=== PATIENT | male | born 1965 | race Caucasian/White ===

== ENCOUNTER 2019-04-10 19:57 | Emergency (ER) | payer OTHER, SELFPAY ==
--- NOTE | 2019-04-10 20:07 | PC.NURSE ---
PT VERBALLY UPSET THAT HE HAD TO WAIT, STATES YOU KNOW WHAT, FUCK YOU. AMBULATED OUT OF DOOR.
== END 2019-04-10 20:07 | disposition left against medical advice (07) ==
LOC: ANHED 20:09
DX: Z53.21 Procedure and treatment not carried out due to patient leaving prior to being seen by health care provider (principal)
CPT/HCPCS: 99199

== ENCOUNTER 2019-04-11 11:35 | Emergency (ER) | payer OTHER, SELFPAY ==
[2019-04-11 11:40] VITALS: BP 163/86; PULSE 106; RESP 18; TEMP 36.4; O2SAT 100
[2019-04-11 12:00] VITALS: BP 145/89; PULSE 81; RESP 16; TEMP 36.2; O2SAT 100; O2SAT 99
[2019-04-11 12:06] VITALS: PULSE 88; RESP 18
[2019-04-11] MEDS: ALBUTEROL SULFATE NEB 2.5 MG/0.5 ML INH 5 MG INHALATION (12:06)
[2019-04-11] MEDS: IPRATROPIUM BR 0.02% INH SOLN 0.5 MG/2.5 ML VIAL INHALATION (12:06)
--- NOTE | 2019-04-11 12:39 | ED.SOB ---
HPI - SOB/Dyspnea General Chief Complaint: Shortness of Breath/Dyspnea <Jose Maria Lowe PA-C - Last Filed: 04/11/19 12:54> Stated Complaint: asthma <CARSON Thurston Last Filed: 04/11/19 12:54> Time Seen by Provider: 04/11/19 11:38 <CARSON Thurston Last Filed: 04/11/19 12:54> Source: patient <CARSON Thurston Last Filed: 04/11/19 12:54> Mode of arrival: ambulatory <CARSON Thurston Last Filed: 04/11/19 12:54> Limitations: no limitations <CARSON Thurston Last Filed: 04/11/19 12:54> History of Present Illness HPI Narrative: Patient presents with chief complaint of occasional cough that has been asthma exacerbation today. Patient states that he is out of his rescue inhaler. Patient states he has not noted wheezing or actual shortness of breath. Patient denies fever, chills, nausea, vomiting, diarrhea, body aches or any other symptoms. Patient states he is in the ER for a breathing treatment and inhaler refill. He would also like medication for cough. <CARSON Thurston Last Filed: 04/11/19 12:54> Related Data Allergies/Adverse Reactions: Allergies Allergy/AdvReac Type Severity Reaction Status Date / Time No Known Allergies Allergy Verified 02/26/19 19:12 <Jose Maria Lowe PA-C - Last Filed: 04/11/19 12:54> Review of Systems Review of Systems: Narrative: CONSTITUTIONAL: Denies fever, chills, or sweats. EYES: Denies visual changes, redness, or discharge. ENT: Denies rhinorrhea, congestion, sore throat, or otalgia. CARDIOVASCULAR: Denies chest pain, palpitations, or edema. RESPIRATORY: Reports cough denies dyspnea. GASTROINTESTINAL: Denies abdominal pain, nausea, vomiting, or diarrhea. GENITOURINARY: Denies dysuria or hematuria. SKIN: Denies rash or itching. MUSCULOSKELETAL: Denies back pain, joint pain, or myalgia. NEUROLOGIC: Denies headache, numbness, dizziness, or weakness. PSYCHIATRIC: Denies anxiety or depression. <Jose Maria Lowe PA-C - Last Filed: 04/11/19 12:54> PMFSH Family History Family History: Family History (Updated 12/09/15 @ 15:08 by DOCTOR UNKNOWN) Other Family history of malignant neoplasm <Jose Maria Lowe PA-C - Last Filed: 04/11/19 12:54> Social History Social History: Social History Smoking status: Never smoker Alcohol intake: current Gender identity (if verbalized by the patient): Male <Jose Maria Lowe PA-C - Last Filed: 04/11/19 12:54> Exam Narrative: Exam Narrative: GENERAL: Well-appearing, well-nourished, and in no acute distress. Patient smiling and laughing and talking without signs of discomfort. HEAD: Normocephalic, atraumatic. EYES: PERRLA and EOMI. ENT: Nares clear, no rhinorrhea or epistaxis. Mucous membranes moist. Oropharynx without tonsillar hypertrophy exudate or other lesions. Bilateral TMs pearly reid nonbulging NECK: Supple. No adenopathy or masses. No carotid bruits or JVD CHEST: Clear to auscultation. No respiratory distress. No wheezes rales or rhonchi. No tachypnea. HEART: Regular rate and rhythm. No murmur heard. Normal peripheral pulses. EXTREMITIES: Normal range of motion. No edema. SKIN: Warm, dry, no rash. NEURO: No focal deficits. Alert and oriented x3. PSYCH: Normal mood and affect. <Jose Maria Lowe PA-C - Last Filed: 04/11/19 12:54> Course Vital Signs Vital signs: Vital Signs Temperature 36.4 C 04/11/19 11:40 Pulse Rate 106 H 04/11/19 11:40 Respiratory Rate 18 04/11/19 11:40 Blood Pressure 163/86 H 04/11/19 11:40 Pulse Oximetry 100 04/11/19 11:40 Temperature 36.6 C 04/11/19 13:01 Pulse Rate 85 04/11/19 13:01 Respiratory Rate 20 04/11/19 13:01 Blood Pressure 130/88 04/11/19 13:01 Pulse Oximetry 97 04/11/19 13:01 <Jose Maria Lowe PA-C - Last Filed: 04/11/19 12:54> Vital Signs Temperature 36.4 C 04/11/19 11:40 Pulse Rate 106 H 02
--- NOTE | 2019-04-11 12:56 | ECG_ITS ---
Measurements Intervals [place] Rate: 91 P: 23 [place]: 144 QRS: 31 QRSD: 102 T: 6 QT: 346 QTc: 426 Interpretive Statements SINUS RHYTHM BORDERLINE T WAVE ABNORMALITY- INFERIOR LEADS BORDERLINE ECG Electronically Signed On 04-11-2019 13:07:54 OCCUPATIONAL HEALTH AND SAFETY OFFICER by Андрей Keyes D.O.
[2019-04-11 13:01] VITALS: BP 130/88; PULSE 85; RESP 20; TEMP 36.6; O2SAT 97
== END 2019-04-11 13:04 | disposition home or self-care (01) ==
PROVIDERS: Emergency Provider Family Medicine
DX: J45.901 Unspecified asthma with (acute) exacerbation (principal); R94.31 Abnormal electrocardiogram [ECG] [EKG]
CPT/HCPCS: 93005; 94640; 99283

== ENCOUNTER 2019-04-18 02:44 | Emergency (ER) | payer OTHER, SELFPAY ==
--- NOTE | ~2019-04-18 | XR_ITS ---
EXAMINATION: XR chest 2V DATE: 04/18/2019 03:44 INDICATION: Cough and shortness of breath. TECHNIQUE: Frontal and lateral views of the chest were obtained. COMPARISON: Chest 2 views 04/04/2018, chest CT 07/21/2017 FINDINGS: There are lucencies in the lungs, consistent with emphysema. There is mild atelectasis in r ight mid and lower lung zones and left lower lung zone. A calcified right lung nodule is consistent w ith old granulomatous disease. No pleural effusion or pneumothorax. The heart size is normal. IMPRESSION: 1. Mild atelectasis in right mid and lower lung zones and left lower lung zone. 2. Emphysema. Reviewed, dictated and finalized at location A. PHONE CLEANER
[2019-04-18 02:49] VITALS: BP 173/98; PULSE 109; RESP 20; TEMP 36.1; O2SAT 100
[2019-04-18 03:03] VITALS: O2SAT 100
--- NOTE | 2019-04-18 03:06 | ECG_ITS ---
Measurements Intervals [place] Rate: 94 P: 43 [place]: 136 QRS: 57 QRSD: 107 T: 5 QT: 346 QTc: 433 Interpretive Statements SINUS RHYTHM NONSPECIFIC T-WAVE ABNORMALITY- INFERIOR LEADS BORDERLINE ECG Electronically Signed On 04-18-2019 7:05:39 DIET AIDE by Андрей Keyes D.O.
--- NOTE | 2019-04-18 03:07 | ED.URI ---
HPI - URI/Sore Throat General Chief Complaint: Upper Respiratory Infection Stated Complaint: cough/ possible lung infection/ SOB Time Seen by Provider: 04/18/19 02:59 Source: patient Mode of arrival: ambulatory Limitations: other (poor historian) History of Present Illness HPI Narrative: 53 yo male who presents for evaluation of a severe cough and chest pain. Patient states he was seen 1 week ago for a cough, and today he has returned because he has a severe cough. He states he sleeps in a room with wet carpet so he is concerned about a lung infection. He also states he is having sob and chest pain . He states his chest pain is located midsternally and he feels pain when he coughs. He is unsure if he has a fever. He states he wants a z roland and something for the cough. MD elicited complaint: cough Related Data Allergies Allergy/AdvReac Type Severity Reaction Status Date / Time amoxicillin AdvReac Nausea and Verified 04/18/19 02:56 Vomiting Review of Systems Constitutional: Constitutional: Denies chills, Denies fever(s) and Denies weakness ENT: Denies dysphagia, Denies epistaxis and Denies sore throat Cardiovascular: Cardiovascular: Reports chest pain and Denies rapid heart rate Respiratory: Respiratory: Denies chest congestion, Reports dyspnea and Denies wheezing PMFSH Past Medical History Medical History Anxiety Asthma Back injury Bronchitis Depression Epistaxis HLD (hyperlipidemia) HTN (hypertension) Kidney stone Pneumonia Pulmonary emboli Schizophrenia Suicide attempt Surgical History Surgical History Hx of appendectomy 1978 Hx of tonsillectomy Family History Family History (Updated 12/09/15 @ 15:08 by DOCTOR UNKNOWN) Other Family history of malignant neoplasm Social History Social History Smoking status: Never smoker Alcohol intake: current Gender identity (if verbalized by the patient): Male Exam Narrative: Exam Narrative: GENERAL: Well-appearing, well-nourished, and in no acute distress. HEAD: Normocephalic, atraumatic EYES: PERRLA and EOMI, conjunctiva clear without discharge EARS: TM's clear bilaterally without erythema or dullness NOSE: Nares clear, no rhinorrhea or epistaxis THROAT:Mucous membranes moist, Oropharynx normal without erythema, exudate, peritonsillar swelling or fluctuance NECK: Supple, without lymphadenopathy or mass RESPIRATORY: No respiratory distress, Airway patent, Respirations non-labored, Clear to auscultation without rales, rhonchi or wheeze HEART: Regular rate and rhythm. No murmur heard. Normal peripheral pulses. ABDOMEN: Soft, nontender, nondistended, normal active bowel sounds. No masses. No rebound or guarding, No organomegaly. EXTREMITIES: No edema, normal strength with full range of motion. SKIN: Warm, dry, normal color without rash NEURO: Alert and oriented x3. CN 2-12 grossly intact. No focal deficits. PSYCH: Normal mood and affect. Course Vital Signs Vital signs: Vital Signs Temperature 97.0 F L 04/18/19 02:49 Pulse Rate 109 H 04/18/19 02:49 Respiratory Rate 20 04/18/19 02:49 Blood Pressure 173/98 H 04/18/19 02:49 Pulse Oximetry 100 04/18/19 02:49 Temperature 97.0 F L 04/18/19 02:49 Pulse Rate 109 H 04/18/19 02:49 Respiratory Rate 20 04/18/19 02:49 Blood Pressure 173/98 H 04/18/19 02:49 Pulse Oximetry 100 04/18/19 03:03 MDM - URI/Sore Throat Lab Data Attestation: I reviewed the patient's lab results. Result diagrams: 04/18/19 03:13 04/18/19 03:13 Labs: Lab Results 04/18/19 04/18/19 04/18/19 Range/Units 03:13 03:13 03:13 WBC 6.1 (4.5-10.0) K/mm3 RBC 4.02 L (4.6-6.20) M/mm3 Hgb 12.8 L (14.0-18.0) g/dL Hct 37.6 L (42.0-52.0) % MCV 93.5 (80-100) fl MCH 31.8
[2019-04-18 03:18] LABS: Basophils Absolute Auto 0.1 K/mm3 (0.0-0.1); Basophils Percent Auto 1.5 % (0.2-1.2); Eosinophils Absolute Auto 0.2 K/mm3 (0-0.3); Eosinophils Percent Auto 2.6 % (0-4.4); Hematocrit 37.6 % (42.0-52.0); Hemoglobin 12.8 g/dL (14.0-18.0); Immature Granulocyte Absolute 0.11 K/mm3 (0.00-0.031); Immature Granulocyte Percent A 1.8 % (0-0.5); Lymphocytes Absolute Auto 0.79 K/mm3 (0.9-3.2); Lymphocytes Percent Auto 12.9 % (18.3-44.2); Mean Corpuscular Hemoglobin 31.8 pg (26-34); Mean Corpuscular Volume 93.5 fl (80-100); Mean Platelet Volume 9.1 fl (7.4-10.4); Monocytes Absolute Auto 0.8 K/mm3 (0.1-0.6); Neutrophils Absolute Auto 4.2 K/mm3 (1.3-6.7); Neutrophils Percent Auto 68.2 % (45.5-73.1); Platelet Count Result 274 k/mm3 (150-375); Red Blood Count 4.02 M/mm3 (4.6-6.20); Red Cell Distribution Width 12.7 % (11.5-14.5); White Blood Count 6.1 K/mm3 (4.5-10.0)
[2019-04-18 03:31] LABS: Alanine Aminotransferase 23 U/L (4-50); Albumin Level 3.9 g/dL (3.5-5.1); Alkaline Phosphatase 85 U/L (38-126); Aspartate Amino Transferase 30 U/L (17-59); Bilirubin,Total 0.6 mg/dL (0.2-1.3); Blood Urea Nitrogen 10 mg/dL (9-20); Calcium 8.9 mg/dL (8.4-10.2); Carbon Dioxide 25 mmol/L (22-30); Chloride 107 mmol/L (98-107); Estimated CRCL calculation 117 ml/min; Estimated Glomerular Filt Rate > 60; Glucose 98 mg/dL (75-110); Potassium 3.5 mmol/L (3.4-5.0); Sodium 139 mmol/L (137-145)
[2019-04-18 04:15] VITALS: BP 169/98; PULSE 94; RESP 20; TEMP 36.6; O2SAT 100
== END 2019-04-18 04:18 | disposition home or self-care (01) ==
PROVIDERS: Emergency Provider General Practice
DX: J45.909 Unspecified asthma, uncomplicated (principal); E78.5 Hyperlipidemia, unspecified; I10 Essential (primary) hypertension; Z87.442 Personal history of urinary calculi; Z86.711 Personal history of pulmonary embolism; R94.31 Abnormal electrocardiogram [ECG] [EKG]
CPT/HCPCS: 36415; 71046; 80053; 85025; 85380; 87804; 93005; 99283

== ENCOUNTER 2019-04-19 12:22 | Emergency (ER) | payer OTHER, SELFPAY ==
--- NOTE | ~2019-04-19 | XR_ITS ---
XR chest 2V 04/19/2019 13:38 Indication: Shortness of breath and cough Procedure: 2 view chest Comparison: Comparison to multiple prior studies sequentially, with oldest reviewed study dated 08/07. Findings: Heart size normal. No focal air space disease, pulmonary edema, pleural effusion or suspect ed pneumothorax. No acute osseous abnormality. Impression: 1: No acute cardiopulmonary disease. Reviewed, dictated and finalized at location A. ITY SYSTEMS ENGINEER Impression: 1: No acute cardiopulmonary disease.
[2019-04-19 12:32] VITALS: BP 145/115; PULSE 124; RESP 18; TEMP 36.9; O2SAT 98
--- NOTE | 2019-04-19 13:03 | ED.HA ---
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 Pt states that he has had a constant FARMER for the past 3 days. He describes the FARMER as sharp, throbbing, and a pressure and rates the pain an 8/10 in severity in the ED. He notes that he took Ibuprofen for the FARMER with no relief. Pt reports SOB, cough, subjective fever, ABD pain, and rib pain, but denies N/V. He adds that the ABD pain and rib pain started after he began coughing. Pt was seen 2 days ago for the cough and was given Tessalon Perles with no relief. He used an inhaler for the SOB with no relief. Pt has a PMHx of schizophrenia and herniated disc. He is a nonsmoker and denies any recent drug or alcohol use. MD elicited complaint: headache Onset (ago): day(s) (3) Location: frontal and parietal Pain scale (0-10): 8 Quality & Timing: throbbing, sharp and pressure Relieving factors: nothing Associated symptoms: fever (Subjective), cough, shortness of breath and other (ABD pain, rib pain) Treatments prior to arrival: ibuprofen Related Data Allergies Allergy/AdvReac Type Severity Reaction Status Date / Time amoxicillin AdvReac Nausea and Verified 04/19/19 12:47 Vomiting Review of Systems Review of Systems: All systems reviewed & are unremarkable except as noted in HPI and below Constitutional: Constitutional: Reports fever(s) (Subjective) Respiratory: Respiratory: Reports cough and Reports dyspnea Gastrointestinal: Gastrointestinal: Reports abdominal pain, Denies nausea and Denies vomiting Musculoskeletal: Musculoskeletal: Reports arthralgias (Rib) Neurologic: Reports headache(s) [facility] Past Medical History Medical History (Updated 04/19/19 @ 15:02 by Enriqueta Martin MD) Anxiety Asthma Back injury Bronchitis Depression Epistaxis Herniated disc History of angina HLD (hyperlipidemia) HTN (hypertension) Kidney stone Pneumonia Pulmonary emboli Schizophrenia Suicide attempt Surgical History Surgical History Hx of appendectomy 1977 Hx of tonsillectomy Family History Family History Other Family history of malignant neoplasm Social History Social History Smoking status: Never smoker Alcohol intake: current Gender identity (if verbalized by the patient): Male Exam Const: General: no acute distress and well developed Orientation/consciousness: oriented to person, oriented to place, oriented to time and patient oriented x3 HENMT: Head: normocephalic Ears: external ears normal General nose exam: Normal external nose present Eyes: General: appearance normal, both eyes and all related structures Conjunctivae: conjunctivae normal Neck: Neck: normal visual inspection and full ROM Chest: Chest palpation & inspection: normal inspection of the chest and no tenderness Resp: Effort & Inspection: normal respiratory effort Auscultation: clear to auscultation bilaterally Cardio: Rate: regular rate Rhythm: regular rhythm GI: GI Palp: No abdominal tenderness and Yes Soft to palpation Skin: General skin exam: normal color and turgor normal Neuro: General: oriented to person, oriented to place, oriented to time and patient oriented x3 Cranial nerves: Yes CN's II-XII intact bilaterally Cognition (Neuro): normal cognition Speech: normal speech Motor exam (neuro): 5/5 motor strength present throughout Sensory Exam: normal sensation Coordination: [id number] test normal and [id number] test normal Extrem: General: normal to inspection, full ROM and no pedal edema Psych: Appearance: grossly normal Mental Status: mental status grossly normal Affect:
[2019-04-19 13:30] LABS: Basophils Absolute Auto 0.1 K/mm3 (0.0-0.1); Basophils Percent Auto 1.6 % (0.2-1.2); Eosinophils Absolute Auto 0.1 K/mm3 (0-0.3); Eosinophils Percent Auto 2.1 % (0-4.4); Hematocrit 40.9 % (42.0-52.0); Hemoglobin 13.7 g/dL (14.0-18.0); Immature Granulocyte Absolute 0.05 K/mm3 (0.00-0.031); Immature Granulocyte Percent A 1.2 % (0-0.5); Lymphocytes Absolute Auto 0.97 K/mm3 (0.9-3.2); Lymphocytes Percent Auto 22.8 % (18.3-44.2); Mean Corpuscular HGB Conc 33.5 g/dl (32-36); Mean Corpuscular Hemoglobin 31.9 pg (26-34); Mean Corpuscular Volume 95.3 fl (80-100); Mean Platelet Volume 9.2 fl (7.4-10.4); Monocytes Absolute Auto 0.8 K/mm3 (0.1-0.6); Monocytes Percent Auto 19.2 % (2.6-8.5); Neutrophils Absolute Auto 2.3 K/mm3 (1.3-6.7); Neutrophils Percent Auto 53.1 % (45.5-73.1); Platelet Count Result 257 k/mm3 (150-375); Red Blood Count 4.29 M/mm3 (4.6-6.20); Red Cell Distribution Width 12.9 % (11.5-14.5); White Blood Count 4.3 K/mm3 (4.5-10.0)
[2019-04-19 13:42] LABS: Blood Urea Nitrogen 10 mg/dL (9-20); Calcium 8.9 mg/dL (8.4-10.2); Carbon Dioxide 28 mmol/L (22-30); Chloride 103 mmol/L (98-107); Estimated CRCL calculation 103 ml/min; Estimated Glomerular Filt Rate > 60; Glucose 92 mg/dL (75-110); Potassium 3.9 mmol/L (3.4-5.0); Sodium 137 mmol/L (137-145)
[2019-04-19] MEDS: SODIUM CHLORIDE 0.9% IV 1,000 ML 999 ML IV CONT (14:19)
[2019-04-19] MEDS: KETOROLAC 30 MG/ML VIAL (*BKC) IV PUSH (14:19)
[2019-04-19] MEDS: METOCLOPRAMIDE HCL INJ 10 MG/2 ML VIAL IV PUSH (14:19)
[2019-04-19 15:44] VITALS: BP 136/80; PULSE 82; RESP 16; O2SAT 100
== END 2019-04-19 15:46 | disposition home or self-care (01) ==
PROVIDERS: Emergency Provider Emergency Medicine
DX: R51 Headache (principal); J06.9 Acute upper respiratory infection, unspecified; J45.909 Unspecified asthma, uncomplicated; E78.5 Hyperlipidemia, unspecified; I10 Essential (primary) hypertension; Z87.442 Personal history of urinary calculi; Z86.711 Personal history of pulmonary embolism
CPT/HCPCS: 36415; 71046; 80048; 85025; 87804; 96361; 96374; 96375; 99284; J1200; J1885; J2765; J7030

== ENCOUNTER 2019-05-12 10:54 | Emergency (ER) | payer OTHER, SELFPAY ==
--- NOTE | ~2019-05-12 | XR_ITS ---
XR chest 1V portable DATE: 05/12/2019 12:01 INDICATION: Cough TECHNIQUE: Portable AP chest on 05/12/2019 at 1150 hours COMPARISON: 04/19/2019 PA and lateral chest FINDINGS: There are bilateral lower lung patchy infiltrates, predominantly involving lower lobes. Normal heart size. No pleural effusion or pulmonary vascular congestion or pneumothorax. IMPRESSION: Bilateral patchy lower lung infiltrates, involving lower lobes Reviewed, dictated and finalized at location B.
--- NOTE | 2019-05-12 11:50 | PC.NURSE ---
PT WALKED OUT AT THIS TIME, THREW HIS WRISTBAND DOWN AND STATED THAT HE WAS LEAVING. 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
--- NOTE | 2019-05-12 12:24 | ED.URI ---
HPI - URI/Sore Throat General Chief Complaint: Upper Respiratory Infection Stated Complaint: PERSISTENT COUGH Time Seen by Provider: 05/12/19 11:29 Related Data Allergies Allergy/AdvReac Type Severity Reaction Status Date / Time amoxicillin AdvReac Nausea and Verified 04/19/19 12:47 Vomiting [facility] Past Medical History Medical History (Updated 04/20/19 @ 00:00 by Pushpa Woodard) Anxiety Asthma Back injury Bronchitis Depression Epistaxis Herniated disc History of angina HLD (hyperlipidemia) HTN (hypertension) Kidney stone Pneumonia Pulmonary emboli Schizophrenia Suicide attempt Surgical History Surgical History Hx of appendectomy 1977 Hx of tonsillectomy Social History Social History Smoking status: Never smoker Alcohol intake: current Gender identity (if verbalized by the patient): Male Exam Narrative: Exam Narrative: GENERAL: Well-appearing, well-nourished, and in no acute distress. CHEST: No respiratory distress. EXTREMITIES: No acute deficits noted. NEURO: No focal deficits. Alert and oriented x3. PSYCH: Normal mood and affect. MDM - URI/Sore Throat MDM Narrative Medical decision making narrative: I walked into the room to talk to and further examine the patient. Patient then pulled his monitors off and walked out of the room despite asking him what was the problem and if there was anything I could do to help him. He did not answer any of my questions regarding his symptoms or allow more in depth physical exam. Discharge Plan Discharge Patient Disposition: Left Without Being Sn Triaged Prescriptions: No Action albuterol sulfate 90 mcg/actuation HFA aerosol inhaler 2 puff INHALATION Q4-5H PRN (Reason: shortness of breath or wheezing) Qty: 6.7 RF: 0 albuterol sulfate [ProAir HFA] 90 mcg/actuation HFA aerosol inhaler 2 puff INHALATION QID PRN (Reason: shortness of breath or wheezing) Qty: 6.7 RF: 0 benzonatate [Tessalon Perles] 100 mg capsule 100 mg PO TID PRN (Reason: cough) Qty: 14 RF: 0 prednisone 50 mg tablet 50 mg PO DAILY Qty: 5 RF: 0 codeine-guaifenesin 10-100 mg/5 mL liquid 10 ml PO Q6H PRN (Reason: cough) Qty: 237 RF: 0 Follow-up/Referrals: UNKNOWN,DOCTOR [Primary Care Provider] - Discharge Date/Time: 05/12/19 12:03
== END 2019-05-12 12:03 | disposition left against medical advice (07) ==
PROVIDERS: Emergency Provider Emergency Medicine
DX: R05 Cough (principal)
CPT/HCPCS: 71045; 99199

== ENCOUNTER 2019-05-12 12:33 | Emergency (ER) | payer OTHER, SELFPAY ==
--- NOTE | 2019-05-12 12:45 | PC.NURSE ---
Pt noted to walk outside of the facility followed by security. Per security pt was seen walking to the front of the facility.
== END 2019-05-12 12:45 | disposition left against medical advice (07) ==
LOC: ANHED 12:47
DX: Z53.21 Procedure and treatment not carried out due to patient leaving prior to being seen by health care provider (principal)
CPT/HCPCS: 99199

== ENCOUNTER 2019-06-10 10:54 | Emergency (ER) | payer OTHER, SELFPAY ==
[2019-06-10 11:22] VITALS: BP 136/88; PULSE 99; RESP 20; TEMP 36.7; O2SAT 97
--- NOTE | 2019-06-10 11:26 | ED.URI ---
HPI - URI/Sore Throat General Chief Complaint: Upper Respiratory Infection Stated Complaint: sob/asthma Time Seen by Provider: 06/10/19 11:27 Source: patient and RN notes reviewed Mode of arrival: ambulatory Limitations: no limitations History of Present Illness HPI Narrative: 53-year-old male presents with concern for running out of his albuterol inhaler. Reports a history of asthma, reports he does not take a daily controller medicine. Reports he has been using his albuterol inhaler 2-3 times daily for the past 1 to 2 weeks. Reports he should take an allergy medicine, however cannot afford an allergy medicine. He denies current cough, fever, shortness of breath, rhinorrhea, nasal congestion, headache, malaise. Reports he last used his albuterol inhaler approximately 2 to 3 hours ago. MD elicited complaint: other (Shortness of breath) Related Data Home Medications Medication Instructions Recorded Confirmed albuterol sulfate INHALATION 06/10/19 06/10/19 Allergies Allergy/AdvReac Type Severity Reaction Status Date / Time amoxicillin AdvReac Nausea and Verified 04/19/19 12:47 Vomiting Review of Systems Review of Systems: Narrative: CONSTITUTIONAL: Denies malaise, chills, sweats, or fever. EYES: Denies visual changes, redness, or discharge. ENT: Denies rhinorrhea, congestion, sinus pain, otalgia or sore throat. CARDIOVASCULAR: Denies chest pain, palpitations, or edema. RESPIRATORY: Denies cough or dyspnea. GASTROINTESTINAL: Denies abdominal pain, nausea, vomiting, diarrhea SKIN: Denies rash or itching. MUSCULOSKELETAL: Denies back pain, joint pain, or myalgia. NEUROLOGIC: Denies numbness, weakness, or headache. PSYCHIATRIC: Denies anxiety or depression. All systems reviewed & are unremarkable except as noted in HPI and below PMFSH Past Medical History Medical History (Updated 06/10/19 @ 11:40 by Lizette العراقي NP) Anxiety Asthma Back injury Bronchitis Depression Epistaxis Herniated disc History of angina HLD (hyperlipidemia) HTN (hypertension) Kidney stone Pneumonia Pulmonary emboli Schizophrenia Suicide attempt Surgical History Surgical History Hx of appendectomy 1978 Hx of tonsillectomy Social History Social History Smoking status: Never smoker Alcohol intake: current Gender identity (if verbalized by the patient): Male Comments At time of signature, agree with nursing past medical, surgical, social and family history. There is no relevant family history pertinent to the presenting complaint Exam Narrative: Exam Narrative: GENERAL: Well-appearing, well-nourished, and in no acute distress. HEAD: Normocephalic, atraumatic. EYES: PERRLA, conjunctivae clear, and EOMI. No nystagmus. ENT: Nares clear, turbinates erythematous with clear rhinorrhea. Mucous membranes moist. TM pearly reid with sharp light reflex bilaterally; no tragal tenderness. Oropharynx without erythema or lesions. Tonsils not enlarged and without exudate. NECK: Supple. CHEST: No respiratory distress. Clear to auscultation. No bony deformities, no asymmetry. Speaks in full sentences. HEART: Regular rate and rhythm. No murmur heard. SKIN: Warm, dry, no rash. NEURO: Alert and oriented x3. PSYCH: Normal mood and affect Course Course Emergency Course: Patient is aware of diagnosis, understands and agrees to treatment plan. Anticipatory guidance given. Patient agrees to follow-up as directed and is aware of reasons to seek care at the emergency department. Portions of this record may have been created with voice recognition software Vital Signs Vital signs: Vital Signs Temperature 98.1 F 06/10/19 11:22 Pulse Rate 99 06/10/19 11:22 Respiratory Rate 20 06/10/19 11:22 Blood Pressure 136/88 06/10/19 11:22 Pulse Oximetry 97 06/10/19 11:22 Temperature 98.1 F 06/10/19 11:22 Pulse Rate 99 06/10/19
== END 2019-06-10 11:42 | disposition home or self-care (01) ==
PROVIDERS: Emergency Provider Nurse Practitioner
DX: J45.909 Unspecified asthma, uncomplicated (principal); E78.5 Hyperlipidemia, unspecified; I10 Essential (primary) hypertension; Z87.442 Personal history of urinary calculi; Z86.711 Personal history of pulmonary embolism
CPT/HCPCS: 99213; G0463

== ENCOUNTER 2019-06-30 14:34 | Emergency (ER) | payer OTHER, SELFPAY ==
[2019-06-30 14:44] VITALS: BP 139/93; PULSE 101; RESP 18; TEMP 36.7; O2SAT 97
--- NOTE | 2019-06-30 15:07 | ED.URI ---
HPI - URI/Sore Throat General Chief Complaint: Upper Respiratory Infection Stated Complaint: sob Time Seen by Provider: 06/30/19 15:08 Source: patient and RN notes reviewed Mode of arrival: ambulatory Limitations: no limitations History of Present Illness HPI Narrative: 53-year-old male history of asthma presents with concern for cough, shortness of breath. A separate complaint he reports lower back stiffness. Reports history of asthma, problems controlling his asthma. Reports he has been excessively using his albuterol inhaler. Reports he does not currently have a primary care doctor. In a separate complaint he reports right low back muscle spasms related to slipping and catching himself. Denies any other [id number] medications for his symptoms. MD elicited complaint: cough Related Data Home Medications Medication Instructions Recorded Confirmed albuterol sulfate INHALATION 06/10/19 06/10/19 Allergies Allergy/AdvReac Type Severity Reaction Status Date / Time amoxicillin AdvReac Nausea and Verified 04/19/19 12:47 Vomiting Review of Systems Review of Systems: Narrative: CONSTITUTIONAL: Denies malaise, chills, sweats, or fever. EYES: Denies visual changes, redness, or discharge. ENT: Denies rhinorrhea, congestion, sinus pain, otalgia or sore throat. CARDIOVASCULAR: Denies chest pain, palpitations, or edema. RESPIRATORY: Reports cough, dyspnea. SKIN: Denies rash or itching. MUSCULOSKELETAL: Reports right low back NEUROLOGIC: Denies numbness, weakness, or headache. All systems reviewed & are unremarkable except as noted in HPI and below PMFSH Past Medical History Medical History (Updated 06/30/19 @ 15:16 by Lizette العراقي NP) Anxiety Asthma Back injury Bronchitis Depression Epistaxis Herniated disc History of angina HLD (hyperlipidemia) HTN (hypertension) Kidney stone Pneumonia Pulmonary emboli Schizophrenia Suicide attempt Surgical History Surgical History Hx of appendectomy 1977 Hx of tonsillectomy Social History Social History Smoking status: Never smoker Alcohol intake: current Gender identity (if verbalized by the patient): Male Comments At time of signature, agree with nursing past medical, surgical, social and family history. There is no relevant family history pertinent to the presenting complaint Exam Narrative: Exam Narrative: GENERAL: Well-appearing, well-nourished, and in no acute distress. HEAD: Normocephalic, atraumatic. EYES: PERRLA and EOMI. NECK: Supple. No lymphadenopathy. CHEST: Clear to auscultation, breath sounds equal. No wheezing, rhonchi, rales, or stridor. No respiratory distress, speaks in full sentences. HEART: Regular rate and rhythm. Distal pulses palpable and equal, cap refill <3 seconds ABDOMEN: Soft, nontender, nondistended, normal active bowel sounds, no palpable or pulsatile masses. No CVA tenderness MUSCULOSKELETAL: Normal range of motion and strength in all extremities; 5/5 strength with hip flexion and extension, dorsiflexion and extension, knee flexion and extension, plantar flexion and extension. Normal sensation in dermatomal distributions with sensitivity to light touch and pain. No midline back tenderness to palpation. No paraspinal tenderness. Transfers from lying to sitting to standing. SKIN: Warm, dry, no rash. No ecchymosis, erythema, open wounds to back. NEURO: No focal deficits. Alert and oriented x3. Reflexes intact. Normal gait. PSYCH: Normal mood and flat affect Course Course Emergency Course: Patient advised on the importance of timely primary care doctor and being evaluated for a new asthma plan. Patient is aware of diagnosis, understands and agrees to treatment plan. Anticipatory guidance given. Patient agrees to follow-up as directed and is aware of reasons to seek care at the emergency department. Portions of this record may
== END 2019-06-30 15:23 | disposition home or self-care (01) ==
PROVIDERS: Emergency Provider Nurse Practitioner
DX: R05 Cough (principal); M54.5 Low back pain; I10 Essential (primary) hypertension; E78.5 Hyperlipidemia, unspecified
CPT/HCPCS: 99213; G0463

== ENCOUNTER 2019-07-14 11:24 | Emergency (ER) | payer OTHER, SELFPAY ==
[2019-07-14 11:41] VITALS: BP 120/80; PULSE 94; RESP 16; TEMP 36.4; O2SAT 99
--- NOTE | 2019-07-14 11:41 | ED.URI ---
HPI - URI/Sore Throat General Chief Complaint: Upper Respiratory Infection Stated Complaint: cough/sinus pressure Time Seen by Provider: 07/14/19 11:42 Source: patient and RN notes reviewed History of Present Illness HPI Narrative: Patient is a 53-year-old male who presents the urgent care with complaints of multiple months of head pressure, cough, sinus pressure, cold-like symptoms. Patient was tested for coven and states that the swab was negative. Patient has had chest x-rays recently in April, with the most recent on May 11 showing bilateral lower lung infiltrates. Patient has been treated just recently with a Z-Dean on July 04, and given prednisone, albuterol, Cheratussin, Flonase on the . Patient is here requesting a refill of his Cheratussin and Flonase. Patient denies follow-up with any primary care doctors, or an attempt to contact a primary care doctor. Patient denies any fever, chills, nausea, vomiting. Patient states that his shortness of breath has greatly improved with the albuterol inhaler. Patient does not have any audible wheezing or shortness of breath complaints at this time. No other acute complaints. No acute distress noted. Patient read the plan of care. Related Data Home Medications Medication Instructions Recorded Confirmed albuterol sulfate 2 puff INHALATION Q4-6H PRN 06/10/19 07/14/19 Allergies Allergy/AdvReac Type Severity Reaction Status Date / Time amoxicillin AdvReac Nausea and Verified 07/14/19 11:34 Vomiting Review of Systems Review of Systems: Narrative: CONSTITUTIONAL: Denies fever, chills, or sweats. EYES: Denies visual changes, redness, or discharge. ENT: Reports of sinus pressure, congestion, rhinorrhea CARDIOVASCULAR: Denies chest pain, palpitations, or edema. RESPIRATORY: Reports of cough at night, nonproductive GASTROINTESTINAL: Denies abdominal pain, nausea, vomiting, or diarrhea. GENITOURINARY: Denies dysuria or hematuria. SKIN: Denies rash or itching. MUSCULOSKELETAL: Denies back pain, joint pain, or myalgia. NEUROLOGIC: Denies headache, numbness, or weakness. All other systems reviewed are negative, except as documented in HPI. [facility] Past Medical History Medical History (Updated 07/14/19 @ 11:55 by PANCHITO Dupont) Anxiety Asthma Back injury Bronchitis Depression Epistaxis Herniated disc History of angina HLD (hyperlipidemia) HTN (hypertension) Kidney stone Pneumonia Pulmonary emboli Schizophrenia Suicide attempt Surgical History Surgical History Hx of appendectomy 1978 Hx of tonsillectomy Social History Social History Smoking status: Never smoker Alcohol intake: current Gender identity (if verbalized by the patient): Male Comments At the time of my signature, I reviewed and agree with the nursing past medical, surgical, social, and family history. There is no relevant family history pertinent to the patient complaint. Exam Narrative: Exam Narrative: GENERAL: This is a well-nourished, well-developed patient, in no apparent distress. HEAD: normocephalic, atraumatic. EYES: PERRL. Sclera clear/white. Vision is grossly intact. EARS: External ears normal, auditory canals clear and without drainage, cerumen noted bilaterally, TMs normal without perforation. Hearing grossly intact. NOSE: External nose normal with no obvious nasal discharge, nares without redness, no rhinorrhea. THROAT: Mucous membranes moist, posterior pharynx clear. Mild postnasal drainage NECK: Neck supple CARDIOVASCULAR: Regular rate and rhythm without murmurs, gallops, or rubs. RESPIRATORY: Breath sounds equal bilaterally. Mild expiratory crackles throughout SKIN: warm, intact with no suspicious lesions or rash, good texture and turgor. NEURO: awake, alert, and oriented to person, place and time. There were no obvious focal neurologic abnormalities. EXTREMITIES: No clubb
== END 2019-07-14 12:02 | disposition home or self-care (01) ==
PROVIDERS: Emergency Provider Nurse Practitioner Family
DX: R05 Cough (principal); I10 Essential (primary) hypertension; Z86.711 Personal history of pulmonary embolism
CPT/HCPCS: 99211; G0463

== ENCOUNTER 2019-08-15 08:33 | Emergency (ER) | payer OTHER, SELFPAY ==
[2019-08-15 08:47] VITALS: BP 133/76; PULSE 98; RESP 20; TEMP 37.1; O2SAT 96
--- NOTE | 2019-08-15 08:54 | ED.GENADULT ---
HPI - General Adult General Chief complaint: Asthma Stated complaint: chest pain/Sob Time Seen by Provider: 08/15/19 08:54 Source: patient and RN notes reviewed Mode of arrival: ambulatory Limitations: no limitations History of Present Illness HPI narrative: 54-year-old male presents with complaints of right ear pain, itching, and drainage from for the past 7 days. Junaid says he cleaned ears 1 week ago and has increasing pain and drainage from RT ear. Denies trouble hearing. Denies URI symptoms, No high fevers or chills. Denies injury to the ear. No nasal drainage and congestion. Denies nausea, vomiting, tinnitus, and dizziness. Junaid says he had a NEGATIVE COVID-19 test about 1 month ago. The patient reports he have not been diagnosed with COVID-19. The patient reports he is not waiting for the results of a COVID-19 lab test. The patient reports he do not have fever, chills, weakness, fatigue, myalgia, or facial swelling. The patient reports he do not have a new or worsening cough or shortness of breath. Denies chest pain. The patient reports he do not have any rhinorrhea, congestion, sore throat, nausea, vomiting, abdominal pain, and diarrhea. Tolerating po intake well. Denies recent traveling. Denies concerns for COVID-19 or exposures been home since [id number] order except for essential household needs, working, and return home. At this time, patient is not suspected of having COVID-19. Complains of needing Albuterol refilled for intermittent dry cough. Denies chest pain or shortness of breath. History of Asthma. Denies URI symptoms. Some parts of this dictation were generated by voice recognition software and may contain typographical and/or grammatical inaccuracies. Related Data Home Medications Medication Instructions Recorded Confirmed albuterol sulfate 2 inh INHALATION Q4-6H 08/15/19 08/15/19 Allergies Allergy/AdvReac Type Severity Reaction Status Date / Time amoxicillin AdvReac Nausea and Verified 08/15/19 08:52 Vomiting Review of Systems Review of Systems: Narrative: CONSTITUTIONAL: Denies fever, chills, sweats. Needs albuterol inhaler refilled. EYES: Denies visual changes, redness, discharge. ENT: Denies rhinorrhea, congestion, sore throat. Complains of RT ear otalgia, drainage, and itching. CARDIOVASCULAR: Denies chest pain, palpitations, edema. RESPIRATORY: Denies dyspnea, wheezing, cough. GASTROINTESTINAL: Denies abdominal pain, nausea, vomiting, diarrhea. GENITOURINARY: Denies dysuria, hematuria, abnormal discharge. SKIN: Denies rash or itching. MUSCULOSKELETAL: Denies acute back pain, joint pain, or myalgia. NEUROLOGIC: Denies numbness or focal weakness. PSYCHIATRIC: Denies anxiety or depression. All systems reviewed & are unremarkable except as noted in HPI and below. [facility] Past Medical History Medical History Anxiety Asthma Back injury Bronchitis Depression Epistaxis Herniated disc History of angina HLD (hyperlipidemia) HTN (hypertension) Kidney stone Pneumonia Pulmonary emboli Schizophrenia Suicide attempt Surgical History Surgical History Hx of appendectomy 1978 Hx of tonsillectomy Family History Family History (Updated 08/15/19 @ 09:01 by PANCHITO Rosario) Father , Unknown No problems noted. Mother , Unknown No problems noted. 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
--- NOTE | 2019-08-15 09:14 | PC.NURSE ---
0911- Mateus called chnaged ear drop Cortisporin TC to plain Cortisporin for insurance to cover medication.
== END 2019-08-15 09:10 | disposition home or self-care (01) ==
PROVIDERS: Emergency Provider Nurse Practitioner Family
DX: H60.391 Other infective otitis externa, right ear (principal); R05 Cough; I10 Essential (primary) hypertension; E78.5 Hyperlipidemia, unspecified; Z86.711 Personal history of pulmonary embolism
CPT/HCPCS: 99213; G0463

== ENCOUNTER 2019-09-05 18:10 | Emergency (ER) | payer OTHER, SELFPAY ==
[2019-09-05 18:18] VITALS: BP 137/95; PULSE 102; RESP 20; TEMP 38; O2SAT 98
--- NOTE | 2019-09-05 18:18 | ED.ASTHMA ---
HPI - Asthma General Chief Complaint: Asthma Stated Complaint: asthma Time Seen by Provider: 09/05/19 18:20 Source: patient Mode of arrival: ambulatory Limitations: no limitations History of Present Illness HPI Narrative: Junaid Jensen is a 56 yo male with a PMH of asthma who comes to [facility] for refill of inhaler. However, in triage pt as a fever of 100.4, is tachycardic. O2 sats 98%. Patient states that he has struggled to get his asthma under control recently and has a cough that is nonproductive, was not aware that he had a fever. Patient has yet established PCP so covid test will be ordered from [facility]. Related Data Allergies Allergy/AdvReac Type Severity Reaction Status Date / Time amoxicillin AdvReac Nausea and Verified 08/15/19 08:52 Vomiting Review of Systems Review of Systems: Narrative: CONSTITUTIONAL:has fever, chills, sweats. EYES: Denies visual changes, redness, discharge. ENT: Denies rhinorrhea, congestion, sore throat, otalgia. CARDIOVASCULAR: Denies chest pain, palpitations, edema. RESPIRATORY: Has dyspnea, wheezing, dry cough GASTROINTESTINAL: Denies abdominal pain, nausea, vomiting, diarrhea. GENITOURINARY: Denies dysuria, hematuria, abnormal discharge SKIN: Denies rash or itching. NEUROLOGIC: Denies numbness, or focal weakness. PSYCHIATRIC: Denies anxiety or depression. [facility] TO [facility] Past Medical History Medical History Anxiety Asthma Back injury Bronchitis Depression Epistaxis Herniated disc History of angina HLD (hyperlipidemia) HTN (hypertension) Kidney stone Pneumonia Pulmonary emboli Schizophrenia Suicide attempt Surgical History Surgical History Hx of appendectomy 1978 Hx of tonsillectomy Family History Family History Father , Unknown No problems noted. Mother , Unknown No problems noted. 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 There is no relevant family history pertinent to the presenting complaint. Patient has a history of hypertension Exam Narrative: Exam Narrative: GENERAL: This is a well-nourished, well-developed patient, in mild distress. HEAD: normocephalic, atraumatic. EYES: Sclera clear/white. Vision is grossly intact. EARS: External ears normal, . Hearing grossly intact. NOSE: External nose normal without nasal discharge, nares without redness, no rhinorrhea. THROAT: Mucous membranes moist, NECK: Neck supple, non-tender CARDIOVASCULAR: Tachycardic rate and rhythm without murmurs, gallops, or rubs. RESPIRATORY: Coarse to auscultation. Breath sounds equal bilaterally. No wheezes, rales, or rhonchi. Respiratory rate 24 GASTROINTESTINAL: Abdomen soft, non-tender, SKIN: warm, intact with no suspicious lesions or rash, good texture and turgor. NEURO: awake, alert, and oriented to person, place and time. There were no obvious focal neurologic abnormalities. Steady gait EXTREMITIES: Normal range of motion. BACK: Nontender without deformity Course Course Emergency Course: Given Tylenol thousand milligrams and prednisone 60 mg here Renewed orders for albuterol inhaler, and cough medicine COVID test ordered Discussed hydration, establishing care with PCP, follow-up with the ER if respiratory symptoms worsen Vital Signs Vital signs: Vital Signs Temperature 100.4 F H 09/05/19 18:18 Pulse Rate 102 H 09/05/19 18:18 Res
[2019-09-05 18:42] VITALS: TEMP 37.1
[2019-09-05] MEDS: predniSONE 20 MG TABLET 60 MG PO (18:42)
--- NOTE | 2019-09-05 18:44 | PC.NURSE ---
unable to scan tylenol after multiple attempts. temp recheck is 98.8 oral.
[2019-09-05 19:02] VITALS: PULSE 98; RESP 18; TEMP 36.9
--- NOTE | 2019-09-05 19:10 | PC.NURSE ---
[facility] called and aware pt requested rx to [facility]. vice president pharmacy stated cough med. needs to be resent escribed but albuterol will be forwarded and dough catcher aware.
== END 2019-09-05 19:02 | disposition home or self-care (01) ==
PROVIDERS: Emergency Provider Nurse Practitioner
DX: J45.30 Mild persistent asthma, uncomplicated (principal); R50.9 Fever, unspecified; Z20.828 Contact with and (suspected) exposure to other viral communicable diseases
CPT/HCPCS: 99213; G0463; J7512

== ENCOUNTER 2019-10-15 09:27 | Emergency (ER) | payer OTHER, SELFPAY ==
[2019-10-15 09:43] VITALS: BP 137/92; PULSE 97; RESP 20; TEMP 36.8; O2SAT 96
--- NOTE | 2019-10-15 09:50 | ED.URI ---
HPI - URI/Sore Throat General Chief Complaint: Upper Respiratory Infection Stated Complaint: Chest pain/Sob History of Present Illness HPI Narrative: This is a 54 year old that come in complaining of shortness of breath and ear drainage. Patient is rocking back and forth stating that this has been going on for the past week. States it the cough started to bother him yesterday. Patient has a scattered thought process he does not make eye contact he rambled for a while talking about how he was the greatest fighter for the [employer] [facility] but did not receive any money he then began to speak about Lilian and how they would not serve him could not stop him from talking and then when he resumed about his symptoms he allowed me and nurse to speak. Patient denied any drug and or alcohol uses he states he is in the process of finding a PCP. Would not tell front office spec why he was her due to it was top secret . Related Data Allergies Allergy/AdvReac Type Severity Reaction Status Date / Time amoxicillin AdvReac Nausea and Verified 10/15/19 09:50 Vomiting Review of Systems Review of Systems: Narrative: CONSTITUTIONAL: Denies fever, chills, or sweats. EYES: Denies visual changes, redness, or discharge. ENT: Denies rhinorrhea, congestion, sore throat, or reports otalgia. CARDIOVASCULAR:Denies chest pain, palpitations, or edema. RESPIRATORY: reports cough or dyspnea. GASTROINTESTINAL: Denies abdominal pain, nausea, vomiting, or diarrhea. GENITOURINARY: Denies dysuria or hematuria. SKIN:[Denies rash or itching. MUSCULOSKELETAL:Denies back pain, joint pain, or myalgia. NEUROLOGIC: Denies headache, numbness, or weakness. 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 Please see nursing chart for further information. There is no relevant family history pertinent to the presenting complaint. Exam Narrative: Exam Narrative: GENERAL:Well-appearing, well-nourished, and in no acute distress. HEAD:Normocephalic, atraumatic. EYES: PERRLA and EOMI. ENT: Nares clear, no rhinorrhea or epistaxis. Mucous membranes moist. Left auditory canal greenish drainage NECK: Supple. CHEST: Clear to auscultation. No respiratory distress. Lungs are clear respirations are 20 HEART: Regular rate and rhythm. No murmur heard. Normal peripheral pulses. ABDOMEN: Soft, nontender, nondistended, normal active bowel sounds. EXTREMITIES: Normal range of motion. No edema. SKIN: Warm, dry, no rash. NEURO: No focal deficits. Alert and oriented x3. Scattered bizarre no eye contact Course Course Emergency Course: Patient denies any recreational drugs although exhibiting bizarre behavior Vital Signs Vital signs: Vital Signs Temperature 98.2 F 10/15/19 09:43 Pulse Rate 97 10/15/19 09:43 Respiratory Rate 10/15/19 09:43 Blood Pressure 137/92 H 10/15/19 09:43 Pulse Oximetry 96 10/15/19 09:43 Temperature 98.2 F 10/15/19 09:43 Pulse Rate 97 10/15/19 09:43 Respiratory Rate 10/15/19 09:43 Blood Pressure 137/92 H 10/15/19 09:43 Pulse Oximetry 96 10/15/19 09:43 Discharge Plan Discharge Clinical Impression: Upper respiratory infection Qualifiers: URI type: unspecified viral URI Qualified Code(s): J06.9 - Acute upper respiratory infection, unspecified Patient Disposition: Home, Self-Care Condition: Stable Instructions: Antibiotic Form, Asthma (ED), Ear Infection (ED) Prescriptions: New albuterol sulfate [Ventolin HFA] 90 mcg/actuation HFA aerosol inhaler 2 puff INHALATION QID PRN (
--- NOTE | 2019-10-15 09:54 | PC.NURSE ---
0941- Pt denies usage of illegal substances or alcohol, during exam was exhibiting inappropriate laughter and excessive speech, which needed to be redirected several times while rocking back in forth with poor eye contact.
== END 2019-10-15 10:11 | disposition home or self-care (01) ==
PROVIDERS: Emergency Provider Nurse Practitioner Family
DX: J06.9 Acute upper respiratory infection, unspecified (principal); Z87.891 Personal history of nicotine dependence
CPT/HCPCS: 99213; G0463

== ENCOUNTER 2019-11-27 08:20 | Emergency (ER) | payer OTHER, SELFPAY ==
[2019-11-27 08:29] VITALS: BP 131/82; PULSE 96; RESP 16; TEMP 37.2; O2SAT 98
--- NOTE | 2019-11-27 08:39 | ED.GENADULT ---
HPI - General Adult General Chief complaint: Upper Respiratory Infection Stated complaint: SOB Source: patient and RN notes reviewed Mode of arrival: ambulatory Limitations: no limitations History of Present Illness HPI narrative: This is a 54-year-old white male that presented to the urgent care today complaining of a nonproductive cough and shortness of breath. Patient does have a past medical history of asthma. According to patient last night he developed cough with shortness of breath. He does have inhaler for his asthma and has ran out of his prescription. Patient will discharge today with a refill on his inhaler and guaifenesin. He will also be given a list for primary care physician so that he can follow-up with his primary care physician. The patient denies ,CP, palpitation, extremity numbness, lightheadedness, dizziness, constipation, diarrhea, chills, or fever. Related Data Allergies Allergy/AdvReac Type Severity Reaction Status Date / Time amoxicillin AdvReac Nausea and Verified 11/27/19 08:33 Vomiting Review of Systems Review of Systems: All systems reviewed & are unremarkable except as noted in HPI and below (10 point system reviewed) [facility] Past Medical History Medical History (Updated 11/27/19 @ 08:39 by JAVIER Tim) Anxiety Asthma Back injury Bronchitis Depression Epistaxis Herniated disc History of angina HLD (hyperlipidemia) HTN (hypertension) Kidney stone Pneumonia Pulmonary emboli Schizophrenia Suicide attempt Surgical History Surgical History Hx of appendectomy 1978 Hx of tonsillectomy Family History Family History Father , Unknown No problems noted. Mother , Unknown No problems noted. 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 HEAD: normocephalic, atraumatic. EYES: PERRL. Sclera clear/white. Vision is grossly intact. EARS: External ears normal, auditory canals clear and without drainage, TMs normal without perforation. Hearing grossly intact. NOSE: External nose normal with no obvious nasal discharge, nares without redness, no rhinorrhea. THROAT: Mucous membranes moist, posterior pharynx clear. NECK: Neck supple, non-tender without lymphadenopathy, masses or thyromegaly. CARDIOVASCULAR: Regular rate and rhythm without murmurs, gallops, or rubs. RESPIRATORY: Clear to auscultation. Breath sounds equal bilaterally. No wheezes, rales, or rhonchi. GASTROINTESTINAL: Abdomen soft, non-tender, nondistended. Bowel sounds are active. No hepato-splenomegaly, or palpable masses. No guarding. SKIN: warm, intact with no suspicious lesions or rash, good texture and turgor. NEURO: awake, alert, and oriented to person, place and time. There were no obvious focal neurologic abnormalities. Steady gait EXTREMITIES: Normal range of motion. No edema. No calf tenderness. Negative Homans sign bilaterally. BACK: Nontender without deformity or crepitance. No flank tenderness. Course Vital Signs Vital signs: Vital Signs Temperature 99.0 F 11/27/19 08:29 Pulse Rate 96 11/27/19 08:29 Respiratory Rate 16 11/27/19 08:29 Blood Pressure 131/82 11/27/19 08:29 Pulse Oximetry 98 11/27/19 08:29 Temperature 99.0 F 11/27/19 08:29 Pulse Rate 96 11/27/19 08:29 Respiratory Rate 16 11/27/19 08:29 Blood Pressure 131/82 11/27/19 08:29 Pulse Oximetry 98 11/27/19 08:29 Medical D
== END 2019-11-27 08:41 | disposition home or self-care (01) ==
PROVIDERS: Emergency Provider Nurse Practitioner
DX: J45.909 Unspecified asthma, uncomplicated (principal); Z87.891 Personal history of nicotine dependence; E78.5 Hyperlipidemia, unspecified; I10 Essential (primary) hypertension; Z86.711 Personal history of pulmonary embolism
CPT/HCPCS: 99213; G0463

== ENCOUNTER 2020-06-01 17:46 | Emergency (ER) | payer OTHER, SELFPAY ==
[2020-06-01 18:04] VITALS: BP 156/87; PULSE 110; RESP 17; TEMP 36.5; O2SAT 100
[2020-06-01 18:24] LABS: Basophils Absolute Auto 0.1 K/mm3 (0.0-0.1); Basophils Percent Auto 1.2 % (0.2-1.2); Eosinophils Absolute Auto 0.2 K/mm3 (0-0.3); Eosinophils Percent Auto 3.9 % (0-4.4); Hematocrit 30.9 % (42.0-52.0); Immature Granulocyte Absolute 0.02 K/mm3 (0.00-0.031); Immature Granulocyte Percent A 0.4 % (0-0.5); Lymphocytes Absolute Auto 2.13 K/mm3 (0.9-3.2); Lymphocytes Percent Auto 37.7 % (18.3-44.2); Mean Corpuscular HGB Conc 32.4 g/dl (32-36); Mean Corpuscular Hemoglobin 29.8 pg (26-34); Mean Platelet Volume 8.9 fl (7.4-10.4); Monocytes Absolute Auto 0.7 K/mm3 (0.1-0.6); Monocytes Percent Auto 12.4 % (2.6-8.5); Neutrophils Absolute Auto 2.5 K/mm3 (1.3-6.7); Neutrophils Percent Auto 44.4 % (45.5-73.1); Platelet Count Result 523 k/mm3 (150-375); Red Blood Count 3.36 M/mm3 (4.6-6.20); Red Cell Distribution Width 13.2 % (11.5-14.5); White Blood Count 5.7 K/mm3 (4.5-10.0)
[2020-06-01 18:34] LABS: Hypochromasia 2+ (NORMAL); Platelet Estimate Adequate (Adequate)
[2020-06-01 18:35] LABS: Ethanol < 10 mg/dL (<10)
[2020-06-01 18:39] LABS: Add Urine Microscopic? YES; Appearance Urine Cloudy (Clear); Bacteria Urine Trace /hpf; Bilirubin Urine Negative (Negative); Blood Urine 2+ (Negative); Color Urine Yellow (Yellow); Glucose Urine UA Negative (Negative); Ketones Urine Negative (Negative); Leukocyte Esterase Ur Negative LEU/UL (Negative); Mucus Urine Few /lpf; Nitrate Urine Negative (Negative); Protein Urine 1+ mg/dL (Negative); RBC Urine 51-75 /hpf (0-2); Specific Grav Ur 1.014 (1.001-1.035); Squamous Epithelial Cell Urine Rare /hpf (Few); WBC Urine 0-3 /hpf
--- NOTE | 2020-06-01 18:42 | ED.GENADULT ---
HPI - General Adult General Chief complaint: Psychiatric Symptoms <Chet Guzman PA-C - Last Filed: 06/02/20 01:15> Stated complaint: suicidal thoughts <CARSON Montenegro Last Filed: 06/02/20 01:15> Time Seen by Provider: 06/01/20 18:35 <CARSON Montenegro Last Filed: 06/02/20 01:15> Source: patient <CARSON Montenegro Last Filed: 06/02/20 01:15> Mode of arrival: ambulatory <CARSON Montenegro Last Filed: 06/02/20 01:15> Limitations: no limitations <CARSON Montenegro Last Filed: 06/02/20 01:15> History of Present Illness HPI narrative: Patient is a 54-year-old male who presents to emergency department for evaluation of suicidal ideation with plan to jump off a bridge patient notes he has hit rock bottom is living from house to house with friends patient notes several years ago he had been hospitalized for suicidal ideation patient does not see a physician does not take any medications notes in the past his only medication was albuterol as needed. Patient denies any tobacco alcohol or illicit drug use. Patient on arrival is in the room in no distress. Patient denies having done anything to harm himself. Patient denies homicidal ideation <CARSON Montenegro Last Filed: 06/02/20 01:15> Related Data Allergies/adverse reactions: Allergies Allergy/AdvReac Type Severity Reaction Status Date / Time amoxicillin AdvReac Nausea and Verified 11/27/19 08:33 Vomiting <CARSON Montenegro Last Filed: 06/02/20 01:15> Review of Systems Review of Systems: All systems reviewed & are unremarkable except as noted in HPI and below <CARSON Montenegro Last Filed: 06/02/20 01:15> [facility] Past Medical History Medical History: Medical History (Updated 06/03/20 @ 00:00 by Background Daemon) Anxiety Asthma Back injury Bronchitis Depression Epistaxis Herniated disc History of angina HLD (hyperlipidemia) HTN (hypertension) Kidney stone Pneumonia Pulmonary emboli Schizophrenia Suicide attempt <CARSON Montenegro Last Filed: 06/02/20 01:15> Surgical History Surgical History: Surgical History Hx of appendectomy 1978 Hx of tonsillectomy <Chet Guzman PA-C - Last Filed: 06/02/20 01:15> Family History Family History: Family History Father , Unknown No problems noted. Mother , Unknown No problems noted. 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 HEAD: Normocephalic, atraumatic. EYES: PERRLA and EOMI. ENT: Nares clear, no rhinorrhea or epistaxis. Mucous membranes moist. CHEST: Clear to auscultation. No respiratory distress. No wheezes rales or rhonchi HEART: Regular rate and rhythm. No murmur heard. Normal peripheral pulses. ABDOMEN: Soft, nontender, nondistended EXTREMITIES: Normal range of motion. No edema. SKIN: Warm, dry, no rash. NEURO: No focal deficits. Alert and oriented x3 Cranial nerves II through XII grossly intact PSYCH: Normal mood and affect. <Chet Guzman PA-C - Last Filed: 06/02/20 01:15> Course Course Emergency Course: Patient felt fit for inpatient therapy evaluated by crisis patient notes he will be voluntary <Chet Deluna
--- NOTE | 2020-06-01 18:47 | PC.NURSE ---
Pt ambulated steady gait from triage, states x few days I have a plan to jump off a bridge and I'm here to save myself , endorses psych hx and suicide attempt a while ago , cannot remember last psych placement, currently no psych meds.
--- NOTE | 2020-06-01 18:50 | PC.NURSE ---
Covid PCR swab collected and sent to lab
[2020-06-01 18:54] LABS: Amphetamine Screen Urine Negative (Negative); Barbiturate Screen Urine Negative (Negative); Benzodiazepines Screen Urine Negative (Negative); Cannabinoid Screen Urine Negative (Negative); Cocaine Screen Urine Negative (Negative); Methadone Screen Urine Negative (Negative); Opiate Screen Urine Negative (Negative); Phencyclidine Screen Urine Negative (Negative)
[2020-06-01 20:10] LABS: Alanine Aminotransferase 17 U/L (4-50); Albumin Level 3.6 g/dL (3.5-5.1); Alkaline Phosphatase 130 U/L (38-126); Anion Gap 5 mmol/L (8-16); Aspartate Amino Transferase 33 U/L (17-59); Bilirubin,Total 0.6 mg/dL (0.2-1.3); Blood Urea Nitrogen 8 mg/dL (9-20); Calcium 8.8 mg/dL (8.4-10.2); Carbon Dioxide 30 mmol/L (22-30); Chloride 105 mmol/L (98-107); Estimated CRCL calculation 156 ml/min; Estimated Glomerular Filt Rate > 60; Glucose 97 mg/dL (75-110); Potassium 3.5 mmol/L (3.4-5.0); Sodium 140 mmol/L (137-145)
[2020-06-01 20:40] LABS: Thyroid Stimulating Hormone < 0.015 uIU/mL (0.465-4.680)
--- NOTE | 2020-06-01 21:05 | PC.NURSE ---
Addendum entered by Nabila Alba RN 06/01/20 21:09: Pt medically cleared per ED MD. Original Note: Earle notified that pt medically cleared. awaiting crisis residential driver arrival.
--- NOTE | 2020-06-01 21:59 | PC.NURSE ---
[place] oreman present in ED to assess pt.
[2020-06-01 22:17] VITALS: BP 115/73; PULSE 115; RESP 18; O2SAT 100
[2020-06-01 23:32] LABS: Free T4 Free Thyroxine 3.69 ng/mL (0.78-2.19)
--- NOTE | 2020-06-02 01:21 | PC.NURSE ---
This RN spoke with ajith Polanco at [facility] in [place]. requesting chart faxed to them at [phone]. Will need negative covid test result prior to acceptance, but does report multiple AM discharges expected at their facility. will f/u in AM/pass on in report. Initialized on 06/02/20 01:54 - END OF NOTE
--- NOTE | 2020-06-02 02:19 | PC.NURSE ---
chart faxed to [facility] in [place].
--- NOTE | 2020-06-02 04:17 | PC.NURSE ---
This RN faxed signed voluntary behavioral health admission form to [facility] at request of intake nurse at same facility. FAX [phone].
[2020-06-02] MEDS: ACETAMINOPHEN 500 MG TABLET 1000 MG PO (04:47)
--- NOTE | 2020-06-02 06:00 | PC.NURSE ---
This RN received return phone call from [facility] CICI Dutton, requesting report on pt for transfer. Once facility RN had learned that pt's COVID swab had not yet resulted, this RN was transferred to charge nurse. Charge nurse at [facility] informed this RN that they no longer accept transfers with PENDING Covid swabs. They asked that ED staff call [facility] intake back when Covid swab resulted. Info and phone number placed on post-it on front page of paper chart, and provided in report to oncoming [facility].
[2020-06-02 07:19] VITALS: BP 123/84; PULSE 87; RESP 14; TEMP 37.4; O2SAT 98
[2020-06-02 18:26] LABS: SARS-CoV-2 RNA PCR Negative
== END 2020-06-02 10:10 ==
PROVIDERS: Emergency Medicine; Emergency Medicine Emergency Medical Services; Emergency Provider General Practice
DX: R45.851 Suicidal ideations (principal); Z20.822 Contact with and (suspected) exposure to COVID-19; J45.909 Unspecified asthma, uncomplicated; Z87.891 Personal history of nicotine dependence; E78.5 Hyperlipidemia, unspecified; I10 Essential (primary) hypertension; Z87.442 Personal history of urinary calculi; Z86.711 Personal history of pulmonary embolism
CPT/HCPCS: 36415; 80053; 80307; 81001; 84439; 84443; 85025; 99285; A9270; C9803; U0003; U0005

== ENCOUNTER 2020-06-18 23:02 | Inpatient (IN) | payer OTHER, SELFPAY ==
--- NOTE | ~2020-06-18 | CT_ITS ---
EXAMINATION: CT abdomen pelvis w con DATE: 06/19/2020 00:04 INDICATION: Abdominal pain, nausea and vomiting TECHNIQUE: Computed tomography (CT) of the abdomen and pelvis was performed without intravenous contr ast. The dose-length product was 581.24 mGy-cm. Automated exposure control and iterative reconstructi on technique were employed. COMPARISON: CT dated 01/09/2019. FINDINGS: Bibasilar dependent atelectasis. There is a 6 mm fissural nodule on the right, image 13. He art size normal. No significant pleural or pericardial effusion. There is ascites with multiple foci of free air in the upper abdomen, suspicious for bowel perforation. The duodenum appears thickened. C annot exclude perforated peptic ulcer disease. The liver, spleen, pancreas, adrenal glands and right kidney are unremarkable. There is a 2.2 cm left renal cyst. There is a nonobstructing 6 mm left renal stone. Trace free fluid in the pelvis. No acut e osseous abnormality. IMPRESSION: 1. Multifocal free air or abdomen, suspicious for bowel perforation in the absence of known recent carlson rgery. 2: Mild thickening of the proximal duodenum, suspicious for duodenitis. Cannot exclude perforated ulc er. 3: Small amount of ascites. 4: 6 mm right fissural nodule, most likely benign. Twelve-month interval CT chest recommended. Reviewed, dictated and finalized at location A. IMPRESSION: 1. Multifocal free air or abdomen, suspicious for bowel perforation in the abse nce of known recent surgery. 2: Mild thickening of the proximal duodenum, suspicious for duodenitis. Cannot exclude perforated ulcer. 3: Small amount of ascites. 4: 6 mm right fissural nodule, most likely benign. Twelve-month interval CT ch est recommended.
--- NOTE | ~2020-06-18 | XR_ITS ---
EXAMINATION: XR abdomen/kub 1V DATE: 06/25/2020 05:57 INDICATION: Ileus TECHNIQUE: A supine view of the abdomen on 2 radiographs was obtained. COMPARISON: 06/24/2020 FINDINGS: Small amount of residual oral contrast material is seen in the distal colon. Moderate amount of gas s cattered throughout the colon. No gas-filled loops of small bowel to suggest obstruction. Nasogastric tube tip projects over the body of the stomach. Surgical drain in the right abdomen. Midline skin st aples. IMPRESSION: 1. Nonobstructive bowel gas pattern with oral contrast material from studies performed one day prior now in the distal colon. Reviewed, dictated and finalized at location A. IMPRESSION: 1. Nonobstructive bowel gas pattern with oral contrast material from studies pe rformed one day prior now in the distal colon.
--- NOTE | ~2020-06-18 | XR_ITS ---
EXAMINATION: XR abdomen/kub 1V DATE: 06/21/2020 08:22 INDICATION: Adynamic ileus. TECHNIQUE: A supine view of the abdomen was obtained. COMPARISON: Abdomen radiographs 01/09/2019, CT abdomen and pelvis 06/18/2020 FINDINGS: There are no dilated loops of bowel. There is a surgical drain on the right. Skin willy a re noted. The nasogastric tube tip is in the stomach. IMPRESSION: 1. Nonobstructive bowel gas pattern. Reviewed, dictated and finalized at location B.
--- NOTE | ~2020-06-18 | CT_ITS ---
EXAMINATION: CT abdomen pelvis w con DATE: 06/30/2020 11:03 INDICATION: Fever and emesis. Status post cholecystectomy. TECHNIQUE: Computed tomography (CT) of the abdomen and pelvis was performed with 100 cc Omnipaque 350 intravenous contrast. Automated exposure control and iterative reconstruction technique were employe d. Exam dose: 1136.10 mGy-cm total exam DLP. COMPARISON: 06/28/2020 CT abdomen and pelvis 06/24/2020 CT abdomen pelvis FINDINGS: Interval removal of right surgical drain since 06/24/2020 There is a percutaneous drainage c atheter within the previously reported 8.5 x 7.1 x 7.9 cm fluid collection on 06/24/2020. This origina l site has diminished considerably in size, currently measuring approximately 4.7 x 4.2 mm on axial i maging. However, this now extends posteriorly along the medial aspect of the gallbladder and communic ates with a much larger heterogeneous complicated fluid collection consistent with abscess or hematom a along the medial aspect of the lower right hepatic lobe, with scalloping of the medial margin and i nferolateral margin of the right hepatic lobe. This medial hepatic collection measures up to 7.5 cm t ransverse and 12 cm AP dimension. There is adjacent fat stranding as well as unilateral thickening of the right anterior and posterior pararenal fascia due to surrounding inflammation. There is also some extension along the anterior peripancreatic area region of the pancreatic neck and proximal body. The gallbladder is present, without apparent thickening of the gallbladder wall itself, but the abnor mal complicated fluid collections surround the anterior and posterior aspect of the gallbladder. No intrahepatic mass lesion or bile duct or pancreatic duct dilatation is evident. Normal splenic size. Normal morphology of the adrenal glands. Approximately 2 cm left renal cyst. No urinary tract calculus or hydroureteronephrosis. The urinary b ladder is unremarkable. There is moderate prostate enlargement and calcification. There is moderate f ree fluid in the dependent pelvis. No bowel obstruction is evident. No intraperitoneal free air. Postoperative change of the stomach is again noted. Open surgical wound of the anterior abdominal wal l. Normal caliber of the abdominal aorta. No intraperitoneal or retroperitoneal or pelvic mass lesion or adenopathy is evident. IMPRESSION: Interval placement of percutaneous drainage catheter in fluid collection along the media l aspect of the left hepatic lobe, with diminished size from 8.5 x 7.1 x 7.9 cm on 06/24/2020 to 4.7 x 4.2 cm on current examination. However, there is interval extension of the abscess or possible hematoma along the medial aspect of t he gallbladder and prominently along the lower hepatic region, measuring up to 7.5 x 12 cm in the med ial lower right hepatic area. There is also some extension along the anterior aspect of the pancreatic neck and body. Reviewed, dictated and finalized at [facility]. Reviewed, dictated and finalized at location B. IMPRESSION: Interval placement of percutaneous drainage catheter in fluid kiel ection along the medial aspect of the left hepatic lobe, with diminished size f rom 8.5 x 7.1 x 7.9 cm on 06/24/2020 to 4.7 x 4.2 cm on current examination. However, there is interval extension of the abscess or possible hematoma along the medial aspect of the gallbladder and prominently along the lower hepatic re gion, measuring up to 7.5 x 12 cm in the medial lower right hepatic area. There is also some extension along the anterior aspect of the pancreatic neck a nd body.
--- NOTE | ~2020-06-18 | XR_ITS ---
EXAMINATION: XR UGI water soluble wo kub DATE: 06/24/2020 14:22 INDICATION: Evaluate for leak of gastrojejunostomy TECHNIQUE: 350 mL of Omnipaque 350 oral contrast was injected into the patient's existing nasogastric tube. A total of 12 fluoroscopic images of the esophagus, stomach, and proximal small bowel were obt ained. Fluoroscopy exposure time was 1.3 minutes. COMPARISON: CT dated 06/24/2020 FINDINGS: Sprinkler Tender images demonstrate multiple gas-filled but not frankly dilated loops of small bowel consistent with an ileus. Contrast distended the stomach however after 6 minutes no contrast had yet left the st omach despite placing the patient in both right lateral decubitus position as well as in a steep reve rse Trendelenburg position. There was some intermittent gastroesophageal reflux of a small to moderat e amount of contrast to the mid esophagus. IMPRESSION: 1. Likely postoperative ileus with no passage of contrast from the stomach into the small bowel precl uding assessment for leak at the gastrojejunostomy site. On review of prior CT there was excellent co ntrast opacification of the fluid both in the stomach (HU 150) as well as in the small bowel distal t o both the gastrojejunostomy and jejunojejunostomy (HU 244). There was simple fluid attenuation of HU 5 at the likely of perihepatic collection of ascites in the region of the gastrojejunostomy which wo uld strongly argue against anastomotic leak as etiology for the ascites. Reviewed, dictated and finalized at location A. IMPRESSION: 1. Likely postoperative ileus with no passage of contrast from the stomach into the small bowel precluding assessment for leak at the gastrojejunostomy site. On review of prior CT there was excellent contrast opacification of the fluid b oth in the stomach (HU 150) as well as in the small bowel distal to both the ga strojejunostomy and jejunojejunostomy (HU 244). There was simple fluid attenuat ion of HU 5 at the likely of perihepatic collection of ascites in the region of the gastrojejunostomy which would strongly argue against anastomotic leak as e tiology for the ascites.
--- NOTE | ~2020-06-18 | CT_ITS ---
EXAMINATION: CT abdomen pelvis w con DATE: 06/28/2020 08:10 INDICATION: Right lower quadrant abdominal pain. TECHNIQUE: Computed tomography (CT) of the abdomen and pelvis was performed with 100 mL Omnipaque 350 intravenous contrast. Automated exposure control and iterative reconstruction technique were employe d. The dose-length product was 1011.96 mGy-cm. COMPARISON: CT abdomen and pelvis 06/24/2020 FINDINGS: The visualized portions of the lung bases demonstrate small pleural effusions, right worse than left. There is dependent atelectasis bilaterally. There is a 6 mm nodule at minor fissure, likel y benign. There is a 5 mm nodule in lingula, likely benign. The heart size is normal. No pericardial effusion. The liver and spleen are normal. The gallbladder is normal in size. Gallbladder wall thicke jodie is noted. The pancreas, adrenal glands, and right kidney are normal. There is a 2.2 cm cyst in l eft kidney. There is a 5 mm stone in left kidney. There are no dilated loops of bowel. The appendix i s not visualized. There are changes of gastrojejunostomy. There is a small volume of ascites. There i s an 8.5 x 7.1 x 7.9 cm fluid collection medial to the gallbladder with incomplete enhancing rim. The re are small foci of free intraperitoneal gas, consistent with recent surgery. Anterior skin willy are noted. The right-sided surgical drain has been removed. There is a small sliding hiatal hernia. T here are no pathologically enlarged lymph nodes. There is severe lower lumbar spondylosis. IMPRESSION: 1. 8.5 x 7.1 x 7.9 cm fluid collection medial to the gallbladder with incomplete rim enhancement susp icious for organizing abscess. Consider CT-guided percutaneous drainage. 2. Small volume of ascites. 3. Persistent gallbladder wall thickening, which may be secondary to interstitial edema or inflammati on. 4. Small pleural effusions. Reviewed, dictated and finalized at location A. IMPRESSION: 1. 8.5 x 7.1 x 7.9 cm fluid collection medial to the gallbladder with incomplet e rim enhancement suspicious for organizing abscess. Consider CT-guided percuta neous drainage. 2. Small volume of ascites. 3. Persistent gallbladder wall thickening, which may be secondary to interstiti al edema or inflammation. 4. Small pleural effusions.
--- NOTE | ~2020-06-18 | CT_ITS ---
EXAMINATION: CT abdomen pelvis w con DATE: 06/24/2020 10:47 INDICATION: Abdominal fluid collection. TECHNIQUE: Computed tomography (CT) of the abdomen and pelvis was performed with 100 mL Omnipaque 350 intravenous contrast. Automated exposure control and iterative reconstruction technique were employe d. The dose-length product was 1054.80 mGy-cm. COMPARISON: CT abdomen and pelvis 06/18/2020 FINDINGS: The visualized portions of the lung bases demonstrate mild atelectasis. There is a small ri ght pleural effusion. The heart size is normal. No pericardial effusion. The nasogastric tube tip is in the stomach. There are changes of antrectomy and gastrojejunostomy. The liver and spleen are alphonso l. The gallbladder is normal in size and contains contrast. Gallbladder wall thickening is seen, like ly interstitial edema. The pancreas, adrenal glands, and right kidney are normal. There are cysts in left kidney measuring up to 2.2 cm. There is a 4 mm stone in left kidney. The prostate is mildly enla rged. There are no dilated loops of bowel. The appendix is not visualized. There is a surgical drain in right abdomen. There is a moderate volume of ascites near the liver and in the pelvis with some ar eas of thin peritoneal enhancement. Midline skin willy are noted. There are foci of free intraperit blackwood gas, consistent with recent surgery. Body wall edema is noted. There are no pathologically enla rged lymph nodes. There are old left rib fractures. There is severe lumbar spondylosis. IMPRESSION: 1. Moderate volume of ascites near the liver and in the pelvis correlating with the ultrasound abnorm ality. The surgical drain is inferior and posterior to the perihepatic ascites. Reviewed, dictated and finalized at location B. IMPRESSION: 1. Moderate volume of ascites near the liver and in the pelvis correlating with the ultrasound abnormality. The surgical drain is inferior and posterior to th e perihepatic ascites.
--- NOTE | ~2020-06-18 | XR_ITS ---
EXAMINATION: XR chest 1V portable DATE: 06/30/2020 02:50 INDICATION: Wheezing. Fever. TECHNIQUE: A single frontal view of the chest was obtained. COMPARISON: Chest single view 05/12/2019, CT abdomen and pelvis 06/28/2020 FINDINGS: There is mild atelectasis in right lower lung zone. There is a small right pleural effusion . No pneumothorax. The heart size is normal. There are old left rib fractures. IMPRESSION: 1. Mild atelectasis in right lower lung zone. 2. Small right pleural effusion. Reviewed, dictated and finalized at location A.
--- NOTE | ~2020-06-18 | US_ITS ---
EXAMINATION: US abdomen limited DATE: 06/23/2020 11:10 INDICATION: Hyperbilirubinemia. TECHNIQUE: Multiple grayscale and Doppler ultrasound images of the abdomen were obtained. COMPARISON: CT abdomen and pelvis 06/18/2020 FINDINGS: The pancreas is obscured. The liver is normal without focal lesion. There is normal flow in main portal vein. The gallbladder is normal in size. No gallstones. Gallbladder wall thickening is n oted. The common duct is normal and measures 5 mm. There is a 7.9 x 7.2 x 7.7 cm fluid collection at the midline. There is a right pleural effusion. IMPRESSION: 1. 7.9 x 7.2 x 7.7 cm fluid collection at the midline suspicious for abscess. CT abdomen and pelvis w ith contrast is recommended. 2. Gallbladder wall thickening, which may be secondary to inflammation or interstitial edema. 3. Right pleural effusion. Reviewed, dictated and finalized at location B. IMPRESSION: 1. 7.9 x 7.2 x 7.7 cm fluid collection at the midline suspicious for abscess. C T abdomen and pelvis with contrast is recommended. 2. Gallbladder wall thickening, which may be secondary to inflammation or inter stitial edema. 3. Right pleural effusion.
--- NOTE | ~2020-06-18 | CT_ITS ---
EXAMINATION: CT guide absc cath placement DATE: 06/29/2020 11:53 INDICATION: Right upper quadrant abdominal abscess. TECHNIQUE: The procedure including the risks, benefits, and alternatives was discussed with the patie nt. Risks discussed included bleeding. The patient understood the risks and benefits and agreed to pr oceed. The skin overlying the abdomen was prepped and draped in usual sterile fashion. Anesthetic wa s administered with 1% lidocaine subcutaneously. An 18 gauge trochar needle was inserted into the rig ht upper quadrant abdominal abscess with CT guidance. The needle was exchanged over a wire for 6 Fren ch and 8 Maltese dilators and then for an 8.5 Maltese pigtail catheter. The catheter was stitched to th e skin, and a sterile dressing was applied. The mA was adjusted according to patient size. Iterative reconstruction technique was employed. The dose-length product was 145.44 mGy-cm. There were no immed iate complications. FINDINGS: CT images demonstrate the catheter within the fluid collection. 10 mL fluid was aspirated f or testing. IMPRESSION: 1. Successful CT-guided right upper quadrant abdominal abscess drainage. 2. 10 mL opaque, red fluid was sent for aerobic and anaerobic cultures. Reviewed, dictated and finalized at location A.
--- NOTE | ~2020-06-18 | XR_ITS ---
EXAMINATION: XR abdomen obstructive series DATE: 06/28/2020 05:32 INDICATION: Adynamic ileus. TECHNIQUE: A supine view of the abdomen on 2 radiographs was obtained. COMPARISON: CT abdomen and pelvis 06/24/2020 FINDINGS: There are no dilated loops of bowel. Skin willy are noted. IMPRESSION: 1. Nonobstructive bowel gas pattern. Reviewed, dictated and finalized at location A.
[2020-06-18 23:11] VITALS: PULSE 120; RESP 24; TEMP 37; O2SAT 97
[2020-06-18] MEDS: LACTATED RINGERS 1,000 ML 999 ML IV CONT (23:25)
--- NOTE | 2020-06-18 23:32 | ED.ABDPAIN ---
HPI - Abdominal Pain General Chief Complaint: Abdominal Pain Stated Complaint: abd pain x 1 day Time Seen by Provider: 06/18/20 23:13 Source: patient Mode of arrival: ambulatory Limitations: no limitations History of Present Illness HPI narrative: This is a 54 year old male who presents for evaluation of abdominal pain. He developed intermittent mid abdominal pain, right lower quadrant pain and back pain for 2 days. His pain has been severe for the past few hours. He also reports associated nausea and vomiting. He denies having similar pain in the past. He does note his stools have been dark for 1 week. He denies hematemesis. Related Data Allergies Allergy/AdvReac Type Severity Reaction Status Date / Time amoxicillin AdvReac Nausea and Verified 11/27/19 08:33 Vomiting Review of Systems Review of Systems: All systems reviewed & are unremarkable except as noted in HPI and below Constitutional: Constitutional: Denies chills and Denies fever(s) Gastrointestinal: Gastrointestinal: Reports abdominal pain, Denies diarrhea, Reports nausea and Reports vomiting Genitourinary: Genitourinary: Denies hematuria and Denies dysuria Musculoskeletal: Musculoskeletal: Reports back pain [facility] Past Medical History Medical History (Updated 06/19/20 @ 07:09 by Preeti Salas MD) Anxiety Asthma Back injury Bronchitis Depression Epistaxis Herniated disc History of angina HLD (hyperlipidemia) HTN (hypertension) Kidney stone Pneumonia Pulmonary emboli Schizophrenia Suicide attempt Surgical History Surgical History Hx of appendectomy 1978 Hx of tonsillectomy Family History Family History Father , Unknown No problems noted. Mother , Unknown No problems noted. 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 Gender identity (if verbalized by the patient): Male Exam Const: General: alert Orientation/consciousness: patient oriented x3 Other: patient screaming in pain Eyes: EOM: EOMs intact bilaterally Resp: Effort & Inspection: normal respiratory effort and no retractions Auscultation: clear to auscultation bilaterally Cardio: Rate: regular rate Rhythm: regular rhythm Heart sounds: no murmurs GI: GI Palp: Yes Soft to palpation, Yes Tenderness to palpation present (GI), No Guarding due to palpation present (GI) and No Rigid due to palpation Auscultation: normal bowel sounds Neuro: General: patient oriented x3, moves all extremities and CN's II-XI intact bilaterally Psych: Mental Status: mental status grossly normal Affect: normal affect Course Reevaluation(s) Reevaluation #1: Patient to be taken to OR for bowel perforation. Does have decrease in hemoglobin. Date: 06/19/20 Time: 02:00 Consultations Consultation #1: I Discussed case, labs, CT with Dr. Molina. He is on his way to see patient in ER. He agrees with NGT , IV antibiotics. Date: 06/19/20 Time: 00:50 Vital Signs Vital signs: Vital Signs Temperature 98.6 F 06/18/20 23:11 Pulse Rate 120 H 06/18/20 23:11 Respiratory Rate 24 H 06/18/20 23:11 Pulse Oximetry 97 06/18/20 23:11 Temperature 98.1 F 06/19/20 06:03 Pulse Rate 113 H 06/19/20 06:48 Respiratory Rate 24 H 06/19/20 06:48 Blood Pressure 133/64 06/19/20 06:48 Pulse Oximetry 100 06/19/20 06:48 MDM - Abdominal Pain Medical Records Attestation: I reviewed the patient's medical records. Lab Data Attestation: I reviewed the patient's lab results. Result diagrams: 06/18/20 23:48
[2020-06-18 23:55] LABS: Estimated CRCL calculation 102 ml/min; Estimated Glomerular Filt Rate > 60
[2020-06-18 23:57] LABS: Basophils Absolute Auto 0.1 K/mm3 (0.0-0.1); Basophils Percent Auto 0.8 % (0.2-1.2); Eosinophils Absolute Auto 0.1 K/mm3 (0-0.3); Eosinophils Percent Auto 2.2 % (0-4.4); Hematocrit 23.2 % (42.0-52.0); Hemoglobin 7.4 g/dL (14.0-18.0); Immature Granulocyte Absolute 0.03 K/mm3 (0.00-0.031); Immature Granulocyte Percent A 0.5 % (0-0.5); Lymphocytes Absolute Auto 1.86 K/mm3 (0.9-3.2); Lymphocytes Percent Auto 31.4 % (18.3-44.2); Mean Corpuscular HGB Conc 31.9 g/dl (32-36); Mean Corpuscular Hemoglobin 28.1 pg (26-34); Mean Corpuscular Volume 88.2 fl (80-100); Monocytes Absolute Auto 0.6 K/mm3 (0.1-0.6); Monocytes Percent Auto 9.6 % (2.6-8.5); Neutrophils Absolute Auto 3.3 K/mm3 (1.3-6.7); Neutrophils Percent Auto 55.5 % (45.5-73.1); Nucleated Red Blood Cells Perc 0.3 % (0.0-0.2); Platelet Count Result 434 k/mm3 (150-375); Red Blood Count 2.63 M/mm3 (4.6-6.20); White Blood Count 5.9 K/mm3 (4.5-10.0)
[2020-06-19] VITALS (21 sets, daily range): BP systolic 111–151; BP diastolic 60–95; PULSE 112–138; RESP 18–34; TEMP 36.6–37.4; O2SAT 91–100; BMI 28.4
[2020-06-19 00:05] LABS: Alanine Aminotransferase 18 U/L (4-50); Albumin Level 3.3 g/dL (3.5-5.1); Alkaline Phosphatase 105 U/L (38-126); Anion Gap 8 mmol/L (8-16); Aspartate Amino Transferase 30 U/L (17-59); Bilirubin,Total 0.5 mg/dL (0.2-1.3); Blood Urea Nitrogen 19 mg/dL (9-20); Calcium 9.1 mg/dL (8.4-10.2); Carbon Dioxide 25 mmol/L (22-30); Chloride 105 mmol/L (98-107); Estimated CRCL calculation 91 ml/min; Estimated Glomerular Filt Rate > 60; Glucose 122 mg/dL (75-110); Lipase 140 U/L (23-300); Sodium 138 mmol/L (137-145)
[2020-06-19 00:29] LABS: Lactic Acid Reflex 1.6 mmol/L (0.7-2.1)
[2020-06-19] MEDS: HYDROmorphone HCL INJ (*CRX) 1 MG/ML SYR IV PUSH ×2 (00:51→01:23)
[2020-06-19] MEDS: ONDANSETRON INJ 4 MG/2 ML VIAL IV PUSH ×2 (00:51→07:01)
[2020-06-19 01:01] LABS: Add Urine Microscopic? YES; Appearance Urine Cloudy (Clear); Bilirubin Urine Negative (Negative); Blood Urine Negative (Negative); Color Urine Yellow (Yellow); Glucose Urine UA Negative (Negative); Ketones Urine Negative (Negative); Leukocyte Esterase Ur Negative LEU/UL (Negative); Mucus Urine Rare /lpf; Nitrate Urine Negative (Negative); Protein Urine 1+ mg/dL (Negative); Squamous Epithelial Cell Urine Rare /hpf (Few); Urobilinogen Urine Negative mg/dL (<2.0); WBC Urine 31-50 /hpf
[2020-06-19 01:06] LABS: Specific Grav Ur 1.042 (1.001-1.035)
[2020-06-19] MEDS: LACTATED RINGERS 1,000 ML 999 ML IV CONT (01:12)
[2020-06-19] MEDS: PANTOPRAZOLE SODIUM IV 40 MG VIAL 80 MG IV PUSH (01:14)
--- NOTE | 2020-06-19 01:16 | PC.NURSE ---
Pt refuses NG right before procedure. Pt RN made aware, call light in reach for pt, instructed to call if he changes his mind.
--- NOTE | 2020-06-19 01:32 | WPDANESEPP ---
Anes - Eval Pre Procedure Procedure: Exploratory laparotomy Date/Time: 06/19/20 01:32 Surgeon: Jesse Pre Op Diagnosis: Perforated bowel Patient Data Age: 54 Gender: M Height: 6 ft Weight: 95 kg Last Vital Signs Temp 98.6 F 06/18/20 23:11 Pulse 120 H 06/19/20 00:28 Resp 22 H 06/19/20 00:28 BP 123/70 06/19/20 00:28 Pulse Ox 94 06/19/20 00:28 Allergies Allergy/AdvReac Type Severity Reaction Status Date / Time amoxicillin AdvReac Nausea and Verified 11/27/19 08:33 Vomiting Home Medications Medication Instructions Recorded Confirmed Type albuterol sulfate 1 inh INHALATION QID PRN #6.7 g 11/27/19 Rx guaifenesin [Mucus-Chest 200 mg PO Q4H PRN #1000 ml 11/27/19 Rx Congestion] Laboratory Tests 06/18/20 06/18/20 06/18/20 23:48 23:48 23:54 WBC 5.9 K/mm3 K/mm3 (4.5-10.0) RBC 2.63 M/mm3 L M/mm3 (4.6-6.20) Hgb 7.4 g/dL L g/dL (14.0-18.0) Hct 23.2 % L % (42.0-52.0) MCV 88.2 fl fl (80-100) MCH 28.1 pg pg (26-34) MCHC 31.9 g/dl L g/dl (32-36) RDW 14.0 % % (11.5-14.5) Plt Count 434 k/mm3 H k/mm3 (150-375) MPV 9.0 fl fl (7.4-10.4) Immature Gran % (Auto) 0.5 % % (0-0.5) Neut % (Auto) 55.5 % % (45.5-73.1) Lymph % (Auto) 31.4 % % (18.3-44.2) Hood % (Auto) 9.6 % H % (2.6-8.5) Eos % (Auto) 2.2 % % (0-4.4) Baso % (Auto) 0.8 % % (0.2-1.2) Lymph # (Auto) 1.86 K/mm3 K/mm3 (0.9-3.2) Hood # (Auto) 0.6 K/mm3 K/mm3 (0.1-0.6) Eos # (Auto) 0.1 K/mm3 K/mm3 (0-0.3) Baso # (Auto) 0.1 K/mm3 K/mm3 (0.0-0.1) Abs Immat Gran (auto) 0.03 K/mm3 K/mm3 (0.00-0.031) Absolute Neuts (auto) 3.3 K/mm3 K/mm3 (1.3-6.7) Absolute Nucleated RBC 0.0 K/mm3 K/mm3 (0.0-0.012) Nucleated RBC % 0.3 % H % (0.0-0.2) Sodium 138 mmol/L mmol/L (137-145) Potassium 3.0 mmol/L L mmol/L (3.4-5.0) Chloride 105 mmol/L mmol/L (98-107) Carbon Dioxide 25 mmol/L mmol/L (22-30) Anion Gap 8 mmol/L mmol/L (8-16) BUN 19 mg/dL D mg/dL (9-20) Creatinine 0.90 mg/dL mg/dL 0.80 mg/dL mg/dL (0.7-1.3) (0.8-1.5) Estim Creat Clear Calc 91 ml/min ml/min 102 ml/min ml/min Estimated GFR > 60 > 60 (59 - ) (59 - ) Glucose 122 mg/dL H mg/dL (75-110) Lactic Acid Calcium 9.1 mg/dL mg/dL (8.4-10.2) Total Bilirubin 0.5 mg/dL mg/dL (0.2-1.3) AST 30 U/L U/L (17-59) ALT 18 U/L U/L (4-50) Alkaline Phosphatase 105 U/L U/L (38-126) Total Protein 7.0 g/dL g/dL (6.3-8.2) Albumin 3.3 g/dL L g/dL (3.5-5.1) Lipase 140 U/L U/L (23-300) Urine Color Urine Appearance Urine pH Ur Specific [place] Urine Protein Urine Glucose (UA) Urine Ketones Ur Blood (Man) Urine Nitrate Urine Bilirubin Urine Urobilinogen Leukocyte Esterase Rfl Urine RBC Urine WBC Ur Squamous Epith Cells Hyaline Casts Urine Mucus 06/19/20 06/19/20 00:12 00:46 WBC RBC Hgb Hct MCV MCH MCHC RDW Plt Count MPV Immature Gran % (Auto) Neut % (Auto) Lymph % (Auto) Hood % (Auto) Eos % (Auto) Baso % (Auto) Lymph # (Auto) Hood # (Auto) Eos # (Auto) Baso # (Auto) Abs Immat Gran (auto) Absolute Neuts (auto) Absolute Nucleated RBC Nucleated RBC % Sodium Potassium Chloride
--- NOTE | 2020-06-19 01:48 | ECG_ITS ---
Measurements Intervals [place] Rate: 125 P: 52 CO: 121 QRS: 25 QRSD: 98 T: 26 QT: 326 QTc: 471 Interpretive Statements SINUS TACHYCARDIA INCOMPLETE RIGHT BUNDLE BRANCH BLOCK BORDERLINE T WAVE ABNORMALITY- INFERIOR LEADS BASELINE ARTIFACT- II, AVR, AVF ABNORMAL ECG Electronically Signed On 06-19-2020 7:35:46 CDT by Андрей Keyes D.O.
--- NOTE | 2020-06-19 01:50 | PC.NURSE ---
unable to complete ng tube ,pt pulled tub out.advised dr. escoto
--- NOTE | 2020-06-19 01:58 | PM.IMHP ---
H&P: HPI History of Present Illness Date/Time: 06/19/20 01:58 Chief Complaint: Abdominal pain Narrative: patient is a 54-year-old man who came to the emergency room late at night on June 18 with a 2-3 day history of mid upper abdominal pain and back pain. Pain was also in the right lower quadrant. It was intermittent at 1st but for the last few hours before admission became extremely severe. He came to the emergency room where he was noted to be writhing with severe abdominal discomfort. He has been tachycardic but has had normal blood pressure. He has noted some dark stools and was anemic with the hemoglobin of 7.4 hematocrit 23.2. His abdomen was very tender and he had a CT scan of the abdomen and pelvis which showed multiple foci of free intraperitoneal air. There were inflammatory changes in the distal stomach and duodenum suggestive of perforated peptic ulcer disease. Review of his lab work shows a hemoglobin of 13.7 in April of 2019. Hemoglobin was 10 on June 01, 2020. Today it is 7.4. He has low potassium of 3.0. He has a history of mental illness and on at least 2 occasions has come to the emergency room for suicidal ideation and had been transferred to inpatient care at a psychiatric facility. He carries a diagnosis of schizophrenia and bipolar mental illness. He also has a history of asthma and his only reported medication is albuterol. He was seen in the emergency room and is admitted now for acute perforation of the bowel, likely perforated peptic ulcer. Plans are to proceed emergently to the operating room this morning. Review of Systems Review of Systems: All systems reviewed & are unremarkable except as noted in HPI and below ( HPI and those items noted below) ROS unobtainable: Yes unobtainable due to medical condition ( very limited as patient extremely uncomfortable from abdominal pain.) Constitutional: Constitutional: Reports as per HPI, Denies fever(s), Reports frequent falls and Reports poor appetite Cardiovascular: Cardiovascular: Denies chest pain, Denies chest pain at rest and Denies irregular heart rhythm Respiratory: Respiratory: Reports as per HPI and Reports no additional respiratory complaints Gastrointestinal: Gastrointestinal: Reports as per HPI, Reports abdominal pain, Reports melena, Reports nausea and Reports vomiting Psychiatric: Psychiatric: Reports as per HPI, Reports anhedonia, Reports mood swings and Reports suicidal ideation [facility] Past Medical History Medical History (Updated 06/19/20 @ 02:15 by Eladio Molina MD) Anxiety Asthma Back injury Bronchitis Depression Epistaxis Herniated disc History of angina HLD (hyperlipidemia) HTN (hypertension) Kidney stone Pneumonia Pulmonary emboli Schizophrenia Suicide attempt Surgical History Surgical History Hx of appendectomy 1977 Hx of tonsillectomy Family History Family History Father , Unknown No problems noted. Mother , Unknown No problems noted. 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
[2020-06-19] MEDS: LACTATED RINGERS 1,000 ML 30 ML IV CONT ×2 (02:30→06:04)
--- NOTE | 2020-06-19 02:43 | WPDHPUPDATE1 ---
History and Physical Update Update Date/Time: 06/19/20 02:43 History and Physical has been reviewed, including an updated exam of the patient. There are NO changes in the patient's condition. Risks, benefits, and alternatives have been discussed and questions answered. Patient agrees to proceed with procedure.
--- NOTE | 2020-06-19 02:43 | WPDANESEFPP ---
Anes - Eval Final PreProcedure Day of Procedure 06/19/20 02:43 Patient weight: normal Heart: tachycardia Lungs: clear to auscultation Airway: Mallampati scale class II Neurological: alert and oriented Last oral intake: >/= 8 hours ASA classification: III Emergent: yes Anesthetic plan: proceed Anesthesia type and monitoring: general Informed Consent: The patient's anesthetic plan and its attendant risks and benefits were discussed with the patient/family/POA. Questions were solicited and answers provided to the satisfaction of the patient/family/POA. Dr Corley present for preoperative evaluation as well as induction.
--- NOTE | 2020-06-19 06:10 | PM.PROC ---
Procedure Note - Detailed Date of procedure: 06/19/20 Pre-op diagnosis: Perforated duodenal ulcer Bowel perforation Post-op diagnosis: other (Bleeding, perforated duodenal ulcer) Procedure performed: Hemigastrectomy with Yamilka-en-Y gastrojejunostomy Description of procedure: The patient was taken to surgery and induced into general anesthesia. The entire abdomen was prepped and draped. Midline incision was made in the upper abdomen. Dissection was carried down through the midline fascia. We entered the abdomen and extended the incision length of the wound. A large Bean wound guard was then placed. We explored the abdomen finding dark green enteric content predominantly in the right upper quadrant. Further exploration showed a very large duodenal ulcer that had perforated. I extended the incision cephalad up to the xiphoid process. We continued used the Bean wound guard. Further evaluation showed that there was bleeding from the ulcer which explains the drop in hematocrit we had noticed since June 01. It was an extremely large perforation encompassing over 50% of the circumference of the 1st portion of the duodenum. There was really no satisfactory way to suture this back together without risk of stricture or further bleeding. I then went ahead with an extensive Jacki maneuver mobilizing the duodenum to a significant degree. Following this we began a very painstaking and meticulous dissection through greatly inflamed tissue as the ulcer had perforated cephalad and anterior. I divided some of the omentum from the greater curvature of the stomach to enter lesser sac. This was done with the LigaSure. This allowed me to get a hand under the stomach and assist with the dissection. Nasogastric tube was positioned appropriately in the stomach. Careful dissection using a right angle clamp and gentle cautery was used and eventually we mobilized enough of the duodenum at the distal aspect of the perforation. I further dissected the duodenum on the distal aspect of the perforation. From there I divided the rest of the duodenum. I continued careful dissection on the duodenal stump freeing it up until I could staple the end with a linear stapler 60. I then continued this dissection and completely inverted the staple line. I sutured the duodenal a closed over the staple line with 4 0 silk Lembert sutures. This seemed to handle the duodenal stump quite well. I should point out that they were we were very near the entry of the bile duct into the duodenum. I then had the nasogastric tube pulled back. I divided more of the greater and lesser omentum such that we would be removing the distal half of the stomach. I then found an area at the small intestine and followed it back to the ligament of Treitz. I then dissected forward at least 40 cm. I divided the mesentery of the small bowel here with the LigaSure. I then divided the small bowel here with a TLC 55 stapler. The distal end of the small bowel was then brought up through the transverse colon mesentery in retrocolic fashion up to the stomach. I created a gastroenterostomy with the TLC 75 stapler. The entero gastrotomy was then closed with the TLC 60 linear stapler. I then used the TLC 75 stapler to divide the stomach just beyond our anastomosis. Cautery was used over the staple line to achieve hemostasis. A recheck position of the NG tube in it was in good position. I then went back to the stapled end of the small intestine. This was brought in proximity to the distal aspect of the Yamilka limb. A [id number] stapled anastomosis with the TLC 75 stapler was then created here. The enteroenterostomy was closed with the TLC 60 linear stapler. I cauterized the resultant staple line to achieve hemostasis. We then went back and reviewed the duodenal stump, the gastric resection staple line and the enterogastrotomy of the Yamilka limb. All looked quite good. We irrigated thoroughly the right and left upper quadrants
[2020-06-19] MEDS: HYDROmorphone HCL INJ (*CRX) 1 MG/ML SYR 0.5 MG IV PUSH ×3 (06:35→07:06)
--- NOTE | 2020-06-19 07:57 | ADMGEN ---
This patient, Junaid Jensen, was admitted to Intensive Care Unit-1. Patient/family oriented to hospital policies and general routines including ID bracelet, bed and alarms, visiting hours, pain management, procedures, bathroom and other care routines, personal items, smoking policy, room service/diet, and visiting hours. Information on how to activate the Rapid Response Team has been discussed. Patient/Family are encouraged to report perceived risks to care and to ask questions if they do not understand what they are told or what they should do.
[2020-06-19 08:55] LABS: Hematocrit 27.3 % (42.0-52.0); Hemoglobin 8.9 g/dL (14.0-18.0); Mean Corpuscular HGB Conc 32.6 g/dl (32-36); Mean Corpuscular Hemoglobin 28.6 pg (26-34); Mean Corpuscular Volume 87.8 fl (80-100); Mean Platelet Volume 9.2 fl (7.4-10.4); Platelet Count Result 379 k/mm3 (150-375); Red Blood Count 3.11 M/mm3 (4.6-6.20); Red Cell Distribution Width 14.6 % (11.5-14.5); White Blood Count 14.3 K/mm3 (4.5-10.0)
[2020-06-19] MEDS: LACTATED RINGERS 1,000 ML 125 ML IV CONT ×2 (08:56→16:06)
--- NOTE | 2020-06-19 09:03 | WPDCNINT ---
Assessment and Plan Assessment and plan (1) Perforated duodenal ulcer with hemorrhage: Code(s): K26.6 - Chronic or unspecified duodenal ulcer with both hemorrhage and perforation Status: Acute Assessment and Plan: Now s/p Hemigastrectomy with Yamilka-en-Y gastrojejunostomy Continue IV fluids Pain control NPO Monitor hemoglobin IV PPI q.12 hours IV Zosyn (2) Anemia: Code(s): D64.9 - Anemia, unspecified Status: Acute Assessment and Plan: Status post transfusion of 2 units of packed red cell Will check hemoglobin at this time and later in the day Transfuse as needed to keep hemoglobin above 7 (3) Asthma: Qualifiers: Asthma severity: unspecified severity Asthma persistence: unspecified Asthma complication type: uncomplicated Qualified Code(s): J45.909 - Unspecified asthma, uncomplicated Code(s): J45.909 - Unspecified asthma, uncomplicated Status: Chronic Assessment and Plan: P.r.n. 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 Abdominal pain was SA with nausea vomiting but no hematemesis. Patient underwent a CT scan which showed multiple foci of free intraperitoneal air suggestive of perforated viscus. NG tube was placed and surgery was consulted. Patient was emergently taken to operating room and was found to be having a perforated duodenal ulcer which was actively bleeding. Patient underwent Hemigastrectomy with Yamilka-en-Y gastrojejunostomy. He also received 2 units of packed red cells intraop for anemia at the time of presentation. Postop use extubated in recovery and was transferred to ICU for further evaluation management. At this time patient states he continues to have abdominal pain but is different in character. It is 9/10 severe mostly located on the right side, no radiation, it is constant. Pain is worse with deep breathing and coughing and movement and only relieving factors are pain medication. He did had nausea vomiting and diarrhea prior to presentation but denies at this time. He denied any fever hematemesis hemoptysis melena or hematochezia. He did get his COVID vaccine for about a month ago. He denies any suicidal homicidal ideation at this time. He states he is taking albuterol on p.r.n. basis and no other medications at this time. All other systems were reviewed and were negative Review of Systems Review of Systems: All systems reviewed & are unremarkable except as noted in HPI and below (HPI) [facility] Past Medical History Medical History (Updated 06/19/20 @ 09:16 by Marco Lemus MD) Anxiety Asthma Back injury Bronchitis Depression Epistaxis Herniated disc History of angina HLD (hyperlipidemia) HTN (hypertension) Kidney stone Pneumonia Pulmonary emboli Schizophrenia Suicide attempt Surgical History Surgical History Hx of appendectomy 1977 Hx of tonsillectomy Family History Family History Father , Unknown No problems noted. Mother , Unknown No problems noted. Other Family history of malignant neoplasm Social History Social History Smoking status: Former smoker Second hand tobacco smoke exposure: No Alcohol intake:
[2020-06-19 09:04] LABS: Alanine Aminotransferase 20 U/L (4-50); Albumin Level 2.8 g/dL (3.5-5.1); Alkaline Phosphatase 82 U/L (38-126); Anion Gap 5 mmol/L (8-16); Aspartate Amino Transferase 36 U/L (17-59); Bilirubin,Total 1.7 mg/dL (0.2-1.3); Blood Urea Nitrogen 18 mg/dL (9-20); Calcium 8.5 mg/dL (8.4-10.2); Carbon Dioxide 24 mmol/L (22-30); Chloride 109 mmol/L (98-107); Estimated CRCL calculation 102 ml/min; Estimated Glomerular Filt Rate > 60; Glucose 121 mg/dL (75-110); Magnesium 1.6 mg/dL (1.6-2.3); Potassium 3.5 mmol/L (3.4-5.0); Sodium 138 mmol/L (137-145)
[2020-06-19] MEDS: ENOXAPARIN 40 MG/0.4 ML SYRINGE SUB-Q (09:27)
[2020-06-19] MEDS: MORPHINE SULFATE (*CRX) 4 MG/ML INJ IV PUSH ×4 (14:03→22:08)
--- NOTE | 2020-06-19 15:25 | PM.IMCN ---
Assessment and Plan Assessment and plan (1) HTN (hypertension): Code(s): I10 - Essential (primary) hypertension Status: Acute Assessment and Plan: continue to monitor BP, pt is currently npo, iv hydralazine for high bps (2) Perforated duodenal ulcer with hemorrhage: Code(s): K26.6 - Chronic or unspecified duodenal ulcer with both hemorrhage and perforation Status: Acute Assessment and Plan: Sp Hemigastrectomy with Yamilka-en-Y gastrojejunostomy for perforated DU. pt is on iv fluids, iv pain medications, iv zosyn and iv zofran and protonix. (3) Anemia: Code(s): D64.9 - Anemia, unspecified Status: Acute Assessment and Plan: Watch hb currently 8.9 (4) Asthma: Qualifiers: Asthma complication type: uncomplicated Asthma persistence: unspecified Asthma severity: unspecified severity Qualified Code(s): J45.909 - Unspecified asthma, uncomplicated Code(s): J45.909 - Unspecified asthma, uncomplicated Status: Chronic Assessment and Plan: Pt takes albuterol start breathing treatments and spirometry prn. (5) Bowel perforation: Code(s): K63.1 - Perforation of intestine (nontraumatic) Status: Acute Assessment and Plan: From CT scan sp emergent surgery for DU perforated. Pt with Npo with ng tube continue to monitor (6) Schizophrenia: Code(s): F20.9 - Schizophrenia, unspecified Status: Acute Assessment and Plan: CHronic history watch for any mood or behaviour changes or thoughts of suicide or depression. HPI Data of Consult Consult date: 06/20/20 Requesting Physician: Eladio Molina MD Primary Care Provider: DIRECTOR INTELLIGENCE ANALYSIS PROGRAMS PHYSICIAN Consult Narrative Narrative: Junaid Jensen is a 54 year old male admitted yesterday night with vague complaints of abdominal and back pains. Pt had to have emergency surgery for perforated DU this morning. Pt is sp Hemigastrectomy with Yamilka-en-Y gastrojejunostomy for perforated DU. Pt has history of schizophrenia and bipolar, asthma and hypertension. Pt is post op in icu. NPo with Ng tube and fluid and pain medications. Presently vitals are stable but pts heart rate is slightly elevated. Pt denies any specific complaints but appears tired. Review of Systems Review of Systems: All systems reviewed & are unremarkable except as noted in HPI and below PMFSH Past Medical History Medical History (Updated 06/19/20 @ 15:37 by Adrianne Waller MD) Anxiety Asthma Back injury Bronchitis Depression Epistaxis Herniated disc History of angina HLD (hyperlipidemia) HTN (hypertension) Kidney stone Pneumonia Pulmonary emboli Schizophrenia Suicide attempt Surgical History Surgical History Hx of appendectomy 1977 Hx of tonsillectomy Family History Family History Father , Unknown No problems noted. Mother , Unknown No problems noted. 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
[2020-06-19] MEDS: MORPHINE SULFATE (*CRX) 2 MG/ML INJ IV PUSH (18:10)
[2020-06-19] MEDS: PANTOPRAZOLE SODIUM IV 40 MG VIAL IV PUSH (20:06)
[2020-06-20] VITALS (22 sets, daily range): BP systolic 84–133; BP diastolic 59–95; PULSE 134–200; RESP 21–34; TEMP 36.6–38.3; O2SAT 91–98
[2020-06-20] MEDS: MORPHINE SULFATE (*CRX) 4 MG/ML INJ IV PUSH ×4 (00:40→06:35)
--- NOTE | 2020-06-20 01:28 | ECG_ITS ---
Measurements Intervals [place] Rate: 202 P: [place]: 0 QRS: 64 QRSD: 84 T: -46 QT: 220 QTc: 403 Interpretive Statements ATRIAL FIBRILLATION WITH RAPID VENTRICULAR RESPONSE NONSPECIFIC ST & T-WAVE ABNORMALITY- DIFFUSE LEADS BASELINE ARTIFACT- II, III, AVL, AVF, V2 ABNORMAL ECG Electronically Signed On 06-20-2020 7:57:11 CDT by Андрей Keyes D.O.
[2020-06-20] MEDS: AMIODARONE 360 MG/D5W 200 ML 360 MG/200 ML BAG 33.33 MG IV CONT (01:32)
[2020-06-20] MEDS: AMIODARONE 150 MG/D5W 100 ML 150 MG/100 ML BAG 600 MG IV CONT ×2 (01:32→05:24)
[2020-06-20] MEDS: LACTATED RINGERS 1,000 ML 125 ML IV CONT (01:34)
[2020-06-20] MEDS: ADENOSINE IV SOLN 6 MG/2 ML VIAL 12 MG IV PUSH (01:35)
[2020-06-20] MEDS: ADENOSINE IV SOLN 6 MG/2 ML VIAL IV PUSH (01:35)
[2020-06-20] MEDS: METOPROLOL TARTRATE INJ 5 MG/5 ML VIAL (01:36)
--- NOTE | 2020-06-20 01:49 | PM.EVENT ---
Event Note Event Note Event Note: called for extreme tachycardia in 200s, patient febrile. reports no chest pain or sob, no palpitations. bp stable. metoprolol 5 mg iv x 1 given with no change. adenosine 6 mg iv x 1 with no change adenosine 12 mg iv which lowered heart rate to 110s for a few seconds. underlying rhythm seems to be afib with rvr. will start on amidoarone bolus follwoed by infusion. k and Mg low in the am. will repeat labs tylenol iv x 1 givne. already on antibiotics zosyn. will give magnesium rider kcl 40 mg iv will be ordered. with amiodarone, hear rate down to 160s currently. will cotnnue to monitor.
--- NOTE | 2020-06-20 01:50 | ECG_ITS ---
Measurements Intervals [place] Rate: 168 P: VT: 0 QRS: 57 QRSD: 93 T: -36 QT: 265 QTc: 443 Interpretive Statements ATRIAL FIBRILLATION WITH RAPID VENTRICULAR RESPONSE NONSPECIFIC ST & T-WAVE ABNORMALITY- INF/LAT LEADS ABNORMAL ECG Electronically Signed On 06-20-2020 7:57:37 CDT by Андрей Keyes D.O.
--- NOTE | 2020-06-20 02:01 | PCDIET ---
06/20/20 0200 Pt afebrile with heart rate as high as 202. EKG shows Afib. Dr Mathias in attendance in room and ordered 6mg adenosine. Defibrillator pads placed on patient and hooked up to crash cart. 6mg adenosine and 20ml flush given in rapid succession with arm elevated through Y adaptor by Renata Garsia RN and Lia Tierney RN, ACLS certified nurses. Little change in heart rate. Second dose of 12mg adenosine given with 20ml flush given in rapid succession with Y adaptor and arm elevated above head. Momentary drop in heart rate to 111. Pt given 100mg IV tylenol and amiodarone bolus followed by amiodarone drip. Magnesium and Potassium also ordered per Dr Mathias. heart rate currently 157.
--- NOTE | 2020-06-20 02:11 | PC.NURSE ---
06/20/20 0205 Pt febrile with heart rate 202 bpm. Patient recently given pain medicine. EKG shows atrial fibrillation. Dr Mathias in room and orders 6mg adenosine. Defibrillator pads applied to pt and hooked up to crash cart. Six milligrams adenosine pushed in rapid succession with 20ml flush through peripheral line with arm elevated above head per Lia Tierney RN and Reanta Garsia RN at 0118. Little change in heart rate noted. Second dose of 12mg adenosine given in rapid succession through Y adaptor and arm elevated at 0121. Momentary heart rate decrease to 111. Amiodarone bolus given and amiodarone drip started. Pt given 1000mg IV tylenol. Magnesium and potassium IV ordered per Dr Mathias. Current heart rate 157.
[2020-06-20] MEDS: MAGNESIUM SULF 2 GM/WATER 50ML 2 GM/50 ML BAG IVPB (02:18)
[2020-06-20 02:51] LABS: Basophils Percent Auto 0.3 % (0.2-1.2); Hematocrit 25.7 % (42.0-52.0); Hemoglobin 8.2 g/dL (14.0-18.0); Immature Granulocyte Absolute 0.06 K/mm3 (0.00-0.031); Immature Granulocyte Percent A 0.4 % (0-0.5); Lymphocytes Absolute Auto 1.34 K/mm3 (0.9-3.2); Lymphocytes Percent Auto 9.7 % (18.3-44.2); Mean Corpuscular HGB Conc 31.9 g/dl (32-36); Mean Corpuscular Hemoglobin 28.1 pg (26-34); Mean Platelet Volume 9.2 fl (7.4-10.4); Monocytes Absolute Auto 0.9 K/mm3 (0.1-0.6); Monocytes Percent Auto 6.4 % (2.6-8.5); Neutrophils Absolute Auto 11.5 K/mm3 (1.3-6.7); Neutrophils Percent Auto 83.2 % (45.5-73.1); Platelet Count Result 355 k/mm3 (150-375); Red Blood Count 2.92 M/mm3 (4.6-6.20); Red Cell Distribution Width 14.8 % (11.5-14.5); White Blood Count 13.8 K/mm3 (4.5-10.0)
[2020-06-20 02:55] LABS: INR 1.2; Prothrombin Time 15.6 Seconds (11.1-14.7)
[2020-06-20 02:57] LABS: Magnesium 2.2 mg/dL (1.6-2.3)
[2020-06-20 02:58] LABS: Alanine Aminotransferase 18 U/L (4-50); Albumin Level 2.7 g/dL (3.5-5.1); Alkaline Phosphatase 74 U/L (38-126); Anion Gap 4 mmol/L (8-16); Aspartate Amino Transferase 25 U/L (17-59); Bilirubin,Total 1.8 mg/dL (0.2-1.3); Blood Urea Nitrogen 16 mg/dL (9-20); Calcium 8.3 mg/dL (8.4-10.2); Carbon Dioxide 26 mmol/L (22-30); Chloride 110 mmol/L (98-107); Estimated CRCL calculation 102 ml/min; Estimated Glomerular Filt Rate > 60; Glucose 115 mg/dL (75-110); Magnesium 2.2 mg/dL (1.6-2.3); Potassium 3.3 mmol/L (3.4-5.0); Sodium 140 mmol/L (137-145)
[2020-06-20] MEDS: METOPROLOL TARTRATE INJ 5 MG/5 ML VIAL IV PUSH ×4 (04:07→19:37)
--- NOTE | 2020-06-20 05:26 | ECG_ITS ---
Measurements Intervals [place] Rate: 156 P: VT: 0 QRS: 46 QRSD: 94 T: 0 QT: 274 QTc: 442 Interpretive Statements ATRIAL FLUTTER/TACHYCARDIA WITH RAPID VENTRICULAR RESPONSE NONSPECIFIC ST & T-WAVE ABNORMALITY ABNORMAL ECG Electronically Signed On 06-20-2020 8:00:01 CDT by Андрей Keyes D.O.
[2020-06-20] MEDS: DIGOXIN INJ 250 MCG/ML 2 ML AMP (*BKC) IV PUSH (06:36)
[2020-06-20] MEDS: HYDROmorphon 0.2MG/ML PCA(*CRX 6 MG/30 ML PCA.VIAL 2.5 MG IV CONT ×2 (08:30→16:35)
[2020-06-20] MEDS: PANTOPRAZOLE SODIUM IV 40 MG VIAL IV PUSH ×2 (08:56→20:20)
[2020-06-20] MEDS: ALVIMOPAN 12 MG CAPSULE PO ×2 (08:57→20:20)
[2020-06-20] MEDS: ENOXAPARIN 40 MG/0.4 ML SYRINGE SUB-Q (08:57)
--- NOTE | 2020-06-20 09:25 | WPDINTPN ---
Progress Note: A&P Assessment and Plan (1) Atrial flutter with rapid ventricular response: Code(s): I48.92 - Unspecified atrial flutter Status: Acute Assessment and Plan: Patient went into AFib/a flutter overnight with RVR. Patient received digoxin adenosine x2 amiodarone bolus x2 and was started on amiodarone infusion without any adequate control. He remained hemodynamically stable Add Lopressor IV q.6 hours Continue amiodarone infusion EKG early the morning showed AFib with RVR but more so recent shows a flutter with RVR Consulted Cardiology Discussed with Dr. Molina and Dr. Rees Start heparin infusion without bolus and if patient tolerates without any complication then Cardiology will consider cardioversion tomorrow unless patient cardiovert some self. Cardiology has concern about patient's tolerance of anticoagulation which he will need if cardioverted due to his recent surgery with perforated ulcer. (2) Perforated duodenal ulcer with hemorrhage: Code(s): K26.6 - Chronic or unspecified duodenal ulcer with both hemorrhage and perforation Status: Acute Assessment and Plan: Now s/p Hemigastrectomy with Yamilka-en-Y gastrojejunostomy Continue IV fluids but decrease rate Pain control changed to SERVICES ENGINEER Dilaudid NPO Monitor hemoglobin IV PPI q.12 hours IV Zosyn (3) Anemia: Code(s): D64.9 - Anemia, unspecified Status: Acute Assessment and Plan: Status post transfusion of 2 units of packed red cell Monitor hemoglobin Transfuse as needed to keep hemoglobin above 7 (4) Asthma: Qualifiers: Asthma severity: unspecified severity Asthma persistence: unspecified Asthma complication type: uncomplicated Qualified Code(s): J45.909 - Unspecified asthma, uncomplicated Code(s): J45.909 - Unspecified asthma, uncomplicated Status: Chronic Assessment and Plan: P.r.n. albuterol (5) HTN (hypertension): Code(s): I10 - Essential (primary) hypertension Status: Acute Assessment and Plan: Patient has history of hypertension but not on any treatment as an outpatient Will continue to monitor blood pressure and treat if elevated Additional Plan DVT prophylaxis -heparin infusion Stress ulcer prophylaxis -PPI Nutrition -NPO Code Status - Full Code Incentive spirometry Total Critical Care Time - 32 minutes Due to a high probability of clinically significant, life threatening deterioration, the patient required my highest level of preparedness to intervene emergently and I personally spent this critical care time directly and personally managing the patient. This critical care time included obtaining a history; examining the patient; pulse oximetry; ordering and review of studies; arranging urgent treatment with development of a management plan; evaluation of patient's response to treatment; frequent reassessment; and discussions with other providers. It was exclusive of separately billable procedures and treating other patients and teaching time. Please see Assessment and Plan section and the rest of the note for further information on patient assessment and treatment Subjective Date/time seen: 06/20/20 0710 Overnight events reviewed. Patient went into AFib/a flutter overnight with RVR. Patient received digoxin adenosine x2 amiodarone bolus x2 and was started on amiodarone infusion without any adequate control. He remained hemodynamically stable Afebrile He denies any chest pain or shortness of breath at this time does admit to having abdominal pain which is 9/10. He states that morphine helps only for little bit. No nausea vomiting. No bowel movement not passing any gas at this time. He does admit to burping All other systems were reviewed and were negative Review of Systems Review of Systems: All systems reviewed & are unremarkable except as noted in HPI and below (HPI) Exam Narrative: Exam Narrative: General: Pt is alert awake and in NAD
--- NOTE | 2020-06-20 09:35 | PM.CNCAR ---
Assessment and Plan Assessment and plan (1) Atrial flutter with rapid ventricular response: Code(s): I48.92 - Unspecified atrial flutter Status: Acute Assessment and Plan: Patient presented in sinus tachycardia in setting of perforated duodenal ulcer mass status post emergent Hemigastrectomy with Yamilka-en-Y gastrojejunostomy then developed atrial fibrillation with rapid ventricular response. Refractory to amiodarone and digoxin. Rhythm has no organized into atrial flutter approximately 160 beats per minute. Patient asymptomatic, hemodynamically stable at this time. No prior known history. Onset noted post admission. Patient denies prior known history. CHADS2-Vasc score 1. Hold off on ASA given presentation. Given refractory nature of tachyarrhythmia despite antiarrhythmic therapy he may need electrical cardioversion. Given known onset if A/C initiated now and tolerated NITHIN guidance would not be required. However, pt declines consideration for electrical cardioversion at this time. Furthermore, despite his rate he is tolerating this well hemodynamically and is completely asymptomatic. Would be prudent to observe tolerance to anticoagulation initially given presentation as pt would be at higher risk for embolic CVA post CV if anticoagulation must be discontinued. Monitor closely in ICU for now with recommendations to follow based upon clinical status. Continue IV Amiodarone and IV Metoprolol as tolerated. Hold off on Digoxin for now. Discussed with pt treatment options, bleeding vs embolic CVA risk. Monitor and replete electrolytes as appropriate to keep K+ around 4 and Mg 2, respectively. 2D Echo when HR better controlled. (2) Perforated duodenal ulcer with hemorrhage: Code(s): K26.6 - Chronic or unspecified duodenal ulcer with both hemorrhage and perforation Status: Acute Assessment and Plan: s/p emergent Hemigastrectomy with Yamilka-en-Y gastrojejunostomy secondary to perforated duodenal ulcer (3) Anemia: Code(s): D64.9 - Anemia, unspecified Status: Acute Assessment and Plan: Blood-loss anemia. Status post transfusion 2 units PRBCs. H&H stable thus far. Surgery okay with systemic anticoagulation. Follow H/H closely and monitor for signs of bleeding. (4) PUD (peptic ulcer disease): Code(s): K27.9 - Peptic ulcer, site unspecified, unspecified as acute or chronic, without hemorrhage or perforation Status: Acute Assessment and Plan: As above. Concern for bleeding risk given presentation. Etiology remains unclear which poses ongoing concern (5) Schizophrenia: Code(s): F20.9 - Schizophrenia, unspecified Status: Acute Assessment and Plan: per primary service History of Present Illness History of Present Illness Consult date/time: Date of service: 06/20/20 09:35 Cardiology consultation at the request of Dr. Mathias of the [facility] service for my opinion regarding atrial fibrillation and atrial flutter with rapid ventricular response Requesting physician: Paulo Mathias MD Consult reason: atrial fibrillation Reason For Visit: Perforated duodenal ulcer Narrative: Patient is a 54-year-old male with a past medical history significant for schizophrenia, depression, history of suicidal ideation, reported history of pulmonary emboli, hypertension, dyslipidemia who presented with several day history of mid upper abdominal and back pain patient became very severe before presentation. He was noted to be in sinus tachycardia with severe anemia and hemoglobin 7.4. Her electronic medical record he admitted to dark stools with very tender abdomen. CT abdomen pelvis revealed free intraperitoneal air with changes suggestive of perforated peptic ulcer. No prior known cardiac history per patient. Postoperative patient developed atrial fibrillation with very rapid ventricular response at 200 beats per minute. Patient initially received IV adenosine wi
--- NOTE | 2020-06-20 09:44 | WPDANESPN ---
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, management per ICU team) Post-Op hydration status: other (management per ICU team) Vital Signs: Last Vital Signs Temp 36.6 C 06/20/20 04:00 Pulse 152 H 06/20/20 05:34 Resp 26 H 06/20/20 05:34 BP 84/59 L 06/20/20 05:34 Pulse Ox 92 06/20/20 08:16 Pain Score (VAS): resting quietly with ROUTE SALESMAN AND DRIVER pump I/O: Intake & Output 06/19/20 06/20/20 06/20/20 23:59 07:59 15:59 Intake Total 1050 1710 Output Total 800 620 Balance 250 1090 Laboratory Tests 06/20/20 02:37 06/20/20 02:37 06/20/20 06/20/20 06/20/20 02:37 02:37 02:37 WBC 13.8 H RBC 2.92 L Hgb 8.2 L Hct 25.7 L MCV 88.0 MCH 28.1 MCHC 31.9 L RDW 14.8 H Plt Count 355 MPV 9.2 Immature Gran % (Auto) 0.4 Neut % (Auto) 83.2 H Lymph % (Auto) 9.7 L Benzie % (Auto) 6.4 Eos % (Auto) 0.0 Baso % (Auto) 0.3 Lymph # (Auto) 1.34 Benzie # (Auto) 0.9 H Eos # (Auto) 0.0 Baso # (Auto) 0.0 Abs Immat Gran (auto) 0.06 H Absolute Neuts (auto) 11.5 H Absolute Nucleated RBC 0.0 Nucleated RBC % 0.0 PT 15.6 H INR 1.2 Sodium Potassium Chloride Carbon Dioxide Anion Gap BUN Creatinine Estim Creat Clear Calc Estimated GFR Glucose Calcium Phosphorus Magnesium 2.2 Total Bilirubin AST ALT Alkaline Phosphatase Total Protein Albumin 06/20/20 02:37 WBC RBC Hgb Hct MCV MCH MCHC RDW Plt Count MPV Immature Gran % (Auto) Neut % (Auto) Lymph % (Auto) Benzie % (Auto) Eos % (Auto) Baso % (Auto) Lymph # (Auto) Benzie # (Auto) Eos # (Auto) Baso # (Auto) Abs Immat Gran (auto) Absolute Neuts (auto) Absolute Nucleated RBC Nucleated RBC % PT INR Sodium 140 Potassium 3.3 L Chloride 110 H Carbon Dioxide 26 Anion Gap 4 L BUN 16 Creatinine 0.80 Estim Creat Clear Calc 102 Estimated GFR > 60 Glucose 115 H Calcium 8.3 L Phosphorus 3.0 Magnesium 2.2 Total Bilirubin 1.8 H AST 25 ALT 18 Alkaline Phosphatase 74 Total Protein 6.0 L Albumin 2.7 L Microbiology 06/19/20 00:46 Urine Clean Catch Urine Culture - Final Post-procedural complaints: none Patient Feedback: Patient satisfied with anesthetic care.
--- NOTE | 2020-06-20 10:23 | PM.PNGS ---
Progress Note: A&P Assessment and Plan (1) Perforated duodenal ulcer with hemorrhage: Code(s): K26.6 - Chronic or unspecified duodenal ulcer with both hemorrhage and perforation Status: Acute Assessment and Plan: expected adynamic ileus. Discussed care with Dr. Lemus, cleaning professional. Okay to increase Dilaudid dose in PLANT OPERATIONS COORDINATOR if needed. Try to sit patient up at side of bed. Continue NPO, NG tube and IV fluids. Continue IV Zosyn antibiotics. Okay to anticoagulate with heparin but advise to start low and slowly increase to therapeutic level rather than potentially over anticoagulating due to risk of bleeding. Continue critical care management. (2) Anemia: Code(s): D64.9 - Anemia, unspecified Status: Acute Assessment and Plan: H&H 8.2 and 25.7 this morning. Follow closely. Patient received 2 units packed cells in the OR yesterday. (3) Atrial flutter with rapid ventricular response: Code(s): I48.92 - Unspecified atrial flutter Status: Acute Assessment and Plan: Okay to slowly anticoagulate. Cardiology considering cardioversion. Defer to medical management. Subjective Subjective Date/Time Seen: 06/20/20 10:23 Post Op day: 1 Patient reports: still having pain ( On PLANT OPERATIONS COORDINATOR Dilaudid.), no flatus, no bowel movement, fever ( Temp to 38.3 about midnight last night) and other ( patient currently in rapid atrial fib, atrial tachycardia. He is on amiodarone drip. Cardiology considering cardioversion.) Interval history: Explained details of the operative findings, pathology and the procedure done to the patient. He has no listed contacts in the record. Review of Systems Review of Systems: All systems reviewed & are unremarkable except as noted in HPI and below Constitutional: Constitutional: Reports as per HPI, Denies chills, Denies headache(s), Denies night sweats and Reports weakness Gastrointestinal: Gastrointestinal: Reports as per HPI, Reports abdominal pain, Denies heartburn, Denies nausea and Denies vomiting Neurologic: Denies confusion and Denies headache(s) Exam Const: General: cooperative, no acute distress, alert, awake, anxious and uncomfortable ( Due to abdominal pain, using PLANT OPERATIONS COORDINATOR); No confusion Orientation/consciousness: patient oriented x3 and No confusion Limitations: physical limitations GI: Inspection: non-distended, incision ( dressing dry and intact, serosanguineous HERO fluid) and scaphoid GI Palp: Yes Firmness to palpation present (GI), Yes Tenderness to palpation present (GI) ( tender throughout) and Yes Guarding due to palpation present (GI) Auscultation: absent bowel sounds Neuro: General: patient oriented x3, no focal motor deficits and No confusion Extrem: General: no calf tenderness and no edema Psych: Affect: normal affect Insight: Good insight present (Psych) Judgement: Good judgement present (Psych) Objective Data Vital Signs Vital Signs: Vital Signs - 24 hr 06/19/20 12:00 06/19/20 14:00 06/19/20 16:00 Temperature 36.8 C 37.4 C Pulse Rate 119 H 122 H 124 H Respiratory Rate 31 H 18 34 H Blood Pressure 125/79 122/74 111/66 Pulse Oximetry 98 95 94 06/19/20 18:00 06/19/20 19:53 06/19/20 19:59 Temperature 36.6 C Pulse Rate 126 H 135 H 138 H Respiratory Rate 28 H 30 H 28 H Blood Pressure 116/73 121/68 Pulse Oximetry 94 91 92 06/19/20 20:00 06/19/20 20:05 06/19/20 21:51 Temperature Pulse Rate 137 H 138 H 135 H Respiratory Rate 34 H 32 H Blood Pressure 118/70 Pulse Oximetry 92 93 06/19/20 23:45 06/20/20 00:00 06/20/20 01:32 Temperature 38.3 C H Pulse Rate 135 H 134 H 165 H Respiratory Rate 30 H 34 H Blood Pressure 132/70 Pulse Oximetry 93 92 06/20/20 01:36 06/20/20 01:57 06/20/20 04:00 Temperature 38.3 C H 36.6 C Pulse Rate 200 H 169 H 160 H Respiratory Rate 27 H 23 H Blood Pressure 100/73 92/75 L Pulse Oximetry 96 95 06/20/20 04:07 06/20/20 04:29 06/20/20 05:24 Temperature Pu
[2020-06-20 10:49] LABS: INR 1.3; Prothrombin Time 16.6 Seconds (11.1-14.7)
[2020-06-20 10:50] LABS: Partial Thromboplastin Time 40.4 SECONDS (22.3-36.8)
[2020-06-20] MEDS: HEPARIN SOD/D5W 100 UNITS/ML 25,000 UNITS/250 ML BAG 15 UNITS IV CONT (11:59)
[2020-06-20] MEDS: LACTATED RINGERS 1,000 ML 75 ML IV CONT (12:53)
--- NOTE | 2020-06-20 14:19 | PM.IMPN ---
Progress Note: A&P Assessment and Plan (1) HTN (hypertension): Code(s): I10 - Essential (primary) hypertension Status: Acute Assessment and Plan: continue to monitor BP, pt is currently npo, iv hydralazine for high bps (2) Perforated duodenal ulcer with hemorrhage: Code(s): K26.6 - Chronic or unspecified duodenal ulcer with both hemorrhage and perforation Status: Acute Assessment and Plan: Sp Hemigastrectomy with Yamilka-en-Y gastrojejunostomy for perforated DU. pt is on iv fluids, iv pain medications, iv zosyn and iv zofran and protonix. (3) Anemia: Code(s): D64.9 - Anemia, unspecified Status: Acute Assessment and Plan: Watch hb currently 8.2 (4) Asthma: Qualifiers: Asthma severity: unspecified severity Asthma persistence: unspecified Asthma complication type: uncomplicated Qualified Code(s): J45.909 - Unspecified asthma, uncomplicated Code(s): J45.909 - Unspecified asthma, uncomplicated Status: Chronic Assessment and Plan: Pt takes albuterol start breathing treatments and spirometry prn. (5) Bowel perforation: Code(s): K63.1 - Perforation of intestine (nontraumatic) Status: Acute Assessment and Plan: From CT scan sp emergent surgery for DU perforated. Pt with Npo with NG tube continue to monitor (6) Schizophrenia: Code(s): F20.9 - Schizophrenia, unspecified Status: Acute Assessment and Plan: CHronic history watch for any mood or behaviour changes or thoughts of suicide or depression. (7) Atrial flutter with rapid ventricular response: Code(s): I48.92 - Unspecified atrial flutter Status: Acute Assessment and Plan: Continue IV Amiodarone and IV Metoprolol, correct electrolytes, echo later, continue to watch, HR still high and irregular at 165 Subjective Date/time seen: 06/20/20 14:19 Interval history: 54 year old male admitted yesterday night with vague complaints of abdominal and back pains. Pt had to have emergency surgery for perforated DU. Pt is sp Hemigastrectomy with Yamilka-en-Y gastrojejunostomy for perforated DU. Post op day 2. Pt went into AF with RVR pt was given digoxin and amiodarone drip. cardiology considering cardioversion, as pt has no previous history of Af. Past history asthma, HTN and schizophrenia. Pt is otherwise without any specific compliants Review of Systems Review of Systems: All systems reviewed & are unremarkable except as noted in HPI and below Exam Const: General: other (Sp surgery with NG tube in situ ) HENMT: Head: normocephalic Eyes: General: appearance normal, both eyes and all related structures Pupils: Equal, round and reactive pupils present Neck: Neck: supple Chest: Chest palpation & inspection: normal inspection of the chest Resp: Effort & Inspection: normal respiratory effort Auscultation: clear to auscultation bilaterally Cardio: Jugular venous distension: no JVD Rhythm: regular rhythm Heart sounds: S1 normal heart sound present and S2 normal heart sound present GI: Inspection: other (Midline incision with fresh dressing, diffuse tenderness ) Skin: General skin exam: normal color and dry skin Neuro: Cranial nerves: Yes CN's II-XII intact bilaterally and Yes Equal, round and reactive pupils present Speech: normal speech Motor exam (neuro): 5/5 motor strength present throughout Extrem: General: normal to inspection Objective Data Vital Signs Vital Signs: Vital Signs - 24 hr 06/19/20 16:00 06/19/20 18:00 06/19/20 19:53 Temperature 37.4 C Pulse Rate 124 H 126 H 135 H Respiratory Rate 34 H 28 H 30 H Blood Pressure 111/66 116/73 Pulse Oximetry 94 94 91 06/19/20 19:59 06/19/20 20:00 06/19/20 20:05 Temperature 36.6 C Pulse Rate 138 H 137 H 138 H Respiratory Rate 28 H 34 H Blood Pressure 121/68 Pulse Oximetry 92 92 06/19/20 21:51 06/19/20 23:45 06/20/20 00:00 Temperature 38.3 C H Puls
[2020-06-20 16:33] LABS: Hematocrit 29.7 % (42.0-52.0); Hemoglobin 9.3 g/dL (14.0-18.0)
[2020-06-20 19:11] LABS: Partial Thromboplastin Time > 200.0 SECONDS (22.3-36.8)
[2020-06-20] MEDS: AMIODARONE 360 MG/D5W 200 ML 360 MG/200 ML BAG 16.67 MG IV CONT (19:35)
[2020-06-21] VITALS (39 sets, daily range): BP systolic 92–115; BP diastolic 58–94; PULSE 162–169; RESP 16–32; TEMP 36.7–39.1; O2SAT 90–99
[2020-06-21] MEDS: METOPROLOL TARTRATE INJ 5 MG/5 ML VIAL IV PUSH ×3 (01:07→21:20)
[2020-06-21 01:33] LABS: Partial Thromboplastin Time 67.1 SECONDS (22.3-36.8)
[2020-06-21] MEDS: HEPARIN SODIUM 5,000 UNITS/ML VIAL 3500 UNITS IV PUSH (01:45)
[2020-06-21] MEDS: LACTATED RINGERS 1,000 ML 75 ML IV CONT (02:58)
[2020-06-21 07:22] LABS: Basophils Absolute Auto 0.1 K/mm3 (0.0-0.1); Basophils Percent Auto 0.3 % (0.2-1.2); Eosinophils Absolute Auto 0.1 K/mm3 (0-0.3); Eosinophils Percent Auto 0.4 % (0-4.4); Hematocrit 26.4 % (42.0-52.0); Hemoglobin 8.1 g/dL (14.0-18.0); Immature Granulocyte Absolute 0.14 K/mm3 (0.00-0.031); Immature Granulocyte Percent A 0.8 % (0-0.5); Lymphocytes Absolute Auto 2.28 K/mm3 (0.9-3.2); Lymphocytes Percent Auto 12.8 % (18.3-44.2); Mean Corpuscular HGB Conc 30.7 g/dl (32-36); Mean Corpuscular Volume 91.3 fl (80-100); Monocytes Absolute Auto 1.4 K/mm3 (0.1-0.6); Monocytes Percent Auto 7.6 % (2.6-8.5); Neutrophils Absolute Auto 13.9 K/mm3 (1.3-6.7); Neutrophils Percent Auto 78.1 % (45.5-73.1); Platelet Count Result 364 k/mm3 (150-375); Red Blood Count 2.89 M/mm3 (4.6-6.20); White Blood Count 17.8 K/mm3 (4.5-10.0)
[2020-06-21] MEDS: AMIODARONE 360 MG/D5W 200 ML 360 MG/200 ML BAG 16.67 MG IV CONT ×2 (07:27→21:20)
[2020-06-21 07:33] LABS: Anion Gap 1 mmol/L (8-16); Blood Urea Nitrogen 19 mg/dL (9-20); Calcium 8.3 mg/dL (8.4-10.2); Carbon Dioxide 32 mmol/L (22-30); Chloride 108 mmol/L (98-107); Estimated CRCL calculation 102 ml/min; Estimated Glomerular Filt Rate > 60; Glucose 106 mg/dL (75-110); Magnesium 2.4 mg/dL (1.6-2.3); Potassium 3.6 mmol/L (3.4-5.0); Sodium 141 mmol/L (137-145)
[2020-06-21 07:36] LABS: INR 1.2; Prothrombin Time 15.8 Seconds (11.1-14.7)
[2020-06-21 07:37] LABS: Partial Thromboplastin Time 80.4 SECONDS (22.3-36.8)
--- NOTE | 2020-06-21 07:38 | PM.PNGS ---
Progress Note: A&P Assessment and Plan (1) Perforated duodenal ulcer with hemorrhage: Code(s): K26.6 - Chronic or unspecified duodenal ulcer with both hemorrhage and perforation Status: Acute Assessment and Plan: doing well postop day 2. Pain is better on Dilaudid VENTILATION EQUIPMENT TENDER. Continue NPO and NG suction. Continue VENTILATION EQUIPMENT TENDER for now. Continue IV Zosyn. Start dressing changes today. Consider discontinuing Brower catheter. (2) Atrial flutter with rapid ventricular response: Code(s): I48.92 - Unspecified atrial flutter Status: Acute Assessment and Plan: Patient refuses cardioversion. I explained to him that this is a very serious cardiac arrhythmia that could result in his and certainly is resulting in delayed recovery. He is somehow convinced that cardioversion is going to cause him to . Despite trying to convince him otherwise, he is still refusing. (3) Schizophrenia: Qualifiers: Schizophrenia type: unspecified Qualified Code(s): F20.9 - Schizophrenia, unspecified Code(s): F20.9 - Schizophrenia, unspecified Status: Acute Assessment and Plan: Patient seems more disconnected today than he has yesterday or the day before when he had surgery. I am concerned he is making decisions with untreated mental illness. Consider psychiatry consult even if it is a telephone or tele med consult. Patient repeatedly refuses that he takes any other medication other than albuterol. Subjective Subjective Date/Time Seen: 06/21/20 07:38 Post Op day: 2 Patient reports: still having pain ( More tolerable than yesterday, still using VENTILATION EQUIPMENT TENDER), no flatus, no bowel movement, fever and other ( patient refusing cardioversion) Interval history: patient remains in rapid atrial fibrillation or atrial tachycardia. He has been refusing cardioversion. Abdominal pain a little better today. No other complaints. He is now on a therapeutic dose of heparin although PTT of 80.4 this morning. Last night after heparin bolus, he had a PTT of greater than 200. Review of Systems Review of Systems: All systems reviewed & are unremarkable except as noted in HPI and below Constitutional: Constitutional: Reports as per HPI, Denies chills, Denies fever(s) and Denies headache(s) Cardiovascular: Cardiovascular: Reports as per HPI, Denies chest pain, Denies rapid heart rate, Denies palpitations and Denies dyspnea Respiratory: Respiratory: Denies cough and Denies dyspnea Gastrointestinal: Gastrointestinal: Reports as per HPI, Reports abdominal pain, Denies GI cramping, Denies heartburn, Denies nausea and Denies vomiting Neurologic: Denies confusion and Denies headache(s) Exam Const: General: no acute distress, alert and awake; No confusion Nutritional Appearance: average body habitus Orientation/consciousness: patient oriented x3 and No confusion GI: Inspection: incision ( Incision looks good, no redness no particular drainage.) and other ( HERO drain serosanguineous) GI Palp: Yes Soft to palpation, Yes Tenderness to palpation present (GI) ( still very tender throughout) and Yes Guarding due to palpation present (GI) Auscultation: absent bowel sounds Neuro: General: patient oriented x3, no focal motor deficits and No confusion Extrem: General: no calf tenderness and no edema Psych: Mental Status: other ( patient does not look at the interviewer, stares at ceiling when talking) Speech and movement: Clear speech present Affect: normal affect and Blunted affect present Attitude: Guarded attititude/behavior present Thought process: Illogical thought process present Insight: Limited insight present (Psych) Judgement: Limited judgement present (Psych) Objective Data Vital Signs Vital Signs: Vital Signs - 24 hr 06/20/20 08:00 06/20/20 08:16 06/20/20 10:00 Temperature 37.4 C Pulse Rate 157 H 157 H Respiratory Rate 31 H 31 H Blood Pressure 124/95 H 105/72 Pulse Oximetry 95 92 95 06/20/20
[2020-06-21] MEDS: HYDROmorphon 0.2MG/ML PCA(*CRX 6 MG/30 ML PCA.VIAL 2.5 MG IV CONT ×4 (07:46→22:06)
[2020-06-21] MEDS: AMIODARONE 150 MG/D5W 100 ML 150 MG/100 ML BAG 600 MG IV CONT (08:07)
[2020-06-21] MEDS: ALVIMOPAN 12 MG CAPSULE PO ×2 (08:34→20:09)
[2020-06-21] MEDS: PANTOPRAZOLE SODIUM IV 40 MG VIAL IV PUSH ×2 (08:34→20:09)
[2020-06-21] MEDS: KCL 20 MEQ/D5/0.45% SOD CHL 1,000 ML 50 ML IV CONT (08:47)
--- NOTE | 2020-06-21 09:09 | WPDINTPN ---
Progress Note: A&P Assessment and Plan (1) Atrial flutter with rapid ventricular response: Code(s): I48.92 - Unspecified atrial flutter Status: Acute Assessment and Plan: Patient went into AFib/a flutter 5/8t with RVR. Patient received digoxin adenosine x2 amiodarone bolus x2 and was started on amiodarone infusion without any adequate control. He remained hemodynamically stable Added Lopressor IV q.6 hours Continue amiodarone infusion Patient seen by Cardiology Discussed with Dr. Molina and Dr. Rees Patient was started on heparin infusion I again discussed option of cardioversion with him and potential benefits and risks. Patient still adamant that he does not want cardioversion as he does not feel that atrial flutter is bothering him and he does not want to take any risks. Will give another bolus of amiodarone. Replace low potassium (2) Perforated duodenal ulcer with hemorrhage: Code(s): K26.6 - Chronic or unspecified duodenal ulcer with both hemorrhage and perforation Status: Acute Assessment and Plan: Now s/p Hemigastrectomy with Yamilka-en-Y gastrojejunostomy Continue IV fluids but decrease rate Pain control with PYROMETER MECHANIC Dilaudid NPO Monitor hemoglobin IV PPI q.12 hours IV Zosyn Shows nonobstructive bowel gas pattern Continue NG to LIS (3) Anemia: Code(s): D64.9 - Anemia, unspecified Status: Acute Assessment and Plan: Status post transfusion of 2 units of packed red cell Monitor hemoglobin Transfuse as needed to keep hemoglobin above 7 (4) Asthma: Qualifiers: Asthma severity: unspecified severity Asthma persistence: unspecified Asthma complication type: uncomplicated Qualified Code(s): J45.909 - Unspecified asthma, uncomplicated Code(s): J45.909 - Unspecified asthma, uncomplicated Status: Chronic Assessment and Plan: P.r.n. albuterol (5) HTN (hypertension): Code(s): I10 - Essential (primary) hypertension Status: Acute Assessment and Plan: Patient has history of hypertension but not on any treatment as an outpatient Will continue to monitor blood pressure and treat if elevated Additional Plan DVT prophylaxis -heparin infusion Stress ulcer prophylaxis -PPI Nutrition -NPO Code Status - Full Code Incentive spirometry Total Critical Care Time - 30 minutes Due to a high probability of clinically significant, life threatening deterioration, the patient required my highest level of preparedness to intervene emergently and I personally spent this critical care time directly and personally managing the patient. This critical care time included obtaining a history; examining the patient; pulse oximetry; ordering and review of studies; arranging urgent treatment with development of a management plan; evaluation of patient's response to treatment; frequent reassessment; and discussions with other providers. It was exclusive of separately billable procedures and treating other patients and teaching time. Please see Assessment and Plan section and the rest of the note for further information on patient assessment and treatment Subjective Date/time seen: 06/21/20 0730 Overnight events reviewed.Afebrile Continues to be a flutter with RVR Continues to complain abdominal pain which is 9/10. No nausea vomiting not passing flatus, no bowel movement, denies any fever headache shortness of breath chest pain or cough. All other systems were reviewed and were negative He has been using PYROMETER MECHANIC but looks like it is not maximizing the dose ordered Other Vitals acceptable Review of Systems Review of Systems: All systems reviewed & are unremarkable except as noted in HPI and below (HPI) Exam Narrative: Exam Narrative: General: Pt is alert awake and in NAD Lungs/Chest: Trachea central Clear BS B/L, No crackles or wheezing. Cardiac: Tachycardic. Normal S1 S2. No murmurs Circulation: Pedal pulses are intact and symmetrical. Abdomen: Sof
[2020-06-21] MEDS: HEPARIN SOD/D5W 100 UNITS/ML 25,000 UNITS/250 ML BAG 14 UNITS IV CONT (09:47)
--- NOTE | 2020-06-21 11:05 | PC.NURSE ---
Notified Dr. Lemus that patient is refusing to have Echocardiogram performed. Dr. Lemus spoke with patient and patient still refusing treatment.
--- NOTE | 2020-06-21 12:51 | PC.NURSE ---
Notified Dr. Molina that patient is refusing to let RN remove Brower catheter.
--- NOTE | 2020-06-21 13:49 | PM.IMPN ---
Progress Note: A&P Assessment and Plan (1) HTN (hypertension): Code(s): I10 - Essential (primary) hypertension Status: Acute Assessment and Plan: continue to monitor BP, pt is currently npo, iv hydralazine for high bps (2) Perforated duodenal ulcer with hemorrhage: Code(s): K26.6 - Chronic or unspecified duodenal ulcer with both hemorrhage and perforation Status: Acute Assessment and Plan: Sp Hemigastrectomy with Yamilka-en-Y gastrojejunostomy for perforated DU. pt is on iv fluids,cocoa bean cleaner pump, iv zosyn and iv zofran and protonix. (3) Anemia: Code(s): D64.9 - Anemia, unspecified Status: Acute Assessment and Plan: Watch hb currently 8.1 (4) Asthma: Qualifiers: Asthma complication type: uncomplicated Asthma persistence: unspecified Asthma severity: unspecified severity Qualified Code(s): J45.909 - Unspecified asthma, uncomplicated Code(s): J45.909 - Unspecified asthma, uncomplicated Status: Chronic Assessment and Plan: Pt takes albuterol start breathing treatments and spirometry prn. (5) Bowel perforation: Code(s): K63.1 - Perforation of intestine (nontraumatic) Status: Acute Assessment and Plan: From CT scan sp emergent surgery for DU perforated. Pt with Npo with NG tube continue to monitor (6) Schizophrenia: Qualifiers: Schizophrenia type: unspecified Qualified Code(s): F20.9 - Schizophrenia, unspecified Code(s): F20.9 - Schizophrenia, unspecified Status: Acute Assessment and Plan: CHronic history watch for any mood or behaviour changes or thoughts of suicide or depression. (7) Atrial flutter with rapid ventricular response: Code(s): I48.92 - Unspecified atrial flutter Status: Acute Assessment and Plan: Continue IV Amiodarone and IV Metoprolol, IV heparin. IV metoprolol not given given this morning as BP was no the lower side. Pt does not want cardioversion Subjective Date/time seen: 06/21/20 13:49 Interval history: 54 year old male admitted yesterday night with vague complaints of abdominal and back pains. Pt had to have emergency surgery for perforated DU. Pt is sp Hemigastrectomy with Yamilka-en-Y gastrojejunostomy for perforated DU. Post op day 3. Pt went into AF with RVR pt was given digoxin and amiodarone drip. cardiology considering cardioversion, as pt has no previous history of Af. Past history asthma, HTN and schizophrenia. Pt heart rate is still fast and irregular pt remains asymptomatic. Pt states she abdominal pain is 9/10 Review of Systems Review of Systems: All systems reviewed & are unremarkable except as noted in HPI and below Exam Const: General: other (Sp surgery with NG tube in situ ) HENMT: Head: normocephalic Eyes: General: appearance normal, both eyes and all related structures Pupils: Equal, round and reactive pupils present Neck: Neck: supple Chest: Chest palpation & inspection: normal inspection of the chest Resp: Effort & Inspection: normal respiratory effort Auscultation: clear to auscultation bilaterally Cardio: Jugular venous distension: no JVD Rhythm: other (fast and irregular) Heart sounds: S1 normal heart sound present and S2 normal heart sound present GI: Inspection: other (Midline incision with fresh dressing, diffuse tenderness ) Auscultation: normal bowel sounds Skin: General skin exam: normal color and dry skin Neuro: Cranial nerves: Yes CN's II-XII intact bilaterally and Yes Equal, round and reactive pupils present Speech: normal speech Motor exam (neuro): 5/5 motor strength present throughout Extrem: General: normal to inspection Objective Data Vital Signs Vital Signs: Vital Signs - 24 hr 06/20/20 14:00 06/20/20 16:00 06/20/20 18:00 Temperature 37.4 C Pulse Rate 165 H 170 H 167 H Respiratory Rate 32 H 21 H 30 H Blood Pressure 107/89 124/71 133/72 Pulse Oximetry 97 98 98 06/20/20 19:35 05
[2020-06-21 14:14] LABS: Partial Thromboplastin Time 42.9 SECONDS (22.3-36.8)
[2020-06-21] MEDS: HEPARIN SODIUM 5,000 UNITS/ML VIAL 7000 UNITS IV PUSH (14:17)
--- NOTE | 2020-06-21 15:56 | PM.PNCARD ---
Progress Note: A&P Additional Plan 54-year-old man with: Acute onset of persistent atrial flutter in the setting per for duodenal ulcer with significant GI hemorrhage and soiling of his peritoneum. Following extensive surgery he seems to be recovering satisfactorily from that perspective. Unfortunately he developed acute atrial flutter and persists in that rhythm despite intravenous amiodarone. Electrically terminated this arrhythmia would be appropriate and has been recommended by several physicians including myself. Patient still does not wish to have this done I advised him to think about this. In the meantime we will continue him on intravenous amiodarone and it is certainly possible that this will convert him to sinus rhythm Felipe Nix MD [facility] Subjective Date/time seen: Date of service: 06/21/20 15:56 Interval history: Follow-up visit in this 54-year-old man with: Acute onset of atrial flutter with rapid ventricular response perioperatively following emergency surgery for repair of a large perforated duodenal ulcer. Patient had significant hemorrhagic event with this as well. The stress of the situation obviously has triggered his atrial arrhythmia. This persists despite intravenous amiodarone. Several physicians have discussed and recommended cardioversion electrically at this point the patient however has and continues to declined that option. I advised him to reconsider his decision. Exam Const: General: uncomfortable Other: Well-developed well-nourished white male in ICU room 1. He is reporting mild abdominal discomfort but he says it is dramatically better than what he was gone through prior to surgery. Despite his rhythm he is unaware of the sense of tachycardia or palpitations. Not having any chest pain. HENMT: Mouth: Yes dry mucous membranes Eyes: Sclera: sclerae normal Pupils: Equal, round and reactive pupils present Neck: Neck: supple and no JVD Other: No carotid bruits Resp: Effort & Inspection: normal respiratory effort Cardio: Rate: tachycardic Other: Tachycardic otherwise unremarkable exam GI: Auscultation: abnormal bowel sounds (Bowel sounds diminished throughout all quadrants) Neuro: Other: Patient is responsive not sure that he understands his current medical situation completely. Extrem: Other: No edema adequate arterial perfusion Objective Data Vital Signs Vital Signs: Vital Signs - 24 hr 06/20/20 16:00 06/20/20 18:00 06/20/20 19:35 Temperature 37.4 C Pulse Rate 170 H 167 H 170 H Respiratory Rate 21 H 30 H Blood Pressure 124/71 133/72 117/67 Pulse Oximetry 98 98 06/20/20 19:37 06/20/20 20:00 06/20/20 22:00 Temperature 37.3 C 37.3 C Pulse Rate 171 H 169 H 167 H Respiratory Rate 22 H 33 H Blood Pressure 110/74 90/79 L Pulse Oximetry 96 92 06/21/20 00:00 06/21/20 01:07 06/21/20 02:00 Temperature 36.8 C Pulse Rate 169 H 169 H 166 H Respiratory Rate 28 H 17 Blood Pressure 103/63 98/67 L Pulse Oximetry 96 95 06/21/20 03:46 06/21/20 03:59 06/21/20 04:00 Temperature 37.3 C Pulse Rate 167 H 167 H 168 H Respiratory Rate 19 16 18 Blood Pressure 96/68 L Pulse Oximetry 95 94 96 06/21/20 06:00 06/21/20 06:01 06/21/20 07:27 Temperature Pulse Rate 166 H 165 H Respiratory Rate 16 17 Blood Pressure 97/64 L 92/73 L Pulse Oximetry 95 96 06/21/20 07:46 06/21/20 08:00 06/21/20 08:07 Temperature 36.7 C Pulse Rate 164 H 165 H Respiratory Rate 26 H 29 H Blood Pressure 102/73 102/73 Pulse Oximetry 96 96 06/21/20 08:46 06/21/20 10:00 06/21/20 10:28 Temperature Pulse Rate 165 H 162 H 167 H Respiratory Rate 32 H Blood Pressure 102/73 115/93 H 115/93 H Pulse Oximetry 99 06/21/20 10:29 06/21/20 12:00 06/21/20 13:42 Temperature 36.8 C Pulse Rate 163 H 169 H Respiratory Rate 30 H 21 H Blood Pressure 103/73 108/94 H Pulse Oximetry 92 97 06/21/20 14:00 06/21/20 14:14 06/21/20 14:15 Temperature
[2020-06-21 16:25] LABS: Hematocrit 25.3 % (42.0-52.0); Hemoglobin 7.9 g/dL (14.0-18.0)
[2020-06-21 20:20] LABS: Partial Thromboplastin Time 107.9 SECONDS (22.3-36.8)
--- NOTE | 2020-06-21 20:23 | PC.NURSE ---
Called Dr. Lemus regarding elevated temp of 102.4. Give tylenol 650mg Q4h PRN as needed for elevated temp. Get set of Blood cultures.
[2020-06-21] MEDS: ACETAMINOPHEN ELIXIR 325 MG/10.15 ML UDC 650 MG FEED TUBE (20:31)
--- NOTE | 2020-06-21 20:41 | PC.NURSE ---
Patient is in there talking to himself, does have a history of schizophrenia. At this time he is very paranoid about the medication we are giving him including tylnenol. Continue to monitor at this time.
[2020-06-22] VITALS (29 sets, daily range): BP systolic 98–117; BP diastolic 62–81; PULSE 113–167; RESP 14–29; TEMP 36.9–38.3; O2SAT 92–100
[2020-06-22] MEDS: HEPARIN SOD/D5W 100 UNITS/ML 25,000 UNITS/250 ML BAG 15 UNITS IV CONT (02:04)
[2020-06-22] MEDS: METOPROLOL TARTRATE INJ 5 MG/5 ML VIAL IV PUSH ×2 (02:05→08:18)
[2020-06-22 03:43] LABS: Hematocrit 25.2 % (42.0-52.0); Hemoglobin 7.6 g/dL (14.0-18.0); Mean Corpuscular HGB Conc 30.2 g/dl (32-36); Mean Corpuscular Hemoglobin 27.6 pg (26-34); Mean Corpuscular Volume 91.6 fl (80-100); Platelet Count Result 370 k/mm3 (150-375); Red Blood Count 2.75 M/mm3 (4.6-6.20); Red Cell Distribution Width 14.8 % (11.5-14.5); White Blood Count 15.1 K/mm3 (4.5-10.0)
[2020-06-22 03:54] LABS: Partial Thromboplastin Time 71.7 SECONDS (22.3-36.8)
[2020-06-22 03:55] LABS: Anion Gap 4 mmol/L (8-16); Blood Urea Nitrogen 16 mg/dL (9-20); Calcium 8.3 mg/dL (8.4-10.2); Carbon Dioxide 31 mmol/L (22-30); Chloride 106 mmol/L (98-107); Estimated CRCL calculation 102 ml/min; Estimated Glomerular Filt Rate > 60; Glucose 109 mg/dL (75-110); Magnesium 2.3 mg/dL (1.6-2.3); Potassium 3.4 mmol/L (3.4-5.0); Sodium 141 mmol/L (137-145)
[2020-06-22] MEDS: KCL 20 MEQ/D5/0.45% SOD CHL 1,000 ML 50 ML IV CONT (04:06)
[2020-06-22] MEDS: HYDROmorphon 0.2MG/ML PCA(*CRX 6 MG/30 ML PCA.VIAL 2.5 MG IV CONT ×3 (06:29→21:15)
--- NOTE | 2020-06-22 07:09 | PM.PNGS ---
Progress Note: A&P Assessment and Plan (1) Fever: Qualifiers: Fever type: due to other condition Qualified Code(s): R50.81 - Fever presenting with conditions classified elsewhere Code(s): R50.9 - Fever, unspecified Status: Acute Assessment and Plan: fever likely due to atelectasis. Patient needs to get up in a chair at least twice today. Would advise getting him up to a commode whenever possible as well. Use incentive spirometer aggressively. The atrial tachycardia is per venting him from ambulating which is crucial to a good postoperative recovery. (2) Atrial flutter with rapid ventricular response: Code(s): I48.92 - Unspecified atrial flutter Status: Acute Assessment and Plan: Remains in rapid atrial tachycardia. Refuses cardioversion. This is becoming a serious obstacle to his postoperative recovery. (3) Schizophrenia: Qualifiers: Schizophrenia type: unspecified Qualified Code(s): F20.9 - Schizophrenia, unspecified Code(s): F20.9 - Schizophrenia, unspecified Status: Acute Assessment and Plan: Patient does not attend to the examiner. He stares at the ceiling when speaking to the examiner. I think his mental illness is playing a role in his poor decision-making postoperatively. Advise psychiatry consultation and medication for mental illness. (4) Perforated duodenal ulcer with hemorrhage: Code(s): K26.6 - Chronic or unspecified duodenal ulcer with both hemorrhage and perforation Status: Acute Assessment and Plan: Continues to have postoperative ileus. Continue NG tube and NPO. Remove Brower catheter to day. Refusal is not an option. Patient needs to get up despite his were appetite atrial tachycardia. Wound is healing well. He will develop complications if we do not start getting him out of bed and moving. Subjective Subjective Date/Time Seen: 06/22/20 07:09 Post Op day: 3 Patient reports: no new complaints, pain is less, no bowel movement and fever Interval history: patient remains in rapid atrial tachycardia. Continues to refuse cardioversion. Febrile to 39.1. Cultures taken. Has not been out of bed. Refused to have Brower catheter removed. Review of Systems Review of Systems: All systems reviewed & are unremarkable except as noted in HPI and below Constitutional: Constitutional: Reports as per HPI, Reports fever(s), Denies headache(s) and Reports lethargy Cardiovascular: Cardiovascular: Denies chest pain and Denies dyspnea Respiratory: Respiratory: Denies cough and Denies dyspnea Gastrointestinal: Gastrointestinal: Reports as per HPI, Reports abdominal pain, Reports constipation, Denies diarrhea, Denies nausea and Denies vomiting Genitourinary: Comments: Refused to have Brower removed Neurologic: Denies confusion and Denies headache(s) Exam Narrative: Exam Narrative: febrile to 39.1 Const: General: comfortable, no acute distress, alert and awake; No confusion Nutritional Appearance: well nourished Orientation/consciousness: patient oriented x3, No confusion and Other orientation findings ( stairs at ceiling when talking to the examiner, no eye contact) GI: Inspection: non-distended, incision ( looks good, well approximated, no bruising or signs of infection), scaphoid and other ( serosanguineous fluid per HERO drain) GI Palp: Yes abdominal tenderness, Yes Soft to palpation and Yes Tenderness to palpation present (GI) Auscultation: absent bowel sounds Neuro: General: patient oriented x3, no focal motor deficits and No confusion Extrem: General: no calf tenderness and no edema Psych: Affect: normal affect Insight: Good insight present (Psych) Judgement: Good judgement present (Psych) Objective Data Vital Signs Vital Signs: Vital Signs - 24 hr 06/21/20 07:27 06/21/20 07:46 06/21/20 08:00 Temperature 36.7 C Pulse Rate 165 H 164 H Respiratory Rate 26 H 29 H Blood Pressure
[2020-06-22] MEDS: ALVIMOPAN 12 MG CAPSULE PO ×2 (08:18→20:42)
[2020-06-22] MEDS: PANTOPRAZOLE SODIUM IV 40 MG VIAL IV PUSH ×2 (08:18→20:42)
--- NOTE | 2020-06-22 08:54 | WPDINTPN ---
Progress Note: A&P Assessment and Plan (1) Atrial flutter with rapid ventricular response: Code(s): I48.92 - Unspecified atrial flutter Status: Acute Assessment and Plan: Patient went into AFib/a flutter with RVR. Patient received digoxin adenosine x2 amiodarone bolus x2 and was started on amiodarone infusion without any adequate control. He remained hemodynamically stable Continue Lopressor IV q.6 hours Continue amiodarone infusion Patient seen by Cardiology Discussed with Dr. Molina and Dr. Rees Patient was started on heparin infusion I again discussed option of cardioversion with him and potential benefits and risks. Patient continues to refuse cardioversion as he does not feel that atrial flutter is bothering him and he does not want to take any risks. Replace low potassium (2) Perforated duodenal ulcer with hemorrhage: Code(s): K26.6 - Chronic or unspecified duodenal ulcer with both hemorrhage and perforation Status: Acute Assessment and Plan: Now s/p Hemigastrectomy with Yamilka-en-Y gastrojejunostomy Continue IV fluids but decrease rate Pain control with GLASS SANDER BELT Dilaudid NPO Monitor hemoglobin IV PPI q.12 hours IV Zosyn Shows nonobstructive bowel gas pattern Continue NG to LIS (3) Anemia: Code(s): D64.9 - Anemia, unspecified Status: Acute Assessment and Plan: Status post transfusion of 2 units of packed red cell Monitor hemoglobin Transfuse as needed to keep hemoglobin above 7 (4) Asthma: Qualifiers: Asthma severity: unspecified severity Asthma persistence: unspecified Asthma complication type: uncomplicated Qualified Code(s): J45.909 - Unspecified asthma, uncomplicated Code(s): J45.909 - Unspecified asthma, uncomplicated Status: Chronic Assessment and Plan: P.r.n. albuterol (5) HTN (hypertension): Code(s): I10 - Essential (primary) hypertension Status: Acute Assessment and Plan: Patient has history of hypertension but not on any treatment as an outpatient Will continue to monitor blood pressure and treat if elevated Additional Plan DVT prophylaxis -heparin infusion Stress ulcer prophylaxis -PPI Nutrition -NPO Code Status - Full Code Incentive spirometry -up in chair today Total Critical Care Time - 32 minutes Due to a high probability of clinically significant, life threatening deterioration, the patient required my highest level of preparedness to intervene emergently and I personally spent this critical care time directly and personally managing the patient. This critical care time included obtaining a history; examining the patient; pulse oximetry; ordering and review of studies; arranging urgent treatment with development of a management plan; evaluation of patient's response to treatment; frequent reassessment; and discussions with other providers. It was exclusive of separately billable procedures and treating other patients and teaching time. Please see Assessment and Plan section and the rest of the note for further information on patient assessment and treatment Subjective Date/time seen: 06/22/20 08:54 Interval history: Reason for consult: Perforated duodenal ulcer status post Hemigastrectomy with Yamilka-en-Y gastrojejunostomy 06/22/2020: Patient remains tachycardic. States his abdominal pain is improved, denies any nausea, vomiting. Not passing gas. Patient has been febrile with a T-max of 102.4?, urine output has been adequate, blood pressures have been stable. Patient is on 2 L nasal cannula, denies any trouble breathing with denies any chest pain. Review of Systems Review of Systems: All systems reviewed & are unremarkable except as noted in HPI and below (HPI) Exam Narrative: Exam Narrative: General: Pt is alert awake and in NAD Lungs/Chest: Trachea central Clear BS B/L, No crackles or wheezing. Cardiac: Tachycardic. Normal S1 S2. No murmurs Circulation: Pedal pulses are intact an
[2020-06-22] MEDS: AMIODARONE 360 MG/D5W 200 ML 360 MG/200 ML BAG 16.67 MG IV CONT ×2 (09:44→20:42)
--- NOTE | 2020-06-22 09:59 | PM.IMPN ---
Progress Note: A&P Assessment and Plan (1) HTN (hypertension): Code(s): I10 - Essential (primary) hypertension Status: Acute Assessment and Plan: continue to monitor BP, pt is currently npo, iv hydralazine for high bps (2) Perforated duodenal ulcer with hemorrhage: Code(s): K26.6 - Chronic or unspecified duodenal ulcer with both hemorrhage and perforation Status: Acute Assessment and Plan: Sp Hemigastrectomy with Yamilka-en-Y gastrojejunostomy for perforated DU. s,breaker up pump, iv zosyn and iv zofran and protonix. Probable associated with acute peritonitis will get ID evaluation patient may need antifungals (3) Anemia: Code(s): D64.9 - Anemia, unspecified Status: Acute Assessment and Plan: Watch hb currently 8.1 secondary to GI bleed secondary to perforated do (4) Asthma: Qualifiers: Asthma complication type: uncomplicated Asthma persistence: unspecified Asthma severity: unspecified severity Qualified Code(s): J45.909 - Unspecified asthma, uncomplicated Code(s): J45.909 - Unspecified asthma, uncomplicated Status: Chronic Assessment and Plan: Pt takes albuterol start breathing treatments and spirometry prn. (5) Bowel perforation: Code(s): K63.1 - Perforation of intestine (nontraumatic) Status: Acute Assessment and Plan: From CT scan sp emergent surgery for DU perforated. Pt with Npo with NG tube continue to monitor (6) Schizophrenia: Qualifiers: Schizophrenia type: unspecified Qualified Code(s): F20.9 - Schizophrenia, unspecified Code(s): F20.9 - Schizophrenia, unspecified Status: Acute Assessment and Plan: CHronic history watch for any mood or behaviour changes or thoughts of suicide or depression Patient will need psych consult. (7) Atrial flutter with rapid ventricular response: Code(s): I48.92 - Unspecified atrial flutter Status: Acute Assessment and Plan: Continue IV Amiodarone and IV Metoprolol, IV heparin. Patient refused cardioversion pending psych eval Subjective Date/time seen: 06/22/20 09:59 Interval history: Patient was admitted to the hospital was found to have perforated duodenal ulcer status post hemigastrectomy with Yamilka-en-Y gastrojejunostomy patient was treated with diet and ICU surgery was consulted patient is having episodes of fever also patient have leukocytosis and tachycardia patient has a flutter treated with amiodarone drip digoxin IV metoprolol no response cardiology was consulted recommended cardioversion patient continued to refuse Review of Systems Review of Systems: All systems reviewed & are unremarkable except as noted in HPI and below Exam Narrative: Exam Narrative: Alert Chest no wheeze crackles Abdomen tender nondistended CVS S1 + S2 Lower extremity edema Objective Data Vital Signs Vital Signs: Vital Signs - 24 hr 06/21/20 10:00 06/21/20 10:28 06/21/20 10:29 Temperature Pulse Rate 162 H 167 H Respiratory Rate 32 H 30 H Blood Pressure 115/93 H 115/93 H Pulse Oximetry 99 92 06/21/20 12:00 06/21/20 13:42 06/21/20 14:00 Temperature 98.3 F Pulse Rate 163 H 169 H 164 H Respiratory Rate 21 H 18 Blood Pressure 103/73 108/94 H 108/94 H Pulse Oximetry 97 95 06/21/20 14:14 06/21/20 14:15 06/21/20 15:13 Temperature Pulse Rate Respiratory Rate 18 21 H Blood Pressure Pulse Oximetry 94 98 95 06/21/20 16:00 06/21/20 16:45 06/21/20 16:46 Temperature 98.2 F Pulse Rate 167 H 166 H Respiratory Rate 18 22 H Blood Pressure 113/72 110/68 Pulse Oximetry 96 95 06/21/20 17:34 06/21/20 18:00 06/21/20 20:00 Temperature Pulse Rate 166 H 166 H 169 H Respiratory Rate 27 H Blood Pressure 99/61 L 102/68 Pulse Oximetry 90 06/21/20 20:18 06/21/20 20:30 06/21/20 20:31 Temperature 102.4 F H 102.4 F H Pulse Rate 169 H Respiratory Rate 21 H Blood Pressure 105/58 L
[2020-06-22 10:13] LABS: Add Urine Microscopic? YES; Appearance Urine Cloudy (Clear); Bilirubin Urine 1+ (Negative); Blood Urine 1+ (Negative); Color Urine Amber (Yellow); Glucose Urine UA Negative (Negative); Ketones Urine Negative (Negative); Leukocyte Esterase Ur Negative LEU/UL (Negative); Mucus Urine Few /lpf; Nitrate Urine Negative (Negative); Protein Urine 2+ mg/dL (Negative)
[2020-06-22 10:17] LABS: Specific Grav Ur 1.032 (1.001-1.035)
[2020-06-22 10:32] LABS: Partial Thromboplastin Time 62.1 SECONDS (22.3-36.8)
[2020-06-22] MEDS: HEPARIN SODIUM 5,000 UNITS/ML VIAL 3500 UNITS IV PUSH (10:43)
--- NOTE | 2020-06-22 11:42 | PCCARD ---
CANCELLING ECHOCARDIOGRAM ORDERED 06/20/2020. PATIENT HAS REFUSED THREE TIMES. TWICE 06/21/2020 AND THIRD TIME 06/22/2020
--- NOTE | 2020-06-22 11:57 | PM.PNCARD ---
Progress Note: A&P Assessment and Plan (1) Atrial flutter with rapid ventricular response: Code(s): I48.92 - Unspecified atrial flutter Status: Acute Assessment and Plan: Patient presented in sinus tachycardia in setting of perforated duodenal ulcer mass status post emergent Hemigastrectomy with Yamilka-en-Y gastrojejunostomy then developed atrial fibrillation with rapid ventricular response. Refractory to amiodarone and digoxin. Rhythm has no organized into atrial flutter approximately 160 beats per minute. Patient asymptomatic. No prior known history. patient does not want NITHIN guided DC cardioversion. Continue IV Amiodarone . Initiate IV esmolol to facilitate rate control With close monitoring of blood pressure and heart rate. May postpone 2D echocardiogram till heart rates are better controlled. He apparently refused echocardiogram in the morning. (2) Perforated duodenal ulcer with hemorrhage: Code(s): K26.6 - Chronic or unspecified duodenal ulcer with both hemorrhage and perforation Status: Acute Assessment and Plan: s/p emergent Hemigastrectomy with Yamilka-en-Y gastrojejunostomy secondary to perforated duodenal ulcer (3) Anemia: Code(s): D64.9 - Anemia, unspecified Status: Acute Assessment and Plan: Blood-loss anemia. Status post transfusion 2 units PRBCs. H&H stable thus far. Surgery okay with systemic anticoagulation. Follow H/H closely and monitor for signs of bleeding. (4) PUD (peptic ulcer disease): Code(s): K27.9 - Peptic ulcer, site unspecified, unspecified as acute or chronic, without hemorrhage or perforation Status: Acute Assessment and Plan: As above. Concern for bleeding risk given presentation. Etiology remains unclear which poses ongoing concern (5) Schizophrenia: Qualifiers: Schizophrenia type: unspecified Qualified Code(s): F20.9 - Schizophrenia, unspecified Code(s): F20.9 - Schizophrenia, unspecified Status: Acute Assessment and Plan: per primary service Subjective Date/time seen: 06/22/20 11:57 Date of Service: 06/22/2020 Interval history: Patient was somnolent at the time of evaluation. Denied chest pain or shortness of breath. On telemetry, he remains in atrial fibrillation with RVR with heart rates in 160s. He has been on amiodarone IV. Patient has refused echo, and consideration for cardioversion. Exam Narrative: Exam Narrative: PHYSICAL EXAMINATION: GENERAL: Somnolent MENTAL STATUS: somnolent EYES: eyes closed EARS: External ears appear normal NOSE: NG tube in place MOUTH: dry mucosa NECK: Supple, no JVD CHEST: decreased respiratory effort HEART: tachycardia, irregular ABDOMEN: surgical bandage NEUROLOGICAL: somnolent MUSCULOSKELETAL: No major deformity, no amputation EXTREMITIES: No pedal edema, no clubbing, no cyanosis SKIN: no rash on the exposed area, no cyanosis PSYCHIATRIC: somnolent Objective Data Vital Signs Vital Signs: Vital Signs - 24 hr 06/21/20 12:00 06/21/20 13:42 06/21/20 14:00 Temperature 36.8 C Pulse Rate 163 H 169 H 164 H Respiratory Rate 21 H 18 Blood Pressure 103/73 108/94 H 108/94 H Pulse Oximetry 97 95 06/21/20 14:14 06/21/20 14:15 06/21/20 15:13 Temperature Pulse Rate Respiratory Rate 18 21 H Blood Pressure Pulse Oximetry 94 98 95 06/21/20 16:00 06/21/20 16:45 06/21/20 16:46 Temperature 36.8 C Pulse Rate 167 H 166 H Respiratory Rate 18 22 H Blood Pressure 113/72 110/68 Pulse Oximetry 96 95 06/21/20 17:34 06/21/20 18:00 06/21/20 20:00 Temperature Pulse Rate 166 H 166 H 169 H Respiratory Rate 27 H Blood Pressure 99/61 L 102/68 Pulse Oximetry 90 06/21/20 20:18 06/21/20 20:30 06/21/20 20:31 Temperature 39.1 C H 39.1 C H Pulse Rate 169 H Respiratory Rate 21 H Blood Pressure 105/58 L Pulse Oximetry 98 06/21/20 21:00 06/21/20 21:18
[2020-06-22 16:48] LABS: Hematocrit 26.6 % (42.0-52.0); Hemoglobin 8.2 g/dL (14.0-18.0)
[2020-06-22 17:00] LABS: Partial Thromboplastin Time 74.8 SECONDS (22.3-36.8)
[2020-06-22] MEDS: HEPARIN SOD/D5W 100 UNITS/ML 25,000 UNITS/250 ML BAG 17 UNITS IV CONT (17:31)
--- NOTE | 2020-06-22 20:11 | PC.NURSE ---
Spoke with Dr. Torres regarding recurrent HR of 160. Continue to monitor at this time. Patient denies chest pain or sob. Continue to monitor and continue Esmolol and Amio drip.
[2020-06-22 23:26] LABS: Partial Thromboplastin Time 71.1 SECONDS (22.3-36.8)
[2020-06-23] VITALS (19 sets, daily range): BP systolic 91–140; BP diastolic 52–88; PULSE 78–157; RESP 18–27; TEMP 36.6–38.7; O2SAT 91–100; BMI 28.6
[2020-06-23] MEDS: KCL 20 MEQ/D5/0.45% SOD CHL 1,000 ML 50 ML IV CONT (03:43)
[2020-06-23] MEDS: HYDROmorphon 0.2MG/ML PCA(*CRX 6 MG/30 ML PCA.VIAL 2.5 MG IV CONT ×3 (05:02→19:46)
[2020-06-23 05:03] LABS: Basophils Absolute Auto 0.1 K/mm3 (0.0-0.1); Basophils Percent Auto 0.5 % (0.2-1.2); Eosinophils Absolute Auto 0.4 K/mm3 (0-0.3); Hematocrit 24.6 % (42.0-52.0); Hemoglobin 7.6 g/dL (14.0-18.0); Immature Granulocyte Absolute 0.12 K/mm3 (0.00-0.031); Lymphocytes Absolute Auto 2.09 K/mm3 (0.9-3.2); Lymphocytes Percent Auto 17.1 % (18.3-44.2); Mean Corpuscular HGB Conc 30.9 g/dl (32-36); Mean Corpuscular Volume 90.8 fl (80-100); Mean Platelet Volume 9.8 fl (7.4-10.4); Monocytes Percent Auto 8.4 % (2.6-8.5); Neutrophils Absolute Auto 8.5 K/mm3 (1.3-6.7); Nucleated Red Blood Cells Absolute Auto 0.1 K/mm3 (0.0-0.012); Nucleated Red Blood Cells Perc 0.4 % (0.0-0.2); Platelet Count Result 357 k/mm3 (150-375); Red Blood Count 2.71 M/mm3 (4.6-6.20); Red Cell Distribution Width 14.8 % (11.5-14.5); White Blood Count 12.2 K/mm3 (4.5-10.0)
[2020-06-23 05:20] LABS: INR 1.3; Prothrombin Time 16.3 Seconds (11.1-14.7)
[2020-06-23 05:27] LABS: Alanine Aminotransferase 39 U/L (4-50); Albumin Level 2.8 g/dL (3.5-5.1); Alkaline Phosphatase 72 U/L (38-126); Anion Gap 3 mmol/L (8-16); Aspartate Amino Transferase 102 U/L (17-59); Bilirubin,Total 3.3 mg/dL (0.2-1.3); Blood Urea Nitrogen 18 mg/dL (9-20); Calcium 8.2 mg/dL (8.4-10.2); Carbon Dioxide 29 mmol/L (22-30); Chloride 108 mmol/L (98-107); Estimated CRCL calculation 115 ml/min; Estimated Glomerular Filt Rate > 60; Glucose 87 mg/dL (75-110); Magnesium 2.3 mg/dL (1.6-2.3); Sodium 140 mmol/L (137-145)
[2020-06-23 05:42] LABS: Partial Thromboplastin Time 51.2 SECONDS (22.3-36.8)
[2020-06-23] MEDS: HEPARIN SOD/D5W 100 UNITS/ML 25,000 UNITS/250 ML BAG 20 UNITS IV CONT (05:55)
[2020-06-23] MEDS: HEPARIN SODIUM 5,000 UNITS/ML VIAL 7000 UNITS IV PUSH (05:57)
--- NOTE | 2020-06-23 07:16 | P.CDI_ITS ---
CDI Query Clarification Request -Anemia secondary to GI bleed has been documented -300cc EBL documented during surgery -06/18 H&H 7.4/23.2 06/23 H&H 7.6/24.6 -2 units of blood given 06/19 Please clarify acuity of anemia/GI bleed * Acute * Chronic * Acute on chronic * Unable to determine <Citlalli Godinez RN - Last Filed: 06/23/20 07:22> Clarified Diagnosis (1) Acute blood loss anemia: Code(s): D62 - Acute posthemorrhagic anemia <Citlalli Godinez RN - Last Filed: 06/23/20 07:22> Status: Acute <Citlalli Godinez RN - Last Filed: 06/23/20 07:22> Assessment and Plan: acute blood loss Anemia secondary to GI bleed <Kayleen Gutierrez MD - Last Filed: 06/23/20 08:23>
[2020-06-23] MEDS: AMIODARONE 360 MG/D5W 200 ML 360 MG/200 ML BAG 16.67 MG IV CONT ×2 (07:56→20:01)
[2020-06-23] MEDS: PANTOPRAZOLE SODIUM IV 40 MG VIAL IV PUSH ×2 (07:56→20:03)
[2020-06-23] MEDS: ALVIMOPAN 12 MG CAPSULE PO ×2 (07:56→20:03)
--- NOTE | 2020-06-23 08:48 | WPDINTPN ---
Progress Note: A&P Assessment and Plan (1) Atrial flutter with rapid ventricular response: Code(s): I48.92 - Unspecified atrial flutter Status: Acute Assessment and Plan: Patient went into AFib/a flutter with RVR. Patient received digoxin adenosine x2 amiodarone bolus x2 and was started on amiodarone infusion without any adequate control. He remained hemodynamically stable Continue Lopressor IV q.6 hours Continue amiodarone infusion Patient seen by Cardiology Discussed with Dr. Molina and Dr. Rees Patient was started on heparin infusion I again discussed option of cardioversion with him and potential benefits and risks. He has finally agreed to have cardioversion done. I did discuss with him that Cardiology will be performing the cardioversion and will discuss further. Replace low potassium (2) Perforated duodenal ulcer with hemorrhage: Code(s): K26.6 - Chronic or unspecified duodenal ulcer with both hemorrhage and perforation Status: Acute Assessment and Plan: Now s/p Hemigastrectomy with Yamilka-en-Y gastrojejunostomy Continue IV fluids but decrease rate Pain control with TEMPORARY STAFF ACCOUNTANT Dilaudid NPO Monitor hemoglobin IV PPI q.12 hours IV Zosyn Shows nonobstructive bowel gas pattern Continue NG to LIS -will discuss with surgery regarding TPN (3) Anemia: Code(s): D64.9 - Anemia, unspecified Status: Acute Assessment and Plan: Status post transfusion of 2 units of packed red cell Monitor hemoglobin Transfuse as needed to keep hemoglobin above 7 (4) Asthma: Qualifiers: Asthma severity: unspecified severity Asthma persistence: unspecified Asthma complication type: uncomplicated Qualified Code(s): J45.909 - Unspecified asthma, uncomplicated Code(s): J45.909 - Unspecified asthma, uncomplicated Status: Chronic Assessment and Plan: P.r.n. albuterol (5) HTN (hypertension): Code(s): I10 - Essential (primary) hypertension Status: Acute Assessment and Plan: Patient has history of hypertension but not on any treatment as an outpatient Will continue to monitor blood pressure and treat if elevated (6) Elevated LFTs: Code(s): R79.89 - Other specified abnormal findings of blood chemistry Status: Acute Assessment and Plan: Elevated bilirubin and LFTs, will obtain right upper quadrant ultrasound Additional Plan DVT prophylaxis -heparin infusion Stress ulcer prophylaxis -PPI Nutrition -NPO Code Status - Full Code Incentive spirometry -up in chair today Total Critical Care Time - 34 minutes This dictation may have been done utilizing a voice recognition system. Attempts have been made to correct errors. However, there may be uncorrected grammatical, spelling, and recognition errors present. Due to a high probability of clinically significant, life threatening deterioration, the patient required my highest level of preparedness to intervene emergently and I personally spent this critical care time directly and personally managing the patient. This critical care time included obtaining a history; examining the patient; pulse oximetry; ordering and review of studies; arranging urgent treatment with development of a management plan; evaluation of patient's response to treatment; frequent reassessment; and discussions with other providers. It was exclusive of separately billable procedures and treating other patients and teaching time. Please see Assessment and Plan section and the rest of the note for further information on patient assessment and treatment Subjective Date/time seen: 06/23/20 08:48 Interval history: Reason for consult: Perforated duodenal ulcer status post Hemigastrectomy with Yamilka-en-Y gastrojejunostomy 06/23/2020: Patient remains tachycardic, abdominal pain still 7 - 8/10 intensity. Patient denies nausea and vomiting. Is not passing gas. Afebrile overnight, adequate urine output, on room air with adequ
--- NOTE | 2020-06-23 09:43 | WPDMODSED ---
Moderate Sedation Note-Pt Data Patient Data Diagnosis: Persistent atrial flutter Present Complaint: No cardiovascular complaints Procedure to be performed/Plan: DC cardioversion Allergies Allergy/AdvReac Type Severity Reaction Status Date / Time amoxicillin AdvReac Nausea and Verified 11/27/19 08:33 Vomiting Home Medications Medication Instructions Recorded Confirmed Type albuterol sulfate 1 inh INHALATION QID PRN #6.7 g 11/27/19 06/19/20 Rx guaifenesin [Mucus-Chest 200 mg PO Q4H PRN #1000 ml 11/27/19 06/19/20 Rx Congestion] Current Medications: Active Medications Acetaminophen (Acetaminophen Elixir 325 Mg/10.15 Ml Udc) 650 mg FEED TUBE Q4H PRN PRN Reason: Fever Last Admin: 06/21/20 20:31 Dose: 650 mg Documented by: Albuterol (Albuterol Sulfate (*Sp) Aerosol 1 Puff) 2 puff INHALATION Q6HRT PRN PRN Reason: Shortness Of Breath Or Wheezing Albuterol (Albuterol Sulfate Neb 2.5 Mg/0.5 Ml Inh) 2.5 mg INHALATION Q6HRT PRN PRN Reason: Shortness Of Breath Alvimopan (Alvimopan 12 Mg Capsule) 12 mg PO Q12HR MATEO Stop: 06/27/20 09:01 Last Admin: 06/23/20 07:56 Dose: 12 mg Documented by: Heparin Sodium (Porcine) (Heparin Sodium 5,000 Units/Ml Vial) 7,000 units IV PUSH PRN PRN PRN Reason: aPTT less than 55 seconds Last Admin: 06/23/20 05:57 Dose: 7,000 units Documented by: Heparin Sodium (Porcine) (Heparin Sodium 5,000 Units/Ml Vial) 3,500 units IV PUSH PRN PRN PRN Reason: aPTT 55 - 70 seconds Last Admin: 06/22/20 10:43 Dose: 3,500 units Documented by: Hydralazine HCl (Hydralazine Hcl 20 Mg/Ml Vial) 10 mg IV PUSH Q8H PRN PRN Reason: if SBP over 160 or DBP>100 Piperacillin/Tazobactam/Dextrose (Zosyn 3.375 Gm/D5w 50ml Pm) 3.375 gm in 50 mls @ 100 mls/hr IVPB Q6H MATEO Last Admin: 06/23/20 07:58 Dose: 100 mls/hr Documented by: Heparin Sodium/Dextrose (Heparin Sodium/D5w 100 Units/Ml) 25,000 units in 250 mls @ 20 mls/hr IV CONT .[id number] [facility]; Protocol Last Admin: 06/23/20 05:55 Dose: 2,000 units/hr, 20 mls/hr Documented by: Amiodarone HCl/Dextrose (Nexterone 360 Mg/D5w 200 Ml) 360 mg in 200 mls @ 16.667 mls/hr IV CONT .Q12H [facility] Last Admin: 06/23/20 07:56 Dose: 0.5 mg/min, 16.67 mls/hr Documented by: Hydromorphone HCl (Dilaudid 0.2 Mg/Ml Bobbin Marker) 6 mg in 30 mls @ 2.5 mls/hr IV CONT .Q12H PRN; Protocol PRN Reason: MAINSTREAMING FACILITATOR Management Last Admin: 06/23/20 05:02 Dose: 0.5 mg/hr, 2.5 mls/hr Documented by: Potassium Chloride/Dextrose/Sod Cl (Kcl 20 Meq/D5/0.45% Sod Chl) 1,000 mls @ 50 mls/hr IV CONT .Q20H [facility] Last Admin: 06/23/20 03:43 Dose: 50 mls/hr Documented by: Esmolol HCl (Brevibloc 2,500 Mg/250 Ml Bag) 2,500 mg in 250 mls @ 28.74 mls/hr IV CONT .Q8H42M [facility] Last Admin: 06/23/20 04:56 Dose: 50 mcg/kg/min, 28.74 mls/hr Documented by: Morphine Sulfate (Morphine Sulfate (*Crx) 2 Mg/Ml Inj) 2 mg IV PUSH Q2H PRN PRN Reason: Pain Rated 4-6 Last Admin: 06/19/20 18:10 Dose: 2 mg Documented by: Morphine Sulfate (Morphine Sulfate (*Crx) 4 Mg/Ml Inj) 4 mg IV PUSH Q2H PRN PRN Reason: Pain Rated 7-10 Last Admin: 06/20/20 06:35 Dose: 4 mg Documented by: Naloxone HCl (Naloxone Hcl 0.4 Mg/Ml Vial) 0.1 mg IV PUSH Q2M PRN PRN Reason: Opiate Reversal Ondansetron HCl (Ondansetron Inj 4 Mg/2 Ml Vial) 4 mg IV PUSH Q4H PRN PRN Reason: Nausea And Vomiting Pantoprazole Sodium (Pantoprazole Sodium Iv 40 Mg Vial) 40 mg IV PUSH Q12HR MATEO Last Admin: 06/23/20 07:56 Dose: 40 mg Documented by: Sedation/Anesthesia: No previous sedation/anesthesia problems (including family history). [facility] Past Medical History Medical History Anxiety Asthma Back injury Bronchitis Depression Epistaxis Herniated disc History of angina HLD (hyperlipidemia) HTN (hypertension) Kidney stone Pneumonia Pulmonary emboli Schizophrenia Suicide attempt Surgical History Surgical History Hx of reinaldo
--- NOTE | 2020-06-23 09:56 | P.PCNCC_ITS ---
Cardiac Cath Procedure Note Date of procedure:: 06/23/20 Performing physician:: Felipe Nix MD Indication:: Persistent atrial flutter Brief clinical history:: This is a 54-year-old man who was hospitalized last week with acute abdomen with a ruptured duodenal ulcer. He had peritonitis and free air in the peritoneum. Surgical repair of this has been performed. Since surgery in the perioperative setting he went into atrial flutter which has persisted despite intravenous amiodarone and intravenous esmolol. For several days he has been refusing cardioversion but has now reconsidered that decision. Procedure Procedure performed:: DC cardioversion Sedation/Medication given:: Propofol 50 mg IV push Estimated blood loss:: No blood loss Procedure note:: Patient was in ICU room 1. With NG tube in suction and in the supine position. Defibrillator patches were placed in standard position. The defibrillator was synchronized at 200 joules. He was then sedated with 1 dose of 50 mg of propofol which provided excellent procedural sedation. He was counter shocked once with 200 joules which restored normal sinus rhythm. Findings:: As above Conclusion:: Successful uncomplicated DC cardioversion of atrial fibrillation to sinus rhythm using 200 joules x1 shock. Felipe Nix MD [facility]
--- NOTE | 2020-06-23 10:27 | PM.IMPN ---
Progress Note: A&P Assessment and Plan (1) Elevated LFTs: Code(s): R79.89 - Other specified abnormal findings of blood chemistry Status: Acute Assessment and Plan: Most likely related to hypoperfusion continue to monitor (2) Acute blood loss anemia: Code(s): D62 - Acute posthemorrhagic anemia Status: Acute Assessment and Plan: Acute blood loss anemia secondary to GI bleed secondary to perforated peptic ulcer transfuse transfuse if hemoglobin below 7 (3) Fever: Qualifiers: Fever type: due to other condition Qualified Code(s): R50.81 - Fever presenting with conditions classified elsewhere Code(s): R50.9 - Fever, unspecified Status: Acute Assessment and Plan: Probable peritonitis continue IV antibiotics (4) Atrial flutter with rapid ventricular response: Code(s): I48.92 - Unspecified atrial flutter Status: Acute Assessment and Plan: Status post digoxin IV metoprolol amiodarone drip no improvement patient had cardioversion by Cardiology on 06/23/2020 converted to sinus rhythm (5) Schizophrenia: Qualifiers: Schizophrenia type: unspecified Qualified Code(s): F20.9 - Schizophrenia, unspecified Code(s): F20.9 - Schizophrenia, unspecified Status: Acute Assessment and Plan: Stable (6) HTN (hypertension): Code(s): I10 - Essential (primary) hypertension Status: Acute Assessment and Plan: Improved continue to monitor (7) Perforated duodenal ulcer with hemorrhage: Code(s): K26.6 - Chronic or unspecified duodenal ulcer with both hemorrhage and perforation Status: Acute Assessment and Plan: Sp Hemigastrectomy with Yamilka-en-Y gastrojejunostomy for perforated DU. s,relief docking master pump, iv zosyn and iv zofran and protonix. Probable associated with acute peritonitis will get ID evaluation patient may need antifungals Subjective Date/time seen: 06/23/20 10:27 Interval history: Patient was admitted to the hospital was found to have perforated duodenal ulcer status post hemigastrectomy with Yamilka-en-Y gastrojejunostomy patient was treated with diet and ICU surgery was consulted patient is having episodes of fever also patient have leukocytosis and tachycardia patient has a flutter treated with amiodarone drip digoxin IV metoprolol no response cardiology was consulted recommended cardioversion patient continued to refuse Exam Narrative: Exam Narrative: Alert Chest no wheeze crackles Abdomen tender nondistended CVS S1 + S2 Lower extremity edema Objective Data Vital Signs Vital Signs: Vital Signs - 24 hr 06/22/20 12:00 06/22/20 13:07 06/22/20 13:43 Temperature 99.1 F Pulse Rate 164 H 165 H Respiratory Rate 18 29 H Blood Pressure 101/71 101/71 Pulse Oximetry 96 97 06/22/20 14:00 06/22/20 16:00 06/22/20 17:19 Temperature 98.4 F Pulse Rate 160 H 123 H 135 H Respiratory Rate 22 H 19 Blood Pressure 104/70 107/64 Pulse Oximetry 99 97 06/22/20 17:21 06/22/20 17:23 06/22/20 18:00 Temperature Pulse Rate 121 H 113 H Respiratory Rate 27 H 18 Blood Pressure 117/81 Pulse Oximetry 98 97 06/22/20 20:00 06/22/20 20:42 06/22/20 20:51 Temperature 99.3 F Pulse Rate 160 H 159 H 154 H Respiratory Rate 21 H Blood Pressure 98/73 L 98/73 L 98/73 L Pulse Oximetry 93 06/22/20 21:03 06/22/20 21:06 06/22/20 21:15 Temperature Pulse Rate 154 H 154 H Respiratory Rate 22 H 22 H 20 Blood Pressure 100/67 Pulse Oximetry 100 100 98 06/22/20 22:00 06/22/20 23:42 06/23/20 00:00 Temperature 99.0 F Pulse Rate 155 H 155 H 155 H Respiratory Rate 18 22 H 24 H Blood Pressure 101/68 95/67 L Pulse Oximetry 99 99 95 06/23/20 02:00 06/23/20 04:00 06/23/20 04:56 Temperature 99.6 F Pulse Rate 154 H 154 H 155 H Respiratory Rate 22 H 22 H Blood Pressure 96/57 L 101/64 101/64 Pulse Oximetry 97 100 06/23/20 05:02 06/23/20 06:00 06/23/20 07:56 T
--- NOTE | 2020-06-23 10:32 | ECG_ITS ---
Measurements Intervals [place] Rate: 87 P: 71 SC: 133 QRS: 49 QRSD: 96 T: 97 QT: 385 QTc: 465 Interpretive Statements SINUS RHYTHM MISSING LEAD V1 NONSPECIFIC ST & T-WAVE ABNORMALITY- ANTEROLAT/HIGH LAT LEADS BORDERLINE ECG Electronically Signed On 06-23-2020 12:03:15 CDT by Андрей Keyes D.O.
[2020-06-23 13:18] LABS: Partial Thromboplastin Time 58.8 SECONDS (22.3-36.8)
[2020-06-23] MEDS: HEPARIN SODIUM 5,000 UNITS/ML VIAL 3500 UNITS IV PUSH (14:07)
--- NOTE | 2020-06-23 14:59 | PM.PNGS ---
Progress Note: A&P Assessment and Plan (1) Perforated duodenal ulcer with hemorrhage: Code(s): K26.6 - Chronic or unspecified duodenal ulcer with both hemorrhage and perforation Status: Acute Assessment and Plan: ileus persist. Continue NG suction, IV fluids and increase activity. Hopefully patient can be transferred out of intensive care tomorrow. Continue use of incentive spirometer. Continue daily dry gauze dressing changes and follow serial abdominal exam and lab work. (2) Atrial flutter with rapid ventricular response: Code(s): I48.92 - Unspecified atrial flutter Status: Acute Assessment and Plan: Currently in sinus tach after cardioversion this morning. (3) Acute blood loss anemia: Code(s): D62 - Acute posthemorrhagic anemia Status: Acute Assessment and Plan: Received 2 units packed cells intraoperatively. H&H has remained low but has been stable. Doubt patient needs to continue twice a day CBCs. Can probably just be done daily. No evidence of persistent bleeding. No blood in NG tube. (4) Fever: Qualifiers: Fever type: due to other condition Qualified Code(s): R50.81 - Fever presenting with conditions classified elsewhere Code(s): R50.9 - Fever, unspecified Status: Acute Assessment and Plan: No fever yesterday or today. Probably was from atelectasis. Continue spirometer and getting patient out of bed. Ambulate when okay from cardiac standpoint. Subjective Subjective Date/Time Seen: 06/23/20 14:59 Post Op day: 4 Patient reports: no new complaints, pain is less, no flatus, no bowel movement, afebrile and other (Underwent successful cardioversion this morning) Review of Systems Review of Systems: All systems reviewed & are unremarkable except as noted in HPI and below Constitutional: Constitutional: Reports as per HPI, Denies chills, Denies fever(s), Denies headache(s) and Denies night sweats Cardiovascular: Cardiovascular: Denies chest pain and Denies dyspnea Respiratory: Respiratory: Denies cough and Denies dyspnea Gastrointestinal: Gastrointestinal: Reports as per HPI, Reports abdominal pain ( still using dilaudid [employer]), Reports constipation, Denies GI cramping and Denies nausea Neurologic: Denies confusion and Denies headache(s) Exam Const: General: comfortable and no acute distress; No confusion Orientation/consciousness: patient oriented x3 and No confusion Cardio: Rate: tachycardic ( heart rate currently 120's; sinus tachycardia) GI: Inspection: non-distended, incision ( dressing dry and intact) and scaphoid GI Palp: Yes Soft to palpation and Yes Tenderness to palpation present (GI) Auscultation: absent bowel sounds Neuro: General: patient oriented x3, no focal motor deficits and No confusion Extrem: General: no calf tenderness and no edema Psych: Affect: normal affect Insight: Good insight present (Psych) Judgement: Good judgement present (Psych) Objective Data Vital Signs Vital Signs: Vital Signs - 24 hr 06/22/20 16:00 06/22/20 17:19 06/22/20 17:21 Temperature 36.9 C Pulse Rate 123 H 135 H 121 H Respiratory Rate 19 Blood Pressure 107/64 Pulse Oximetry 97 06/22/20 17:23 06/22/20 18:00 06/22/20 20:00 Temperature 37.4 C Pulse Rate 113 H 160 H Respiratory Rate 27 H 18 21 H Blood Pressure 117/81 98/73 L Pulse Oximetry 98 97 93 06/22/20 20:42 06/22/20 20:51 06/22/20 21:03 Temperature Pulse Rate 159 H 154 H 154 H Respiratory Rate 22 H Blood Pressure 98/73 L 98/73 L 100/67 Pulse Oximetry 100 06/22/20 21:06 06/22/20 21:15 06/22/20 22:00 Temperature Pulse Rate 154 H 155 H Respiratory Rate 22 H 20 18 Blood Pressure 101/68 Pulse Oximetry 100 98 99 06/22/20 23:42 06/23/20 00:00 06/23/20 02:00 Temperature 37.2 C Pulse Rate 155 H 155 H 154 H Respiratory Rate 22 H 24 H 22 H Blood Pressure 95/67 L 96/57 L Pulse Oximetry 99 95 97 06/23/20
[2020-06-23 16:14] LABS: Hematocrit 21.8 % (42.0-52.0)
[2020-06-23 16:20] LABS: Hemoglobin 6.8 g/dL (14.0-18.0)
[2020-06-23 17:23] LABS: Hematocrit 23.8 % (42.0-52.0); Hemoglobin 7.5 g/dL (14.0-18.0)
[2020-06-23] MEDS: HEPARIN SOD/D5W 100 UNITS/ML 25,000 UNITS/250 ML BAG 22 UNITS IV CONT (19:22)
[2020-06-23 20:38] LABS: Partial Thromboplastin Time 75.1 SECONDS (22.3-36.8)
[2020-06-24] VITALS (20 sets, daily range): BP systolic 110–137; BP diastolic 56–76; PULSE 88–97; RESP 18–25; TEMP 36.8–38.3; O2SAT 91–100
[2020-06-24] MEDS: KCL 20 MEQ/D5/0.45% SOD CHL 1,000 ML 50 ML IV CONT ×2 (01:45→19:44)
[2020-06-24 02:36] LABS: Hematocrit 21.4 % (42.0-52.0); Mean Corpuscular HGB Conc 31.8 g/dl (32-36); Mean Corpuscular Hemoglobin 27.8 pg (26-34); Mean Corpuscular Volume 87.3 fl (80-100); Mean Platelet Volume 9.6 fl (7.4-10.4); Platelet Count Result 378 k/mm3 (150-375); Red Blood Count 2.45 M/mm3 (4.6-6.20); White Blood Count 16.6 K/mm3 (4.5-10.0)
[2020-06-24 02:40] LABS: Hemoglobin 6.8 g/dL (14.0-18.0)
[2020-06-24 02:51] LABS: INR 1.3; Prothrombin Time 17.1 Seconds (11.1-14.7)
[2020-06-24 02:53] LABS: Partial Thromboplastin Time 89.8 SECONDS (22.3-36.8)
[2020-06-24] MEDS: HYDROmorphon 0.2MG/ML PCA(*CRX 6 MG/30 ML PCA.VIAL 2.5 MG IV CONT ×3 (03:47→19:40)
[2020-06-24 03:50] LABS: Anion Gap 4 mmol/L (8-16); Blood Urea Nitrogen 11 mg/dL (9-20); Calcium 7.9 mg/dL (8.4-10.2); Carbon Dioxide 29 mmol/L (22-30); Chloride 105 mmol/L (98-107); Estimated CRCL calculation 115 ml/min; Estimated Glomerular Filt Rate > 60; Glucose 105 mg/dL (75-110); Magnesium 2.1 mg/dL (1.6-2.3); Potassium 3.2 mmol/L (3.4-5.0); Sodium 138 mmol/L (137-145)
[2020-06-24] MEDS: ACETAMINOPHEN ELIXIR 325 MG/10.15 ML UDC 650 MG FEED TUBE (04:05)
[2020-06-24 04:07] LABS: Hematocrit 25.2 % (42.0-52.0); Hemoglobin 7.9 g/dL (14.0-18.0); Mean Corpuscular HGB Conc 31.3 g/dl (32-36); Mean Corpuscular Hemoglobin 27.8 pg (26-34); Mean Corpuscular Volume 88.7 fl (80-100); Mean Platelet Volume 9.4 fl (7.4-10.4); Platelet Count Result 384 k/mm3 (150-375); Red Blood Count 2.84 M/mm3 (4.6-6.20); Red Cell Distribution Width 15.1 % (11.5-14.5); White Blood Count 17.9 K/mm3 (4.5-10.0)
[2020-06-24] MEDS: HEPARIN SOD/D5W 100 UNITS/ML 25,000 UNITS/250 ML BAG 22 UNITS IV CONT (06:12)
--- NOTE | 2020-06-24 07:51 | WPDINTPN ---
Progress Note: A&P Assessment and Plan (1) Atrial flutter with rapid ventricular response: Code(s): I48.92 - Unspecified atrial flutter Status: Acute Assessment and Plan: Patient went into AFib/a flutter with RVR. Patient received digoxin, adenosine x2 amiodarone bolus x2 and was started on amiodarone infusion without any adequate control. He remained hemodynamically stable Patient was successfully cardioverted to sinus rhythm on 06/23/2020 -remains in sinus rhythm, rate controlled -Continue amiodarone infusion -cardiology has been following the patient Patient seen by Cardiology -continue heparin infusion cardiology - Replace low potassium (2) Perforated duodenal ulcer with hemorrhage: Code(s): K26.6 - Chronic or unspecified duodenal ulcer with both hemorrhage and perforation Status: Acute Assessment and Plan: Now s/p Hemigastrectomy with Yamilka-en-Y gastrojejunostomy on 06/19/2020 Continue maintenance IV fluids at 50 mL/hour Pain control with [employer]SULTANT Dilaudid Patient did tolerate trickle tube feeds at 10 mL/hour, currently on hold for CT scan of the abdomen and pelvis given fluid collection in the midline as seen on ultrasound of the abdomen, could be abscess or blood collection IV PPI q.12 hours Continue Zosyn, blood cultures negative x2 Continue NG for now (3) Anemia: Code(s): D64.9 - Anemia, unspecified Status: Acute Assessment and Plan: Status post transfusion of 2 units of packed red cell Monitor hemoglobin Transfuse as needed to keep hemoglobin above 7 -could be related to collection of blood in the abdomen or. Or perioperative blood loss (4) Asthma: Qualifiers: Asthma severity: unspecified severity Asthma persistence: unspecified Asthma complication type: uncomplicated Qualified Code(s): J45.909 - Unspecified asthma, uncomplicated Code(s): J45.909 - Unspecified asthma, uncomplicated Status: Chronic Assessment and Plan: P.r.n. albuterol (5) HTN (hypertension): Code(s): I10 - Essential (primary) hypertension Status: Acute Assessment and Plan: Patient has history of hypertension but not on any treatment as an outpatient Will continue to monitor blood pressure and treat if elevated (6) Elevated LFTs: Code(s): R79.89 - Other specified abnormal findings of blood chemistry Status: Acute Assessment and Plan: Elevated bilirubin and LFTs, show to 7.9 x 7.2 x 7.7 cm fluid collection at the midline suspicious for abscess. CT abdomen pelvis with contrast has been recommended -gallbladder wall thickening which may be secondary to inflammation or interstitial edema, right pleural effusion -surgery aware, obtaining CT abdomen and pelvis with water-soluble oral and IV contrast Additional Plan DVT prophylaxis -heparin infusion, will hold heparin infusion for possible drainage of the fluid collection in the abdomen Stress ulcer prophylaxis -PPI Nutrition -tolerating trickle tube feeds at 10 mL/hour, currently on hold for CT scan of the abdomen and pelvis Code Status - Full Code Incentive spirometry -patient has been sitting up in the chair Total Critical Care Time - 33 minutes This dictation may have been done utilizing a voice recognition system. Attempts have been made to correct errors. However, there may be uncorrected grammatical, spelling, and recognition errors present. Due to a high probability of clinically significant, life threatening deterioration, the patient required my highest level of preparedness to intervene emergently and I personally spent this critical care time directly and personally managing the patient. This critical care time included obtaining a history; examining the patient; pulse oximetry; ordering and review of studies; arranging urgent treatment with development of a management plan; evaluation of patient's response to treatment; frequent reassessment; and discussions with other providers.
--- NOTE | 2020-06-24 08:03 | PM.PNGS ---
Progress Note: A&P Assessment and Plan (1) Fever: Qualifiers: Fever type: due to other condition Qualified Code(s): R50.81 - Fever presenting with conditions classified elsewhere Code(s): R50.9 - Fever, unspecified Status: Acute Assessment and Plan: febrile again last night. Not quite as high as 2 days ago. White count up to 17,[address] Will get CT scan of abdomen and pelvis to check on the fluid collection noted on ultrasound. If does appear to be an abscess, proceed with percutaneous drainage. (2) Perforated duodenal ulcer with hemorrhage: Code(s): K26.6 - Chronic or unspecified duodenal ulcer with both hemorrhage and perforation Status: Acute Assessment and Plan: Postop day 5. Now. Will get Gastrografin upper GI to check for any leaks in his gastric resection. If no leaks are noted, can DC NG tube and start clear liquids. (3) Acute blood loss anemia: Code(s): D62 - Acute posthemorrhagic anemia Status: Acute Assessment and Plan: H&H low but stable. Do not feel there is any sign of him having continued bleeding. (4) Atrial flutter with rapid ventricular response: Code(s): I48.92 - Unspecified atrial flutter Status: Resolved Assessment and Plan: Remains in sinus rhythm, sinus tach after cardioversion yesterday. Continues on heparin which will be held as we may be draining an abscess later today. Remains on amiodarone drip and esmolol. Subjective Subjective Date/Time Seen: 06/24/20 08:04 Post Op day: 5 Patient reports: still having pain, flatus, no bowel movement and fever Interval history: Febrile to 38.7 last night. Heart rate remains in sinus rhythm, sinus tach. Wants to know when NG tube can come out. Passing flatus but no BM. 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 Ultrasound from yesterday noted 7 cm midline collection possibly an abscess. Review of Systems Review of Systems: All systems reviewed & are unremarkable except as noted in HPI and below Constitutional: Constitutional: Reports as per HPI, Denies chills, Reports fever(s), Denies headache(s) and Denies night sweats Cardiovascular: Cardiovascular: Denies chest pain and Denies dyspnea Respiratory: Respiratory: Denies cough and Denies dyspnea Gastrointestinal: Gastrointestinal: Reports as per HPI, Reports abdominal pain, Reports constipation, Denies heartburn, Denies nausea and Denies vomiting Neurologic: Denies confusion and Denies headache(s) Exam Const: General: cooperative, comfortable, no acute distress, alert and awake; No confusion Orientation/consciousness: No confusion and No lethargic GI: Inspection: incision ( Dry, intact, healing well), scaphoid and other ( HERO drain shows cloudy serous fluid as it has the last couple of days) GI Palp: Yes Soft to palpation, Yes Tenderness to palpation present (GI), No Guarding due to palpation present (GI), No Palpable mass present and No Rebound tenderness present Auscultation: Hypoactive bowel sounds present Neuro: General: patient oriented x3, no focal motor deficits and No confusion Extrem: General: no calf tenderness and no edema Psych: Speech and movement: Clear speech present Affect: Blunted affect present Attitude: cooperative and Avoids eye contact (attititude/behavior) Insight: Fair insight present (Psych) Judgement: Fair judgement present (Psych) Objective Data Vital Signs Vital Signs: Vital Signs - 24 hr 06/23/20 10:00 06/23/20 12:00 06/23/20 13:45 Temperature Pulse Rate 78 103 H Respiratory Rate 21 H 23 H 24 H Blood Pressure 98/57 L 112/88 Pulse Oximetry 91 91 06/23/20 14:00 06/23/20 15:48 06/23/20 16:00 Temperature 38.7 C H Pulse Rate 99 100 Respiratory Rate 20 24 H 18 Blood Pressure 121/66 140/68 Pulse Oximetry 98 97 06/23/20 18:00 06/23/20 19:46 06/23/20 20:00 Temperature 38.2 C H 36.6 C Pulse Rate 107 H 97 Respiratory Rate 27 H 20 20 Blood Pressure 134/6
[2020-06-24] MEDS: FAMOTIDINE 20 MG/2 ML VIAL IV PUSH ×2 (08:12→19:54)
[2020-06-24] MEDS: AMIODARONE 360 MG/D5W 200 ML 360 MG/200 ML BAG 16.67 MG IV CONT ×2 (08:25→19:43)
--- NOTE | 2020-06-24 09:53 | PM.PNCARD ---
Progress Note: A&P Assessment and Plan (1) Atrial flutter with rapid ventricular response: Code(s): I48.92 - Unspecified atrial flutter Status: Resolved Assessment and Plan: Patient presented in sinus tachycardia in setting of perforated duodenal ulcer mass status post emergent Hemigastrectomy with Yamilka-en-Y gastrojejunostomy then developed atrial fibrillation with rapid ventricular response. Refractory to amiodarone and digoxin. Rhythm has no organized into atrial flutter approximately 160 beats per minute. Patient asymptomatic. No prior known history. patient does not want NITHIN guided DC cardioversion. Continue IV Amiodarone . Esmolol has been stopped Will reorder 2D echocardiogram Doppler. Potassium replacement RD being performed. Keep potassium greater than 4.0 (2) Perforated duodenal ulcer with hemorrhage: Code(s): K26.6 - Chronic or unspecified duodenal ulcer with both hemorrhage and perforation Status: Acute Assessment and Plan: s/p emergent Hemigastrectomy with Yamilka-en-Y gastrojejunostomy secondary to perforated duodenal ulcer (3) Anemia: Code(s): D64.9 - Anemia, unspecified Status: Acute Assessment and Plan: Blood-loss anemia. Status post transfusion 2 units PRBCs. H&H stable thus far. Surgery okay with systemic anticoagulation. Follow H/H closely and monitor for signs of bleeding. (4) PUD (peptic ulcer disease): Code(s): K27.9 - Peptic ulcer, site unspecified, unspecified as acute or chronic, without hemorrhage or perforation Status: Acute Assessment and Plan: As above. Concern for bleeding risk given presentation. Etiology remains unclear which poses ongoing concern (5) Schizophrenia: Qualifiers: Schizophrenia type: unspecified Qualified Code(s): F20.9 - Schizophrenia, unspecified Code(s): F20.9 - Schizophrenia, unspecified Status: Acute Assessment and Plan: per primary service Subjective Date/time seen: 06/24/20 09:53 Interval history: Follow-up visit in this 54-year-old man with: Acute onset of atrial flutter with rapid ventricular response perioperatively following emergency surgery for repair of a large perforated duodenal ulcer. Patient had significant hemorrhagic event with this as well. The stress of the situation obviously has triggered his atrial arrhythmia. Follow-up note 06/24/2020: He did undergo successful cardioversion yesterday. He remains in sinus rhythm. Denies any chest pain or shortness of breath Review of Systems Review of Systems: All systems reviewed & are unremarkable except as noted in HPI and below Constitutional: Constitutional: Reports as per HPI, Reports no additional constitutional complaints and Reports fatigue Eyes: Eyes: Reports as per HPI and Reports no additional eye complaints ENT: Reports system reviewed and no additional complaints, except as documented and Reports as per HPI Cardiovascular: Cardiovascular: Reports as per HPI, Reports no additional cardiovascular complaints, Denies chest pain, Denies leg edema, Denies lightheadedness, Denies palpitations, Denies dyspnea and Denies dyspnea on exertion Respiratory: Respiratory: Reports as per HPI, Reports no additional respiratory complaints, Denies dyspnea and Denies dyspnea on exertion Gastrointestinal: Gastrointestinal: Reports as per HPI, Reports no additional gastrointestinal complaints, Reports abdominal pain and Reports melena Genitourinary: Genitourinary: Reports no additional male genitourinary complaints and Reports as per HPI Musculoskeletal: Musculoskeletal: Reports no additional musculoskeletal complaints, Reports as per HPI and Denies back pain Integumentary/Breasts: Skin/Breast: Reports system reviewed and no additional complaints, except as docu and Reports as per HPI Neurologic: Reports system reviewed and no additional complaints, except as documented and Reports as per HPI Ps
--- NOTE | 2020-06-24 10:44 | PCDIET ---
ICU Rounding Note: Patient has tolerated Vital 1.2 at 10mL/hr with 30mL water flush every 4 hours. Tube feedings currently held for CT abdomen/pelvis with contrast. Pending results, would expect enteral/oral diet to resume. Last recorded weight is 97.2kg which is increased from last review. +I/O. Bowel Motility: No BM yet. Labs Reviewed: Hgb (7.9), Hct (25.2), K (3.2), Alb (2.8), Mary Ca (8.86) Meds Noted: Entereg, Pepcid, Amiodarone, Dilaudid, Zosyn, D5W with 40mEq KCl at 125mL/hr, D5/0.45NS with 20mEq KCl at 50mL/hr Additional Notes: No pressure sores reported. Following daily in ICU rounds. Assessing/reassessing every Sunday/Sunday.
--- NOTE | 2020-06-24 10:58 | PM.IMPN ---
Progress Note: A&P Assessment and Plan (1) Elevated LFTs: Code(s): R79.89 - Other specified abnormal findings of blood chemistry Status: Acute Assessment and Plan: Most likely related to hypoperfusion continue to monitor daily CMP (2) Acute blood loss anemia: Code(s): D62 - Acute posthemorrhagic anemia Status: Acute Assessment and Plan: Acute blood loss anemia secondary to GI bleed secondary to perforated peptic ulcer transfuse transfuse if hemoglobin below 7 (3) Fever: Qualifiers: Fever type: due to other condition Qualified Code(s): R50.81 - Fever presenting with conditions classified elsewhere Code(s): R50.9 - Fever, unspecified Status: Acute Assessment and Plan: Probable peritonitis continue IV antibiotics pending ID evaluation (4) Atrial flutter with rapid ventricular response: Code(s): I48.92 - Unspecified atrial flutter Status: Resolved Assessment and Plan: Status post digoxin IV metoprolol amiodarone drip no improvement patient had cardioversion by Cardiology on 06/23/2020 converted to sinus rhythm (5) Schizophrenia: Qualifiers: Schizophrenia type: unspecified Qualified Code(s): F20.9 - Schizophrenia, unspecified Code(s): F20.9 - Schizophrenia, unspecified Status: Acute Assessment and Plan: Stable (6) HTN (hypertension): Code(s): I10 - Essential (primary) hypertension Status: Acute Assessment and Plan: Improved continue to monitor (7) Perforated duodenal ulcer with hemorrhage: Code(s): K26.6 - Chronic or unspecified duodenal ulcer with both hemorrhage and perforation Status: Acute Assessment and Plan: Sp Hemigastrectomy with Yamilka-en-Y gastrojejunostomy for perforated DU. 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 Probable associated with acute peritonitis pending ID evaluation patient may need antifungals Subjective Date/time seen: 06/24/20 10:58 Interval history: Patient was admitted to the hospital was found to have perforated duodenal ulcer status post hemigastrectomy with Yamilka-en-Y gastrojejunostomy patient was treated with diet and ICU surgery was consulted patient is having episodes of fever also patient have leukocytosis and tachycardia patient has a flutter treated with amiodarone drip digoxin IV metoprolol no response cardiology was consulted recommended cardioversion Patient had cardioversion was tolerated well on 06/23/2020 currently in sinus rhythm still on amiodarone drip and heparin drip Patient denies fever or chills I am seeing patient for anemia Exam Narrative: Exam Narrative: Alert Chest no wheeze crackles Abdomen tender nondistended CVS S1 + S2 Lower extremity edema Objective Data Vital Signs Vital Signs: Vital Signs - 24 hr 06/23/20 12:00 06/23/20 13:45 06/23/20 14:00 Temperature Pulse Rate 103 H 99 Respiratory Rate 23 H 24 H 20 Blood Pressure 112/88 121/66 Pulse Oximetry 91 98 06/23/20 15:48 06/23/20 16:00 06/23/20 18:00 Temperature 101.6 F H 100.8 F H Pulse Rate 100 107 H Respiratory Rate 24 H 18 27 H Blood Pressure 140/68 134/63 Pulse Oximetry 97 92 06/23/20 19:46 06/23/20 20:00 06/23/20 20:01 Temperature 98 F Pulse Rate 97 98 Respiratory Rate 20 20 Blood Pressure 133/72 133/72 Pulse Oximetry 100 96 06/23/20 22:00 06/24/20 00:00 06/24/20 00:35 Temperature 98.3 F Pulse Rate 98 96 96 Respiratory Rate 21 H 20 20 Blood Pressure 123/59 L 113/62 113/62 Pulse Oximetry 99 93 96 06/24/20 02:00 06/24/20 03:47 06/24/20 04:00 Temperature 100.9 F H Pulse Rate 93 96 Respiratory Rate 21 H 24 H 21 H Blood Pressure 110/59 L 121/64 Pulse Oximetry 91 97 100 06/24/20 04:05 06/24/20 05:05 06/24/20 06:00 Temperature 100.9 F H 99 F 98.8 F Pulse Rate 93 Respiratory Rate 21 H Blood Pressure 114/61 Pulse Oximetry 96 06/24/20 08:00 06/24/20 08:25 Temperature 9
--- NOTE | 2020-06-24 11:09 | PC.NURSE ---
Returned from CT scan without issue
[2020-06-24] MEDS: ALVIMOPAN 12 MG CAPSULE PO ×2 (11:48→19:54)
--- NOTE | 2020-06-24 12:55 | PC.NURSE ---
Patient refusing ECHO. Dr. Torres and RN to bedside without success.
--- NOTE | 2020-06-24 12:55 | WPDINFPN2 ---
Progress Note: A&P Assessment and Plan (1) Perforated duodenal ulcer with hemorrhage: Code(s): K26.6 - Chronic or unspecified duodenal ulcer with both hemorrhage and perforation Status: Acute Assessment and Plan: Peritonitis due to perf. DU, POD #5 REC PipTazo #6, add fluconazole #1. Continue both minimum 4 days more, longer if remains febrile. Subjective Date/time seen: 06/24/20 12:55 Objective Data Vital Signs Vital Signs: Vital Signs - 24 hr 06/23/20 13:45 06/23/20 14:00 06/23/20 15:48 Temperature Pulse Rate 99 Respiratory Rate 24 H 20 24 H Blood Pressure 121/66 Pulse Oximetry 98 06/23/20 16:00 06/23/20 18:00 06/23/20 19:46 Temperature 38.7 C H 38.2 C H Pulse Rate 100 107 H Respiratory Rate 18 27 H 20 Blood Pressure 140/68 134/63 Pulse Oximetry 97 92 100 06/23/20 20:00 06/23/20 20:01 06/23/20 22:00 Temperature 36.6 C Pulse Rate 97 98 98 Respiratory Rate 20 21 H Blood Pressure 133/72 133/72 123/59 L Pulse Oximetry 96 99 06/24/20 00:00 06/24/20 00:35 06/24/20 02:00 Temperature 36.8 C Pulse Rate 96 96 93 Respiratory Rate 20 20 21 H Blood Pressure 113/62 113/62 110/59 L Pulse Oximetry 93 96 91 06/24/20 03:47 06/24/20 04:00 06/24/20 04:05 Temperature 38.3 C H 38.3 C H Pulse Rate 96 Respiratory Rate 24 H 21 H Blood Pressure 121/64 Pulse Oximetry 97 100 06/24/20 05:05 06/24/20 06:00 06/24/20 08:00 Temperature 37.2 C 37.1 C 36.8 C Pulse Rate 93 88 Respiratory Rate 21 H 18 Blood Pressure 114/61 114/56 L Pulse Oximetry 96 100 06/24/20 08:25 06/24/20 10:00 06/24/20 11:04 Temperature Pulse Rate 97 89 Respiratory Rate 22 H 18 Blood Pressure 114/56 L 132/68 Pulse Oximetry 95 100 Intake/Output Intake/Output: Intake & Output 05/10/06/22/20 06/23/20 06/24/20 23:59 23:59 23:59 23:59 Intake Total 4024.0 2938.0 3484 1428 Output Total 1960 1150 1800 610 Balance 2064.0 1788.0 1684 818 Meds/Results Medications: Active Medications Generic Name Dose Route Start Last Admin Trade Name Freq PRN Reason Stop Dose Admin Acetaminophen 650 mg 06/21/20 20:25 06/24/20 04:05 Acetaminophen Elixir 325 Mg/10.15 Ml Udc FEED TUBE 650 mg Q4H PRN Administration Fever Albuterol 2 puff 06/19/20 08:16 Albuterol Sulfate (*Sp) Aerosol 1 Puff INHALATION Q6HRT PRN Shortness Of Breath Or Wheezing Albuterol 2.5 mg 06/19/20 15:43 Albuterol Sulfate Neb 2.5 Mg/0.5 Ml Inh INHALATION Q6HRT PRN Shortness Of Breath Alvimopan 12 mg 06/20/20 09:00 06/24/20 11:48 Alvimopan 12 Mg Capsule PO 06/27/20 09:01 12 mg Q12HR MATEO Administration Famotidine 20 mg 06/24/20 09:00 06/24/20 08:12 Famotidine 20 Mg/2 Ml Vial IV PUSH 20 mg Q12HR MATEO Administration Heparin Sodium (Porcine) 7,000 units 06/20/20 10:15 06/23/20 05:57 Heparin Sodium 5,000 Units/Ml Vial IV PUSH 7,000 units PRN PRN Administration aPTT less than 55 seconds Heparin Sodium (Porcine) 3,500 units 06/20/20 10:15 06/23/20 14:07 Heparin Sodium 5,000 Units/Ml Vial IV PUSH 3,500 units PRN PRN Administration aPTT 55 - 70 seconds Hydralazine HCl 10 mg 06/19/20 15:42 Hydralazine Hcl 20 Mg/Ml Vial IV PUSH Q8H PRN if SBP over 160 or DBP>100 Piperacillin/Tazobactam/Dextrose 3.375 gm in 50 mls @ 100 mls/hr 06/19/20 09:00 06/24/20 09:00 Zosyn 3.375 Gm/D5w 50ml Pm IVPB Infused Q6H MATEO Infusion Heparin Sodium/Dextrose 25,000 units in 250 mls @ 0 mls/hr 06/20/20 10:15 06/24/20 11:41 Heparin Sodium/D5w 100 Units/Ml IV CONT Not Given .Q0M MATEO Protocol Amiodarone HCl/Dextrose 360 mg in 200 mls @ 16.667 mls/hr 06/20/20 14:40 06/24/20 08:25 Nexterone 360 Mg/D5w 200 Ml IV CONT 0.5 mg/min .Q12H MATEO 16.67 mls/hr Administration 0.5 MG/MIN Hydromorphone HCl 6 mg in 30 mls @ 2.5 mls/hr 06/20/20 08:30 06/24/20 11:04 Dilaudid 0.2 Mg/Ml Research Greenhouse Supervisor IV CONT 0.
--- NOTE | 2020-06-24 13:02 | WPDPN ---
Objective Data Vital Signs Vital Signs: Vital Signs - 24 hr 06/23/20 13:45 06/23/20 14:00 06/23/20 15:48 Temperature Pulse Rate 99 Respiratory Rate 24 H 20 24 H Blood Pressure 121/66 Pulse Oximetry 98 06/23/20 16:00 06/23/20 18:00 06/23/20 19:46 Temperature 38.7 C H 38.2 C H Pulse Rate 100 107 H Respiratory Rate 18 27 H 20 Blood Pressure 140/68 134/63 Pulse Oximetry 97 92 100 06/23/20 20:00 06/23/20 20:01 06/23/20 22:00 Temperature 36.6 C Pulse Rate 97 98 98 Respiratory Rate 20 21 H Blood Pressure 133/72 133/72 123/59 L Pulse Oximetry 96 99 06/24/20 00:00 06/24/20 00:35 06/24/20 02:00 Temperature 36.8 C Pulse Rate 96 96 93 Respiratory Rate 20 20 21 H Blood Pressure 113/62 113/62 110/59 L Pulse Oximetry 93 96 91 06/24/20 03:47 06/24/20 04:00 06/24/20 04:05 Temperature 38.3 C H 38.3 C H Pulse Rate 96 Respiratory Rate 24 H 21 H Blood Pressure 121/64 Pulse Oximetry 97 100 06/24/20 05:05 06/24/20 06:00 06/24/20 08:00 Temperature 37.2 C 37.1 C 36.8 C Pulse Rate 93 88 Respiratory Rate 21 H 18 Blood Pressure 114/61 114/56 L Pulse Oximetry 96 100 06/24/20 08:25 06/24/20 10:00 06/24/20 11:04 Temperature Pulse Rate 97 89 Respiratory Rate 22 H 18 Blood Pressure 114/56 L 132/68 Pulse Oximetry 95 100 Intake/Output Intake/Output: Intake & Output 06/21/20 06/22/20 06/23/20 06/24/20 23:59 23:59 23:59 23:59 Intake Total 4024.0 2938.0 3484 1428 Output Total 1960 1150 1800 610 Balance 2064.0 1788.0 1684 818 Meds/Results Medications: Active Medications Generic Name Dose Route Start Last Admin Trade Name Freq PRN Reason Stop Dose Admin Acetaminophen 650 mg 06/21/20 20:25 06/24/20 04:05 Acetaminophen Elixir 325 Mg/10.15 Ml Udc FEED TUBE 650 mg Q4H PRN Administration Fever Albuterol 2 puff 06/19/20 08:16 Albuterol Sulfate (*Sp) Aerosol 1 Puff INHALATION Q6HRT PRN Shortness Of Breath Or Wheezing Albuterol 2.5 mg 06/19/20 15:43 Albuterol Sulfate Neb 2.5 Mg/0.5 Ml Inh INHALATION Q6HRT PRN Shortness Of Breath Alvimopan 12 mg 06/20/20 09:00 06/24/20 11:48 Alvimopan 12 Mg Capsule PO 06/27/20 09:01 12 mg Q12HR MATEO Administration Famotidine 20 mg 06/24/20 09:00 06/24/20 08:12 Famotidine 20 Mg/2 Ml Vial IV PUSH 20 mg Q12HR MATEO Administration Heparin Sodium (Porcine) 7,000 units 06/20/20 10:15 06/23/20 05:57 Heparin Sodium 5,000 Units/Ml Vial IV PUSH 7,000 units PRN PRN Administration aPTT less than 55 seconds Heparin Sodium (Porcine) 3,500 units 06/20/20 10:15 06/23/20 14:07 Heparin Sodium 5,000 Units/Ml Vial IV PUSH 3,500 units PRN PRN Administration aPTT 55 - 70 seconds Hydralazine HCl 10 mg 06/19/20 15:42 Hydralazine Hcl 20 Mg/Ml Vial IV PUSH Q8H PRN if SBP over 160 or DBP>100 Piperacillin/Tazobactam/Dextrose 3.375 gm in 50 mls @ 100 mls/hr 06/19/20 09:00 06/24/20 09:00 Zosyn 3.375 Gm/D5w 50ml Pm IVPB Infused Q6H MATEO Infusion Heparin Sodium/Dextrose 25,000 units in 250 mls @ 0 mls/hr 06/20/20 10:15 06/24/20 11:41 Heparin Sodium/D5w 100 Units/Ml IV CONT Not Given .Q0M MATEO Protocol Amiodarone HCl/Dextrose 360 mg in 200 mls @ 16.667 mls/hr 06/20/20 14:40 06/24/20 08:25 Nexterone 360 Mg/D5w 200 Ml IV CONT 0.5 mg/min .Q12H MATEO 16.67 mls/hr Administration 0.5 MG/MIN Hydromorphone HCl 6 mg in 30 mls @ 2.5 mls/hr 06/20/20 08:30 06/24/20 11:04 Dilaudid 0.2 Mg/Ml Ceramic Saw Tender IV CONT 0.5 mg/hr .Q12H PRN 2.5 mls/hr LABEL SEWER Management Administration Protocol 0.5 MG/HR Potassium Chloride/Dextrose/Sod Cl 1,000 mls @ 50 mls/hr 06/21/20 07:50 06/24/20 01:45 Kcl 20 Meq/D5/0.45% Sod Chl IV CONT 50 mls/hr .Q20H MATEO Administration Potassium Chloride 500 mls @ 125 mls/hr 06/24/20 12:00 Kcl 40 Meq/D5w 500 Ml Peripheral IVPB 06/24/20 15:59 ONCE ONE Morphine Sulfate 2
--- NOTE | 2020-06-24 14:33 | PC.NURSE ---
Patient returned to room from Xray without issue.
[2020-06-24] MEDS: MICAFUNGIN SODIUM 100 MG in SODIUM CHLORIDE 0.9% IV 100 ML IVPB (14:41)
[2020-06-24 22:13] LABS: Partial Thromboplastin Time 76.2 SECONDS (22.3-36.8)
[2020-06-25] VITALS (19 sets, daily range): BP systolic 103–126; BP diastolic 60–81; PULSE 86–102; RESP 16–28; TEMP 36.8–37.3; O2SAT 88–100
[2020-06-25] MEDS: HEPARIN SOD/D5W 100 UNITS/ML 25,000 UNITS/250 ML BAG 22 UNITS IV CONT ×2 (02:02→14:12)
[2020-06-25] MEDS: HYDROmorphon 0.2MG/ML PCA(*CRX 6 MG/30 ML PCA.VIAL 2.5 MG IV CONT ×3 (03:59→19:09)
[2020-06-25 05:44] LABS: Potassium 3.3 mmol/L (3.4-5.0)
[2020-06-25 05:48] LABS: Partial Thromboplastin Time 75.2 SECONDS (22.3-36.8)
[2020-06-25 05:51] LABS: Anion Gap 5 mmol/L (8-16); Blood Urea Nitrogen 5 mg/dL (9-20); Calcium 8.2 mg/dL (8.4-10.2); Carbon Dioxide 27 mmol/L (22-30); Chloride 104 mmol/L (98-107); Estimated CRCL calculation 133 ml/min; Estimated Glomerular Filt Rate > 60; Glucose 84 mg/dL (75-110); Phosphorus 2.7 mg/dL (2.5-4.5); Sodium 136 mmol/L (137-145)
[2020-06-25 06:04] LABS: Hematocrit 23.5 % (42.0-52.0); Hemoglobin 7.2 g/dL (14.0-18.0); Mean Corpuscular HGB Conc 30.6 g/dl (32-36); Mean Corpuscular Hemoglobin 27.6 pg (26-34); Mean Platelet Volume 10.8 fl (7.4-10.4); Platelet Count Result 383 k/mm3 (150-375); Red Blood Count 2.61 M/mm3 (4.6-6.20); Red Cell Distribution Width 15.4 % (11.5-14.5); White Blood Count 19.5 K/mm3 (4.5-10.0)
--- NOTE | 2020-06-25 06:16 | CONS_ITS ---
DATE OF CONSULTATION: 06/24/2020 REASON FOR CONSULTATION: Peritonitis. HISTORY OF PRESENT ILLNESS: A 54-year-old male who presents to the hospital, June 19 with abdominal pain. He is found to have perforated viscus, was taken to the operating room early on the . Thus, he is postop day 5. Findings included large proximal duodenal ulcer. He underwent resection of that portion of the duodenum with a Yamilka-en-Y gastrojejunostomy. Cloudy fluid was accounted at the time of operation in the abdominal cavity. No cultures were collected. He has been on piperacillin-tazobactam postop. He does have abdominal pain. NG tube is still in place. No nausea or vomiting. No diarrhea. He was extubated without difficulty and has had no shortness of breath. No subjective fever, chills, or sweats. Consultation requested yesterday and contrary to the notation in the medical record. I was not notified until an hour ago. ALLERGIES: AMOXICILLIN CAUSES NAUSEA AND VOMITING. HE IS TOLERATING THE PIPERACILLIN, HOWEVER. HABITS: No tobacco. Social drinker. PRESENT MEDICATIONS: List reviewed. No immunosuppressants. FAMILY HISTORY: Cancer. 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 No family at the bedside. PAST MEDICAL HISTORY: Previous appendectomy, although the patient denies any prior abdominal operations himself. Also tonsillectomy, schizophrenia, pulmonary emboli, previous pneumonia, nephrolithiasis, hypertension, hyperlipidemia, angina, herniated disk, and asthma. REVIEW OF SYSTEMS: 14-point review otherwise negative. Brower catheter is not in place currently. PHYSICAL EXAMINATION: GENERAL: Middle-aged male appears his actual age. No acute distress. VITAL SIGNS: On arrival, he was afebrile and on postop day 1, temperature up to 38.3, on postop day 2, up to 39.1 and last 24 hours T-max 38.7. 90, 20, 123/63, 94%. SKIN: No rashes, warm and dry. No ulcerations. NODES: He has no cervical or axillary adenopathy. EENT: Conjunctivae are normal. He has an NG tube in place. Oropharynx, oral mucosa are clear. Dry mucous membranes. He has no paranasal sinus, erythema, edema or tenderness. NECK: No masses, thyromegaly, meningismus. LUNGS: Clear to auscultation and percussion. BACK: Nontender. CARDIAC: He has a regular rate and rhythm. No murmur, gallop, or rub. ABDOMEN: Absent bowel sounds. Mildly distended, mildly tender in both lower quadrants and moderately tender in both upper quadrants without guarding. No masses. His midline incision is stapled and without wound dehiscence. He has a single drain in the right mid abdomen with no fluid currently. The drain during the counter day yesterday was 60, previous day 70, previous day 185. Psoas signs are negative. EXTREMITIES: Without clubbing, cyanosis, or edema. Well perfused. NEUROLOGIC: He is awake, alert, oriented, appropriate and cooperative. LABORATORY DATA: Urine culture, no growth. Blood cultures done shortly after arrival, no growth 5 days incubation. Blood culture repeated on the , also no growth so far. White blood cell count 5.9 on admission, 14.3 early on the , has been admitting since then 17.9 today. Hemoglobin 7.9, which is stable, platelets are 384. He has mild hypokalemia, which has been replaced. Otherwise, electrolytes normal. Bilirubin 3.3, AST 102, albumin 2.8. His urinalysis without evidence of infection. RADIOLOGY: Abdomen and pelvic CT showed some ascites today. No focal fluid collections. He had left kidney stone 3 mm. Mild prostate enlargement. Old rib fractures on the left. Lumbar spondylosis. His chest x-ray previously was normal. Abdomen and pelvic CT on admission showed a free air. ASSESSMENT: 1. Peritonitis after duodenal perforation still with leukocytosis and
[2020-06-25] MEDS: FAMOTIDINE 20 MG/2 ML VIAL IV PUSH ×2 (08:10→21:00)
[2020-06-25] MEDS: ALVIMOPAN 12 MG CAPSULE PO (08:10)
[2020-06-25 08:12] LABS: Alanine Aminotransferase 37 U/L (4-50); Albumin Level 2.7 g/dL (3.5-5.1); Alkaline Phosphatase 114 U/L (38-126); Aspartate Amino Transferase 83 U/L (17-59); Bilirubin Direct 0.6 mg/dL (0-0.3); Bilirubin,Total 2.9 mg/dL (0.2-1.3)
--- NOTE | 2020-06-25 08:28 | WPDINTPN ---
Progress Note: A&P Assessment and Plan (1) Atrial flutter with rapid ventricular response: Code(s): I48.92 - Unspecified atrial flutter Status: Resolved Assessment and Plan: Patient went into AFib/a flutter with RVR. Patient received digoxin, adenosine x2 amiodarone bolus x2 and was started on amiodarone infusion without any adequate control. He remained hemodynamically stable Patient was successfully cardioverted to sinus rhythm on 06/23/2020 -remains in sinus rhythm, rate controlled -Continue amiodarone infusion -cardiology has been following -continue heparin infusion, will discuss with cardiology re: Heparin infusion - Replace low potassium (2) Perforated duodenal ulcer with hemorrhage: Code(s): K26.6 - Chronic or unspecified duodenal ulcer with both hemorrhage and perforation Status: Acute Assessment and Plan: S/p Hemigastrectomy with Yamilka-en-Y gastrojejunostomy on 06/19/2020 Continue maintenance IV fluids at 50 mL/hour Pain control with FRUIT OR [employer] Dilaudid CT scan of the abdomen and pelvis liver and in the pelvis correlating with the ultrasound abnormality. No abscess was noted -KUB this morning shows nonobstructive bowel gas pattern with oral contrast material from studies performed on 06/24/2020 now in the distal colon IV PPI q.12 hours -infectious Disease evaluated the patient as he was spiking fevers, continue Dr. rick Feldman added Micafungin on 06/24 -surgeon has ordered for the removal of NG tube, and start clear liquids (3) Anemia: Code(s): D64.9 - Anemia, unspecified Status: Acute Assessment and Plan: Status post transfusion of 2 units of packed red cell Monitor hemoglobin Transfuse as needed to keep hemoglobin above 7 -could be related to perioperative blood loss (4) Asthma: Qualifiers: Asthma severity: unspecified severity Asthma persistence: unspecified Asthma complication type: uncomplicated Qualified Code(s): J45.909 - Unspecified asthma, uncomplicated Code(s): J45.909 - Unspecified asthma, uncomplicated Status: Chronic Assessment and Plan: P.r.n. albuterol (5) HTN (hypertension): Code(s): I10 - Essential (primary) hypertension Status: Acute Assessment and Plan: Patient has history of hypertension but not on any treatment as an outpatient Will continue to monitor blood pressure and treat if elevated (6) Elevated LFTs: Code(s): R79.89 - Other specified abnormal findings of blood chemistry Status: Acute Assessment and Plan: Elevated bilirubin and LFTs, show to 7.9 x 7.2 x 7.7 cm fluid collection at the midline suspicious for abscess. -06/24 CT scan of the abdomen and pelvis showed ascites around the liver and in the pelvis, no abscess was noted -LFTs and bilirubin trending down this morning Additional Plan DVT prophylaxis -heparin infusion, Stress ulcer prophylaxis -PPI Nutrition -clear liquid diet per surgeon after removing the NG tube Code Status - Full Code Incentive spirometry -patient has been sitting up in the chair Total Critical Care Time - 31 minutes This dictation may have been done utilizing a voice recognition system. Attempts have been made to correct errors. However, there may be uncorrected grammatical, spelling, and recognition errors present. Due to a high probability of clinically significant, life threatening deterioration, the patient required my highest level of preparedness to intervene emergently and I personally spent this critical care time directly and personally managing the patient. This critical care time included obtaining a history; examining the patient; pulse oximetry; ordering and review of studies; arranging urgent treatment with development of a management plan; evaluation of patient's response to treatment; frequent reassessment; and discussions with other providers. It was exclusive of separately billable procedures and treating other patients and teachi
--- NOTE | 2020-06-25 09:15 | PC.NURSE ---
notified of Amiodarone gtt on hold due to lack of IV access. Vascular access specialist to initiate new IV.
[2020-06-25] MEDS: MICAFUNGIN SODIUM 100 MG in SODIUM CHLORIDE 0.9% IV 100 ML IVPB (09:24)
--- NOTE | 2020-06-25 10:28 | PM.PNCARD ---
Progress Note: A&P Assessment and Plan (1) Atrial flutter with rapid ventricular response: Code(s): I48.92 - Unspecified atrial flutter Status: Resolved Assessment and Plan: Patient presented in sinus tachycardia in setting of perforated duodenal ulcer mass status post emergent Hemigastrectomy with Yamilka-en-Y gastrojejunostomy then developed atrial fibrillation with rapid ventricular response. Refractory to amiodarone and digoxin. Rhythm has no organized into atrial flutter approximately 160 beats per minute. Patient asymptomatic. No prior known history. patient does not want NITHIN guided DC cardioversion. Continue IV Amiodarone . Esmolol has been stopped Echo pending when patient is agreeable to having it performed. Potassium replacement already being performed. Keep potassium greater than 4.0 (2) Perforated duodenal ulcer with hemorrhage: Code(s): K26.6 - Chronic or unspecified duodenal ulcer with both hemorrhage and perforation Status: Acute Assessment and Plan: s/p emergent Hemigastrectomy with Yamilka-en-Y gastrojejunostomy secondary to perforated duodenal ulcer (3) Anemia: Code(s): D64.9 - Anemia, unspecified Status: Acute Assessment and Plan: Blood-loss anemia. Status post transfusion 2 units PRBCs. H&H stable thus far. Surgery okay with systemic anticoagulation. Follow H/H closely and monitor for signs of bleeding. (4) PUD (peptic ulcer disease): Code(s): K27.9 - Peptic ulcer, site unspecified, unspecified as acute or chronic, without hemorrhage or perforation Status: Acute Assessment and Plan: As above. Concern for bleeding risk given presentation. Etiology remains unclear which poses ongoing concern (5) Schizophrenia: Qualifiers: Schizophrenia type: unspecified Qualified Code(s): F20.9 - Schizophrenia, unspecified Code(s): F20.9 - Schizophrenia, unspecified Status: Acute Assessment and Plan: per primary service Subjective Date/time seen: 06/25/20 10:28 Interval history: Follow-up visit in this 54-year-old man with: Acute onset of atrial flutter with rapid ventricular response perioperatively following emergency surgery for repair of a large perforated duodenal ulcer. Patient had significant hemorrhagic event with this as well. The stress of the situation obviously has triggered his atrial arrhythmia. Follow-up note 06/25/2020: He did undergo successful cardioversion 2 days ago.. He remains in sinus rhythm. Denies any chest pain or shortness of breath. Still unable to take pills Review of Systems Review of Systems: All systems reviewed & are unremarkable except as noted in HPI and below Constitutional: Constitutional: Reports as per HPI, Reports no additional constitutional complaints and Reports fatigue Eyes: Eyes: Reports as per HPI and Reports no additional eye complaints ENT: Reports system reviewed and no additional complaints, except as documented and Reports as per HPI Cardiovascular: Cardiovascular: Reports as per HPI, Reports no additional cardiovascular complaints, Denies chest pain, Denies leg edema, Denies lightheadedness, Denies palpitations, Denies dyspnea and Denies dyspnea on exertion Respiratory: Respiratory: Reports as per HPI, Reports no additional respiratory complaints, Denies dyspnea and Denies dyspnea on exertion Gastrointestinal: Gastrointestinal: Reports as per HPI, Reports no additional gastrointestinal complaints, Reports abdominal pain and Reports melena Genitourinary: Genitourinary: Reports no additional male genitourinary complaints and Reports as per HPI Musculoskeletal: Musculoskeletal: Reports no additional musculoskeletal complaints, Reports as per HPI and Denies back pain Integumentary/Breasts: Skin/Breast: Reports system reviewed and no additional complaints, except as docu and Reports as per HPI Neurologic: Reports system reviewed and no additional comp
--- NOTE | 2020-06-25 10:34 | PCDIET ---
Nutrition Follow-Up Complete: Nutrition Diagnosis: Inadequate oral intake related to abdominal surgery/ileus as evidenced by NPO x 5 days. Nutrition Goal: Patient to meet estimated nutritional needs. Goal in progress. MD order to pull NG tube and start ice chips, popsicles, gelatin. Recommend continuing diet advancement, once able, per surgery. Last recorded weight is 97.8 kg which is stable. Bowel Motility: +Bowel sounds. Documented BM x 1 today. Labs Reviewed: Hgb (7.2), Hct (23.5), BUN (5), Cr (0.6), K (3.3), Na (136), Mary Ca (9.16) Meds Noted: Entereg, Dilaudid, Zosyn, Pepcid, Micafungin, D5/Water with 40mEq KCl at 125mL/hr Additional Notes: HERO drain to abdomen. Dressing to abdomen. No reported pressure sores. Will continue to monitor with same goal. Nutrition Monitoring and Evaluation: Follow up in 3 days.
--- NOTE | 2020-06-25 11:00 | PM.PNGS ---
Progress Note: A&P Assessment and Plan (1) Perforated duodenal ulcer with hemorrhage: Code(s): K26.6 - Chronic or unspecified duodenal ulcer with both hemorrhage and perforation Status: Acute Assessment and Plan: Very little coming out of NG tube aside from the contrast placed for the CT scan and the upper GI. Although the contrast moved through the gastrojejunostomy slowly, it did move through. Will go ahead and DC NG tube and start small amounts of clear liquids. If patient has emesis, will need NG tube replaced. Would also like to get him transferred out of intensive care and ambulating multiple times a day if possible. Wound looks good. Will DC HERO drain and leave incision open to air. White blood cell count is going up and I am not sure why. Patient has had ultrasound CT and upper GI, none of these have shown a source of intra-abdominal infection. Continue to watch closely. (2) Acute blood loss anemia: Code(s): D62 - Acute posthemorrhagic anemia Status: Acute Assessment and Plan: Anemic but stable (3) Fever: Qualifiers: Fever type: due to other condition Qualified Code(s): R50.81 - Fever presenting with conditions classified elsewhere Code(s): R50.9 - Fever, unspecified Status: Acute Assessment and Plan: temperature down yesterday. Continue to watch. Suspect may be due to atelectasis. (4) Atrial flutter with rapid ventricular response: Code(s): I48.92 - Unspecified atrial flutter Status: Resolved Assessment and Plan: Patient to remain on anticoagulation. Subjective Subjective Date/Time Seen: 06/25/20 11:00 Post Op day: #6 Patient reports: no new complaints, still having pain, flatus, no bowel movement and afebrile Review of Systems Review of Systems: All systems reviewed & are unremarkable except as noted in HPI and below Constitutional: Constitutional: Denies body ache(s), Denies chills, Denies fever(s) and Denies headache(s) Cardiovascular: Cardiovascular: Denies chest pain and Denies dyspnea Gastrointestinal: Gastrointestinal: Reports as per HPI, Reports abdominal pain, Reports constipation, Denies heartburn, Denies nausea and Denies vomiting Neurologic: Denies confusion and Denies headache(s) Exam Const: General: comfortable and no acute distress; No confusion Orientation/consciousness: patient oriented x3 and No confusion GI: Inspection: incision ( Healing well, serous fluid in HERO drain again today) and scaphoid GI Palp: Yes Soft to palpation, Yes Tenderness to palpation present (GI), No Guarding due to palpation present (GI) and No Rebound tenderness present Auscultation: Hypoactive bowel sounds present Neuro: General: patient oriented x3, no focal motor deficits and No confusion Extrem: General: no calf tenderness and no edema Psych: Affect: normal affect Insight: Good insight present (Psych) Judgement: Good judgement present (Psych) Objective Data Vital Signs Vital Signs: Vital Signs - 24 hr 06/24/20 11:04 06/24/20 12:00 06/24/20 14:00 Temperature 36.9 C Pulse Rate 90 96 Respiratory Rate 18 22 H 22 H Blood Pressure 123/63 125/74 Pulse Oximetry 100 94 94 06/24/20 16:00 06/24/20 18:00 06/24/20 19:40 Temperature 37.2 C Pulse Rate 92 96 Respiratory Rate 23 H 21 H 20 Blood Pressure 131/70 125/76 Pulse Oximetry 95 95 95 06/24/20 19:43 06/24/20 20:00 06/24/20 22:00 Temperature 37.6 C Pulse Rate 93 94 96 Respiratory Rate 24 H 20 Blood Pressure 120/73 137/65 Pulse Oximetry 95 96 06/25/20 00:00 06/25/20 02:00 06/25/20 03:26 Temperature 37.3 C Pulse Rate 102 H 94 93 Respiratory Rate 26 H 25 H 27 H Blood Pressure 125/81 125/60 Pulse Oximetry 96 95 96 06/25/20 03:59 06/25/20 04:00 06/25/20 04:43 Temperature 37.1 C Pulse Rate 93 95 Respiratory Rate 26 H 22 H Blood Pressure 126/68 Pulse Oximetry 96 93 06/25/20 06:00 06/25/20 08:00 06/25/20
--- NOTE | 2020-06-25 12:30 | PC.NURSE ---
Patient refused clear liquid diet. Reviewed rationale for initiating a clear liquid diet before advancing to regular food. Patient refuses meal.
--- NOTE | 2020-06-25 14:05 | PCPTNOTE ---
Attempted PT eval. Pt refused therapy as he had just back to bed and too tired from working w/ OT Will try again tomorrow.
--- NOTE | 2020-06-25 14:11 | PCPTNOTE ---
Addendum entered by Vanesa Vizcarra, PT 06/25/20 14:13: Wrong pt Original Note: Spoke w/ Care Coordination and she spoke w/ PA. Orders DC'd due to pt at [facility].
[2020-06-25] MEDS: AMIODARONE 360 MG/D5W 200 ML 360 MG/200 ML BAG 16.67 MG IV CONT (14:12)
--- NOTE | 2020-06-25 15:25 | PM.IMPN ---
Progress Note: A&P Assessment and Plan (1) Elevated LFTs: Code(s): R79.89 - Other specified abnormal findings of blood chemistry Status: Acute Assessment and Plan: Most likely related to hypoperfusion continue to monitor daily CMP (2) Acute blood loss anemia: Code(s): D62 - Acute posthemorrhagic anemia Status: Acute Assessment and Plan: Acute blood loss anemia secondary to GI bleed secondary to perforated peptic ulcer, continue to monitor hb (3) Fever: Qualifiers: Fever type: due to other condition Qualified Code(s): R50.81 - Fever presenting with conditions classified elsewhere Code(s): R50.9 - Fever, unspecified Status: Acute Assessment and Plan: Probable peritonitis continue iv zosyn and antifungals (4) Atrial flutter with rapid ventricular response: Code(s): I48.92 - Unspecified atrial flutter Status: Resolved Assessment and Plan: Status post digoxin IV metoprolol amiodarone drip no improvement patient had cardioversion by Cardiology on 06/23/2020 converted to sinus rhythm (5) Schizophrenia: Qualifiers: Schizophrenia type: unspecified Qualified Code(s): F20.9 - Schizophrenia, unspecified Code(s): F20.9 - Schizophrenia, unspecified Status: Acute Assessment and Plan: Stable (6) HTN (hypertension): Code(s): I10 - Essential (primary) hypertension Status: Acute Assessment and Plan: Improved continue to monitor (7) Perforated duodenal ulcer with hemorrhage: Code(s): K26.6 - Chronic or unspecified duodenal ulcer with both hemorrhage and perforation Status: Acute Assessment and Plan: Sp Hemigastrectomy with Yamilka-en-Y gastrojejunostomy for perforated DU. sp,manager retention pump, iv zosyn and iv zofran and protonix. SP upper GI AND US of abdomen contninue to monitor wcc (8) Acute hypokalemia: Code(s): E87.6 - Hypokalemia Status: Acute Assessment and Plan: Potassium is low continue to monitor Subjective Date/time seen: 06/25/20 15:25 Interval history: 54 year old male admitted yesterday night with vague complaints of abdominal and back pains. Pt had to have emergency surgery for perforated DU. Pt is sp Hemigastrectomy with Yamilka-en-Y gastrojejunostomy for perforated DU. Post op day 6. pt is tolerating ice chips and tube feeds. pt heart is much improved. Otherwise no specific complaints Review of Systems Review of Systems: All systems reviewed & are unremarkable except as noted in HPI and below Exam Narrative: Exam Narrative: Alert Chest clear Abdomen large midline incision fresh healing well, ttp over incision, BS present CVS S1 + S2 Lower extremity edema Objective Data Vital Signs Vital Signs: Vital Signs - 24 hr 06/24/20 16:00 06/24/20 18:00 06/24/20 19:40 Temperature 37.2 C Pulse Rate 92 96 Respiratory Rate 23 H 21 H 20 Blood Pressure 131/70 125/76 Pulse Oximetry 95 95 95 06/24/20 19:43 06/24/20 20:00 06/24/20 22:00 Temperature 37.6 C Pulse Rate 93 94 96 Respiratory Rate 24 H 20 Blood Pressure 120/73 137/65 Pulse Oximetry 95 96 06/25/20 00:00 06/25/20 02:00 06/25/20 03:26 Temperature 37.3 C Pulse Rate 102 H 94 93 Respiratory Rate 26 H 25 H 27 H Blood Pressure 125/81 125/60 Pulse Oximetry 96 95 96 06/25/20 03:59 06/25/20 04:00 06/25/20 04:43 Temperature 37.1 C Pulse Rate 93 95 Respiratory Rate 26 H 22 H Blood Pressure 126/68 Pulse Oximetry 96 93 06/25/20 06:00 06/25/20 08:00 06/25/20 10:00 Temperature 36.8 C Pulse Rate 97 94 89 Respiratory Rate 25 H 28 H 24 H Blood Pressure 103/67 116/68 120/65 Pulse Oximetry 99 99 96 06/25/20 11:01 06/25/20 11:32 06/25/20 12:00 Temperature 36.9 C Pulse Rate 90 89 Respiratory Rate 23 H 23 H Blood Pressure 120/65 117/66 Pulse Oximetry 88 L 93 06/25/20 14:00 06/25/20 14:12 Temperature Pulse Rate 97 90 Respiratory Rate Blo
[2020-06-26] VITALS (15 sets, daily range): BP systolic 117–136; BP diastolic 55–72; PULSE 80–90; RESP 17–25; TEMP 36.7–37.5; O2SAT 92–100
[2020-06-26] MEDS: AMIODARONE 360 MG/D5W 200 ML 360 MG/200 ML BAG 16.67 MG IV CONT (01:58)
[2020-06-26] MEDS: HEPARIN SOD/D5W 100 UNITS/ML 25,000 UNITS/250 ML BAG 22 UNITS IV CONT (01:58)
[2020-06-26] MEDS: HYDROmorphon 0.2MG/ML PCA(*CRX 6 MG/30 ML PCA.VIAL 2.5 MG IV CONT (02:25)
[2020-06-26 04:42] LABS: Hematocrit 22.6 % (42.0-52.0); Hemoglobin 7.2 g/dL (14.0-18.0); Mean Corpuscular HGB Conc 31.9 g/dl (32-36); Mean Corpuscular Hemoglobin 27.9 pg (26-34); Mean Corpuscular Volume 87.6 fl (80-100); Mean Platelet Volume 9.5 fl (7.4-10.4); Platelet Count Result 480 k/mm3 (150-375); Red Blood Count 2.58 M/mm3 (4.6-6.20); Red Cell Distribution Width 15.7 % (11.5-14.5); White Blood Count 19.2 K/mm3 (4.5-10.0)
[2020-06-26 04:55] LABS: Anion Gap 3 mmol/L (8-16); Blood Urea Nitrogen 4 mg/dL (9-20); Calcium 8.1 mg/dL (8.4-10.2); Carbon Dioxide 30 mmol/L (22-30); Chloride 104 mmol/L (98-107); Estimated CRCL calculation 133 ml/min; Estimated Glomerular Filt Rate > 60; Glucose 93 mg/dL (75-110); Potassium 3.3 mmol/L (3.4-5.0); Sodium 137 mmol/L (137-145)
[2020-06-26 04:59] LABS: Partial Thromboplastin Time 89.1 SECONDS (22.3-36.8)
--- NOTE | 2020-06-26 07:51 | PM.PNGS ---
Progress Note: A&P Assessment and Plan (1) Perforated duodenal ulcer with hemorrhage: Code(s): K26.6 - Chronic or unspecified duodenal ulcer with both hemorrhage and perforation Status: Acute Assessment and Plan: NG tube out yesterday and patient tolerating some clears. On UGI studylthough the contrast moved through the gastrojejunostomy slowly, it did move through. If patient has emesis, will need NG tube replaced. Patient tolerated small amounts of clears yesterday will increased to full liquids today with 5 small meals a day the in between meals could be the Ensure surgery supplement. Although he still having abdominal pain will go ahead and order some oral pain medication and try to get him off the MECHANICAL DETAILER pump. Would also like to get him transferred out of intensive care and ambulating multiple times a day if possible. Wound looks good. The HERO drain was removed yesterday and we are leaving the incision open to air. White blood cell count is going up(19 K today) and I am not sure why. Patient has had ultrasound, CT, and upper GI, none of these have shown a source of intra-abdominal infection. Continue to watch closely. Repeat labs tomorrow a.m.. (2) Acute blood loss anemia: Code(s): D62 - Acute posthemorrhagic anemia Status: Acute Assessment and Plan: Anemic but stable (hemoglobin 7.2 today). (3) Fever: Qualifiers: Fever type: due to other condition Qualified Code(s): R50.81 - Fever presenting with conditions classified elsewhere Code(s): R50.9 - Fever, unspecified Status: Acute Assessment and Plan: temperature down yesterday. Continue to watch. Suspect may be due to atelectasis. Encouraged patient to ambulate and use IS. (4) Atrial flutter with rapid ventricular response: Code(s): I48.92 - Unspecified atrial flutter Status: Resolved Assessment and Plan: Patient to remain on anticoagulation per cardiology if he is going to need long-term could probably convert to oral in the next day or two. Okay to begin oral meds now. Subjective Subjective Date/Time Seen: 06/26/20 07:51 Post Op day: POD # 7 Patient reports: no new complaints Interval history: Patient awakens easily when I walk in the room. States he has not been up walking yet. States he did have a bowel movement yesterday and is passing some flatus. Complains of some abdominal pain which sounds like incisional but also on the sides. Patient is excited about trying to increase diet he is not nauseated. Review of Systems Review of Systems: All systems reviewed & are unremarkable except as noted in HPI and below Constitutional: Constitutional: Reports as per HPI, Denies body ache(s), Denies chills, Denies fever(s), Reports frequent falls, Denies headache(s), Denies night sweats and Reports weakness ENT: Denies headache(s) Cardiovascular: Cardiovascular: Reports as per HPI, Denies chest pain, Denies chest pain at rest, Denies rapid heart rate, Denies irregular heart rhythm, Denies palpitations and Denies dyspnea Respiratory: Respiratory: Reports as per HPI, Reports no additional respiratory complaints, Denies cough and Denies dyspnea Gastrointestinal: Gastrointestinal: Reports as per HPI, Reports abdominal pain (States this is both incisional and some on the sides.), Denies GI cramping, Denies heartburn, Denies diarrhea, Denies nausea and Denies vomiting Comments: No nausea but still complaining of pain in the abdomen. Neurologic: Denies confusion, Reports frequent falls, Denies headache(s), Denies Sensory deficit (Neuro) and Reports weakness Psychiatric: Psychiatric: Reports as per HPI, Denies confusion, Reports anhedonia and Reports mood swings Endocrine: Endocrine: Denies palpitations Exam Narrative: Exam Narrative: afebrile all day on 06/25. Const: General: cooperative, comfortable, no acute distress, alert, awake and uncomfortable ( Due to abdominal pain
[2020-06-26] MEDS: FAMOTIDINE 20 MG/2 ML VIAL IV PUSH ×2 (08:38→20:31)
[2020-06-26] MEDS: MICAFUNGIN SODIUM 100 MG in SODIUM CHLORIDE 0.9% IV 100 ML IVPB (08:38)
[2020-06-26] MEDS: HYDROcodone/acetaminophen (*CRX) 7.5-325 MG TABLET 1 TAB PO ×3 (09:07→20:37)
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
[2020-06-26] MEDS: ALBUTEROL SULFATE (*SP) AEROSOL 1 PUFF 2 PUFF INHALATION ×2 (10:16→23:49)
--- NOTE | 2020-06-26 11:17 | PM.PNCARD ---
Progress Note: A&P Assessment and Plan (1) Atrial flutter with rapid ventricular response: Code(s): I48.92 - Unspecified atrial flutter Status: Resolved Assessment and Plan: Patient presented in sinus tachycardia in setting of perforated duodenal ulcer mass status post emergent Hemigastrectomy with Yamilka-en-Y gastrojejunostomy then developed atrial fibrillation with rapid ventricular response. Refractory to amiodarone and digoxin. Rhythm organized into atrial flutter approximately 160 beats per minute. Underwent cardioversion on 06/19/2020 has maintained sinus rhythm on IV amiodarone and heparin. Will change amiodarone to p.o. for 2 weeks, and heparin to Xarelto aiming for 4 weeks of anticoagulation (because of the cardioversion), if no drop in H&H etc. OK to transfer to medical floor. No Echo done yet. (2) Perforated duodenal ulcer with hemorrhage: Code(s): K26.6 - Chronic or unspecified duodenal ulcer with both hemorrhage and perforation Status: Acute Assessment and Plan: s/p emergent Hemigastrectomy with Yamilka-en-Y gastrojejunostomy secondary to perforated duodenal ulcer (3) Anemia: Code(s): D64.9 - Anemia, unspecified Status: Acute Assessment and Plan: Blood-loss anemia. Status post transfusion 2 units PRBCs. H&H stable thus far. Surgery okay with systemic anticoagulation. Follow H/H closely and monitor for signs of bleeding. (4) PUD (peptic ulcer disease): Code(s): K27.9 - Peptic ulcer, site unspecified, unspecified as acute or chronic, without hemorrhage or perforation Status: Acute Assessment and Plan: As above. Concern for bleeding risk given presentation. Etiology remains unclear which poses ongoing concern (5) Schizophrenia: Qualifiers: Schizophrenia type: unspecified Qualified Code(s): F20.9 - Schizophrenia, unspecified Code(s): F20.9 - Schizophrenia, unspecified Status: Acute Assessment and Plan: per primary service Subjective Date/time seen: 06/26/20 11:17 Interval history: Follow-up visit in this 54-year-old man with: Acute onset of atrial flutter with rapid ventricular response perioperatively following emergency surgery for repair of a large perforated duodenal ulcer. Patient had significant hemorrhagic event with this as well. The stress of the situation obviously has triggered his atrial arrhythmia. Follow-up note 06/25/2020: He did undergo successful cardioversion 2 days ago.. He remains in sinus rhythm. Denies any chest pain or shortness of breath. Still unable to take pills Follow-up note 06/26/2020: Tolerating liquids, ready to move to medical floor. Has remained in sinus rhythm, still on the amiodarone and heparin drips. Review of Systems Constitutional: Constitutional: Reports fatigue ENT: Denies epistaxis Cardiovascular: Cardiovascular: Denies chest pain, Denies pedal edema and Denies lightheadedness Respiratory: Respiratory: Denies cough, Denies dyspnea and Denies dyspnea on exertion Gastrointestinal: Gastrointestinal: Reports abdominal pain Genitourinary: Genitourinary: Denies hematuria Musculoskeletal: Musculoskeletal: Reports no additional musculoskeletal complaints Integumentary/Breasts: Skin/Breast: Reports system reviewed and no additional complaints, except as docu Neurologic: Reports system reviewed and no additional complaints, except as documented Psychiatric: Psychiatric: Reports no additional psychiatric complaints Exam Const: General: comfortable and no acute distress Other: Appears sleepy, not very conversant HENMT: Mouth: Yes moist mucous membranes Eyes: EOM: EOMs intact bilaterally Neck: Neck: supple Resp: Effort & Inspection: normal respiratory effort Auscultation: clear to auscultation bilaterally Cardio: Rate: regular rate Rhythm: regular rhythm Heart sounds: no murmurs GI: Inspection: distended GI Palp: Yes Soft to palpation a
[2020-06-26 11:29] LABS: Alanine Aminotransferase 30 U/L (4-50); Albumin Level 2.3 g/dL (3.5-5.1); Alkaline Phosphatase 95 U/L (38-126); Aspartate Amino Transferase 38 U/L (17-59); Bilirubin,Total 1.8 mg/dL (0.2-1.3)
[2020-06-26] MEDS: POTASSIUM CHLORIDE 20 MEQ PACKET (FOR LIQUID) 40 MEQ PO (11:39)
[2020-06-26] MEDS: AMIODARONE HCL 200 MG TABLET PO ×2 (14:58→17:10)
[2020-06-26] MEDS: RIVAROXABAN 20 MG TABLET PO (17:10)
--- NOTE | 2020-06-26 17:23 | PC.NURSE ---
This patient, Junaid Jensen, was transferred to [facility] on 06/26/20 at 1720. Personal belongings sent with patient. Report given to [RN. Appropriate documentation sent with patient.
--- NOTE | 2020-06-26 18:18 | PC.NURSE ---
This patient, Junaid Jensen, was received from ICU on 06/26/20 at 1725. Patient/family oriented to unit policies and routines. Received report from CICI Mcgee.
[2020-06-27] VITALS (14 sets, daily range): BP systolic 107–126; BP diastolic 55–62; PULSE 80–87; RESP 16–20; TEMP 36.8–37.2; O2SAT 96–99
[2020-06-27] MEDS: HYDROcodone/acetaminophen (*CRX) 7.5-325 MG TABLET 1 TAB PO ×4 (03:16→23:19)
[2020-06-27 06:07] LABS: Hematocrit 21.5 % (42.0-52.0); Mean Corpuscular HGB Conc 31.6 g/dl (32-36); Mean Corpuscular Volume 85.3 fl (80-100); Mean Platelet Volume 9.2 fl (7.4-10.4); Platelet Count Result 577 k/mm3 (150-375); Red Blood Count 2.52 M/mm3 (4.6-6.20); Red Cell Distribution Width 15.6 % (11.5-14.5); White Blood Count 20.6 K/mm3 (4.5-10.0)
[2020-06-27 06:15] LABS: Hemoglobin 6.8 g/dL (14.0-18.0); Partial Thromboplastin Time 48.4 SECONDS (22.3-36.8)
[2020-06-27 06:19] LABS: Anion Gap 3 mmol/L (8-16); Blood Urea Nitrogen 3 mg/dL (9-20); Calcium 7.6 mg/dL (8.4-10.2); Carbon Dioxide 27 mmol/L (22-30); Chloride 108 mmol/L (98-107); Estimated CRCL calculation 115 ml/min; Estimated Glomerular Filt Rate > 60; Glucose 85 mg/dL (75-110); Potassium 3.4 mmol/L (3.4-5.0); Sodium 138 mmol/L (137-145)
[2020-06-27 06:20] LABS: Alanine Aminotransferase 24 U/L (4-50); Albumin Level 2.3 g/dL (3.5-5.1); Alkaline Phosphatase 96 U/L (38-126); Aspartate Amino Transferase 55 U/L (17-59); Bilirubin,Total 1.5 mg/dL (0.2-1.3); Magnesium 2.1 mg/dL (1.6-2.3)
[2020-06-27] MEDS: FAMOTIDINE 20 MG/2 ML VIAL IV PUSH ×2 (08:10→21:15)
[2020-06-27] MEDS: AMIODARONE HCL 200 MG TABLET PO ×2 (08:10→17:23)
[2020-06-27] MEDS: MORPHINE SULFATE (*CRX) 4 MG/ML INJ IV PUSH (08:17)
[2020-06-27] MEDS: MICAFUNGIN SODIUM 100 MG in SODIUM CHLORIDE 0.9% IV 100 ML IVPB (08:54)
--- NOTE | 2020-06-27 09:03 | PM.IMPN ---
Progress Note: A&P Assessment and Plan (1) Acute blood loss anemia: Code(s): D62 - Acute posthemorrhagic anemia Status: Acute Assessment and Plan: Acute blood loss anemia secondary to GI bleed secondary to perforated peptic ulcer, continue to monitor hb 06/26 stable at 7.2 06/27 hgb 6.8 --> 1 U PRBC, f/u h/h (2) Elevated LFTs: Code(s): R79.89 - Other specified abnormal findings of blood chemistry Status: Acute Assessment and Plan: Resolved Most likely related to hypoperfusion (3) Fever: Qualifiers: Fever type: due to other condition Qualified Code(s): R50.81 - Fever presenting with conditions classified elsewhere Code(s): R50.9 - Fever, unspecified Status: Acute Assessment and Plan: Resolved Probable peritonitis continue iv zosyn and antifungals Drainage worrisome for fistula Monitor (4) Atrial flutter with rapid ventricular response: Code(s): I48.92 - Unspecified atrial flutter Status: Resolved Assessment and Plan: Status post digoxin IV metoprolol amiodarone drip no improvement patient had cardioversion by Cardiology on 06/23/2020 converted to sinus rhythm Continue PO amiodarone (5) Schizophrenia: Qualifiers: Schizophrenia type: unspecified Qualified Code(s): F20.9 - Schizophrenia, unspecified Code(s): F20.9 - Schizophrenia, unspecified Status: Acute Assessment and Plan: 06/27 agitation; started Zyprexa 5mg AM, 10mg PM and PRN Ativan 1mg. (6) HTN (hypertension): Qualifiers: Hypertension type: unspecified Qualified Code(s): I10 - Essential (primary) hypertension Code(s): I10 - Essential (primary) hypertension Status: Acute Assessment and Plan: Stable (7) Perforated duodenal ulcer with hemorrhage: Code(s): K26.6 - Chronic or unspecified duodenal ulcer with both hemorrhage and perforation Status: Acute Assessment and Plan: Sp Hemigastrectomy with Yamilka-en-Y gastrojejunostomy for perforated DU. sp,head buyer tobacco pump, iv zosyn and iv zofran and protonix. SP upper GI AND US of abdomen contninue to monitor wcc 06/25 CT abdomen unremarkable (8) Acute hypokalemia: Code(s): E87.6 - Hypokalemia Status: Acute Assessment and Plan: IV replacement given 06/25 06/26 stable at 3.3, 40 mEq p.o. liquid ordered 06/27 3.4, 40 mEq PO liquid ordered Subjective Date/time seen: 06/27/20 09:03 Interval history: 06/27: tolerated full liquids. Agitated this AM. Worried that his drain and his right hand are infected. Mollified by offering of cream of wheat for breakfast. Review of Systems Review of Systems: All systems reviewed & are unremarkable except as noted in HPI and below Exam Narrative: Exam Narrative: HEENT: EOMI, PERRL, sclerae nonicteric, pharyngeal mucosa pink and intact NECK: No JVD, CHEST: Clear to auscultation. Normal effort. HEART: NL S1/S2, regular, no murmur ABDOMEN: BS+, soft, mild tenderness around incision, no mass, no bruits, BROWN DRAINAGE FROM RIGHT FLANK FORMER SITE OF HERO DRAIN. EXTREMITIES: No cyanosis, edema, or clubbing; RIGHT HAND WITH NODULAR ERYTHEMA AROUND PREVIOUS NEEDLE STICK SITE. NEUROLOGIC: CN intact and symmetric to inspection. MUSCULOSKELETAL: Tone and strength symmetric. PSYCH: Alert. Oriented to person, place, and time. Objective Data Vital Signs Vital Signs: Vital Signs - 24 hr 06/26/20 10:00 06/26/20 10:17 06/26/20 12:00 Temperature 98.4 F Pulse Rate 88 84 Respiratory Rate 17 Blood Pressure 118/72 Pulse Oximetry 99 98 06/26/20 16:00 06/26/20 20:00 06/26/20 21:34 Temperature 99.5 F Pulse Rate 82 84 80 Respiratory Rate 18 Blood Pressure 117/55 L Pulse Oximetry 97 06/27/20 00:00 06/27/20 04:00 06/27/20 06:00 Temperature 98.2 F Pulse Rate 82 85 80 Respiratory Rate 18 Blood Pressure 116/56 L Pulse Oximetry 96 06/27/20 08:10 Temperature Pulse Rate 86 Respira
--- NOTE | 2020-06-27 10:58 | PCOTNOTE ---
Attempted to see patient for OT, patient stated, I don't feel good...maybe tomorrow. Will attempt again later if time permits, or continue plan of care tomorrow, 06/28/2020.
[2020-06-27] MEDS: POTASSIUM CHLORIDE 20 MEQ TABLET 40 MEQ PO (11:01)
[2020-06-27 11:31] LABS: Alanine Aminotransferase 24 U/L (4-50); Albumin Level 2.4 g/dL (3.5-5.1); Alkaline Phosphatase 107 U/L (38-126); Anion Gap 2 mmol/L (8-16); Aspartate Amino Transferase 28 U/L (17-59); Bilirubin,Total 1.5 mg/dL (0.2-1.3); Blood Urea Nitrogen 4 mg/dL (9-20); Calcium 7.8 mg/dL (8.4-10.2); Carbon Dioxide 28 mmol/L (22-30); Chloride 107 mmol/L (98-107); Estimated CRCL calculation 133 ml/min; Estimated Glomerular Filt Rate > 60; Glucose 100 mg/dL (75-110); Magnesium 2.1 mg/dL (1.6-2.3); Potassium 3.2 mmol/L (3.4-5.0); Sodium 137 mmol/L (137-145)
[2020-06-27 11:38] LABS: Partial Thromboplastin Time 43.2 SECONDS (22.3-36.8)
[2020-06-27 12:20] LABS: Transferrin 111 mg/dL (206-381)
[2020-06-27] MEDS: AMINO ACIDS 4.25%/D5W/LYTES/CA 2,000 ML 80 ML IV CONT (12:21)
[2020-06-27] MEDS: FAT EMULSIONS IV 20% 250 ML 20.83 ML IVPB (12:22)
--- NOTE | 2020-06-27 12:36 | PM.PNGS ---
Progress Note: A&P Assessment and Plan (1) Perforated duodenal ulcer with hemorrhage: Code(s): K26.6 - Chronic or unspecified duodenal ulcer with both hemorrhage and perforation Status: Acute Assessment and Plan: NG tube out on Sunday and patient tolerating some liquids. On UGI study showed the contrast moved through the gastrojejunostomy slowly, it did move through. If patient has emesis, will need NG tube replaced. Patient tolerated full liquids yesterday An wants more food however, the drainage at the right lower quadrant HERO site seems to be increased and possibly like thin small-bowel contents. Therefore, will hold off on advance the diet, cut back to clears and start peripheral to Clinimix. Midline wound looks good. The HERO drain was removed Sunday and we are leaving the incision open to air. White blood cell count is staying up(20 K today) and I am not sure why. (With increased yellowish drainage at old HERO site wonder about a small small bowel anastomotic leak). Patient has had ultrasound, CT, and upper GI, none of these have shown a source of intra-abdominal infection. There was however ascitic fluid or residual irrigant fluid in the abdomen on the CT. He may need another CT scan of the abd/pelvis tomorrow to rule out newly formed intra-abdominal abscess versus possible early small bowel fistula. Will discuss with Dr. Molina in the morning. Continue to watch closely. Repeat labs tomorrow a.m.and start some PPN (2) Acute blood loss anemia: Code(s): D62 - Acute posthemorrhagic anemia Status: Acute Assessment and Plan: Anemic but stable (hemoglobin 6.8 today). Discussed with Dr. Razo and we are giving 1 unit of PRBCs today. (3) Fever: Qualifiers: Fever type: due to other condition Qualified Code(s): R50.81 - Fever presenting with conditions classified elsewhere Code(s): R50.9 - Fever, unspecified Status: Acute Assessment and Plan: temperature mostly down yesterday. Continue to watch. Suspect may be due to atelectasis vs early intra-abdomnal abscess formation. Encouraged patient to ambulate and use IS. (4) Atrial flutter with rapid ventricular response: Code(s): I48.92 - Unspecified atrial flutter Status: Resolved Assessment and Plan: Patient to remain on anticoagulation per cardiology if he is going to need long-term could probably convert to oral in the next day or two. Okay to begin oral meds now. In view of patient's continued elevated white count and possible intra-abdominal abscess will ask Cardiology if they can use full-dose Lovenox for a day or 2 before starting Xarelto in order to give us options to intervene if necessary should the patient have either further bleeding or need a CT-guided procedure. Subjective Subjective Date/Time Seen: 06/27/20 12:36 Post Op day: POD #8 Interval history: Patient is still complaining of 6/10 abdominal pain diffusely. Nurse reports continued slightly cloudy yellowish drainage from right lower quadrant HERO site for requiring frequent dressing changes. Patient states he is having loose bowel movements. Review of Systems Review of Systems: All systems reviewed & are unremarkable except as noted in HPI and below ROS unobtainable: Yes unobtainable due to medical condition ( very limited as patient extremely uncomfortable from abdominal pain.) Constitutional: Constitutional: Reports as per HPI, Denies body ache(s), Denies chills, Denies fever(s), Reports frequent falls, Denies headache(s), Denies night sweats and Reports weakness ENT: Denies headache(s) Cardiovascular: Cardiovascular: Reports as per HPI, Denies chest pain, Denies chest pain at rest, Denies rapid heart rate, Denies irregular heart rhythm, Denies palpitations and Denies dyspnea Respiratory: Respiratory: Reports as per HPI, Reports no additional respiratory complaints, Denies cough and Denies dyspnea Gastrointes
[2020-06-27 12:37] LABS: Glucose Point of Care 96 (65-105)
--- NOTE | 2020-06-27 15:32 | PCOTNOTE ---
Attempted to see patient this PM for skilled OT session. Patient lying in bed upon entry awake but with eyes closed responding back to [place]MA. Patient refused participation in treatment this session due to feeling tired and experiencing 9/10 pain in the abdomen at this time. RN notified and aware.
[2020-06-27 15:50] LABS: Hemoglobin 8.9 g/dL (14.0-18.0)
[2020-06-27] MEDS: ALBUTEROL SULFATE (*SP) AEROSOL 1 PUFF 2 PUFF INHALATION (17:18)
[2020-06-27] MEDS: RIVAROXABAN 20 MG TABLET PO (17:24)
[2020-06-27 17:43] LABS: Glucose Point of Care 70 (65-105)
[2020-06-27 18:36] LABS: Glucose Point of Care 100 (65-105)
[2020-06-27 23:26] LABS: Glucose Point of Care 93 (65-105)
[2020-06-28] VITALS (11 sets, daily range): BP systolic 122–130; BP diastolic 60–64; PULSE 76–87; RESP 20; TEMP 36.8–37.9; O2SAT 94–100
[2020-06-28] MEDS: HYDROcodone/acetaminophen (*CRX) 7.5-325 MG TABLET 1 TAB PO ×3 (05:21→17:43)
[2020-06-28 05:46] LABS: Basophils Absolute Auto 0.1 K/mm3 (0.0-0.1); Basophils Percent Auto 0.5 % (0.2-1.2); Eosinophils Absolute Auto 0.2 K/mm3 (0-0.3); Eosinophils Percent Auto 1.1 % (0-4.4); Hematocrit 25.7 % (42.0-52.0); Hemoglobin 8.2 g/dL (14.0-18.0); Immature Granulocyte Absolute 0.78 K/mm3 (0.00-0.031); Lymphocytes Absolute Auto 2.54 K/mm3 (0.9-3.2); Mean Corpuscular HGB Conc 31.9 g/dl (32-36); Mean Corpuscular Hemoglobin 26.8 pg (26-34); Mean Platelet Volume 9.2 fl (7.4-10.4); Monocytes Percent Auto 5.1 % (2.6-8.5); Neutrophils Percent Auto 76.3 % (45.5-73.1); Nucleated Red Blood Cells Perc 0.1 % (0.0-0.2); Platelet Count Result 748 k/mm3 (150-375); Red Blood Count 3.06 M/mm3 (4.6-6.20); Red Cell Distribution Width 16.9 % (11.5-14.5); White Blood Count 19.6 K/mm3 (4.5-10.0)
[2020-06-28 05:55] LABS: INR 1.6; Prothrombin Time 19.2 Seconds (11.1-14.7)
[2020-06-28 05:56] LABS: Partial Thromboplastin Time 43.3 SECONDS (22.3-36.8)
[2020-06-28 06:11] LABS: Glucose Point of Care 104 (65-105)
[2020-06-28 06:17] LABS: Transferrin 101 mg/dL (206-381)
[2020-06-28 06:18] LABS: Alanine Aminotransferase 20 U/L (4-50); Albumin Level 2.4 g/dL (3.5-5.1); Alkaline Phosphatase 111 U/L (38-126); Anion Gap 2 mmol/L (8-16); Aspartate Amino Transferase 26 U/L (17-59); Bilirubin,Total 1.3 mg/dL (0.2-1.3); Blood Urea Nitrogen 4 mg/dL (9-20); Carbon Dioxide 27 mmol/L (22-30); Chloride 108 mmol/L (98-107); Estimated CRCL calculation 133 ml/min; Estimated Glomerular Filt Rate > 60; Glucose 103 mg/dL (75-110); Magnesium 2.1 mg/dL (1.6-2.3); Phosphorus 3.5 mg/dL (2.5-4.5); Potassium 3.6 mmol/L (3.4-5.0); Sodium 137 mmol/L (137-145)
--- NOTE | 2020-06-28 07:19 | PCCARD ---
CANCELLED ECHOCARDIOGRAM ORDERED 06/24/20 BY ORIANA ALBARRAN APN. PATIENT REFUSED
[2020-06-28] MEDS: AMIODARONE HCL 200 MG TABLET PO ×2 (08:51→17:07)
[2020-06-28] MEDS: FAMOTIDINE 20 MG/2 ML VIAL IV PUSH ×2 (08:52→20:32)
[2020-06-28] MEDS: MORPHINE SULFATE (*CRX) 4 MG/ML INJ IV PUSH (08:55)
[2020-06-28] MEDS: MICAFUNGIN SODIUM 100 MG in SODIUM CHLORIDE 0.9% IV 100 ML IVPB (09:19)
[2020-06-28 10:13] LABS: Triglycerides 172 mg/dL (<150)
--- NOTE | 2020-06-28 10:13 | PCOTNOTE ---
Attempted to see patient this AM for OT, patient initially declined and asked therapist Let's try tomorrow. Patient encouraged to participate in OT at 10:10am, patient agreeable to bed level exercises. Patient began performing Active Assist ROM exercises with CLYDE, however, shortly after beginning exercises, patient said, I'm done, I'm done, I'm done and then moved his arms back under covers and refused to continue participating in OT. Will attempt patient again later today or continue plan of care tomorrow, 06/29/20.
--- NOTE | 2020-06-28 10:22 | PM.IMPN ---
Progress Note: A&P Assessment and Plan (1) Acute blood loss anemia: Code(s): D62 - Acute posthemorrhagic anemia Status: Acute Assessment and Plan: Acute blood loss anemia secondary to GI bleed secondary to perforated peptic ulcer, continue to monitor hb hb is 8 today continue to watch (2) Elevated LFTs: Code(s): R79.89 - Other specified abnormal findings of blood chemistry Status: Resolved Assessment and Plan: Resolved (3) Fever: Qualifiers: Fever type: due to other condition Qualified Code(s): R50.81 - Fever presenting with conditions classified elsewhere Code(s): R50.9 - Fever, unspecified Status: Resolved Assessment and Plan: no fever today Probable peritonitis continue iv zosyn and antifungals yellowish drainage in stoma bag (4) Atrial flutter with rapid ventricular response: Code(s): I48.92 - Unspecified atrial flutter Status: Resolved Assessment and Plan: Status post digoxin IV metoprolol amiodarone drip no improvement patient had cardioversion by Cardiology on 06/23/2020 converted to sinus rhythm Continue PO amiodarone (5) Schizophrenia: Qualifiers: Schizophrenia type: unspecified Qualified Code(s): F20.9 - Schizophrenia, unspecified Code(s): F20.9 - Schizophrenia, unspecified Status: Acute Assessment and Plan: 06/27 agitation, calm today; started Zyprexa 5mg AM, 10mg PM and PRN Ativan 1mg. Continue to watch mood. (6) HTN (hypertension): Qualifiers: Hypertension type: unspecified Qualified Code(s): I10 - Essential (primary) hypertension Code(s): I10 - Essential (primary) hypertension Status: Acute Assessment and Plan: Stable (7) Perforated duodenal ulcer with hemorrhage: Code(s): K26.6 - Chronic or unspecified duodenal ulcer with both hemorrhage and perforation Status: Acute Assessment and Plan: Sp Hemigastrectomy with Yamilka-en-Y gastrojejunostomy for perforated DU. Sp,draw furnace tender pump, iv zosyn and iv zofran and protonix. sp upper GI AND US of abdomen 06/25 CT abdomen unremarkable, surgery rounding Peritonitis continue to monitor wcc, ID rounding. Plts trending up ? infection related or secondary to bleed (8) Acute hypokalemia: Code(s): E87.6 - Hypokalemia Status: Acute Assessment and Plan: IV replacement given 06/25 stable today 06/28, 40 mEq PO liquid ordered Subjective Date/time seen: 06/28/20 10:22 Interval history: 54 year old male admitted yesterday night with vague complaints of abdominal and back pains. Pt had to have emergency surgery for perforated DU. Pt is sp Hemigastrectomy with Yamilka-en-Y gastrojejunostomy for perforated DU. Post op day 9. pt is npo with clinimix. pt was having some low grade fevers on the weekend. Pt having some yellowish drainage in the stoma drain, otherwise no complaints. Review of Systems Review of Systems: All systems reviewed & are unremarkable except as noted in HPI and below Exam Narrative: Exam Narrative: HEENT: EOMI NECK: No JVD CHEST: Clear to auscultation. Normal effort. HEART: NL S1/S2, regular, no murmur ABDOMEN: BS+, soft, midline incision with willy, stoma drain has yellowish discharge EXTREMITIES: No cyanosis, edema NEUROLOGIC: CN intact and symmetric to inspection. MUSCULOSKELETAL: Tone and strength symmetric. PSYCH: Alert. Oriented to person, place, and time. Objective Data Vital Signs Vital Signs: Vital Signs - 24 hr 06/27/20 11:23 06/27/20 11:40 06/27/20 12:00 Temperature 37.1 C 37.2 C Pulse Rate 86 87 82 Respiratory Rate 20 20 Blood Pressure 126/62 117/58 L Pulse Oximetry 98 97 06/27/20 12:40 06/27/20 13:40 06/27/20 14:40 Temperature 37.1 C 36.8 C 37.1 C Pulse Rate 83 83 82 Respiratory Rate 16 16 16 Blood Pressure 117/60 123/57 L 123/55 L Pulse Oximetry 98 99 98 06/27/20 16:00 06/27/20 20:00 06/27/20 21:21 Temperature 37
--- NOTE | 2020-06-28 11:36 | PCNFU ---
Nutrition Follow-Up Complete: Inadequate oral intake related to abdominal surgery/ileus as evidenced by NPO x 5 days. Goal: Patient to meet estimated nutritional needs. Progressing towards goal. We will continue current goal. Pt current nutrition is Clinimix 4.25/5 and 250ml of 20% Emulsion. Last recorded weight is 94.9 kg, down from 95.9 kg on admit. Bowel Motility:+BM reported 06/27 Labs Reviewed:Cr 0.6,BUN 4,Alb 2.4,Hct 25.7,Hgb 8.2 Meds Noted:Clinimix E 4.25/5, 20% Lipid Emulsion, Pepcid,Zosyn,Xarelto,Pacerone Additional Notes: Nutrition follow up. Patient remains NPO at this time. CT scan ordered, possible fluid collection. Skin: No pressure ulcers reported. PPN is providing patient with 1153 kcals and 82 gms protein, meeting 56% of patients caloric needs. Agree with current PPN orders at this time. Monitoring: Follow up every Sunday and Sunday.
[2020-06-28 12:35] LABS: Glucose Point of Care 86 (65-105)
[2020-06-28] MEDS: FAT EMULSIONS IV 20% 250 ML 20.8 ML IVPB (13:01)
[2020-06-28] MEDS: AMINO ACIDS 4.25%/D5W/LYTES/CA 2,000 ML 80 ML IV CONT (13:01)
--- NOTE | 2020-06-28 13:33 | PM.PNGS ---
Progress Note: A&P Assessment and Plan (1) Perforated duodenal ulcer with hemorrhage: Code(s): K26.6 - Chronic or unspecified duodenal ulcer with both hemorrhage and perforation Status: Acute Assessment and Plan: WBC count continues to be significantly elevated despite adding the Micafungin. Repeat CT abd/pelvis done this morning to evaluate for an intra-abdominal cause. The CT was reviewed and showed evidence of an 8.5 x 7.1 x 7.9 cm fluid collection medial to the gallbladder. Will order a CT-guided percutaneous drainage by Radiology and place the Xarelto on hold for this procedure. Continue IV abx. RLQ wound from previous HERO drain site does have a minimal amount of suspicious yellow/green-colored drainage and is not healing as expected, which is concerning for enteric contents. Continue to monitor the wound and the output closely. Continue PPN for nutrition. Midline incision has some localized redness and drainage coming from the incision near the umbilicus. I will remove a few willy in this area and start packing this with iodoform gauze daily. Encouraged increasing activity. PT/OT following. Repeat labs tomorrow morning. (2) Leukocytosis: Code(s): D72.829 - Elevated white blood cell count, unspecified Status: Acute Assessment and Plan: Repeat CT scan abd/pelvis today showed an intra-abdominal fluid collection concerning for an abscess. WBC 19,600 today. See plan above, continue to trend labs, continue IV abx. (3) Atrial flutter with rapid ventricular response: Code(s): I48.92 - Unspecified atrial flutter Status: Resolved Assessment and Plan: S/p cardioversion on 06/23/20 and currently on Xarelto for oral anticoagulation. Will place Xarelto on hold for CT-guided drainage - I discussed this with the Hospitalist, it is okay from our standpoint to place the patient on Heparin or subQ Lovenox while Xarelto is on hold. (4) Acute blood loss anemia: Code(s): D62 - Acute posthemorrhagic anemia Status: Acute Assessment and Plan: Hgb stable at 8.2 today. Continue to trend labs. Additional Plan I have discussed the plan of care with Dr. Molina. Subjective Subjective Date/Time Seen: 06/28/20 11:33 Post Op day: 9 (Hemigastrectomy with Yamilka-en-Y gastrojejunostomy) Patient reports: still having pain (generalized abdominal pain and back pain), flatus, bowel movement (today) and afebrile Interval history: Patient reports having generalized abdominal pain and back pain today. No nausea or vomiting. No other complaints at this time. Review of Systems Review of Systems: All systems reviewed & are unremarkable except as noted in HPI and below Exam Const: General: awake; No acute distress Orientation/consciousness: patient oriented x3 Resp: Effort & Inspection: normal respiratory effort Auscultation: clear to auscultation bilaterally Cardio: Rate: regular rate Rhythm: regular rhythm GI: Inspection: non-distended GI Palp: Yes Soft to palpation, Yes Tenderness to palpation present (GI) (Right-sided tenderness and incisional), Yes Guarding due to palpation present (GI) and No Hernia present Auscultation: normal bowel sounds Other: RLQ wound with ostomy appliance overlying the wound and draining a clear yellow/green thin liquid drainage. Midline incision with willy intact and some localized erythema at the umbilicus with smith thick drainage. Neuro: General: moves all extremities and no focal motor deficits Extrem: General: no clubbing, cyanosis or edema and no calf tenderness Psych: Affect: Blunted affect present Attitude: Avoids eye contact (attititude/behavior) Insight: Fair insight present (Psych) Judgement: Fair judgement present (Psych) Objective Data Vital Signs Vital Signs: Vital Signs - 24 hr 06/27/20 13:40 06/27/20 14:40 06/27/20 16:00 Temperature 98.2 F 98.7 F Pulse Rate 83 82 83 Respiratory Rate 16 16 Blood Pressure 123/57 L 123/55 L Pulse Oxim
--- NOTE | 2020-06-28 14:33 | PM.PNCARD ---
Progress Note: A&P Additional Plan 54-year-old man with: Atrial flutter which was triggered by the stress of ruptured duodenal ulcer with peritonitis been maintaining sinus rhythm since cardioversion and now on oral amiodarone. Agree with discontinuing Xarelto since he may require more invasive procedures from what I can read on the surgeon's notes. Do not anticipate long-term antiarrhythmic therapy in this setting. Felipe Nix MD [facility] Subjective Date/time seen: 06/28/20 14:33 Interval history: Follow-up visit in this 54-year-old man with: Acute onset of atrial flutter with rapid ventricular response perioperatively following emergency surgery for repair of a large perforated duodenal ulcer. Patient had significant hemorrhagic event with this as well. The stress of the situation obviously has triggered his atrial arrhythmia. Date of service 06/28/2020: Patient maintaining sinus rhythm offers no cardiovascular complaints. Appears to be rather lethargic but answers questions appropriately. Currently receiving TPN. Currently on p.o. amiodarone. Exam Const: General: no acute distress HENMT: Mouth: Yes moist mucous membranes Eyes: Sclera: sclerae normal Pupils: Equal, round and reactive pupils present Neck: Neck: no JVD Resp: Effort & Inspection: normal respiratory effort Auscultation: clear to auscultation bilaterally Cardio: Rate: regular rate Rhythm: regular rhythm GI: GI Palp: Yes Soft to palpation Auscultation: normal bowel sounds Skin: General skin exam: normal color Neuro: Other: Lethargic but appropriate Extrem: General: normal to inspection Objective Data Vital Signs Vital Signs: Vital Signs - 24 hr 06/27/20 14:40 06/27/20 16:00 06/27/20 20:00 Temperature 37.1 C Pulse Rate 82 83 83 Respiratory Rate 16 Blood Pressure 123/55 L Pulse Oximetry 98 06/27/20 21:21 06/28/20 00:00 06/28/20 04:00 Temperature 37.1 C Pulse Rate 82 84 81 Respiratory Rate 16 Blood Pressure 107/62 Pulse Oximetry 96 06/28/20 05:00 06/28/20 08:00 06/28/20 08:51 Temperature 36.8 C Pulse Rate 81 85 76 Respiratory Rate 20 Blood Pressure 122/61 Pulse Oximetry 98 06/28/20 14:05 Temperature 37.9 C H Pulse Rate 87 Respiratory Rate 20 Blood Pressure 127/64 Pulse Oximetry 100 Intake/Output Intake/Output: Intake & Output 06/25/20 06/26/20 06/27/20 06/28/20 23:59 23:59 23:59 23:59 Intake Total 2317 1642 2050 1950 Output Total 1685 2700 1650 2280 Balance 092 -8672 400 -330 Meds/Results Medications: Active Medications Generic Name Dose Route Start Last Admin Trade Name Freq PRN Reason Stop Dose Admin Acetaminophen 1,000 mg 06/26/20 07:46 Acetaminophen 500 Mg Tablet PO Q6H PRN Mild Pain (1-3) or Fever Hydrocodone Bitart/Acetaminophen 1 tab 06/26/20 07:46 Hydrocodone/Acetaminophen (*Crx) 5-325 Mg Tablet PO Q6H PRN Pain Rated 4-6 Hydrocodone Bitart/Acetaminophen 1 tab 06/26/20 07:46 06/28/20 12:00 Hydrocodone/Acetaminophen (*Crx) 7.5-325 Mg Tablet PO 1 tab Q6H PRN Administration Pain Rated 7-10 Albuterol 2 puff 06/19/20 08:16 06/27/20 17:18 Albuterol Sulfate (*Sp) Aerosol 1 Puff INHALATION 2 puff Q6HRT PRN Administration Shortness Of Breath Or Wheezing Albuterol 2.5 mg 06/19/20 15:43 Albuterol Sulfate Neb 2.5 Mg/0.5 Ml Inh INHALATION Q6HRT PRN Shortness Of Breath Amiodarone HCl 200 mg 06/26/20 12:05 06/28/20 08:51 Amiodarone Hcl 200 Mg Tablet PO 200 mg BID MATEO Administration Dextrose 12.5 gm 06/27/20 12:43 Dextrose 50% 25 Gm/50 Ml Syringe IV PUSH PRN PRN Hypoglycemia Protocol Famotidine 20 mg 06/24/20 09:00 06/28/20 08:52 Famotidine 20 Mg/2 Ml Vial IV PUSH 20 mg Q12HR MATEO Administration Glucagon 1 mg 06/27/20 12:43 Glucagon For Inj 1 Mg Vial IM PRN PRN Hypoglycemia Protocol Glucose 15 gm 06/27/20 12:43
--- NOTE | 2020-06-28 14:55 | PCOTNOTE ---
Attempted to see patient for OT for second time today, patient declined. Patient hypoaroused, however, therapist did inform patient that for therapy to be beneficial, he must participate. patient also educated over refusal rule (3 days of refuses = discharge from therapy) - patient verbalized understanding. Will attempt patient again tomorrow, or discontinue therapy if patient declines again.
[2020-06-28] MEDS: HYDROGEN PEROXIDE 3% SOLN(*SP) 473 ML BOTTLE (15:00)
--- NOTE | 2020-06-28 15:26 | PCPTNOTE ---
Attempted to see pt for PT session this afternoon. Pt was lying in bed asleep and awoke when name was called but would not open eyes when speaking to the therapist. Pt adamantly declined participation in therapy session despite education on benefits of therapy and importance of participation.
[2020-06-28 16:58] LABS: Glucose Point of Care 108 (65-105)
[2020-06-28] MEDS: ALBUTEROL SULFATE (*SP) AEROSOL 1 PUFF 2 PUFF INHALATION (17:43)
[2020-06-28] MEDS: ENOXAPARIN 100 MG/ML SYRINGE 94 MG SUB-Q (20:33)
[2020-06-29] VITALS (12 sets, daily range): BP systolic 97–130; BP diastolic 58–73; PULSE 84–113; RESP 16–18; TEMP 36.7–36.9; O2SAT 94–100
[2020-06-29] MEDS: HYDROcodone/acetaminophen (*CRX) 7.5-325 MG TABLET 1 TAB PO ×3 (02:23→16:28)
[2020-06-29 02:32] LABS: Glucose Point of Care 82 (65-105)
[2020-06-29 05:50] LABS: Basophils Absolute Auto 0.1 K/mm3 (0.0-0.1); Basophils Percent Auto 0.4 % (0.2-1.2); Eosinophils Absolute Auto 0.1 K/mm3 (0-0.3); Eosinophils Percent Auto 0.8 % (0-4.4); Hematocrit 25.1 % (42.0-52.0); Hemoglobin 7.8 g/dL (14.0-18.0); Immature Granulocyte Absolute 0.83 K/mm3 (0.00-0.031); Immature Granulocyte Percent A 4.8 % (0-0.5); Lymphocytes Absolute Auto 2.17 K/mm3 (0.9-3.2); Lymphocytes Percent Auto 12.6 % (18.3-44.2); Mean Corpuscular HGB Conc 31.1 g/dl (32-36); Mean Corpuscular Volume 86.9 fl (80-100); Mean Platelet Volume 9.1 fl (7.4-10.4); Monocytes Percent Auto 5.6 % (2.6-8.5); Neutrophils Percent Auto 75.8 % (45.5-73.1); Platelet Count Result 896 k/mm3 (150-375); Red Blood Count 2.89 M/mm3 (4.6-6.20); Red Cell Distribution Width 17.1 % (11.5-14.5); White Blood Count 17.2 K/mm3 (4.5-10.0)
[2020-06-29 06:01] LABS: Anion Gap 4 mmol/L (8-16); Blood Urea Nitrogen 4 mg/dL (9-20); Calcium 7.7 mg/dL (8.4-10.2); Carbon Dioxide 24 mmol/L (22-30); Chloride 111 mmol/L (98-107); Estimated CRCL calculation 115 ml/min; Estimated Glomerular Filt Rate > 60; Glucose 103 mg/dL (75-110); Phosphorus 4.4 mg/dL (2.5-4.5); Potassium 3.7 mmol/L (3.4-5.0); Sodium 139 mmol/L (137-145)
[2020-06-29 07:59] LABS: Glucose Point of Care 95 (65-105)
[2020-06-29] MEDS: AMIODARONE HCL 200 MG TABLET PO ×2 (08:55→16:32)
[2020-06-29] MEDS: ENOXAPARIN 100 MG/ML SYRINGE 94 MG SUB-Q ×2 (08:56→20:31)
[2020-06-29] MEDS: FAMOTIDINE 20 MG/2 ML VIAL IV PUSH ×2 (08:56→20:34)
[2020-06-29] MEDS: MICAFUNGIN SODIUM 100 MG in SODIUM CHLORIDE 0.9% IV 100 ML IVPB (09:32)
--- NOTE | 2020-06-29 09:58 | PCOTNOTE ---
Attempted to see patient for OT, and highly encouraged patient to participate (even minimally). Patient declined all attempts. Patient educated that this is his 3rd day of refusing OT and he will be discharged from therapy if he does not participate. Patient asked Are there any male therapists? and this therapist asked if that would improve his participation truthfully since he hasn't been working with any therapist from OT or PT. Patient then sarcastically commented, Oh no, I'm gonna be heartbroken...that's fine and then pulled his covers up over his arms. Patient will be discharged from OT this date.
[2020-06-29] MEDS: LORazepam INJ (*CRX) 2 MG/ML VIAL 1 MG IV PUSH ×2 (10:46→20:26)
--- NOTE | 2020-06-29 10:59 | PC.NURSE ---
To CT scan via wheelchair with transporter for CT guided insertion of abscess drainage catheter.
--- NOTE | 2020-06-29 12:00 | PC.NURSE ---
Received patient back from radiology with percutaneous drain in place to right abdomen. Drain with reddish brown thick drainage noted. Dressing D/I.
--- NOTE | 2020-06-29 12:24 | PCNFU ---
Nutrition Follow-Up Complete: Inadequate oral intake related to abdominal surgery/ileus as evidenced by NPO x 5 days. Goal: Patient to meet estimated nutritional needs. Patient is progressing towards goal. We will continue current goal. Pt current nutrition is NPO/PPN. Last recorded weight is 94.9 kg, no new weight to report. Bowel Motility:+BM reported 06/27 Labs Reviewed:Hct 25.1,Hgb 7.8,BUN 4. 5/17 TG 172 Meds Noted:Lovenox, Clinimix 4.25/5 with 250 ml of 20% Lipid Emulsion, [place], Pacerone,Pepcid,Zosyn,Xarelto, Morphine Sulfate. Additional Notes:Nutrition follow up. Patient off the floor-upper quad abdomen abscess drain placed. Patient remains on PPN providing 1153 kcals and 82 gms protein. Agree with diet orders at this time. Monitoring: Follow up every Sunday and Sunday.
[2020-06-29] MEDS: AMINO ACIDS 4.25%/D5W/LYTES/CA 2,000 ML 80 ML IV CONT (12:31)
[2020-06-29] MEDS: FAT EMULSIONS IV 20% 250 ML 20.8 ML IVPB (12:32)
[2020-06-29 13:23] LABS: Glucose Point of Care 78 (65-105)
--- NOTE | 2020-06-29 13:30 | PM.IMPN ---
Progress Note: A&P Assessment and Plan (1) Acute blood loss anemia: Code(s): D62 - Acute posthemorrhagic anemia Status: Acute Assessment and Plan: Acute blood loss anemia secondary to GI bleed secondary to perforated peptic ulcer, continue to monitor hb Hb is 7.8 today continue to watch (2) Elevated LFTs: Code(s): R79.89 - Other specified abnormal findings of blood chemistry Status: Resolved Assessment and Plan: Resolved (3) Fever: Qualifiers: Fever type: due to other condition Qualified Code(s): R50.81 - Fever presenting with conditions classified elsewhere Code(s): R50.9 - Fever, unspecified Status: Resolved Assessment and Plan: No fever today Probable peritonitis continue iv zosyn and antifungals Yellowish drainage in stoma bag Pt is going for percutaneous drainage today. (4) Atrial flutter with rapid ventricular response: Code(s): I48.92 - Unspecified atrial flutter Status: Resolved Assessment and Plan: Status post digoxin IV metoprolol amiodarone drip no improvement patient had cardioversion by Cardiology on 06/23/2020 converted to sinus rhythm Continue PO amiodarone (5) Schizophrenia: Qualifiers: Schizophrenia type: unspecified Qualified Code(s): F20.9 - Schizophrenia, unspecified Code(s): F20.9 - Schizophrenia, unspecified Status: Acute Assessment and Plan: 06/27 agitation, calm today; started Zyprexa 5mg AM, 10mg PM and PRN Ativan 1mg. Continue to watch mood. (6) HTN (hypertension): Qualifiers: Hypertension type: unspecified Qualified Code(s): I10 - Essential (primary) hypertension Code(s): I10 - Essential (primary) hypertension Status: Acute Assessment and Plan: Stable (7) Perforated duodenal ulcer with hemorrhage: Code(s): K26.6 - Chronic or unspecified duodenal ulcer with both hemorrhage and perforation Status: Acute Assessment and Plan: Sp Hemigastrectomy with Yamilka-en-Y gastrojejunostomy for perforated DU. Sp,didactic program in dietetics director pump, iv zosyn and iv zofran and protonix. sp upper GI AND US of abdomen 06/25 ct unremarkable 06/28 8.5 x 7.1 x 7.9 cm fluid collection -Consider CT-guided percutaneous drainage. Peritonitis continue to monitor wcc, ID rounding. Plts trending up 896 today? infection related or secondary to bleed [facility] [place] [id number] [place] [id number] (8) Acute hypokalemia: Code(s): E87.6 - Hypokalemia Status: Resolved Assessment and Plan: IV replacement given 06/25 stable today 06/28, 40 mEq PO liquid ordered Subjective Date/time seen: 06/29/20 13:30 Interval history: 54 year old male admitted yesterday night with vague complaints of abdominal and back pains. Pt had to have emergency surgery for perforated DU. Pt is sp Hemigastrectomy with Yamilka-en-Y gastrojejunostomy for perforated DU. Post op day 10. pt is npo with clinimix. pt was having some low grade fevers on the weekend. Pt having some yellowish drainage in the stoma drain, otherwise no complaints. Pt is going down for percutaneous drain placement for drainage of his abscess. Review of Systems Review of Systems: All systems reviewed & are unremarkable except as noted in HPI and below Exam Narrative: Exam Narrative: HEENT: EOMI NECK: No JVD CHEST: Clear to auscultation. Normal effort. HEART: NL S1/S2, regular, no murmur ABDOMEN: BS+, soft, midline incision with willy, stoma drain has yellowish discharge EXTREMITIES: No cyanosis, edema NEUROLOGIC: CN intact and symmetric to inspection. MUSCULOSKELETAL: Tone and strength symmetric. PSYCH: Alert. Oriented to person, place, and time. Objective Data Vital Signs Vital Signs: Vital Signs - 24 hr 06/28/20 14:05 06/28/20 16:00 06/28/20 17:07 Temperature 37.9 C H Pulse Rate 87 83 83 Respiratory Rate 20 Blood Pressure 127/64 Pulse Oximetry 100 06/28/20 20:00 06/28/20 20:33 06/29/20 00
--- NOTE | 2020-06-29 13:43 | PM.PNGS ---
Progress Note: A&P Assessment and Plan (1) Perforated duodenal ulcer with hemorrhage: Code(s): K26.6 - Chronic or unspecified duodenal ulcer with both hemorrhage and perforation Status: Acute Assessment and Plan: CT-guided abscess drainage ordered yesterday due to the findings of the 8.5 x 7.1 x 7.9 cm intra-abdominal fluid collection found on the CT scan. Patient refused this test yesterday when he was in Radiology. We have held his Xarelto and he is on therapeutic-dosed Lovenox to hopefully have the procedure done today. The patient seems more agreeable to having this done today. Continue IV Zosyn and Micafungin. Continue PPN for nutrition until tolerating a substantial diet. Midline incision with a few willy removed on the very bottom of the incision. Will initiate BID irrigation with hydrogen peroxide and packing with 4x4 dry gauze. Continue ostomy appliance to the RLQ wound to monitor output. Seems that output is decreasing with only a scant amount in the bag this morning. Increase activity, continue PT/OT. (2) Leukocytosis: Code(s): D72.829 - Elevated white blood cell count, unspecified Status: Acute Assessment and Plan: WBC 17,[address] this [address] for [address]-guided percutaneous abscess drainage today. Continue IV abx and monitor labs. (3) Atrial flutter with rapid ventricular response: Code(s): I48.92 - Unspecified atrial flutter Status: Resolved Assessment and Plan: S/p cardioversion on 06/23/20 and currently on Xarelto for oral anticoagulation. Xarelto on hold for procedure today. He is currently on therapeutic-dosed Lovenox. (4) Acute blood loss anemia: Code(s): D62 - Acute posthemorrhagic anemia Status: Acute Assessment and Plan: Hgb 7.8 today. Continue to trend labs. Additional Plan I have discussed the plan of care with Dr. Molina. Subjective Subjective Date/Time Seen: 06/29/20 13:43 Post Op day: 10 (Hemigastrectomy with Yamilka-en-Y gastrojejunostomy) Patient reports: still having pain (abdominal pain), bowel movement and other (Temp. 100.3F at 1400 yesterday) Interval history: Patient seen and will not make eye contact. He is refusing to answer questions but does say he is still having abdominal pain similar to yesterday. Exam Const: General: awake; No acute distress Orientation/consciousness: No confusion Cardio: Rate: regular rate Rhythm: regular rhythm GI: Inspection: non-distended GI Palp: Yes Soft to palpation, Yes Tenderness to palpation present (GI) (right-sided tenderness and expected incisional tenderness), No Guarding due to palpation present (GI), No Hernia present and No Rebound tenderness present Auscultation: normal bowel sounds Other: RLQ wound with ostomy appliance overlying the wound and draining a scant amount of clear dark brown/green thin liquid drainage. Midline incision with a few willy removed at the bottom of the incision with a now open wound packed with gauze, surrounding localized erythema near the open wound improved today. The remainder of the upper 2/3 of the incision have willy intact and is clean and dry with no erythema. Neuro: General: moves all extremities Extrem: General: no clubbing, cyanosis or edema and no calf tenderness Psych: Appearance: disheveled Affect: Blunted affect present Attitude: Guarded attititude/behavior present and Avoids eye contact (attititude/behavior) Insight: Limited insight present (Psych) Judgement: Limited judgement present (Psych) Objective Data Vital Signs Vital Signs: Vital Signs - 24 hr 06/28/20 14:05 06/28/20 16:00 06/28/20 17:07 Temperature 100.3 F H Pulse Rate 87 83 83 Respiratory Rate 20 Blood Pressure 127/64 Pulse Oximetry 100 06/28/20 20:00 06/28/20 20:33 06/29/20 00:00 Temperature 98.3 F Pulse Rate 87 86 89 Respiratory Rate 20 Blood Pressure 130/60 Pulse Oximetry 94 06/29/20 04:00 06/29/20 06:00 06/29/20 08:00 Temperature 98.
--- NOTE | 2020-06-29 14:20 | PCPTNOTE ---
Attempted to see patient for PT this afternoon, patient's therapy was unable to be completed due to patient refusal. Patient stated no, and that he done told them he does not want therapy for three days. Attempted to educate patient on the importance of therapy, patient continued to decline.
[2020-06-29 18:14] LABS: Glucose Point of Care 101 mg/dl (65-105)
--- NOTE | 2020-06-29 20:50 | PC.NURSE ---
Patient attempting to get out of bed saying he needs to leave. He was confused and pulling at lines. Patient was pushing myself and staff out of the way. I called a code [facility] and staff came to help. Shortly after patient settled back into bed.
[2020-06-29] MEDS: HYDROcodone/acetaminophen (*CRX) 5-325 MG TABLET 1 TAB PO (21:02)
--- NOTE | 2020-06-29 21:05 | PC.NURSE ---
Patient pulling off pediatric psychologist, refusing at this time.
--- NOTE | 2020-06-29 21:35 | PC.NURSE ---
Patient was attempting to pull out IV, Pull at drain, and was fighting staff. I called a [facility]. Violeta Torres and other staff came to assist. Violeta Torres ordered restraints and medication. We administered ordered medication and removed the restrains after.
--- NOTE | 2020-06-29 21:35 | PC.NURSE ---
Pt fighting staff and attempting to pull out drain and get up with out assistance. Pt is unable to be redirected. Pt is pushing at staff , resisting care soft restraints applied in order to administer medication and then removed.
[2020-06-29] MEDS: OLANZapine 10 MG INJ VIAL 5 MG IM (21:39)
[2020-06-29 22:12] LABS: Glucose Point of Care 112 mg/dl (65-105)
[2020-06-29] MEDS: NICOTINE (*PBKC) 14 MG PATCH 1 PATCH TRANSDERM (22:34)
[2020-06-30] VITALS (28 sets, daily range): BP systolic 116–144; BP diastolic 57–89; PULSE 88–116; RESP 16–36; TEMP 36.7–39.2; O2SAT 94–100
[2020-06-30 00:29] LABS: Glucose Point of Care 88 mg/dl (65-105)
--- NOTE | 2020-06-30 01:48 | PC.NURSE ---
Patient keeps pulling off tele monitor and is refusing at this time.
[2020-06-30] MEDS: ONDANSETRON INJ 4 MG/2 ML VIAL IV PUSH (01:58)
[2020-06-30] MEDS: ACETAMINOPHEN 500 MG TABLET 1000 MG PO ×3 (02:22→19:04)
[2020-06-30 03:00] LABS: Glucose Point of Care 94 mg/dl (65-105)
[2020-06-30 03:31] LABS: Anion Gap 4 mmol/L (8-16); Blood Urea Nitrogen 5 mg/dL (9-20); Calcium 8.5 mg/dL (8.4-10.2); Carbon Dioxide 22 mmol/L (22-30); Chloride 110 mmol/L (98-107); Estimated CRCL calculation 133 ml/min; Estimated Glomerular Filt Rate > 60; Glucose 103 mg/dL (75-110); Phosphorus 3.6 mg/dL (2.5-4.5); Potassium 4.4 mmol/L (3.4-5.0); Sodium 136 mmol/L (137-145)
[2020-06-30 04:17] LABS: Hematocrit 24.6 % (42.0-52.0); Hemoglobin 7.8 g/dL (14.0-18.0); Mean Corpuscular HGB Conc 31.7 g/dl (32-36); Mean Corpuscular Hemoglobin 26.9 pg (26-34); Mean Corpuscular Volume 84.8 fl (80-100); Mean Platelet Volume 8.8 fl (7.4-10.4); Platelet Count Result 956 k/mm3 (150-375); Red Cell Distribution Width 16.7 % (11.5-14.5); White Blood Count 17.4 K/mm3 (4.5-10.0)
[2020-06-30 04:32] LABS: Magnesium 2.1 mg/dL (1.6-2.3)
[2020-06-30] MEDS: WATER, STERILE FOR INJECTION 10 ML VIAL XX (06:44)
[2020-06-30 07:01] LABS: Glucose Point of Care 110 mg/dl (65-105)
[2020-06-30] MEDS: MORPHINE SULFATE (*CRX) 4 MG/ML INJ IV PUSH ×2 (07:30→16:37)
[2020-06-30] MEDS: LORazepam INJ (*CRX) 2 MG/ML VIAL 1 MG IV PUSH (07:31)
[2020-06-30] MEDS: FAMOTIDINE 20 MG/2 ML VIAL IV PUSH ×2 (09:18→21:34)
[2020-06-30] MEDS: ENOXAPARIN 100 MG/ML SYRINGE 94 MG SUB-Q (09:19)
--- NOTE | 2020-06-30 09:20 | PC.NURSE ---
Patient somnolent and respirations noted to be 36-40. B/P 130s/70s. O2 sat 95% on room air. Temp 101.6. HR 100s-110s sinus tachycardia. Patient arouses to verbal stimulation but will not open his eyes or converse with me. C/o abdominal pain. Notified Dr. Waller of patient's condition and fever. Orders received for IV Acetaminophen.
[2020-06-30] MEDS: NICOTINE (*PBKC) 14 MG PATCH 1 PATCH TRANSDERM (09:24)
[2020-06-30] MEDS: MICAFUNGIN SODIUM 100 MG in SODIUM CHLORIDE 0.9% IV 100 ML IVPB (10:00)
--- NOTE | 2020-06-30 10:30 | PC.NURSE ---
Patient diaphoretic - temp down to 98.5. More arousable but still falls back to sleep easily. STAT CT of abdomen ordered. Patient to go to radiology via bed with transporter.
--- NOTE | 2020-06-30 11:30 | PC.NURSE ---
Anna Finley ENVIRONMENTAL HEALTH TECHNICIAN here to see patient. Discussed events of the morning with her. CT of abdomen results available. Showed these results to Anna. Patient remains lethargic but responds to verbal stimulation. Difficult to keep patient awake and patient has been unable to take his a.m. Amiodorone and Zyprexa. Will continue to monitor.
[2020-06-30 11:43] LABS: Glucose Point of Care 106 mg/dl (65-105)
[2020-06-30 11:59] LABS: Triglycerides 149 mg/dL (<150)
--- NOTE | 2020-06-30 13:20 | PC.NURSE ---
Patient with notable chills. Temp now 100.6. Patient will arouse to verbal stimulation and was able to take Amiodorone and Zyprexa with sip of water. Dr. Molina here and reviewed results of CT scan. Orders received to give 1000 mg po Tylenol. Informed Dr. Molina that patient received 1000 mg IV Tylenol 4 hours ago. Patient given 1000 mg po Tylenol with sips of water. Will continue to monitor. Urinating without difficulty. Abdominal dressing remains D/I. Drain continues to have drainage which is a dark reddish in color. Ostomy bag continues to have small amounts of green drainage noted.
--- NOTE | 2020-06-30 13:25 | PM.IMPN ---
Progress Note: A&P Assessment and Plan (1) Acute blood loss anemia: Code(s): D62 - Acute posthemorrhagic anemia Status: Acute Assessment and Plan: Acute blood loss anemia secondary to GI bleed secondary to perforated peptic ulcer, continue to monitor hb Hb is 7.8 today continue to watch (2) Elevated LFTs: Code(s): R79.89 - Other specified abnormal findings of blood chemistry Status: Resolved Assessment and Plan: Resolved (3) Fever: Qualifiers: Fever type: due to other condition Qualified Code(s): R50.81 - Fever presenting with conditions classified elsewhere Code(s): R50.9 - Fever, unspecified Status: Resolved Assessment and Plan: Probable peritonitis continue iv zosyn and antifungals Sp percutaneous drainage today. ongoing fevers pt to have iv tylenol Ct abdo today shows extension (4) Atrial flutter with rapid ventricular response: Code(s): I48.92 - Unspecified atrial flutter Status: Resolved Assessment and Plan: Status post digoxin IV metoprolol amiodarone drip no improvement patient had cardioversion by Cardiology on 06/23/2020 converted to sinus rhythm Continue PO amiodarone (5) Schizophrenia: Qualifiers: Schizophrenia type: unspecified Qualified Code(s): F20.9 - Schizophrenia, unspecified Code(s): F20.9 - Schizophrenia, unspecified Status: Acute Assessment and Plan: 06/27 agitation, calm today; started Zyprexa 5mg AM, 10mg PM and PRN Ativan 1mg. Continue to watch mood. (6) HTN (hypertension): Qualifiers: Hypertension type: unspecified Qualified Code(s): I10 - Essential (primary) hypertension Code(s): I10 - Essential (primary) hypertension Status: Acute Assessment and Plan: Stable (7) Perforated duodenal ulcer with hemorrhage: Code(s): K26.6 - Chronic or unspecified duodenal ulcer with both hemorrhage and perforation Status: Acute Assessment and Plan: Sp Hemigastrectomy with Yamilka-en-Y gastrojejunostomy for perforated DU. Sp,transformer inspector pump, iv zosyn and iv zofran and protonix. sp upper GI AND US of abdomen 06/25 ct unremarkable 06/28 8.5 x 7.1 x 7.9 cm fluid collection -Consider CT-guided percutaneous drainage. 06/30 interval extension of the abscess or possible hematoma along the medial aspect of the gallbladder and prominently along the lower hepatic region, measuring up to 7.5 x 12 cm in the medial lower right hepatic area. Peritonitis continue to monitor wcc, ID rounding. Plts trending up 956 today? infection related or secondary to bleed [place] [id number] [place] [id number] (8) Acute hypokalemia: Code(s): E87.6 - Hypokalemia Status: Resolved Assessment and Plan: IV replacement given 06/25 stable today 06/28, 40 mEq PO liquid ordered Subjective Date/time seen: 06/30/20 13:25 Interval history: 54 year old male admitted yesterday night with vague complaints of abdominal and back pains. Pt had to have emergency surgery for perforated DU. Pt is sp Hemigastrectomy with Yamilka-en-Y gastrojejunostomy for perforated DU. Post op day 11. Pt is sp percutaneous drain placement for drainage of his abscess. Pt is having fevers on the floor. Pt had CT abdomen showing extension of the abscess or possible hematoma along the medial aspect of the gallbladder and prominently along the lower hepatic region, measuring up to 7.5 x 12 cm in the medial lower right hepatic area. There is also some extension along the anterior aspect of the pancreatic neck and body. Surgery are aware. Review of Systems Review of Systems: All systems reviewed & are unremarkable except as noted in HPI and below Exam Narrative: Exam Narrative: Generally: ill appearing tired man NECK: No JVD CHEST: Clear to auscultation. Normal effort. HEART: NL S1/S2, regular, no murmur ABDOMEN: BS+, soft, midline incision with willy, new percutaneous drain in situ EXTREMITIE
[2020-06-30] MEDS: AMIODARONE HCL 200 MG TABLET PO ×2 (13:35→19:04)
[2020-06-30] MEDS: AMINO ACIDS 4.25%/D5W/LYTES/CA 2,000 ML 80 ML IV CONT (13:43)
[2020-06-30] MEDS: FAT EMULSIONS IV 20% 250 ML 20.8 ML IVPB (13:43)
--- NOTE | 2020-06-30 13:54 | PM.PNGS ---
Progress Note: A&P Assessment and Plan (1) Fever: Qualifiers: Fever type: due to other condition Qualified Code(s): R50.81 - Fever presenting with conditions classified elsewhere Code(s): R50.9 - Fever, unspecified Status: Resolved Assessment and Plan: ?Fever of an unknown etiology? Patient with fever overnight and this morning, but does not appear septic. He also had an episode of vomiting overnight. His white blood cell count remains nearly unchanged today at 17,400. He has become more lethargic and confused today as well. On exam, his abdomen is soft and he has good bowel sounds. His midline abdominal wound looks good today. CT-guided drainage yesterday revealed old bloody drainage instead of drainage that you would expect with an abscess. CT scan of the abdomen and pelvis was repeated this morning to re-evaluate the abdomen. Dr. Molina reviewed the CT with the Radiologist and there appears to be fluid extending along the medial aspect of the gallbladder, the lower hepatic region, and the pancreas, which appears to be blood. Dr. Molina spoke with the Hospitalist, who will hold anticoagulation. There does not appear to be an anastomotic leak or any other intra-abdominal findings that would account for his fevers. Chest x-ray was essentially negative for a pulmonary source. Will check his urine. Clot seems unlikely since he has been on anticoagulation. Another set of blood cultures were ordered and are pending. Continue IV Zosyn and Micafungin. Repeat labs tomorrow. (2) Perforated duodenal ulcer with hemorrhage: Code(s): K26.6 - Chronic or unspecified duodenal ulcer with both hemorrhage and perforation Status: Acute Assessment and Plan: CT-guided abscess drainage on 06/29/20 with dark red/brown drainage that has the appearance of old blood coming from the drain. Cultures were sent. Fever overnight and again this morning with lethargy. See above. Continue IV Zosyn and Micafungin per ID. Continue PPN for nutrition - patient is on a clear liquid diet but ultimately has had no oral intake overnight or today due to lethargy. Continue BID dressing changes with hydrogen peroxide irrigation to the opening of the midline incision. (3) Atrial flutter with rapid ventricular response: Code(s): I48.92 - Unspecified atrial flutter Status: Resolved Assessment and Plan: S/p cardioversion on 06/23/20. Regular rate and rhythm on my exam today. Now holding anticoagulation due to bleeding as mentioned above. Cardiology following. (4) Acute blood loss anemia: Code(s): D62 - Acute posthemorrhagic anemia Status: Acute Assessment and Plan: Hgb stable at 7.8 again today. Continue to monitor labs. Additional Plan I have discussed the plan of care with Dr. Molina. Subjective Subjective Date/Time Seen: 06/30/20 12:00 Post Op day: 11 Patient reports: vomiting and fever Interval history: Overnight, the patient became agitated and had an episode of vomiting. He also had a fever of 102.6 F around 2:30 am. He was treated with IV Tylenol and given Zyprexa for the agitation. He had a temperature of 101.6 F again around 9:40 am this morning. His nurse states that early this morning he was complaining of abdominal pain and was agitated, so he was given Morphine and Ativan at that time. Since then, he has been somnolent and difficult to arouse. He was given Tylenol again when he had another fever this morning and as his temperature came down, he was more responsive. He has been sleeping most of the day but is still urinating and waking up to grab the urinal to urinate when needed. No more vomiting this morning. The patient is seen lying in bed on my exam and is arousable to his name. He is drowsy and is oriented to self and time, but is disoriented to place. He has no complaints of pain on my exam and is unable to answer any other questions. Review of Systems Review of Systems: ROS unobtainable: Yes unobta
--- NOTE | 2020-06-30 14:30 | PC.NURSE ---
Temp now 98.2. Patient remains somnolent. Respirations remain rapid but HR is in the 80s and 90s and B/P remains stable.
[2020-06-30 18:14] LABS: Glucose Point of Care 88 mg/dl (65-105)
--- NOTE | 2020-06-30 19:19 | PC.NURSE ---
Temp up to 100.0. Patient restless. Gave Tylenol 1000 mg po
[2020-06-30 19:53] LABS: Hematocrit 26.6 % (42.0-52.0); Hemoglobin 8.3 g/dL (14.0-18.0)
[2020-06-30 20:41] LABS: Add Urine Microscopic? YES; Appearance Urine Clear (Clear); Bilirubin Urine Negative (Negative); Blood Urine Negative (Negative); Color Urine Amber (Yellow); Glucose Urine UA Negative (Negative); Ketones Urine Negative (Negative); Leukocyte Esterase Ur Negative LEU/UL (Negative); Nitrate Urine Negative (Negative); Protein Urine 1+ mg/dL (Negative); RBC Urine 0-2 /hpf (0-2); WBC Urine 0-3 /hpf
[2020-07-01] VITALS (9 sets, daily range): BP systolic 117–130; BP diastolic 55–63; PULSE 92–103; RESP 18–22; TEMP 36.6–36.9; O2SAT 95–96
[2020-07-01 03:19] LABS: Glucose Point of Care 104 mg/dl (65-105)
[2020-07-01 05:49] LABS: Glucose Point of Care 115 mg/dl (65-105)
[2020-07-01 05:55] LABS: Basophils Absolute Auto 0.1 K/mm3 (0.0-0.1); Basophils Percent Auto 0.3 % (0.2-1.2); Eosinophils Percent Auto 0.2 % (0-4.4); Hematocrit 25.7 % (42.0-52.0); Hemoglobin 7.9 g/dL (14.0-18.0); Immature Granulocyte Absolute 0.52 K/mm3 (0.00-0.031); Immature Granulocyte Percent A 2.8 % (0-0.5); Lymphocytes Absolute Auto 1.55 K/mm3 (0.9-3.2); Lymphocytes Percent Auto 8.4 % (18.3-44.2); Mean Corpuscular HGB Conc 30.7 g/dl (32-36); Mean Corpuscular Hemoglobin 26.2 pg (26-34); Mean Corpuscular Volume 85.4 fl (80-100); Mean Platelet Volume 8.9 fl (7.4-10.4); Monocytes Absolute Auto 1.2 K/mm3 (0.1-0.6); Monocytes Percent Auto 6.4 % (2.6-8.5); Neutrophils Absolute Auto 15.2 K/mm3 (1.3-6.7); Neutrophils Percent Auto 81.9 % (45.5-73.1); Platelet Count Result 1069 k/mm3 (150-375); Red Blood Count 3.01 M/mm3 (4.6-6.20); Red Cell Distribution Width 16.5 % (11.5-14.5); White Blood Count 18.5 K/mm3 (4.5-10.0)
[2020-07-01 06:07] LABS: Alanine Aminotransferase 27 U/L (4-50); Albumin Level 2.6 g/dL (3.5-5.1); Alkaline Phosphatase 159 U/L (38-126); Anion Gap 4 mmol/L (8-16); Aspartate Amino Transferase 65 U/L (17-59); Bilirubin,Total 1.4 mg/dL (0.2-1.3); Blood Urea Nitrogen 10 mg/dL (9-20); Calcium 8.2 mg/dL (8.4-10.2); Carbon Dioxide 25 mmol/L (22-30); Chloride 108 mmol/L (98-107); Estimated CRCL calculation 133 ml/min; Estimated Glomerular Filt Rate > 60; Glucose 110 mg/dL (75-110); Magnesium 2.3 mg/dL (1.6-2.3); Phosphorus 3.3 mg/dL (2.5-4.5); Sodium 137 mmol/L (137-145)
[2020-07-01 06:25] LABS: Anisocytosis 1+ (NORMAL); Hypochromasia 2+ (NORMAL); Platelet Estimate Adequate (Adequate)
--- NOTE | 2020-07-01 07:54 | PM.PNGS ---
Progress Note: A&P Assessment and Plan (1) Fever: Qualifiers: Fever type: due to other condition Qualified Code(s): R50.81 - Fever presenting with conditions classified elsewhere Code(s): R50.9 - Fever, unspecified Status: Acute Assessment and Plan: spiked fever to 39.2 at 2:30 a.m. on 06/30. Patient had pigtail catheter placed in right upper quadrant fluid collection during the day on 06/29. G stain of this fluid has shown only fungal elements although cultures are pending. Drainage appears to be old blood. Patient spiked lesser temperature is than in the next 24 hours but now seems to be afebrile. CT scan yesterday shows appearance of subcapsular liver hemorrhage. Patient was on anticoagulation at the time of pigtail catheter placement. His anticoagulation was for the atrial tachycardia which has been resolved for multiple days. After speaking with Dr. Waller yesterday, his anticoagulation has been stopped. He is afebrile this morning. He is still on Zosyn day 12. He is also on Micafungin. White blood cell count is still elevated. Will watch for further temperature spikes but suspect this was related to his pigtail catheter placement. Continue antimicrobial therapy. Hopefully fever will remain resolved. (2) Liver hemorrhage: Code(s): K76.89 - Other specified diseases of liver Status: Acute Assessment and Plan: Noted on CT scan done yesterday. Please see above. H&H remains in the anemic range but no significant drop-off. Continue to monitor. (3) Leukocytosis: Qualifiers: Leukocytosis type: unspecified Qualified Code(s): D72.829 - Elevated white blood cell count, unspecified Code(s): D72.829 - Elevated white blood cell count, unspecified Status: Acute Assessment and Plan: Persist, white count [id number] today. Continue to follow. Suspect will start to decrease tomorrow or the next day. Continue antimicrobials. (4) Perforated duodenal ulcer with hemorrhage: Code(s): K26.6 - Chronic or unspecified duodenal ulcer with both hemorrhage and perforation Status: Acute Assessment and Plan: Does not seem that his fevers of late are due to leakage of anastomosis or bowel perforation based on CT scan done yesterday. Will go ahead and restart full liquids. (5) Atrial flutter with rapid ventricular response: Code(s): I48.92 - Unspecified atrial flutter Status: Resolved Assessment and Plan: Remains in sinus rhythm sinus tach. Anticoagulation has been stopped. Please see above. (6) Anemia: Qualifiers: Anemia type: iron deficiency Iron deficiency anemia type: unspecified iron deficiency Qualified Code(s): D50.9 - Iron deficiency anemia, unspecified Code(s): D64.9 - Anemia, unspecified Status: Acute Assessment and Plan: Remains anemic but stable. Subjective Subjective Date/Time Seen: 07/01/20 07:54 Post Op day: #12 Patient reports: no new complaints, pain is less and fever ( no fever this morning but had in the last 48 hours) Interval history: no new complaints today. Had trouble sleeping due to anxiety. No significant abdominal pain. Review of Systems Review of Systems: All systems reviewed & are unremarkable except as noted in HPI and below Constitutional: Constitutional: Reports chills, Reports fever(s) and Denies headache(s) Cardiovascular: Cardiovascular: Denies chest pain and Denies dyspnea Respiratory: Respiratory: Denies cough and Denies dyspnea Gastrointestinal: Gastrointestinal: Reports as per HPI Psychiatric: Psychiatric: Reports as per HPI, Reports abnormal sleep pattern and Reports anxiety Exam Const: General: comfortable, no acute distress, awake and tired appearing; No confusion Nutritional Appearance: average body habitus GI: Inspection: non-distended, incision ( Open area of incision looks good. No purulence, starting to granulate.) an
[2020-07-01] MEDS: FAMOTIDINE 20 MG/2 ML VIAL IV PUSH ×2 (08:30→20:58)
[2020-07-01] MEDS: NICOTINE (*PBKC) 14 MG PATCH 1 PATCH TRANSDERM (08:30)
[2020-07-01] MEDS: AMIODARONE HCL 200 MG TABLET PO ×2 (08:31→17:28)
[2020-07-01] MEDS: ENOXAPARIN 40 MG/0.4 ML SYRINGE SUB-Q (09:42)
[2020-07-01] MEDS: HYDROcodone/acetaminophen (*CRX) 7.5-325 MG TABLET 1 TAB PO ×2 (09:42→20:58)
[2020-07-01] MEDS: MICAFUNGIN SODIUM 100 MG in SODIUM CHLORIDE 0.9% IV 100 ML IVPB (09:42)
[2020-07-01] MEDS: ALBUTEROL SULFATE (*SP) AEROSOL 1 PUFF 2 PUFF INHALATION (09:52)
[2020-07-01] MEDS: AMINO ACIDS 4.25%/D5W/LYTES/CA 2,000 ML 80 ML IV CONT (11:32)
--- NOTE | 2020-07-01 11:37 | PM.PNCARD ---
Progress Note: A&P Assessment and Plan (1) Atrial flutter with rapid ventricular response: Code(s): I48.92 - Unspecified atrial flutter Status: Resolved Assessment and Plan: -Patient presented in sinus tachycardia in setting of perforated duodenal ulcer mass status post emergent Hemigastrectomy with Yamilka-en-Y gastrojejunostomy then developed atrial fibrillation with rapid ventricular response. Refractory to amiodarone and digoxin. Rhythm organized into atrial flutter approximately 160 beats per minute. -Underwent cardioversion on 06/19/2020 has maintained sinus rhythm on IV amiodarone and heparin. -Has now transitioned to p.o. amiodarone. Xarelto was discontinued due to ongoing possibility of invasive procedures and more recently, evidence of liver hemorrhage on CT (06/30/20). Per general surgery and hospitalist note anticoagulation has been stopped, however prophylactic dose Lovenox as ordered and is being administered. -No Echo done yet-patient refused -Patient remains in normal sinus rhythm following cardioversion on 06/19/20. Patient remains on p.o. amiodarone. We will see patient in follow up in our office and determine necessity of continuing amiodarone. We will sign off at this time. (2) Perforated duodenal ulcer with hemorrhage: Code(s): K26.6 - Chronic or unspecified duodenal ulcer with both hemorrhage and perforation Status: Acute Assessment and Plan: Sp Hemigastrectomy with Yamilka-en-Y gastrojejunostomy for perforated DU. Sp,mechanic and welder pump, iv zosyn and iv zofran and protonix. sp upper GI AND US of abdomen 06/25 ct unremarkable 06/28 8.5 x 7.1 x 7.9 cm fluid collection -Consider CT-guided percutaneous drainage. 06/30 interval extension of the abscess or possible hematoma along the medial aspect of the gallbladder and prominently along the lower hepatic region, measuring up to 7.5 x 12 cm in the medial lower right hepatic area. -General surgery following (3) Anemia: Qualifiers: Anemia type: iron deficiency Iron deficiency anemia type: unspecified iron deficiency Qualified Code(s): D50.9 - Iron deficiency anemia, unspecified Code(s): D64.9 - Anemia, unspecified Status: Acute Assessment and Plan: H&H stable (4) PUD (peptic ulcer disease): Code(s): K27.9 - Peptic ulcer, site unspecified, unspecified as acute or chronic, without hemorrhage or perforation Status: Acute Assessment and Plan: As above. Concern for bleeding risk given presentation. Etiology remains unclear which poses ongoing concern (5) Schizophrenia: Qualifiers: Schizophrenia type: unspecified Qualified Code(s): F20.9 - Schizophrenia, unspecified Code(s): F20.9 - Schizophrenia, unspecified Status: Acute Assessment and Plan: per primary service Additional Plan Patient remains in normal sinus rhythm following cardioversion on 06/19/20. Patient remains on p.o. amiodarone. We will see patient in follow up in our office and determine necessity of continuing amiodarone. We will sign off at this time. Subjective Date/time seen: 07/01/20 11:37 Interval history: Follow-up visit in this 54-year-old man with: Acute onset of atrial flutter with rapid ventricular response perioperatively following emergency surgery for repair of a large perforated duodenal ulcer. Patient had significant hemorrhagic event with this as well. The stress of the situation obviously has triggered his atrial arrhythmia. Date of service 06/28/2020: Patient maintaining sinus rhythm offers no cardiovascular complaints. Appears to be rather lethargic but answers questions appropriately. Currently receiving TPN. Currently on p.o. amiodarone. Date of service 07/01/2020: Patient remains in normal sinus rhythm in the 's. Difficult to elicit report of any complaints from patient as he is quite lethargic. He does nod affirmatively that he is free from chest pain or palpitations.
[2020-07-01] MEDS: FAT EMULSIONS IV 20% 250 ML 20.8 ML IVPB (11:39)
[2020-07-01 11:57] LABS: Glucose Point of Care 110 mg/dl (65-105)
--- NOTE | 2020-07-01 12:03 | PM.IMPN ---
Progress Note: A&P Assessment and Plan (1) Acute blood loss anemia: Code(s): D62 - Acute posthemorrhagic anemia Status: Acute Assessment and Plan: Acute blood loss anemia secondary to GI bleed secondary to perforated peptic ulcer, continue to monitor hb Hb is 7.9 today continue to watch (2) Elevated LFTs: Code(s): R79.89 - Other specified abnormal findings of blood chemistry Status: Resolved Assessment and Plan: Resolved (3) Fever: Qualifiers: Fever type: due to other condition Qualified Code(s): R50.81 - Fever presenting with conditions classified elsewhere Code(s): R50.9 - Fever, unspecified Status: Acute Assessment and Plan: Probable peritonitis continue iv zosyn and antifungals Sp percutaneous drainage Fevers better Ct abdo today shows extension of the abscess or possible hematoma along the medial aspect of the gallbladder and prominently along the lower hepatic region, measuring up to 7.5 (4) Atrial flutter with rapid ventricular response: Code(s): I48.92 - Unspecified atrial flutter Status: Resolved Assessment and Plan: Status post digoxin IV metoprolol amiodarone drip no improvement patient had cardioversion by Cardiology on 06/23/2020 converted to sinus rhythm Continue PO amiodarone and lovenox (5) Schizophrenia: Qualifiers: Schizophrenia type: unspecified Qualified Code(s): F20.9 - Schizophrenia, unspecified Code(s): F20.9 - Schizophrenia, unspecified Status: Acute Assessment and Plan: 06/27 agitation, calm today; started Zyprexa 5mg AM, 10mg PM and PRN Ativan 1mg. Continue to watch mood. (6) HTN (hypertension): Qualifiers: Hypertension type: unspecified Qualified Code(s): I10 - Essential (primary) hypertension Code(s): I10 - Essential (primary) hypertension Status: Acute Assessment and Plan: Stable (7) Perforated duodenal ulcer with hemorrhage: Code(s): K26.6 - Chronic or unspecified duodenal ulcer with both hemorrhage and perforation Status: Acute Assessment and Plan: Sp Hemigastrectomy with Yamilka-en-Y gastrojejunostomy for perforated DU. Sp,global lead pump, iv zosyn and iv zofran and protonix. sp upper GI AND US of abdomen 06/25 ct unremarkable 06/28 8.5 x 7.1 x 7.9 cm fluid collection -Consider CT-guided percutaneous drainage. 06/30 interval extension of the abscess or possible hematoma along the medial aspect of the gallbladder and prominently along the lower hepatic region, measuring up to 7.5 x 12 cm in the medial lower right hepatic area. Peritonitis continue to monitor wcc, ID rounding. Plts trending up 1069 today? infection related or secondary to bleed wcc coming down [id number] (8) Acute hypokalemia: Code(s): E87.6 - Hypokalemia Status: Resolved Assessment and Plan: Potassium is 4 Subjective Date/time seen: 07/01/20 12:03 Interval history: 54 year old male admitted yesterday night with vague complaints of abdominal and back pains. Pt had to have emergency surgery for perforated DU. Pt is sp Hemigastrectomy with Yamilka-en-Y gastrojejunostomy for perforated DU. Post op day 12.. Pt is sp percutaneous drain placement for drainage of his abscess. Pt had CT abdomen showing extension of the abscess or possible hematoma along the medial aspect of the gallbladder and prominently along the lower hepatic region, measuring up to 7.5 x 12 cm in the medial lower right hepatic area. There is also some extension along the anterior aspect of the pancreatic neck and body. Surgery are aware. Discussed with surgery. Pt is not having fever today. Continue to watch. Review of Systems Review of Systems: All systems reviewed & are unremarkable except as noted in HPI and below Exam Narrative: Exam Narrative: Generally: ill appearing tired man NECK: No JVD CHEST: Clear to auscultation. Normal effort. HEART: NL S1/S2, regular, no m
--- NOTE | 2020-07-01 12:33 | WPDINFPN2 ---
Progress Note: A&P Assessment and Plan (1) Perforated duodenal ulcer with hemorrhage: Code(s): K26.6 - Chronic or unspecified duodenal ulcer with both hemorrhage and perforation Status: Acute Assessment and Plan: 1. Peritonitis due to perf. DU, POD #12 2. Persistent fever due to undrained fungal abscess, now with perc drain in place REC Stop PipTazo. Continue Micafungin # 8 / 14 days. Pull drain when appropriate. Subjective Date/time seen: 07/01/20 12:33 Interval history: denies abd pain. Good po. No chills nor sweats Exam Narrative: Exam Narrative: t max 39.0, now down to 37.7 last 24 ourw Const: General: no acute distress Eyes: General: appearance normal, both eyes and all related structures Resp: Effort & Inspection: normal respiratory effort Auscultation: clear to auscultation bilaterally Cardio: Rate: regular rate Rhythm: regular rhythm Heart sounds: no murmurs GI: Inspection: non-distended GI Palp: Yes Soft to palpation, No Tenderness to palpation present (GI) and No Guarding due to palpation present (GI) Percussion: Yes normal to percussion Auscultation: abnormal bowel sounds Skin: General skin exam: no rashes or lesions noted Other: left forearm IV without phlebitis Objective Data Vital Signs Vital Signs: Vital Signs - 24 hr 06/30/20 13:26 06/30/20 13:30 06/30/20 13:35 Temperature 38.1 C H 38.1 C H Pulse Rate 102 H 98 Respiratory Rate 25 H Blood Pressure 126/57 L Pulse Oximetry 06/30/20 14:30 06/30/20 16:00 06/30/20 17:21 Temperature 36.8 C 36.8 C Pulse Rate 95 92 Respiratory Rate 22 H Blood Pressure 122/63 Pulse Oximetry 100 06/30/20 18:40 06/30/20 19:03 06/30/20 19:04 Temperature 37.3 C 37.8 C H 37.8 C H Pulse Rate 88 Respiratory Rate Blood Pressure Pulse Oximetry 06/30/20 20:00 06/30/20 22:00 06/30/20 23:08 Temperature 36.8 C 36.8 C Pulse Rate 98 91 Respiratory Rate 16 Blood Pressure 116/66 Pulse Oximetry 97 07/01/20 00:00 07/01/20 04:00 07/01/20 06:00 Temperature 36.6 C Pulse Rate 94 103 H 100 Respiratory Rate 20 Blood Pressure 130/63 Pulse Oximetry 95 07/01/20 08:00 07/01/20 08:31 Temperature Pulse Rate 101 H 100 Respiratory Rate Blood Pressure Pulse Oximetry Intake/Output Intake/Output: Intake & Output 06/28/20 06/29/20 06/30/20 07/01/20 23:59 23:59 23:59 23:59 Intake Total 2050 2270 2710 2540 Output Total 3405 1780 3565 Balance -1355 490 -855 2540 Meds/Results Medications: Active Medications Generic Name Dose Route Start Last Admin Trade Name Freq PRN Reason Stop Dose Admin Acetaminophen 1,000 mg 06/30/20 18:42 06/30/20 19:04 Acetaminophen 500 Mg Tablet PO 1,000 mg Q6H PRN Administration Mild Pain (1-3) or Fever Hydrocodone Bitart/Acetaminophen 1 tab 06/26/20 07:46 06/29/20 21:02 Hydrocodone/Acetaminophen (*Crx) 5-325 Mg Tablet PO 1 tab Q6H PRN Administration Pain Rated 4-6 Hydrocodone Bitart/Acetaminophen 1 tab 06/26/20 07:46 07/01/20 09:42 Hydrocodone/Acetaminophen (*Crx) 7.5-325 Mg Tablet PO 1 tab Q6H PRN Administration Pain Rated 7-10 Albuterol 2 puff 06/19/20 08:16 07/01/20 09:52 Albuterol Sulfate (*Sp) Aerosol 1 Puff INHALATION 2 puff Q6HRT PRN Administration Shortness Of Breath Or Wheezing Alprazolam 0.25 mg 07/01/20 12:09 Alprazolam (*Crx) 0.25 Mg Tablet PO TID PRN Anxiety Amiodarone HCl 200 mg 06/26/20 12:05 07/01/20 08:31 Amiodarone Hcl 200 Mg Tablet PO 200 mg BID MATEO Administration Dextrose 12.5 gm 06/27/20 12:43 Dextrose 50% 25 Gm/50 Ml Syringe IV PUSH PRN PRN Hypoglycemia Protocol Enoxaparin Sodium 40 mg 07/01/20 09:00 07/01/20 09:42 Enoxaparin 40 Mg/0.4 Ml Syringe SUB-Q 40 mg DAILY MATEO Administration Famotidine 20 mg 06/24/20 09:00 07/01/20 08:30 Famotidine 20 Mg/2 Ml Vial IV PUSH 20 mg Q12HR MATEO Administr
[2020-07-01] MEDS: SILVERGEL (ELTA) 45 ML 1 APPLIC TOPICAL (13:24)
[2020-07-01] MEDS: ALPRAZolam (*CRX) 0.25 MG TABLET PO (17:35)
[2020-07-01 17:47] LABS: Glucose Point of Care 92 mg/dl (65-105)
[2020-07-01 23:48] LABS: Glucose Point of Care 105 mg/dl (65-105)
[2020-07-02] MEDS: ALPRAZolam (*CRX) 0.25 MG TABLET PO ×2 (05:22→17:09)
[2020-07-02] MEDS: HYDROcodone/acetaminophen (*CRX) 5-325 MG TABLET 1 TAB PO ×2 (05:22→12:35)
[2020-07-02 05:41] LABS: Hematocrit 28.5 % (42.0-52.0); Hemoglobin 8.4 g/dL (14.0-18.0); Mean Corpuscular HGB Conc 29.5 g/dl (32-36); Mean Corpuscular Hemoglobin 26.3 pg (26-34); Mean Corpuscular Volume 89.3 fl (80-100); Mean Platelet Volume 8.8 fl (7.4-10.4); Platelet Count Result 1041 k/mm3 (150-375); Red Blood Count 3.19 M/mm3 (4.6-6.20); Red Cell Distribution Width 16.7 % (11.5-14.5); White Blood Count 13.8 K/mm3 (4.5-10.0)
[2020-07-02 05:56] LABS: Anion Gap 3 mmol/L (8-16); Blood Urea Nitrogen 11 mg/dL (9-20); Calcium 8.3 mg/dL (8.4-10.2); Carbon Dioxide 25 mmol/L (22-30); Chloride 110 mmol/L (98-107); Estimated CRCL calculation 156 ml/min; Estimated Glomerular Filt Rate > 60; Glucose 105 mg/dL (75-110); Phosphorus 3.6 mg/dL (2.5-4.5); Potassium 4.1 mmol/L (3.4-5.0); Sodium 138 mmol/L (137-145)
[2020-07-02 06:00] VITALS: BP 132/65; PULSE 91; RESP 18; TEMP 36.2; O2SAT 96
[2020-07-02 06:07] LABS: Triglycerides 229 mg/dL (<150)
[2020-07-02 07:41] LABS: Glucose Point of Care 104 mg/dl (65-105)
[2020-07-02] MEDS: MICAFUNGIN SODIUM 100 MG in SODIUM CHLORIDE 0.9% IV 100 ML IVPB (08:25)
[2020-07-02] MEDS: ENOXAPARIN 40 MG/0.4 ML SYRINGE SUB-Q (08:25)
[2020-07-02 08:26] VITALS: PULSE 92
[2020-07-02] MEDS: NICOTINE (*PBKC) 14 MG PATCH 1 PATCH TRANSDERM (08:26)
[2020-07-02] MEDS: AMIODARONE HCL 200 MG TABLET PO ×2 (08:26→17:06)
[2020-07-02] MEDS: FAMOTIDINE 20 MG/2 ML VIAL IV PUSH (08:27)
[2020-07-02] MEDS: SILVERGEL (ELTA) 45 ML 1 APPLIC TOPICAL (08:51)
[2020-07-02] MEDS: ALBUTEROL SULFATE (*SP) AEROSOL 1 PUFF 2 PUFF INHALATION (09:30)
--- NOTE | 2020-07-02 10:27 | PM.PNGS ---
Progress Note: A&P Assessment and Plan (1) Liver hemorrhage: Code(s): K76.89 - Other specified diseases of liver Status: Acute Assessment and Plan: H&H actually increased. No further fevers. Abdominal pain is better. Appears to have stopped with time and discontinuing anticoagulation. (2) Fever: Qualifiers: Fever type: due to other condition Qualified Code(s): R50.81 - Fever presenting with conditions classified elsewhere Code(s): R50.9 - Fever, unspecified Status: Acute Assessment and Plan: Resolved for 48 hours now. probably due to fungal abscess intra-abdominal that was percutaneously drained 3 days ago. (3) Leukocytosis: Qualifiers: Leukocytosis type: unspecified Qualified Code(s): D72.829 - Elevated white blood cell count, unspecified Code(s): D72.829 - Elevated white blood cell count, unspecified Status: Acute Assessment and Plan: Improving (4) Perforated duodenal ulcer with hemorrhage: Code(s): K26.6 - Chronic or unspecified duodenal ulcer with both hemorrhage and perforation Status: Acute Assessment and Plan: no evidence of anastomotic leak , advance diet to soft and regular. (5) Anemia: Qualifiers: Anemia type: iron deficiency Iron deficiency anemia type: unspecified iron deficiency Qualified Code(s): D50.9 - Iron deficiency anemia, unspecified Code(s): D64.9 - Anemia, unspecified Status: Acute Assessment and Plan: H&H stable. Subjective Subjective Date/Time Seen: 07/02/20 10:27 Post Op day: #13 ( hemigastrectomy with Yamilka-en-Y June 19, 2020, percutaneous drainage abscess June 29, 2020) Patient reports: no new complaints, feels better, pain is less, tolerating liquids well and afebrile ( afebrile now 48 hours) Review of Systems Review of Systems: All systems reviewed & are unremarkable except as noted in HPI and below Constitutional: Constitutional: Denies chills, Reports difficulty sleeping, Reports fatigue, Denies fever(s), Denies headache(s) and Denies poor appetite Cardiovascular: Cardiovascular: Denies chest pain and Denies dyspnea Respiratory: Respiratory: Denies cough and Denies dyspnea Gastrointestinal: Gastrointestinal: Reports as per HPI, Reports abdominal pain, Denies dyspepsia, Denies heartburn, Denies nausea and Denies vomiting Exam Const: General: comfortable and no acute distress; No confusion Orientation/consciousness: patient oriented x3 and No confusion GI: Inspection: non-distended, incision ( open area as well as incision both healing well), scaphoid and other ( dark brown fluid per pigtail catheter drain) GI Palp: Yes Soft to palpation, Yes Tenderness to palpation present (GI), No Guarding due to palpation present (GI), No Hernia present, No Palpable mass present and No Rebound tenderness present Auscultation: normal bowel sounds Extrem: General: no calf tenderness and no edema Objective Data Vital Signs Vital Signs: Vital Signs - 24 hr 07/01/20 14:00 07/01/20 17:28 07/01/20 20:00 Temperature 36.9 C Pulse Rate 94 92 98 Respiratory Rate 22 H 18 Blood Pressure 117/55 L Pulse Oximetry 96 95 07/01/20 20:44 07/02/20 06:00 07/02/20 08:26 Temperature 36.7 C 36.2 C L Pulse Rate 98 91 92 Respiratory Rate 18 18 Blood Pressure 129/63 132/65 Pulse Oximetry 95 96 Intake/Output Intake/Output: Intake & Output 06/29/20 06/30/20 07/01/20 07/02/20 23:59 23:59 23:59 23:59 Intake Total 2270 2710 2990 300 Output Total 1780 3565 3050 1000 Balance 852 -858 -60 -246 Meds/Results Medications: Active Medications Generic Name Dose Route Start Last Admin Trade Name Freq PRN Reason Stop Dose Admin Acetaminophen 1,000 mg 06/30/20 18:42 06/30/20 19:04 Acetaminophen 500 Mg Tablet PO 1,000 mg Q6H PRN Administration Mild Pain (1-3) or Fever Hydrocodone Bitart/Acetaminophen 1 tab 06/26/20 07:46 07/02/20 05
--- NOTE | 2020-07-02 10:46 | PCNFU ---
Nutrition Follow-Up Complete: Inadequate oral intake related to abdominal surgery/ileus as evidenced by NPO x 5 days. Goal: Patient to meet estimated nutritional needs. Progressing towards goal. We will continue current goal. Pt current nutrition is Low fiber. Last recorded weight is 84.5 kg, up from 95.9kg. Bowel Motility: +BM reported 06/27 Labs Reviewed:Hct 28.5,Hgb 8.4 Meds Noted:Pacerone,Zofran,Morphine,Zanax,NovoLog,Ativan. Additional Notes: Patient seen today for nutrition follow up. Patient ate oatmeal today on full liquid tray. He has advance to a low fiber diet. PPN has been discontinued. Diet supplements added Ensure Compact BID providing an additional 220 kcals and 9 gms protein. PO intake encouraged. Monitoring: Follow up in 3 days.
--- NOTE | 2020-07-02 12:00 | PM.IMPN ---
Progress Note: A&P Assessment and Plan (1) Acute blood loss anemia: Code(s): D62 - Acute posthemorrhagic anemia Status: Acute Assessment and Plan: Acute blood loss anemia secondary to GI bleed secondary to perforated peptic ulcer, continue to monitor hb Hb is 8.4 today continue to watch (2) Elevated LFTs: Code(s): R79.89 - Other specified abnormal findings of blood chemistry Status: Resolved Assessment and Plan: Resolved (3) Fever: Qualifiers: Fever type: due to other condition Qualified Code(s): R50.81 - Fever presenting with conditions classified elsewhere Code(s): R50.9 - Fever, unspecified Status: Acute Assessment and Plan: Probable peritonitis continue antifungals only Sp percutaneous drainage Fevers better Ct abdo today shows extension of the abscess or possible hematoma along the medial aspect of the gallbladder and prominently along the lower hepatic region, measuring up to 7.5 (4) Atrial flutter with rapid ventricular response: Code(s): I48.92 - Unspecified atrial flutter Status: Resolved Assessment and Plan: Status post digoxin IV metoprolol amiodarone drip no improvement patient had cardioversion by Cardiology on 06/23/2020 converted to sinus rhythm Continue PO amiodarone and lovenox (5) Schizophrenia: Qualifiers: Schizophrenia type: unspecified Qualified Code(s): F20.9 - Schizophrenia, unspecified Code(s): F20.9 - Schizophrenia, unspecified Status: Acute Assessment and Plan: Continue to watch mood. (6) HTN (hypertension): Qualifiers: Hypertension type: unspecified Qualified Code(s): I10 - Essential (primary) hypertension Code(s): I10 - Essential (primary) hypertension Status: Acute Assessment and Plan: Stable (7) Perforated duodenal ulcer with hemorrhage: Code(s): K26.6 - Chronic or unspecified duodenal ulcer with both hemorrhage and perforation Status: Acute Assessment and Plan: Sp Hemigastrectomy with Yamilka-en-Y gastrojejunostomy for perforated DU. 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 sp upper GI AND US of abdomen 06/25 ct unremarkable 06/28 8.5 x 7.1 x 7.9 cm fluid collection -Consider CT-guided percutaneous drainage. 06/30 interval extension of the abscess or possible hematoma along the medial aspect of the gallbladder and prominently along the lower hepatic region, measuring up to 7.5 x 12 cm in the medial lower right hepatic area. Peritonitis continue to monitor wcc, ID rounding. Plts trending up 1041 today? infection related or secondary to bleed wcc coming down [id number] (8) Acute hypokalemia: Code(s): E87.6 - Hypokalemia Status: Resolved Assessment and Plan: Potassium is 4 Subjective Date/time seen: 07/02/20 12:00 Interval history: 54 year old male admitted yesterday night with vague complaints of abdominal and back pains. Pt had to have emergency surgery for perforated DU. Pt is sp Hemigastrectomy with Yamilka-en-Y gastrojejunostomy for perforated DU. Post op day 13. Pt is sp percutaneous drain placement for drainage of his abscess. Pt doing better tolerating diet catheter is out. More alert and awake today. no fever today or yesterday. Overall much improvement. Review of Systems Review of Systems: All systems reviewed & are unremarkable except as noted in HPI and below Exam Narrative: Exam Narrative: Generally: ill appearing tired man NECK: No JVD CHEST: Clear to auscultation. Normal effort. HEART: NL S1/S2, regular, no murmur ABDOMEN: BS+, soft, midline incision with willy, percutaneous drain in situ with brown colored fluid EXTREMITIES: No cyanosis, edema NEUROLOGIC: CN intact and symmetric to inspection. MUSCULOSKELETAL: Tone and strength symmetric. PSYCH: Alert. Oriented to person, place, and time. Objective Data Vital Signs Vital Signs: Vital Signs - 24 hr 06/13
[2020-07-02 12:08] LABS: Glucose Point of Care 99 mg/dl (65-105)
[2020-07-02 14:00] VITALS: BP 126/71; PULSE 82; RESP 20; TEMP 36.3; O2SAT 96
[2020-07-02 17:06] VITALS: PULSE 84
[2020-07-02] MEDS: FAMOTIDINE 20 MG TABLET PO (20:22)
[2020-07-02] MEDS: HYDROcodone/acetaminophen (*CRX) 7.5-325 MG TABLET 1 TAB PO (20:24)
[2020-07-02 20:33] VITALS: BP 119/59; PULSE 91; RESP 16; TEMP 36.9; O2SAT 97
[2020-07-02 21:36] LABS: Glucose Point of Care 97 mg/dl (65-105)
[2020-07-03] VITALS (8 sets, daily range): BP systolic 120–132; BP diastolic 58–66; PULSE 86–104; RESP 16–18; TEMP 36.2–36.6; O2SAT 96–98
[2020-07-03] MEDS: HYDROcodone/acetaminophen (*CRX) 7.5-325 MG TABLET 1 TAB PO ×4 (02:31→23:42)
[2020-07-03 06:02] LABS: Hemoglobin 7.6 g/dL (14.0-18.0); Mean Corpuscular HGB Conc 30.4 g/dl (32-36); Mean Corpuscular Hemoglobin 26.7 pg (26-34); Mean Corpuscular Volume 87.7 fl (80-100); Mean Platelet Volume 8.7 fl (7.4-10.4); Platelet Count Result 1103 k/mm3 (150-375); Red Blood Count 2.85 M/mm3 (4.6-6.20); Red Cell Distribution Width 16.9 % (11.5-14.5)
[2020-07-03 06:13] LABS: Anion Gap 3 mmol/L (8-16); Blood Urea Nitrogen 12 mg/dL (9-20); Calcium 8.5 mg/dL (8.4-10.2); Carbon Dioxide 25 mmol/L (22-30); Chloride 108 mmol/L (98-107); Estimated CRCL calculation 133 ml/min; Estimated Glomerular Filt Rate > 60; Glucose 98 mg/dL (75-110); Sodium 136 mmol/L (137-145)
--- NOTE | 2020-07-03 09:11 | PM.PNGS ---
Progress Note: A&P Assessment and Plan (1) Liver hemorrhage: Code(s): K76.89 - Other specified diseases of liver Status: Acute Assessment and Plan: H/H slightly decreased, cont to follow, no increase in drain output, HD stable (2) Perforated duodenal ulcer with hemorrhage: Code(s): K26.6 - Chronic or unspecified duodenal ulcer with both hemorrhage and perforation Status: Acute Assessment and Plan: kermit diet, encourage OOB/IS, cont antifungal per ID Subjective Subjective Date/Time Seen: 07/03/20 09:11 feels ok, some incisional soreness richard c movt, kermit diet Review of Systems Review of Systems: All systems reviewed & are unremarkable except as noted in HPI and below Exam Const: General: cooperative, comfortable and no acute distress Orientation/consciousness: patient oriented x3 Resp: Effort & Inspection: normal respiratory effort Auscultation: clear to auscultation bilaterally Cardio: Rate: regular rate Rhythm: regular rhythm GI: Inspection: normal to inspection, distended and incision GI Palp: Yes Soft to palpation and Yes Tenderness to palpation present (GI) Other: soft, sl dist, [place] TTP, incision C/D/I, open periumbilical area c good granulation, HERO c scant dk sang Objective Data Vital Signs Vital Signs: Vital Signs - 24 hr 07/02/20 14:00 07/02/20 17:06 07/02/20 20:33 Temperature 36.3 C L 36.9 C Pulse Rate 82 84 91 Respiratory Rate 20 16 Blood Pressure 126/71 119/59 L Pulse Oximetry 96 97 07/03/20 05:33 07/03/20 06:00 Temperature 36.4 C L 36.4 C L Pulse Rate 86 86 Respiratory Rate 16 16 Blood Pressure 120/60 120/60 Pulse Oximetry 98 98 Intake/Output Intake/Output: Intake & Output 06/30/20 07/01/20 07/02/20 07/03/20 23:59 23:59 23:59 23:59 Intake Total 2710 2990 3290 400 Output Total 3565 3050 2400 700 Balance -855 -60 890 -300 Meds/Results Medications: Active Medications Generic Name Dose Route Start Last Admin Trade Name Freq PRN Reason Stop Dose Admin Acetaminophen 1,000 mg 06/30/20 18:42 06/30/20 19:04 Acetaminophen 500 Mg Tablet PO 1,000 mg Q6H PRN Administration Mild Pain (1-3) or Fever Hydrocodone Bitart/Acetaminophen 1 tab 06/26/20 07:46 07/02/20 12:35 Hydrocodone/Acetaminophen (*Crx) 5-325 Mg Tablet PO 1 tab Q6H PRN Administration Pain Rated 4-6 Hydrocodone Bitart/Acetaminophen 1 tab 06/26/20 07:46 07/03/20 02:31 Hydrocodone/Acetaminophen (*Crx) 7.5-325 Mg Tablet PO 1 tab Q6H PRN Administration Pain Rated 7-10 Albuterol 2 puff 06/19/20 08:16 07/02/20 09:30 Albuterol Sulfate (*Sp) Aerosol 1 Puff INHALATION 2 puff Q6HRT PRN Administration Shortness Of Breath Or Wheezing Alprazolam 0.25 mg 07/01/20 12:09 07/02/20 17:09 Alprazolam (*Crx) 0.25 Mg Tablet PO 0.25 mg TID PRN Administration Anxiety Amiodarone HCl 200 mg 06/26/20 12:05 07/02/20 17:06 Amiodarone Hcl 200 Mg Tablet PO 200 mg BID MATEO Administration Enoxaparin Sodium 40 mg 07/01/20 09:00 07/02/20 08:25 Enoxaparin 40 Mg/0.4 Ml Syringe SUB-Q 40 mg DAILY MATEO Administration Famotidine 20 mg 07/02/20 21:00 07/02/20 20:22 Famotidine 20 Mg Tablet PO 20 mg Q12HR MATEO Administration Glucagon 1 mg 06/27/20 12:43 Glucagon For Inj 1 Mg Vial IM PRN PRN Hypoglycemia Protocol Glucose 15 gm 06/27/20 12:43 Glucose Oral Gel 15 Gm Of Glucse In 37.5 Gm Tube PO PRN PRN Hypoglycemia Protocol Hydralazine HCl 10 mg 06/19/20 15:42 Hydralazine Hcl 20 Mg/Ml Vial IV PUSH Q8H PRN if SBP over 160 or DBP>100 Micafungin Sodium 100 mg/ 100 mls @ 100 mls/hr 06/24/20 13:05 07/02/20 09:25 Sodium Chloride IVPB 07/07/20 23:59 Infused DAILY MATEO Infusion Lorazepam 1 mg 06/27/20 09:02 06/30/20 07:31 Lorazepam Inj (*Crx) 2 Mg/Ml Vial IV PUSH 1 mg Q6H PRN Administration Anxiety Morphine Sulfate 2 mg 06/19/20 07:23
[2020-07-03] MEDS: FAMOTIDINE 20 MG TABLET PO ×2 (09:29→20:22)
[2020-07-03] MEDS: ENOXAPARIN 40 MG/0.4 ML SYRINGE SUB-Q (09:29)
[2020-07-03] MEDS: AMIODARONE HCL 200 MG TABLET PO ×2 (09:30→16:49)
[2020-07-03] MEDS: MICAFUNGIN SODIUM 100 MG in SODIUM CHLORIDE 0.9% IV 100 ML IVPB (09:33)
[2020-07-03] MEDS: SILVERGEL (ELTA) 45 ML 1 APPLIC TOPICAL (09:34)
[2020-07-03] MEDS: ALPRAZolam (*CRX) 0.25 MG TABLET PO ×2 (09:53→16:47)
[2020-07-03] MEDS: ALBUTEROL SULFATE (*SP) AEROSOL 1 PUFF 2 PUFF INHALATION (10:30)
--- NOTE | 2020-07-03 11:10 | PM.IMPN ---
Progress Note: A&P Assessment and Plan (1) Acute blood loss anemia: Code(s): D62 - Acute posthemorrhagic anemia Status: Acute Assessment and Plan: Acute blood loss anemia secondary to GI bleed secondary to perforated peptic ulcer, continue to monitor hb Hb is 7.6 today continue to watch slight drop watch drainage in drain (2) Elevated LFTs: Code(s): R79.89 - Other specified abnormal findings of blood chemistry Status: Resolved Assessment and Plan: Resolved (3) Fever: Qualifiers: Fever type: due to other condition Qualified Code(s): R50.81 - Fever presenting with conditions classified elsewhere Code(s): R50.9 - Fever, unspecified Status: Resolved Assessment and Plan: Probable peritonitis continue antifungals only Sp percutaneous drainage Fevers better Ct abdo today shows extension of the abscess or possible hematoma along the medial aspect of the gallbladder and prominently along the lower hepatic region, measuring up to 7.5 Pt is on antifungals continue treatment ID rounding (4) Atrial flutter with rapid ventricular response: Code(s): I48.92 - Unspecified atrial flutter Status: Resolved Assessment and Plan: Status post digoxin IV metoprolol amiodarone drip no improvement patient had cardioversion by Cardiology on 06/23/2020 converted to sinus rhythm Continue PO amiodarone and lovenox (5) Schizophrenia: Qualifiers: Schizophrenia type: unspecified Qualified Code(s): F20.9 - Schizophrenia, unspecified Code(s): F20.9 - Schizophrenia, unspecified Status: Acute Assessment and Plan: Continue to watch mood. xanax prn anxiety. (6) HTN (hypertension): Qualifiers: Hypertension type: unspecified Qualified Code(s): I10 - Essential (primary) hypertension Code(s): I10 - Essential (primary) hypertension Status: Acute Assessment and Plan: Stable (7) Perforated duodenal ulcer with hemorrhage: Code(s): K26.6 - Chronic or unspecified duodenal ulcer with both hemorrhage and perforation Status: Acute Assessment and Plan: Sp Hemigastrectomy with Yamilka-en-Y gastrojejunostomy for perforated DU. 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 sp upper GI AND US of abdomen 06/25 ct unremarkable 06/28 8.5 x 7.1 x 7.9 cm fluid collection -Consider CT-guided percutaneous drainage. 06/30 interval extension of the abscess or possible hematoma along the medial aspect of the gallbladder and prominently along the lower hepatic region, measuring up to 7.5 x 12 cm in the medial lower right hepatic area. Peritonitis continue to monitor wcc, ID rounding. Plts trending up 1103 infection related or secondary to bleed wcc stable at 13. Continue antifungals. Surgery and ID rounding (8) Acute hypokalemia: Code(s): E87.6 - Hypokalemia Status: Resolved Assessment and Plan: Potassium is 4 Subjective Date/time seen: 07/03/20 11:10 Interval history: 54 year old male admitted yesterday night with vague complaints of abdominal and back pains. Pt had to have emergency surgery for perforated DU. Pt is sp Hemigastrectomy with Yamilka-en-Y gastrojejunostomy for perforated DU. Post op day 14. Pt is sp percutaneous drain placement for drainage of his abscess. Pt doing better tolerating diet catheter is out. Pt slightly tired today no fever, some abdominal pains. Review of Systems Review of Systems: All systems reviewed & are unremarkable except as noted in HPI and below Exam Narrative: Exam Narrative: Generally: ill appearing tired man NECK: No JVD CHEST: Clear to auscultation. Normal effort. HEART: NL S1/S2, regular, no murmur ABDOMEN: BS+, soft, midline incision with willy, percutaneous drain in situ with drainage EXTREMITIES: No cyanosis, edema NEUROLOGIC: CN intact and symmetric to inspection. MUSCULOSKELETAL: Tone and strength symmetric. PSYCH: Alert
[2020-07-03] MEDS: MORPHINE SULFATE (*CRX) 4 MG/ML INJ IV PUSH (20:19)
[2020-07-04] MEDS: ALPRAZolam (*CRX) 0.25 MG TABLET PO ×3 (01:56→15:08)
--- NOTE | 2020-07-04 02:08 | PCDIET ---
Called to room again pt asking for something for anxiety tried again to offer him his zyprexa he refused before. Refused again
[2020-07-04 05:33] VITALS: BP 120/55; PULSE 87; RESP 18; TEMP 36.4; O2SAT 96
[2020-07-04 06:53] LABS: Hematocrit 25.2 % (42.0-52.0); Hemoglobin 7.9 g/dL (14.0-18.0); Mean Corpuscular HGB Conc 31.3 g/dl (32-36); Mean Corpuscular Hemoglobin 26.7 pg (26-34); Mean Corpuscular Volume 85.1 fl (80-100); Mean Platelet Volume 8.5 fl (7.4-10.4); Platelet Count Result 1135 k/mm3 (150-375); Red Blood Count 2.96 M/mm3 (4.6-6.20); Red Cell Distribution Width 16.6 % (11.5-14.5); White Blood Count 12.6 K/mm3 (4.5-10.0)
[2020-07-04 07:06] LABS: Anion Gap 3 mmol/L (8-16); Blood Urea Nitrogen 12 mg/dL (9-20); Calcium 8.7 mg/dL (8.4-10.2); Carbon Dioxide 26 mmol/L (22-30); Chloride 105 mmol/L (98-107); Estimated CRCL calculation 133 ml/min; Estimated Glomerular Filt Rate > 60; Glucose 106 mg/dL (75-110); Potassium 3.9 mmol/L (3.4-5.0); Sodium 134 mmol/L (137-145)
[2020-07-04] MEDS: MICAFUNGIN SODIUM 100 MG in SODIUM CHLORIDE 0.9% IV 100 ML IVPB (09:06)
[2020-07-04] MEDS: ENOXAPARIN 40 MG/0.4 ML SYRINGE SUB-Q (09:14)
[2020-07-04] MEDS: FAMOTIDINE 20 MG TABLET PO ×2 (09:14→21:08)
[2020-07-04 09:15] VITALS: PULSE 84; RESP 18; O2SAT 96
[2020-07-04] MEDS: AMIODARONE HCL 200 MG TABLET PO ×2 (09:15→16:54)
[2020-07-04] MEDS: SILVERGEL (ELTA) 45 ML 1 APPLIC TOPICAL (09:17)
[2020-07-04] MEDS: HYDROcodone/acetaminophen (*CRX) 7.5-325 MG TABLET 1 TAB PO ×3 (09:22→21:07)
--- NOTE | 2020-07-04 10:27 | PM.PNGS ---
Progress Note: A&P Assessment and Plan (1) Perforated duodenal ulcer with hemorrhage: Code(s): K26.6 - Chronic or unspecified duodenal ulcer with both hemorrhage and perforation Status: Acute Assessment and Plan: doing well, cont current mgmt, encourage OOB/IS, encourage po intake, plan for drain out soon Subjective Subjective Date/Time Seen: 07/04/20 10:27 feels a little better, reports appetite improving Review of Systems Review of Systems: All systems reviewed & are unremarkable except as noted in HPI and below Exam Const: General: cooperative, comfortable and no acute distress Resp: Effort & Inspection: normal respiratory effort Auscultation: clear to auscultation bilaterally Cardio: Rate: regular rate Rhythm: regular rhythm GI: Inspection: normal to inspection, distended and incision GI Palp: Yes Soft to palpation and Yes Tenderness to palpation present (GI) Other: incision unchanged, very scant drainage in perc drain Objective Data Vital Signs Vital Signs: Vital Signs - 24 hr 07/03/20 10:30 07/03/20 14:00 07/03/20 16:49 Temperature 36.6 C Pulse Rate 94 94 99 Respiratory Rate 18 18 Blood Pressure 122/58 L Pulse Oximetry 98 07/03/20 20:56 07/04/20 05:33 07/04/20 09:15 Temperature 36.2 C L 36.4 C L Pulse Rate 104 H 87 84 Respiratory Rate 18 18 Blood Pressure 132/66 120/55 L Pulse Oximetry 96 96 Intake/Output Intake/Output: Intake & Output 07/01/20 07/02/20 07/03/20 07/04/20 23:59 23:59 23:59 23:59 Intake Total 2990 3290 1140 680 Output Total 3050 2400 2014 Balance -60 890 -875 -20 Meds/Results Medications: Active Medications Generic Name Dose Route Start Last Admin Trade Name Freq PRN Reason Stop Dose Admin Acetaminophen 1,000 mg 06/30/20 18:42 06/30/20 19:04 Acetaminophen 500 Mg Tablet PO 1,000 mg Q6H PRN Administration Mild Pain (1-3) or Fever Hydrocodone Bitart/Acetaminophen 1 tab 06/26/20 07:46 07/02/20 12:35 Hydrocodone/Acetaminophen (*Crx) 5-325 Mg Tablet PO 1 tab Q6H PRN Administration Pain Rated 4-6 Hydrocodone Bitart/Acetaminophen 1 tab 06/26/20 07:46 07/04/20 09:22 Hydrocodone/Acetaminophen (*Crx) 7.5-325 Mg Tablet PO 1 tab Q6H PRN Administration Pain Rated 7-10 Albuterol 2 puff 06/19/20 08:16 07/03/20 10:30 Albuterol Sulfate (*Sp) Aerosol 1 Puff INHALATION 2 puff Q6HRT PRN Administration Shortness Of Breath Or Wheezing Alprazolam 0.25 mg 07/03/20 11:15 07/04/20 09:22 Alprazolam (*Crx) 0.25 Mg Tablet PO 0.25 mg TID PRN Administration Anxiety Amiodarone HCl 200 mg 06/26/20 12:05 07/04/20 09:15 Amiodarone Hcl 200 Mg Tablet PO 200 mg BID MATEO Administration Enoxaparin Sodium 40 mg 07/01/20 09:00 07/04/20 09:14 Enoxaparin 40 Mg/0.4 Ml Syringe SUB-Q 40 mg DAILY MATEO Administration Famotidine 20 mg 07/02/20 21:00 07/04/20 09:14 Famotidine 20 Mg Tablet PO 20 mg Q12HR MATEO Administration Glucagon 1 mg 06/27/20 12:43 Glucagon For Inj 1 Mg Vial IM PRN PRN Hypoglycemia Protocol Glucose 15 gm 06/27/20 12:43 Glucose Oral Gel 15 Gm Of Glucse In 37.5 Gm Tube PO PRN PRN Hypoglycemia Protocol Hydralazine HCl 10 mg 06/19/20 15:42 Hydralazine Hcl 20 Mg/Ml Vial IV PUSH Q8H PRN if SBP over 160 or DBP>100 Micafungin Sodium 100 mg/ 100 mls @ 100 mls/hr 06/24/20 13:05 07/04/20 09:06 Sodium Chloride IVPB 07/07/20 23:59 100 mls/hr DAILY MATEO Administration Morphine Sulfate 2 mg 06/19/20 07:23 06/19/20 18:10 Morphine Sulfate (*Crx) 2 Mg/Ml Inj IV PUSH 2 mg Q2H PRN Administration Pain Rated 4-6 Morphine Sulfate 4 mg 06/19/20 07:23 07/03/20 20:19 Morphine Sulfate (*Crx) 4 Mg/Ml Inj IV PUSH 4 mg Q2H PRN Administration Pain Rated 7-10 Naloxone HCl 0.1 mg 06/19/20 07:23 Naloxone Hcl 0.4 Mg/Ml Vial IV PUSH Q2M PRN Opiate Reversal Ni
[2020-07-04] MEDS: ALBUTEROL SULFATE (*SP) AEROSOL 1 PUFF 2 PUFF INHALATION (11:04)
--- NOTE | 2020-07-04 11:30 | PM.IMPN ---
Progress Note: A&P Assessment and Plan (1) Acute blood loss anemia: Code(s): D62 - Acute posthemorrhagic anemia Status: Acute Assessment and Plan: Acute blood loss anemia secondary to GI bleed secondary to perforated peptic ulcer, continue to monitor hb Hb is 7.9 today continue to watch (2) Elevated LFTs: Code(s): R79.89 - Other specified abnormal findings of blood chemistry Status: Resolved Assessment and Plan: Resolved (3) Fever: Qualifiers: Fever type: due to other condition Qualified Code(s): R50.81 - Fever presenting with conditions classified elsewhere Code(s): R50.9 - Fever, unspecified Status: Resolved Assessment and Plan: Probable peritonitis continue antifungals only Sp percutaneous drainage No fevers Pt is on antifungals only continue treatment ID rounding (4) Atrial flutter with rapid ventricular response: Code(s): I48.92 - Unspecified atrial flutter Status: Resolved Assessment and Plan: Status post digoxin IV metoprolol amiodarone drip no improvement patient had cardioversion by Cardiology on 06/23/2020 converted to sinus rhythm Continue PO amiodarone and lovenox (5) Schizophrenia: Qualifiers: Schizophrenia type: unspecified Qualified Code(s): F20.9 - Schizophrenia, unspecified Code(s): F20.9 - Schizophrenia, unspecified Status: Acute Assessment and Plan: Continue to watch mood. xanax prn anxiety. (6) HTN (hypertension): Qualifiers: Hypertension type: unspecified Qualified Code(s): I10 - Essential (primary) hypertension Code(s): I10 - Essential (primary) hypertension Status: Acute Assessment and Plan: Stable (7) Perforated duodenal ulcer with hemorrhage: Code(s): K26.6 - Chronic or unspecified duodenal ulcer with both hemorrhage and perforation Status: Acute Assessment and Plan: Sp Hemigastrectomy with Yamilka-en-Y gastrojejunostomy for perforated DU. 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 sp upper GI AND US of abdomen 06/25 ct unremarkable 06/28 8.5 x 7.1 x 7.9 cm fluid collection -Consider CT-guided percutaneous drainage. 06/30 interval extension of the abscess or possible hematoma along the medial aspect of the gallbladder and prominently along the lower hepatic region, measuring up to 7.5 x 12 cm in the medial lower right hepatic area.Sp drain Peritonitis continue to monitor wcc, ID rounding. Plts trending 1135 infection related or secondary to bleed wcc stable at 12 trending down, Continue antifungals. Surgery and ID rounding (8) Acute hypokalemia: Code(s): E87.6 - Hypokalemia Status: Resolved Assessment and Plan: Potassium is 4 Subjective Date/time seen: 07/04/20 11:30 Interval history: 54 year old male admitted yesterday night with vague complaints of abdominal and back pains. Pt had to have emergency surgery for perforated DU. Pt is sp Hemigastrectomy with Yamilka-en-Y gastrojejunostomy for perforated DU. Post op day 14. Pt is sp percutaneous drain placement for drainage of his abscess. Pt doing better tolerating diet walking to the restroom and back resting. Some abdominal pains. Review of Systems Review of Systems: All systems reviewed & are unremarkable except as noted in HPI and below Exam Narrative: Exam Narrative: Generally: Tired man NECK: No JVD CHEST: Clear to auscultation. Normal effort. HEART: NL S1/S2, regular, no murmur ABDOMEN: BS+, soft, midline incision with willy, percutaneous drain in situ with little drainage. EXTREMITIES: No cyanosis, edema NEUROLOGIC: CN intact and symmetric to inspection. MUSCULOSKELETAL: Tone and strength symmetric. PSYCH: Alert. Oriented to person, place, and time. Objective Data Vital Signs Vital Signs: Vital Signs - 24 hr 07/03/20 14:00 07/03/20 16:49 07/03/20 20:56 Temperature 36.6 C 36.2 C L Pulse Rate 94 99 104 H
[2020-07-04 14:00] VITALS: BP 124/59; PULSE 101; RESP 20; TEMP 36.6; O2SAT 96
[2020-07-04 16:54] VITALS: PULSE 88
[2020-07-04 20:23] VITALS: BP 115/59; PULSE 78; RESP 16; TEMP 36.8; O2SAT 98
[2020-07-05] MEDS: ALPRAZolam (*CRX) 0.25 MG TABLET PO ×3 (04:02→20:09)
[2020-07-05 05:16] LABS: Hematocrit 25.4 % (42.0-52.0); Hemoglobin 7.7 g/dL (14.0-18.0); Mean Corpuscular HGB Conc 30.3 g/dl (32-36); Mean Corpuscular Hemoglobin 26.6 pg (26-34); Mean Corpuscular Volume 87.6 fl (80-100); Mean Platelet Volume 8.6 fl (7.4-10.4); Platelet Count Result 1022 k/mm3 (150-375); Red Cell Distribution Width 16.4 % (11.5-14.5); White Blood Count 11.7 K/mm3 (4.5-10.0)
[2020-07-05 05:17] LABS: Anion Gap 1 mmol/L (8-16); Blood Urea Nitrogen 12 mg/dL (9-20); Calcium 8.6 mg/dL (8.4-10.2); Carbon Dioxide 30 mmol/L (22-30); Chloride 104 mmol/L (98-107); Estimated CRCL calculation 133 ml/min; Estimated Glomerular Filt Rate > 60; Glucose 103 mg/dL (75-110); Potassium 3.7 mmol/L (3.4-5.0); Sodium 135 mmol/L (137-145)
[2020-07-05 05:20] VITALS: BP 118/59; PULSE 85; RESP 16; TEMP 36.6; O2SAT 94
[2020-07-05] MEDS: HYDROcodone/acetaminophen (*CRX) 7.5-325 MG TABLET 1 TAB PO ×3 (07:21→23:55)
--- NOTE | 2020-07-05 08:19 | PM.PNGS ---
Progress Note: A&P Assessment and Plan (1) Abdominal abscess: Status: Acute Assessment and Plan: right upper quadrant fungal abscess appears to be well drained. On day 12 of 14 of micafungin. Plan to stop this on July 07. Will probably D.C. right upper quadrant drain tomorrow. Very little coming out of it last [address] Waller. (2) Perforated duodenal ulcer with hemorrhage: Code(s): K26.6 - Chronic or unspecified duodenal ulcer with both hemorrhage and perforation Status: Acute Assessment and Plan: Eating solid food. Wound healing well. Will not need to go home on Pepcid as he has had the acid forming portion of his stomach removed and is unlikely to have any further ulcers. (3) Thrombocytosis: Code(s): D47.3 - Essential (hemorrhagic) thrombocythemia Status: Acute Assessment and Plan: platelet count has been on the rise since 06/25/2020. Has been over 1 million since 07/01/2020. Monitoring. (4) Liver hemorrhage: Code(s): K76.89 - Other specified diseases of liver Status: Acute Assessment and Plan: Stable after discontinuation of anticoagulants. Probably associated with placement of pigtail catheter for drainage of right upper quadrant abscess. (5) Anemia: Qualifiers: Anemia type: iron deficiency Iron deficiency anemia type: unspecified iron deficiency Qualified Code(s): D50.9 - Iron deficiency anemia, unspecified Code(s): D64.9 - Anemia, unspecified Status: Acute Assessment and Plan: Remains anemic. No sign of persistent or recurrent bleeding. (6) Leukocytosis: Qualifiers: Leukocytosis type: unspecified Qualified Code(s): D72.829 - Elevated white blood cell count, unspecified Code(s): D72.829 - Elevated white blood cell count, unspecified Status: Acute Assessment and Plan: Continues to improve. White blood cell count down to 11,700. Subjective Subjective Date/Time Seen: 07/05/20 08:19 Post Op day: #16 Patient reports: no new complaints, tolerating a regular diet, bowel movement and afebrile Interval history: Patient is 16 days status post hemigastrectomy with Yamilka-en-Y gastrojejunostomy. He is 6 days status post percutaneous drain of right upper quadrant fungal abscess. He has had 12 of 14 days of micro fungal an IV. No new complaints or problems. Tolerating regular diet. Reports he had a bowel movement yesterday. Still receiving silver gel dressing changes to open area of abdominal incision near umbilicus. White blood cell count down to 11,700. Review of Systems Review of Systems: All systems reviewed & are unremarkable except as noted in HPI and below Constitutional: Constitutional: Reports as per HPI, Denies body ache(s), Denies chills, Denies fever(s), Denies headache(s), Denies poor appetite and Reports weakness Cardiovascular: Cardiovascular: Denies chest pain and Denies dyspnea Respiratory: Respiratory: Denies cough and Denies dyspnea Gastrointestinal: Gastrointestinal: Reports as per HPI, Denies abdominal pain, Denies constipation, Denies dyspepsia, Denies heartburn, Denies nausea and Denies vomiting Exam Const: General: comfortable and no acute distress; No confusion Orientation/consciousness: patient oriented x3 and No confusion GI: Inspection: incision ( open area 100% granulating and pink, wound healing well.) and scaphoid GI Palp: Yes Soft to palpation, No Tenderness to palpation present (GI), No Guarding due to palpation present (GI) and No Rebound tenderness present Auscultation: normal bowel sounds Neuro: General: patient oriented x3, no focal motor deficits and No confusion Extrem: General: no calf tenderness and no edema Objective Data Vital Signs Vital Signs: Vital Signs - 24 hr 07/04/20 09:15 07/04/20 14:00 07/04/20 16:54 Temperature 36.6 C Pulse Rate 84 101 H 88 Respiratory Rate 18 20 Blood Pressure 124
[2020-07-05] MEDS: ENOXAPARIN 40 MG/0.4 ML SYRINGE SUB-Q (09:58)
[2020-07-05 09:59] VITALS: PULSE 84
[2020-07-05] MEDS: MICAFUNGIN SODIUM 100 MG in SODIUM CHLORIDE 0.9% IV 100 ML IVPB (09:59)
[2020-07-05] MEDS: FAMOTIDINE 20 MG TABLET PO ×2 (09:59→20:10)
[2020-07-05] MEDS: AMIODARONE HCL 200 MG TABLET PO ×2 (09:59→16:56)
[2020-07-05 10:00] VITALS: RESP 16; O2SAT 94
[2020-07-05] MEDS: SILVERGEL (ELTA) 45 ML 1 APPLIC TOPICAL (10:00)
--- NOTE | 2020-07-05 11:21 | PCNFU ---
Nutrition Follow-Up Complete: Inadequate oral intake related to abdominal surgery/ileus as evidenced by NPO x 5 days. Goal: Patient to meet estimated nutritional needs. Progressing towards goal. We will continue current goal. Pt current nutrition is Regular with Ensure compact BID. Last recorded weight is 84.5 kg, down from 95.9 kg on admit Bowel Motility:+BM reported 07/01 Labs Reviewed:Hgb 7.7,Hgb 25.4, Na 135,Cr 0.6 Meds Noted:Pepcid,Morphine Sulfate,Xanax,Lovenox,Steward. Additional Notes: Nutrition follow up. Patient advanced to a regular diet, eating 50-75% of meals. Feeds self. Spoke with nursing, right upper quadrant drain will be removed tomorrow. Agree with diet orders. Monitoring: Follow up in 5 days.
--- NOTE | 2020-07-05 12:44 | PM.IMPN ---
Progress Note: A&P Assessment and Plan (1) Acute blood loss anemia: Code(s): D62 - Acute posthemorrhagic anemia Status: Acute Assessment and Plan: Acute blood loss anemia secondary to GI bleed secondary to perforated peptic ulcer, continue to monitor hb Hb is 7.7 today continue to watch (2) Elevated LFTs: Code(s): R79.89 - Other specified abnormal findings of blood chemistry Status: Resolved Assessment and Plan: Resolved (3) Fever: Qualifiers: Fever type: due to other condition Qualified Code(s): R50.81 - Fever presenting with conditions classified elsewhere Code(s): R50.9 - Fever, unspecified Status: Resolved Assessment and Plan: Probable peritonitis continue antifungals only Sp percutaneous drainage will be removed tomorrow Pt is on antifungals will be stopped soon, then patient can be discharged. (4) Atrial flutter with rapid ventricular response: Code(s): I48.92 - Unspecified atrial flutter Status: Resolved Assessment and Plan: Status post digoxin IV metoprolol amiodarone drip no improvement patient had cardioversion by Cardiology on 06/23/2020 converted to sinus rhythm Continue PO amiodarone and lovenox (5) Schizophrenia: Qualifiers: Schizophrenia type: unspecified Qualified Code(s): F20.9 - Schizophrenia, unspecified Code(s): F20.9 - Schizophrenia, unspecified Status: Acute Assessment and Plan: Continue to watch mood. xanax prn anxiety. (6) HTN (hypertension): Qualifiers: Hypertension type: unspecified Qualified Code(s): I10 - Essential (primary) hypertension Code(s): I10 - Essential (primary) hypertension Status: Acute Assessment and Plan: Stable (7) Perforated duodenal ulcer with hemorrhage: Code(s): K26.6 - Chronic or unspecified duodenal ulcer with both hemorrhage and perforation Status: Acute Assessment and Plan: Sp Hemigastrectomy with Yamilka-en-Y gastrojejunostomy for perforated DU. 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 sp upper GI AND US of abdomen 06/25 ct unremarkable 06/28 8.5 x 7.1 x 7.9 cm fluid collection -Consider CT-guided percutaneous drainage. 06/30 interval extension of the abscess or possible hematoma along the medial aspect of the gallbladder and prominently along the lower hepatic region, measuring up to 7.5 x 12 cm in the medial lower right hepatic area.Sp drain Peritonitis continue to monitor wcc, ID rounding. Plts trending 1o22 infection related or secondary to bleed wcc stable at 11 trending down, Continue antifungals for now. Surgery and ID rounding (8) Acute hypokalemia: Code(s): E87.6 - Hypokalemia Status: Resolved Assessment and Plan: Potassium is 3.7 Subjective Date/time seen: 07/05/20 12:44 Interval history: 54 year old male admitted yesterday night with vague complaints of abdominal and back pains. Pt had to have emergency surgery for perforated DU. Pt is sp Hemigastrectomy with Yamilka-en-Y gastrojejunostomy for perforated DU. Post op day 15. Pt is sp percutaneous drain placement for drainage of his abscess. Pt slowly recovering. Placement has been found for patient as he is homeless. Review of Systems Review of Systems: All systems reviewed & are unremarkable except as noted in HPI and below Exam Narrative: Exam Narrative: Generally: Tired man NECK: No JVD CHEST: Clear to auscultation. Normal effort. HEART: NL S1/S2, regular, no murmur ABDOMEN: BS+, soft, midline incision with willy, percutaneous drain in situ with little drainage. EXTREMITIES: No cyanosis, edema NEUROLOGIC: CN intact and symmetric to inspection. MUSCULOSKELETAL: Tone and strength symmetric. PSYCH: Alert. Oriented to person, place, and time. Objective Data Vital Signs Vital Signs: Vital Signs - 24 hr 07/04/20 14:00 07/04/20 16:54 07/04/20 20:23 Temperature 36.6 C 36.8 C Pul
[2020-07-05 14:00] VITALS: BP 114/59; PULSE 83; RESP 18; TEMP 37.2; O2SAT 97
[2020-07-05 16:56] VITALS: PULSE 84
--- NOTE | 2020-07-05 18:17 | PDONCCN ---
HPI - Date of Consult Date/Time: 07/05/20 18:17 Requesting Physician: Eladio Molina MD Primary Care Provider: FUR BLOWER OPERATOR PHYSICIAN - Consult Narrative Reason for consult: Thrombocytosis. Narrative: Junaid Jensen is a 54 year old male originally admitted on June 18, 2020 with abdominal pain for 2-3 days duration radiating to the back. Patient was also noticing some dark stool and found to have anemia with hemoglobin of 7.4. CT scan of abdomen and pelvis showed multiple foci of free intraperitoneal air. These findings were suggestive of perforated peptic ulcer disease. Patient had hemigastrectomy with gastrojejunostomy done on June 19, 2020. CT scan done on June 30, 2020 showed normal spleen but fluid collection measures 4.7 x 4.2 cm and interval extension of abscess or possible hematoma in the medial aspect of the gallbladder. On admission platelet platelet count was mildly elevated at 434,000 hundred thirty four thousand now has jumped up to 1,022,000. He denies any previous history of thrombocytosis. He also denies any previous history of blood clotting disorders. Review of Systems - Review of Systems All systems reviewed & are unremarkable except as noted in HPI and bel - Neurologic Reports system reviewed and no additional complaints, except as documented, Reports behavioral changes ( Patient slightly depressed, mildly aggressive and disagreeable.), Reports frequent falls, Reports weakness, Denies abnormal speech, Denies confusion, Denies headache(s), Denies sensory deficit PMF Medical History: Medical History (Last Reviewed 06/20/20 @ 09:38 by Eddi Mars MD) Anxiety Asthma Back injury Bronchitis Depression Epistaxis Herniated disc History of angina HLD (hyperlipidemia) HTN (hypertension) Kidney stone Pneumonia Pulmonary emboli Schizophrenia Suicide attempt Surgical History: Surgical History (Last Reviewed 06/20/20 @ 09:38 by Eddi Mars MD) Hx of appendectomy 1978 Hx of tonsillectomy Family History: Family History (Last Reviewed 06/20/20 @ 09:38 by Eddi Mars MD) Father , Unknown No problems noted. Mother , Unknown No problems noted. Other Family history of malignant neoplasm - Social History Social History: Social History (Last Reviewed 06/20/20 @ 09:38 by Eddi Mars MD) Gender Identity: Gender identity (if verbalized by the patient): Male Alcohol Use: Alcohol intake: current Substance Use: Substance use: never Substance use type: does not use Others: Spiritual care concerns: No Smoking Status: Smoking status: Former smoker Second hand tobacco smoke exposure: No Meds Home Medications Medication Instructions Recorded Confirmed Type albuterol sulfate 1 inh INHALATION QID PRN #6.7 g 11/27/19 06/19/20 Rx guaifenesin [Mucus-Chest 200 mg PO Q4H PRN #1000 ml 11/27/19 06/19/20 Rx Congestion] Allergies Allergy/AdvReac Type Severity Reaction Status Date / Time amoxicillin AdvReac Nausea and Verified 11/27/19 08:33 Vomiting Results - Labs CBC & Chem 7: 07/05/20 04:45 07/05/20 04:45 Labs: Short CBC 07/05/20 Range/Units 04:45 WBC 11.7 H (4.5-10.0) K/mm3 Hgb 7.7 L (14.0-18.0) g/dL Hct 25.4 L (42.0-52.0) % Plt Count 1022 H (150-375) k/mm3 [facility] 07/05/20 04:45 Sodium 135 L Potassium 3.7 Chloride 104 Carbon Dioxide 30 BUN 12 Creatinine 0.60 L Glucose 103 Calcium 8.6 Assessment and Plan - Additional Plan Thrombocytosis. This is likely reactive secondary to recent perforated a peptic ulcer disease surgery and subsequent development of hematoma/abscess. Patient platelet count was near normal on admission at 4 and 34,000 which has now crossed million marked. CT scan done on June 30 showed normal spleen but interval extension of abscess or possible hematoma along the medial aspect of the gallblad
[2020-07-05 19:56] LABS: CRP 7.9 mg/dL (<1.0)
[2020-07-05 20:04] LABS: Erythrocyte Sedimentation Rate 93 mm/hr (0-20)
[2020-07-05 20:22] LABS: Iron 34 ug/dL (49-181)
[2020-07-05 20:26] LABS: Percent Iron Saturation 14 % (20-50)
[2020-07-05 20:48] VITALS: BP 124/66; PULSE 95; RESP 16; TEMP 36.9; O2SAT 98
[2020-07-06 05:15] LABS: Hematocrit 25.6 % (42.0-52.0); Mean Corpuscular HGB Conc 31.3 g/dl (32-36); Mean Corpuscular Hemoglobin 26.5 pg (26-34); Mean Corpuscular Volume 84.8 fl (80-100); Mean Platelet Volume 8.6 fl (7.4-10.4); Platelet Count Result 956 k/mm3 (150-375); Red Blood Count 3.02 M/mm3 (4.6-6.20); Red Cell Distribution Width 16.1 % (11.5-14.5); White Blood Count 12.7 K/mm3 (4.5-10.0)
[2020-07-06 05:28] LABS: Anion Gap 7 mmol/L (8-16); Blood Urea Nitrogen 11 mg/dL (9-20); Carbon Dioxide 26 mmol/L (22-30); Chloride 104 mmol/L (98-107); Estimated CRCL calculation 133 ml/min; Estimated Glomerular Filt Rate > 60; Glucose 107 mg/dL (75-110); Potassium 3.9 mmol/L (3.4-5.0); Sodium 137 mmol/L (137-145)
[2020-07-06 05:43] VITALS: BP 113/57; PULSE 81; RESP 16; TEMP 36.6; O2SAT 97
[2020-07-06] MEDS: ALPRAZolam (*CRX) 0.25 MG TABLET PO ×2 (06:26→17:49)
[2020-07-06] MEDS: MICAFUNGIN SODIUM 100 MG in SODIUM CHLORIDE 0.9% IV 100 ML IVPB (08:53)
[2020-07-06] MEDS: HYDROcodone/acetaminophen (*CRX) 7.5-325 MG TABLET 1 TAB PO ×3 (08:54→21:04)
[2020-07-06] MEDS: AMIODARONE HCL 200 MG TABLET PO ×2 (08:55→17:49)
[2020-07-06] MEDS: FAMOTIDINE 20 MG TABLET PO ×2 (08:55→21:05)
[2020-07-06] MEDS: ENOXAPARIN 40 MG/0.4 ML SYRINGE SUB-Q (08:57)
[2020-07-06] MEDS: SILVERGEL (ELTA) 45 ML 1 APPLIC TOPICAL (11:03)
--- NOTE | 2020-07-06 12:10 | PM.PNGS ---
Progress Note: A&P Assessment and Plan (1) Abdominal abscess: Status: Acute Assessment and Plan: RUQ percutaneous drain still with small amount of output. Will plan to continue the drain when discharged, and plan to have him follow up with Dr. Molina in the office in 1 week. Continue Micafungin (on day 13 of 14). Plan to stop this on 07/07/20. In regards to discharge planning, I discussed with the managed care specialist today that the patient will be discharged with his percutaneous pigtail catheter and also will be discharged with prophylactic Lovenox subq as mentioned below. Hopefully, if he continues to improve, he will be stable for discharge to a SNF in the next few days. (2) Perforated duodenal ulcer with hemorrhage: Code(s): K26.6 - Chronic or unspecified duodenal ulcer with both hemorrhage and perforation Status: Acute Assessment and Plan: Continues to tolerate a regular diet and bowels are moving. Continue wound care to the open wound at the midline incision, this is healing well. Will not need to continue pepcid on discharge. (3) Thrombocytosis: Code(s): D47.3 - Essential (hemorrhagic) thrombocythemia Status: Acute Assessment and Plan: Platelets have continued to rise since 06/25/20, peaking at over 1 million. This is likely reactive to his infection. Oncology was consulted and appreciate their recommendations. We will plan on continuing the prophylactic-dosed Lovenox 40 mg subq daily for at least 2 weeks after discharge, possibly up to one month, depending on how he is progressing. (4) Liver hemorrhage: Code(s): K76.89 - Other specified diseases of liver Status: Acute Assessment and Plan: Stable after discontinuation of anticoagulants. Probably associated with placement of pigtail catheter for drainage of right upper quadrant abscess. (5) Anemia: Qualifiers: Anemia type: iron deficiency Iron deficiency anemia type: unspecified iron deficiency Qualified Code(s): D50.9 - Iron deficiency anemia, unspecified Code(s): D64.9 - Anemia, unspecified Status: Acute Assessment and Plan: Remains anemic, but stable. No sign of persistent or recurrent bleeding. (6) Leukocytosis: Qualifiers: Leukocytosis type: unspecified Qualified Code(s): D72.829 - Elevated white blood cell count, unspecified Code(s): D72.829 - Elevated white blood cell count, unspecified Status: Acute Assessment and Plan: Continues to have an overall downward trend over the past week. At 12,700 today. Continue to monitor. Additional Plan I have discussed the plan of care with Dr. Molina. Subjective Subjective Date/Time Seen: 07/06/20 12:10 Patient reports: no new complaints, tolerating a regular diet, flatus, bowel movement (yesterday) and afebrile Interval history: Patient seen today with no specific complaints. He denies any abdominal pain, nausea, vomiting, or bloating. He is tolerating a regular diet without issues. Had a BM yesterday reportedly. Percutaneous drain had 10 cc output overnight. Review of Systems Review of Systems: All systems reviewed & are unremarkable except as noted in HPI and below Constitutional: Constitutional: Denies body ache(s), Denies chills, Denies fever(s) and Denies poor appetite Cardiovascular: Cardiovascular: Denies chest pain Respiratory: Respiratory: Denies cough and Denies dyspnea Gastrointestinal: Gastrointestinal: Reports as per HPI, Reports no additional gastrointestinal complaints, Denies abdominal pain and Denies nausea Neurologic: Denies headache(s) Exam Const: General: comfortable; No acute distress Orientation/consciousness: patient oriented x3 Resp: Auscultation: clear to auscultation bilaterally Cardio: Rate: regular rate Rhythm: regular rhythm GI: Auscultation: normal bowel sounds Other: Midline incision healing well, open wound at base of the incision with 100% granulating
--- NOTE | 2020-07-06 12:17 | PM.IMPN ---
Progress Note: A&P Assessment and Plan (1) Acute blood loss anemia: Code(s): D62 - Acute posthemorrhagic anemia Status: Acute Assessment and Plan: Acute blood loss anemia secondary to GI bleed secondary to perforated peptic ulcer, continue to monitor hb Hb is 8.0 today continue to watch 07/06/20 12:17 Patient is 54 presented emergency department with complaint abdominal and was found to perforated duodenal ulcer, now patient is 16 days status post hemigastrectomy with Yamilka-en-Y gastrojejunostomy. Later patient developed right upper quadrant fungal abscess that was drained and being treated with Micafunigan 100mg IV qd, today patient completed 13 days of total of 14 days and tomorrow patient will complete the treatment and surgeries recommending to continue pigtail catheter and may discharge with it, also to contiue lovenox upon discharge to SNF, patient also has thrombocytosis and patient was seen by Hematology suspect secondary to iron deficiency anemia, patient's iron profile showed profound iron deficiency we have started the patient on Venofer 300 mg q.day for 3 days will continue to monitor, patient remains clinically stable denies any abdominal pain nausea or vomiting diarrhea his able to tolerate solid food will continue to monitor will have a PT OT evaluate the patient and further recommendation to follow. (2) Elevated LFTs: Code(s): R79.89 - Other specified abnormal findings of blood chemistry Status: Resolved Assessment and Plan: Resolved (3) Fever: Qualifiers: Fever type: due to other condition Qualified Code(s): R50.81 - Fever presenting with conditions classified elsewhere Code(s): R50.9 - Fever, unspecified Status: Resolved Assessment and Plan: Probable peritonitis continue antifungals only Sp percutaneous drainage will be removed tomorrow Pt is on antifungals will be stopped soon, then patient can be discharged. (4) Atrial flutter with rapid ventricular response: Code(s): I48.92 - Unspecified atrial flutter Status: Resolved Assessment and Plan: Status post digoxin IV metoprolol amiodarone drip no improvement patient had cardioversion by Cardiology on 06/23/2020 converted to sinus rhythm Continue PO amiodarone and lovenox (5) Schizophrenia: Qualifiers: Schizophrenia type: unspecified Qualified Code(s): F20.9 - Schizophrenia, unspecified Code(s): F20.9 - Schizophrenia, unspecified Status: Acute Assessment and Plan: Continue to watch mood. xanax prn anxiety. (6) HTN (hypertension): Qualifiers: Hypertension type: unspecified Qualified Code(s): I10 - Essential (primary) hypertension Code(s): I10 - Essential (primary) hypertension Status: Acute Assessment and Plan: Stable (7) Perforated duodenal ulcer with hemorrhage: Code(s): K26.6 - Chronic or unspecified duodenal ulcer with both hemorrhage and perforation Status: Acute Assessment and Plan: Sp Hemigastrectomy with Yamilka-en-Y gastrojejunostomy for perforated DU. 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 sp upper GI AND US of abdomen 06/25 ct unremarkable 06/28 8.5 x 7.1 x 7.9 cm fluid collection -Consider CT-guided percutaneous drainage. 06/30 interval extension of the abscess or possible hematoma along the medial aspect of the gallbladder and prominently along the lower hepatic region, measuring up to 7.5 x 12 cm in the medial lower right hepatic area.Sp drain Peritonitis continue to monitor wcc, ID rounding. Plts trending 1o22 infection related or secondary to bleed wcc stable at 11 trending down, Continue antifungals for now. Surgery and ID rounding (8) Acute hypokalemia: Code(s): E87.6 - Hypokalemia Status: Resolved Assessment and Plan: Potassium is 3.7 Subjective Date/time seen: 07/06/20 12:17 Patient is 54 presented emergency department with comp
[2020-07-06 14:00] VITALS: BP 118/61; PULSE 80; RESP 16; TEMP 36.8; O2SAT 98
[2020-07-06 17:49] VITALS: PULSE 81
[2020-07-06 20:35] VITALS: BP 125/63; PULSE 84; RESP 20; TEMP 37.1; O2SAT 98
[2020-07-07] MEDS: ALPRAZolam (*CRX) 0.25 MG TABLET PO (03:17)
[2020-07-07] MEDS: HYDROcodone/acetaminophen (*CRX) 7.5-325 MG TABLET 1 TAB PO ×2 (03:20→10:40)
[2020-07-07 05:09] VITALS: BP 114/60; PULSE 76; RESP 18; TEMP 36.3; O2SAT 98
[2020-07-07 05:38] LABS: Basophils Absolute Auto 0.1 K/mm3 (0.0-0.1); Basophils Percent Auto 0.8 % (0.2-1.2); Eosinophils Absolute Auto 0.2 K/mm3 (0-0.3); Eosinophils Percent Auto 2.3 % (0-4.4); Hematocrit 27.4 % (42.0-52.0); Hemoglobin 8.5 g/dL (14.0-18.0); Immature Granulocyte Absolute 0.25 K/mm3 (0.00-0.031); Immature Granulocyte Percent A 2.4 % (0-0.5); Lymphocytes Absolute Auto 2.02 K/mm3 (0.9-3.2); Lymphocytes Percent Auto 19.7 % (18.3-44.2); Mean Corpuscular Hemoglobin 26.6 pg (26-34); Mean Corpuscular Volume 85.6 fl (80-100); Mean Platelet Volume 8.7 fl (7.4-10.4); Monocytes Absolute Auto 0.7 K/mm3 (0.1-0.6); Monocytes Percent Auto 7.1 % (2.6-8.5); Neutrophils Percent Auto 67.7 % (45.5-73.1); Platelet Count Result 835 k/mm3 (150-375); White Blood Count 10.3 K/mm3 (4.5-10.0)
[2020-07-07 05:42] LABS: Anion Gap 4 mmol/L (8-16); Blood Urea Nitrogen 10 mg/dL (9-20); Carbon Dioxide 29 mmol/L (22-30); Chloride 106 mmol/L (98-107); Estimated CRCL calculation 133 ml/min; Estimated Glomerular Filt Rate > 60; Glucose 98 mg/dL (75-110); Sodium 139 mmol/L (137-145)
[2020-07-07 09:07] VITALS: PULSE 86
[2020-07-07] MEDS: MICAFUNGIN SODIUM 100 MG in SODIUM CHLORIDE 0.9% IV 100 ML IVPB (09:07)
[2020-07-07] MEDS: AMIODARONE HCL 200 MG TABLET PO ×2 (09:07→17:03)
[2020-07-07] MEDS: ENOXAPARIN 40 MG/0.4 ML SYRINGE SUB-Q (09:08)
[2020-07-07] MEDS: FAMOTIDINE 20 MG TABLET PO ×2 (09:08→20:44)
[2020-07-07] MEDS: SILVERGEL (ELTA) 45 ML 1 APPLIC TOPICAL (09:09)
--- NOTE | 2020-07-07 12:41 | PM.IMPN ---
Progress Note: A&P Assessment and Plan (1) Acute blood loss anemia: Code(s): D62 - Acute posthemorrhagic anemia Status: Acute Assessment and Plan: Acute blood loss anemia secondary to GI bleed secondary to perforated peptic ulcer, continue to monitor hb Hb is 8.0 today continue to watch 07/07/20 12:41 Patient is 54 presented emergency department with complaint abdominal and was found to perforated duodenal ulcer, now patient is 16 days status post hemigastrectomy with Yamilka-en-Y gastrojejunostomy. Later patient developed right upper quadrant fungal abscess that was drained and being treated with Micafunigan 100mg IV qd, today patient completed 13 days of total of 14 days and tomorrow patient will complete the treatment and surgeries recommending to continue pigtail catheter and may discharge with it, also to bc sniderx upon discharge to [facility], patient also has thrombocytosis and patient was seen by Hematology suspect secondary to iron deficiency anemia, patient's iron profile showed profound iron deficiency we have started the patient on Venofer 300 mg q.day for 3 days will continue to monitor, patient remains clinically stable denies any abdominal pain nausea or vomiting diarrhea his able to tolerate solid food will continue to monitor will have a PT OT evaluate the patient and further recommendation to follow. 07/07 today patient will complete 14 days course Micafunigan, will give one more dose Venofer 300mg x1 for iron defiency which has resulted in thrombocytosis, patient is clinically stable, awaiting placement to [place], if remains in the hospital, will give one more dose of Venofer tomorrow. will have PT/OT work with patient. (2) Elevated LFTs: Code(s): R79.89 - Other specified abnormal findings of blood chemistry Status: Resolved Assessment and Plan: Resolved (3) Fever: Qualifiers: Fever type: due to other condition Qualified Code(s): R50.81 - Fever presenting with conditions classified elsewhere Code(s): R50.9 - Fever, unspecified Status: Resolved Assessment and Plan: Probable peritonitis continue antifungals only Sp percutaneous drainage will be removed tomorrow Pt is on antifungals will be stopped soon, then patient can be discharged. (4) Atrial flutter with rapid ventricular response: Code(s): I48.92 - Unspecified atrial flutter Status: Resolved Assessment and Plan: Status post digoxin IV metoprolol amiodarone drip no improvement patient had cardioversion by Cardiology on 06/23/2020 converted to sinus rhythm Continue PO amiodarone and lovenox (5) Schizophrenia: Qualifiers: Schizophrenia type: unspecified Qualified Code(s): F20.9 - Schizophrenia, unspecified Code(s): F20.9 - Schizophrenia, unspecified Status: Acute Assessment and Plan: Continue to watch mood. xanax prn anxiety. (6) HTN (hypertension): Qualifiers: Hypertension type: unspecified Qualified Code(s): I10 - Essential (primary) hypertension Code(s): I10 - Essential (primary) hypertension Status: Acute Assessment and Plan: Stable (7) Perforated duodenal ulcer with hemorrhage: Code(s): K26.6 - Chronic or unspecified duodenal ulcer with both hemorrhage and perforation Status: Acute Assessment and Plan: Sp Hemigastrectomy with Yamilka-en-Y gastrojejunostomy for perforated DU. Sp,paper bag inspector pump, iv zosyn and iv zofran and protonix. sp upper GI AND US of abdomen 06/25 ct unremarkable 06/28 8.5 x 7.1 x 7.9 cm fluid collection -Consider CT-guided percutaneous drainage. 06/30 interval extension of the abscess or possible hematoma along the medial aspect of the gallbladder and prominently along the lower hepatic region, measuring up to 7.5 x 12 cm in the medial lower right hepatic area.Sp drain Peritonitis continue to monitor wcc, ID rounding. Plts trending 1o22 infection related or secondary to bl
[2020-07-07 12:46] LABS: SARS-CoV-2 RNA PCR Negative
[2020-07-07 14:00] VITALS: BP 115/58; PULSE 82; RESP 18; TEMP 36.9; O2SAT 97
--- NOTE | 2020-07-07 14:23 | PM.PNGS ---
Progress Note: A&P Assessment and Plan (1) Abdominal abscess: Status: Acute Assessment and Plan: RUQ percutaneous drain still with small amount of output. Continue to monitor percutaneous drain today. Will stop Micafungin (finished #14 days). project development coordinator working on placement for the patient to a SNF that will accept the percutaneous drain. If able to find placement and he continues to do well, patient could be discharged as soon as tomorrow. (2) Perforated duodenal ulcer with hemorrhage: Code(s): K26.6 - Chronic or unspecified duodenal ulcer with both hemorrhage and perforation Status: Acute Assessment and Plan: Continues to tolerate a regular diet and bowels are moving. Continue wound care to the open wound at the midline incision, this is healing well. Will not need to continue pepcid on discharge. (3) Thrombocytosis: Code(s): D47.3 - Essential (hemorrhagic) thrombocythemia Status: Acute Assessment and Plan: Platelets now coming down to 800,000. This is likely reactive to his infection. Appreciate Hem/Onc recommendations. We will plan on continuing the prophylactic-dosed Lovenox 40 mg subq daily for at least 2 weeks after discharge, possibly up to one month, depending on how he is progressing. (4) Liver hemorrhage: Code(s): K76.89 - Other specified diseases of liver Status: Acute Assessment and Plan: Stable after discontinuation of anticoagulants. Probably associated with placement of pigtail catheter for drainage of right upper quadrant abscess. (5) Anemia: Qualifiers: Anemia type: iron deficiency Iron deficiency anemia type: unspecified iron deficiency Qualified Code(s): D50.9 - Iron deficiency anemia, unspecified Code(s): D64.9 - Anemia, unspecified Status: Acute Assessment and Plan: Remains anemic, but stable. No sign of persistent or recurrent bleeding. Receiving iron infusion per Hospitalist. (6) Leukocytosis: Qualifiers: Leukocytosis type: unspecified Qualified Code(s): D72.829 - Elevated white blood cell count, unspecified Code(s): D72.829 - Elevated white blood cell count, unspecified Status: Acute Assessment and Plan: Continues to have an overall downward trend over the past week. At 10,300 today. Additional Plan I have discussed the plan of care with Dr. Molina. Subjective Subjective Date/Time Seen: 07/07/20 10:24 Post Op day: 18 (hemigastrectomy with Yamilka-en-Y gastrojejunostomy) Patient reports: no new complaints, tolerating a regular diet and flatus Interval history: The patient reports still having some abdominal pain near the perc drain. No nausea, vomiting, or bloating. Reports a BM yesterday, but not yet today. No other specific complaints. Walked the halls yesterday. Review of Systems Gastrointestinal: Gastrointestinal: Reports as per HPI and Reports no additional gastrointestinal complaints Exam Const: General: comfortable; No acute distress Orientation/consciousness: patient oriented x3 Resp: Effort & Inspection: normal respiratory effort Auscultation: clear to auscultation bilaterally Cardio: Rate: regular rate Rhythm: regular rhythm GI: Inspection: non-distended GI Palp: Yes Soft to palpation, Yes Tenderness to palpation present (GI) (mostly near the perc drain in RUQ), No Guarding due to palpation present (GI) and No Rebound tenderness present Auscultation: normal bowel sounds Other: Midline incision healing well, open wound at base of the incision with 100% granulating tissue. Surrounding skin appears healthy. RUQ perc drain with minimal dark brown output. Neuro: General: moves all extremities and no focal motor deficits Extrem: General: no calf tenderness and no edema Psych: Insight: Fair insight present (Psych) Judgement: Fair judgement present (Psych) Objective Data Vital Signs Vital Signs: Vital Signs - 24 hr 07/06/20 17:49 07/06/20
--- NOTE | 2020-07-07 15:46 | PCPTNOTE ---
Attempted PT eval. Pt refused, states he's too tired and was up earlier today. Explained purpose of therapy and he still refused. Wipp try again tomorrow.
[2020-07-07] MEDS: HYDROcodone/acetaminophen (*CRX) 5-325 MG TABLET 1 TAB PO (17:02)
[2020-07-07 17:03] VITALS: PULSE 76
[2020-07-07 20:46] VITALS: BP 139/64; PULSE 76; RESP 18; TEMP 36.6; O2SAT 95
[2020-07-08] MEDS: HYDROcodone/acetaminophen (*CRX) 5-325 MG TABLET 1 TAB PO ×3 (00:08→15:11)
[2020-07-08 04:55] VITALS: BP 113/60; PULSE 86; RESP 20; TEMP 36.6; O2SAT 97
[2020-07-08 06:20] LABS: Basophils Absolute Auto 0.1 K/mm3 (0.0-0.1); Basophils Percent Auto 0.7 % (0.2-1.2); Eosinophils Absolute Auto 0.3 K/mm3 (0-0.3); Eosinophils Percent Auto 3.2 % (0-4.4); Hematocrit 27.7 % (42.0-52.0); Hemoglobin 8.4 g/dL (14.0-18.0); Immature Granulocyte Absolute 0.22 K/mm3 (0.00-0.031); Immature Granulocyte Percent A 2.2 % (0-0.5); Lymphocytes Absolute Auto 2.05 K/mm3 (0.9-3.2); Lymphocytes Percent Auto 20.6 % (18.3-44.2); Mean Corpuscular HGB Conc 30.3 g/dl (32-36); Mean Corpuscular Hemoglobin 26.3 pg (26-34); Mean Corpuscular Volume 86.6 fl (80-100); Mean Platelet Volume 8.6 fl (7.4-10.4); Monocytes Absolute Auto 0.7 K/mm3 (0.1-0.6); Neutrophils Absolute Auto 6.6 K/mm3 (1.3-6.7); Neutrophils Percent Auto 66.3 % (45.5-73.1); Platelet Count Result 784 k/mm3 (150-375); Red Cell Distribution Width 16.4 % (11.5-14.5)
[2020-07-08 06:30] LABS: Anion Gap 5 mmol/L (8-16); Blood Urea Nitrogen 12 mg/dL (9-20); Calcium 9.1 mg/dL (8.4-10.2); Carbon Dioxide 29 mmol/L (22-30); Chloride 107 mmol/L (98-107); Estimated CRCL calculation 133 ml/min; Estimated Glomerular Filt Rate > 60; Glucose 95 mg/dL (75-110); Potassium 3.9 mmol/L (3.4-5.0); Sodium 141 mmol/L (137-145)
[2020-07-08] MEDS: AMIODARONE HCL 200 MG TABLET PO (08:25)
[2020-07-08] MEDS: FAMOTIDINE 20 MG TABLET PO (08:25)
[2020-07-08] MEDS: SILVERGEL (ELTA) 45 ML 1 APPLIC TOPICAL (08:26)
[2020-07-08] MEDS: ENOXAPARIN 40 MG/0.4 ML SYRINGE SUB-Q (08:26)
--- NOTE | 2020-07-08 10:38 | PM.PNGS ---
Progress Note: A&P Assessment and Plan (1) Abdominal abscess: Status: Acute Assessment and Plan: Okay from a surgical standpoint to discharge the patient today pending discharge planning/acceptance to SNF. Patient was accepted at a SNF in [place], which he decided to refuse this facility this morning. The insurance healthcare representative is working on placement in [place] today. We will discharge patient with RUQ percutaneous drain. Will plan follow-up with Dr. Molina in 1 week. Continue daily dressing changes to open abdominal wound with silver gel, gauze and tape. (2) Perforated duodenal ulcer with hemorrhage: Code(s): K26.6 - Chronic or unspecified duodenal ulcer with both hemorrhage and perforation Status: Acute Assessment and Plan: May discharge on regular diet. Will stop Pepcid on discharge. (3) Thrombocytosis: Code(s): D47.3 - Essential (hemorrhagic) thrombocythemia Status: Acute Assessment and Plan: Platelets now trending down daily, at 784,000 today. Will plan to repeat a CBC in 5-6 days. Continue prophylactic-dosed Lovenox 40 mg subq daily for at least 2 weeks after discharge, possibly up to one month, depending on how he is progressing. (4) Liver hemorrhage: Code(s): K76.89 - Other specified diseases of liver Status: Acute Assessment and Plan: Stable after discontinuation of anticoagulants. Probably associated with placement of pigtail catheter for drainage of right upper quadrant abscess. (5) Anemia: Qualifiers: Anemia type: iron deficiency Iron deficiency anemia type: unspecified iron deficiency Qualified Code(s): D50.9 - Iron deficiency anemia, unspecified Code(s): D64.9 - Anemia, unspecified Status: Acute Assessment and Plan: Remains stable. No signs of ongoing bleeding. Receiving IV Venofer by Hospitalist again today. Repeat CBC in 5-6 days. (6) Leukocytosis: Qualifiers: Leukocytosis type: unspecified Qualified Code(s): D72.829 - Elevated white blood cell count, unspecified Code(s): D72.829 - Elevated white blood cell count, unspecified Status: Acute Assessment and Plan: Resolved. Micafungin stopped yesterday. Additional Plan I have discussed the plan of care with Dr. Molina. Subjective Subjective Date/Time Seen: 07/08/20 10:38 Post Op day: 19 Patient reports: no new complaints and afebrile Interval history: Patient with no specific complaints. Tolerating a diet and bowels are moving. Review of Systems Review of Systems: All systems reviewed & are unremarkable except as noted in HPI and below Exam Const: General: comfortable; No acute distress Orientation/consciousness: patient oriented x3 GI: Inspection: non-distended GI Palp: Yes Soft to palpation, No Tenderness to palpation present (GI), No Guarding due to palpation present (GI) and No Rebound tenderness present Auscultation: normal bowel sounds Other: Midline incision healing well, open wound at base of the incision with 100% granulating tissue. Surrounding skin appears healthy. RUQ perc drain with minimal dark brown output. Neuro: General: moves all extremities and no focal motor deficits Extrem: General: no calf tenderness and no edema Psych: Mental Status: mental status grossly normal Insight: Fair insight present (Psych) Judgement: Fair judgement present (Psych) Objective Data Vital Signs Vital Signs: Vital Signs - 24 hr 07/07/20 14:00 07/07/20 17:03 07/07/20 20:46 Temperature 98.4 F 98 F Pulse Rate 82 76 76 Respiratory Rate 18 18 Blood Pressure 115/58 L 139/64 Pulse Oximetry 97 95 07/08/20 04:55 Temperature 97.9 F Pulse Rate 86 Respiratory Rate 20 Blood Pressure 113/60 Pulse Oximetry 97 Intake/Output Intake/Output: Intake & Output 07/05/20 07/06/20 07/07/20 07/08/20 23:59 23:59 23:59 23:59 Intake Total 2050 1385 1014 750 Output Total 1105 2150 411 0538 Balance 945 25 514 -250 M
--- NOTE | 2020-07-08 10:41 | ECG_ITS ---
Measurements Intervals [place] Rate: 84 P: 41 NH: 120 QRS: 51 QRSD: 98 T: 45 QT: 409 QTc: 485 Interpretive Statements SINUS RHYTHM NONSPECIFIC T-WAVE ABNORMALITY- DIFFUSE LEADS BASELINE ARTIFACT- II, III, V4 BORDERLINE ECG Electronically Signed On 07-08-2020 12:31:11 CDT by Андрей Keyes D.O.
--- NOTE | 2020-07-08 10:42 | PM.PNCARD ---
Progress Note: A&P Assessment and Plan (1) Atrial flutter with rapid ventricular response: Code(s): I48.92 - Unspecified atrial flutter Status: Resolved Assessment and Plan: -Patient presented in sinus tachycardia in setting of perforated duodenal ulcer mass status post emergent Hemigastrectomy with Yamilka-en-Y gastrojejunostomy then developed atrial fibrillation with rapid ventricular response. Refractory to amiodarone and digoxin. Rhythm organized into atrial flutter approximately 160 beats per minute. -Underwent cardioversion on 06/19/2020 has maintained sinus rhythm on IV amiodarone and heparin. -Has now transitioned to p.o. amiodarone. Xarelto was discontinued due to ongoing possibility of invasive procedures and more recently, evidence of liver hemorrhage on CT (06/30/20). Per general surgery and hospitalist note anticoagulation has been stopped, however prophylactic dose Lovenox was ordered and is being administered. -No Echo done yet-patient refused -Patient remains in normal sinus rhythm following cardioversion on 06/19/20. Patient remains on p.o. amiodarone. We will see patient in follow up in our office and determine necessity of continuing amiodarone. We will sign off at this time. -EKG before discharge. -patient remains on prophylactic dose of lovenox and will remain on this for at least 2 weeks per general urgery. (2) Perforated duodenal ulcer with hemorrhage: Code(s): K26.6 - Chronic or unspecified duodenal ulcer with both hemorrhage and perforation Status: Acute Assessment and Plan: Sp Hemigastrectomy with Yamilka-en-Y gastrojejunostomy for perforated DU. Sp,embedded hardware engineer pump, iv zosyn and iv zofran and protonix. sp upper GI AND US of abdomen 06/25 ct unremarkable 06/28 8.5 x 7.1 x 7.9 cm fluid collection -Consider CT-guided percutaneous drainage. 06/30 interval extension of the abscess or possible hematoma along the medial aspect of the gallbladder and prominently along the lower hepatic region, measuring up to 7.5 x 12 cm in the medial lower right hepatic area. -General surgery following (3) Anemia: Qualifiers: Anemia type: iron deficiency Iron deficiency anemia type: unspecified iron deficiency Qualified Code(s): D50.9 - Iron deficiency anemia, unspecified Code(s): D64.9 - Anemia, unspecified Status: Acute Assessment and Plan: H&H stable (4) PUD (peptic ulcer disease): Code(s): K27.9 - Peptic ulcer, site unspecified, unspecified as acute or chronic, without hemorrhage or perforation Status: Acute Assessment and Plan: As above. Concern for bleeding risk given presentation. Etiology remains unclear which poses ongoing concern (5) Schizophrenia: Qualifiers: Schizophrenia type: unspecified Qualified Code(s): F20.9 - Schizophrenia, unspecified Code(s): F20.9 - Schizophrenia, unspecified Status: Acute Assessment and Plan: per primary service Subjective Date/time seen: 07/08/20 10:42 Interval history: Follow-up visit in this 54-year-old man with: Acute onset of atrial flutter with rapid ventricular response perioperatively following emergency surgery for repair of a large perforated duodenal ulcer. Patient had significant hemorrhagic event with this as well. The stress of the situation obviously has triggered his atrial arrhythmia. Date of service 06/28/2020: Patient maintaining sinus rhythm offers no cardiovascular complaints. Appears to be rather lethargic but answers questions appropriately. Currently receiving TPN. Currently on p.o. amiodarone. Date of service 07/01/2020: Patient remains in normal sinus rhythm in the 90's. Difficult to elicit report of any complaints from patient as he is quite lethargic. He does nod affirmatively that he is free from chest pain or palpitations. Date of service 07/08/2020: Patient lying comfortably in bed and does not have any signs of distress. He states
--- NOTE | 2020-07-08 13:02 | PM.DS ---
DS: Admitting Diagnosis Admitting Diagnosis Admitting Diagnosis: abdominal pain DS: Discharge Diagnosis Discharge Diagnosis (1) Acute blood loss anemia: Code(s): D62 - Acute posthemorrhagic anemia Status: Acute Assessment and Plan: Acute blood loss anemia secondary to GI bleed secondary to perforated peptic ulcer, continue to monitor hb Hb is 8.0 today continue to watch 07/07/20 12:41 Patient is 54 presented emergency department with complaint abdominal and was found to perforated duodenal ulcer, now patient is 16 days status post hemigastrectomy with Yamilka-en-Y gastrojejunostomy. Later patient developed right upper quadrant fungal abscess that was drained and being treated with Micafunigan 100mg IV qd, today patient completed 13 days of total of 14 days and tomorrow patient will complete the treatment and surgeries recommending to continue pigtail catheter and may discharge with it, also to bc sndierx upon discharge to SNF, patient also has thrombocytosis and patient was seen by Hematology suspect secondary to iron deficiency anemia, patient's iron profile showed profound iron deficiency we have started the patient on Venofer 300 mg q.day for 3 days will continue to monitor, patient remains clinically stable denies any abdominal pain nausea or vomiting diarrhea his able to tolerate solid food will continue to monitor will have a PT OT evaluate the patient and further recommendation to follow. 07/07 today patient will complete 14 days course Micafunigan, will give one more dose Venofer 300mg x1 for iron defiency which has resulted in thrombocytosis, patient is clinically stable, awaiting placement to [place], if remains in the hospital, will give one more dose of Venofer tomorrow. will have PT/OT work with patient. (2) Elevated LFTs: Code(s): R79.89 - Other specified abnormal findings of blood chemistry Status: Resolved Assessment and Plan: Resolved (3) Fever: Qualifiers: Fever type: due to other condition Qualified Code(s): R50.81 - Fever presenting with conditions classified elsewhere Code(s): R50.9 - Fever, unspecified Status: Resolved Assessment and Plan: Probable peritonitis continue antifungals only Sp percutaneous drainage will be removed tomorrow Pt is on antifungals will be stopped soon, then patient can be discharged. (4) Atrial flutter with rapid ventricular response: Code(s): I48.92 - Unspecified atrial flutter Status: Resolved Assessment and Plan: Status post digoxin IV metoprolol amiodarone drip no improvement patient had cardioversion by Cardiology on 06/23/2020 converted to sinus rhythm Continue PO amiodarone and lovenox (5) Schizophrenia: Qualifiers: Schizophrenia type: unspecified Qualified Code(s): F20.9 - Schizophrenia, unspecified Code(s): F20.9 - Schizophrenia, unspecified Status: Acute Assessment and Plan: Continue to watch mood. xanax prn anxiety. (6) HTN (hypertension): Qualifiers: Hypertension type: unspecified Qualified Code(s): I10 - Essential (primary) hypertension Code(s): I10 - Essential (primary) hypertension Status: Acute Assessment and Plan: Stable (7) Perforated duodenal ulcer with hemorrhage: Code(s): K26.6 - Chronic or unspecified duodenal ulcer with both hemorrhage and perforation Status: Acute Assessment and Plan: Sp Hemigastrectomy with Yamilka-en-Y gastrojejunostomy for perforated DU. Sp,speech assistant pump, iv zosyn and iv zofran and protonix. sp upper GI AND US of abdomen 06/25 ct unremarkable 06/28 8.5 x 7.1 x 7.9 cm fluid collection -Consider CT-guided percutaneous drainage. 06/30 interval extension of the abscess or possible hematoma along the medial aspect of the gallbladder and prominently along the lower hepatic region, measuring up to 7.5 x 12 cm in the medial lower right hepatic area.Sp drain Peritonitis cont
[2020-07-08 14:00] VITALS: BP 111/88; PULSE 80; RESP 18; TEMP 36.6; O2SAT 99
== END 2020-07-08 17:09 | DRG 220 ==
LOC: ANHED 06-19 01:33 → ANHICU 06-23 14:31 → ANH2MED 06-29 18:49 → ANHICU 07-09 12:17
PROVIDERS: Family Medicine; Internal Medicine; Internal Medicine Cardiovascular Disease; Internal Medicine Hematology & Oncology; Nurse Practitioner Family; Surgery; Admitting Provider Surgery; Emergency Provider General Practice; Visit Provider Family Medicine
PROC: 0D160ZA Bypass Stomach to Jejunum, Open Approach (ICD-10-PCS; CPT 49000; principal; 2020-06-19 14:45)
DX: K26.2 Acute duodenal ulcer with both hemorrhage and perforation (principal); D62 Acute posthemorrhagic anemia; K65.9 Peritonitis, unspecified; K25.2 Acute gastric ulcer with both hemorrhage and perforation; I10 Essential (primary) hypertension; Z20.822 Contact with and (suspected) exposure to COVID-19; E78.5 Hyperlipidemia, unspecified; J45.909 Unspecified asthma, uncomplicated; F20.9 Schizophrenia, unspecified; I48.91 Unspecified atrial fibrillation; I48.92 Unspecified atrial flutter; R00.0 Tachycardia, unspecified; F41.9 Anxiety disorder, unspecified; F31.9 Bipolar disorder, unspecified; K56.7 Ileus, unspecified; Z86.711 Personal history of pulmonary embolism; Z90.49 Acquired absence of other specified parts of digestive tract; Z87.891 Personal history of nicotine dependence; R50.81 Fever presenting with conditions classified elsewhere; J98.11 Atelectasis; E87.6 Hypokalemia; D72.829 Elevated white blood cell count, unspecified; K76.89 Other specified diseases of liver; D47.3 Essential (hemorrhagic) thrombocythemia
CPT/HCPCS: 36415; 36430; 71045; 74018; 74019; 74177; 74240; 75989; 76705; 80048; 80053; 80076; 81001; 82607; 82728; 82746; 82948; 83540; 83550; 83605; 83690; 83735; 84100; 84466; 84478; 85014; 85018; 85025; 85027; 85610; 85652; 85730; 86140; 86850; 86900; 86901; 86923; 87040; 87070; 87075; 87086; 87088; 87205; 88305; 88307; 88309; 88342; 93005; 94640; 96365; 96366; 96375; 96376; 97116; 97161; 97165; 99285; A9270; C1769; C9113; C9803; J0131; J0153; J0282; J0330; J1100; J1160; J1170; J1644; J1650; J1756; J2060; J2248; J2270; J2405; J2543; J2704; J2710; J3010; J3475; J3480; J7030; J7040; J7060; J7120; P9016; Q9967; U0003; U0005

== ENCOUNTER 2020-08-20 10:50 | Outpatient (CLI) | payer OTHER, SELFPAY ==
--- NOTE | ~2020-08-20 | XR_ITS ---
XR UGI w esoph water soluble DATE: 08/20/2020 11:37 INDICATION: Anorexia, weight loss TECHNIQUE: Single contrast examination of the esophagus, stomach and proximal small bowel with water- soluble radiopaque contrast material. 1.2 minutes fluoroscopy time 33.76 DAP 88 images COMPARISON: 06/24/2020 upper gastrointestinal series FINDINGS: Normal deglutition and esophageal peristalsis. No stricture, mucosal fold thickening, ulcer ation or intraluminal mass lesion of the esophagus is evident. No hiatal hernia is demonstrated. Status post partial gastrectomy with contrast material opacifying afferent and efferent loops without abnormal dilatation or apparent obstruction. No extravasation of contrast material is evident. The p roximal small bowel mucosal pattern appears normal.. IMPRESSION: Status post partial gastrectomy Reviewed, dictated and finalized at [facility] Reviewed, dictated and finalized at [facility].
== END 2020-08-20 10:51 | disposition home or self-care (01) ==
LOC: ANHIMG 10:52
PROVIDERS: Visit Provider Surgery
DX: R63.0 Anorexia (principal); R63.4 Abnormal weight loss
CPT/HCPCS: 74240

== ENCOUNTER 2020-11-30 09:13 | Emergency (ER) | payer OTHER, SELFPAY ==
--- NOTE | ~2020-11-30 | CT_ITS ---
EXAMINATION: CT brain wo con DATE: 11/30/2020 10:22 INDICATION: Headache. Status post fall. TECHNIQUE: Computed tomography (CT) of the head was performed without intravenous contrast. The dose- length product was 605.33 mGy-cm. Automated exposure control and iterative reconstruction technique w ere employed. COMPARISON: CT dated 04/04/2018 FINDINGS: There is chronic encephalomalacia of the right temporal lobe anteriorly. No acute intracran ial hemorrhage, infarction, mass or mass effect. No ventriculomegaly or midline shift. Basilar cister ns are patent. There is mucous retention cysts of the maxillary sinuses. Mastoids are pneumatized. Le ftward nasal septal deviation. No depressed skull fractures. IMPRESSION: 1. No acute intracranial abnormality. Reviewed, dictated and finalized at location B.
--- NOTE | ~2020-11-30 | CT_ITS ---
EXAMINATION: CT thoracic spine wo con DATE: 11/30/2020 10:22 INDICATION: Mid back pain. Fall. TECHNIQUE: Computed tomography (CT) of the thoracic spine was performed without intravenous contrast. Automated exposure control and iterative reconstruction technique were employed. The dose-length pro duct was 686.43 mGy-cm. COMPARISON: None FINDINGS: There is mild emphysema. There is a 3 mm stone in left kidney. There is 10 degrees levoscol iosis of upper thoracic spine. There is a chronic compression fracture of T11 with 2/5 loss of height centrally. There is mildly decreased disc height at multiple levels. There is multilevel mild facet joint osteoarthritis. There is mild neural foraminal stenosis at multiple levels bilaterally. There i s mild central canal stenosis at T9-T10. IMPRESSION: 1. No fracture. 2. Mild thoracic spondylosis. 3. Scoliosis. Reviewed, dictated and finalized at location A.
--- NOTE | ~2020-11-30 | CT_ITS ---
EXAMINATION: CT cervical spine wo con DATE: 11/30/2020 10:22 INDICATION: Neck injury. Back pain. TECHNIQUE: Computed tomography (CT) of the cervical spine was performed without intravenous contrast. Automated exposure control and iterative reconstruction technique were employed. The dose-length pro duct was 475.57 mGy-cm. COMPARISON: None FINDINGS: There is mild emphysema. There is 6 degrees levocurvature of cervical spine. There is 10 de grees dextroscoliosis of cervicothoracic spine. Vertebral body heights are normal. There is moderatel y decreased disc height at C5-C6 and C6-C7. The following disc levels are specifically discussed: C2-C3: There is mild left uncovertebral joint osteoarthritis. There is no facet joint osteoarthritis. There is no neural foraminal stenosis. There is no central canal stenosis. C3-C4: There is mild bilateral uncovertebral joint osteoarthritis. There is mild bilateral facet join t osteoarthritis. There is no neural foraminal stenosis. There is no central canal stenosis. C4-C5: There is moderate left uncovertebral joint osteoarthritis. There is mild bilateral facet joint osteoarthritis. There is mild left neural foraminal stenosis. There is no central canal stenosis. C5-C6: There is mild right and severe left uncovertebral joint osteoarthritis. There is mild bilatera l facet joint osteoarthritis. There is moderate left neural foraminal stenosis. There is mild central canal stenosis. C6-C7: There is severe bilateral uncovertebral joint osteoarthritis. There is mild bilateral facet patric int osteoarthritis. There is mild right and moderate left neural foraminal stenosis. There is mild ce ntral canal stenosis. C7-T1: There is no uncovertebral joint osteoarthritis. There is moderate bilateral facet joint osteoa rthritis. There is mild left neural foraminal stenosis. There is no central canal stenosis. IMPRESSION: 1. No fracture. 2. Moderate cervical spondylosis. 3. Scoliosis. Reviewed, dictated and finalized at location A.
[2020-11-30 09:21] VITALS: BP 122/79; PULSE 99; RESP 17; TEMP 36.5; O2SAT 100
[2020-11-30 09:25] VITALS: O2SAT 97
[2020-11-30 09:30] VITALS: O2SAT 99
[2020-11-30 09:31] VITALS: BP 121/66; O2SAT 99
[2020-11-30 09:45] VITALS: O2SAT 98
[2020-11-30 10:02] VITALS: O2SAT 100
--- NOTE | 2020-11-30 10:25 | PC.NURSE ---
Pt back from CT at this time.
--- NOTE | 2020-11-30 10:53 | ED.GENADULT ---
HPI - General Adult General Chief complaint: Fall Stated complaint: FALL Time Seen by Provider: 11/30/20 09:17 Source: patient, EMS, RN notes reviewed and old records reviewed Mode of arrival: EMS Limitations: no limitations History of Present Illness HPI narrative: Patient is a 55-year-old male who presents to emergency department for evaluation of injuries related to a ground-level fall patient reportedly slipped on a wet surface falling forward presents noting upper back pain at the level of the thoracic spine not sure as to head injury denies other injuries or complaints Related Data Allergies Allergy/AdvReac Type Severity Reaction Status Date / Time amoxicillin AdvReac Nausea and Verified 08/23/20 15:06 Vomiting Review of Systems Review of Systems: All systems reviewed & are unremarkable except as noted in HPI and below PMFSH Past Medical History Medical History Anxiety Asthma Back injury Bronchitis Depression Epistaxis Herniated disc History of angina HLD (hyperlipidemia) HTN (hypertension) Kidney stone Pneumonia Pulmonary emboli Schizophrenia Suicide attempt Surgical History Surgical History History of gastric surgery 06/19/20 Hemigastrectomy with Yamilka-en-Y gastrojejunostomy Hx of appendectomy 1978 Hx of tonsillectomy Family History Family History Father , Unknown No problems noted. Mother , Unknown No problems noted. 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 HEAD: Normocephalic, atraumatic. EYES: PERRLA and EOMI. ENT: Nares clear, no rhinorrhea or epistaxis. Mucous membranes moist. NECK: Supple. No adenopathy or masses. CHEST: Clear to auscultation. No respiratory distress. No wheezes rales or rhonchi HEART: Regular rate and rhythm. No murmur heard. Normal peripheral pulses. ABDOMEN: Soft, nontender, nondistended EXTREMITIES: Normal range of motion. No edema. Midline thoracic tenderness at the level of T4 no lumbar tenderness no cervical tenderness SKIN: Warm, dry, no rash. NEURO: No focal deficits. Alert and oriented x3. Cranial nerves II through XII grossly intact. Motor and sensory intact and symmetrical in extremities PSYCH: Normal mood and affect. Course Course Emergency Course: Patient in the room nondistressed aware of case findings treatment plan diagnosis will be sent back to the nursing rehab facility ABCs and vital signs intact and stable nontoxic-appearing aware of case findings treatment plan and diagnosis and agrees to follow with primary care Vital Signs Vital signs: Vital Signs Temperature 97.7 F 11/30/20 09:21 Pulse Rate 99 11/30/20 09:21 Respiratory Rate 17 11/30/20 09:21 Blood Pressure 122/79 11/30/20 09:21 Pulse Oximetry 100 11/30/20 09:21 Temperature 97.7 F 11/30/20 09:21 Pulse Rate 99 11/30/20 09:21 Respiratory Rate 17 11/30/20 09:21 Blood Pressure 121/66 11/30/20 09:31 Pulse Oximetry 100 11/30/20 10:02 Medical Decision Making MDM Narrative Medical decision making narrative: Patients pain is positional in nature and localized to back without signs of cord compression or cauda equina based on neurological exam, skeletal exam and history. No fever or other significant factors to suggest osteomyelitis or spinal epidural abscess. No sympto
--- NOTE | 2020-11-30 10:58 | PC.NURSE ---
EMS requested per ALEIDA helm for transport to home.
--- NOTE | 2020-11-30 11:18 | PC.NURSE ---
Per unit sec, ETA of EMS is 20 minutes
--- NOTE | 2020-11-30 11:19 | PC.NURSE ---
Report given to CICI Rey who has assumed pt care, pt resting on stretcher, awaiting ems arrival.
== END 2020-11-30 11:55 ==
PROVIDERS: Emergency Provider Emergency Medicine
DX: S29.012A Strain of muscle and tendon of back wall of thorax, initial encounter (principal); J45.909 Unspecified asthma, uncomplicated; E78.5 Hyperlipidemia, unspecified; I10 Essential (primary) hypertension; Z87.442 Personal history of urinary calculi; Z86.711 Personal history of pulmonary embolism; Z87.01 Personal history of pneumonia (recurrent); Z98.84 Bariatric surgery status; Z87.891 Personal history of nicotine dependence; M47.812 Spondylosis without myelopathy or radiculopathy, cervical region; M47.814 Spondylosis without myelopathy or radiculopathy, thoracic region; W01.0XXA Fall on same level from slipping, tripping and stumbling without subsequent striking against object, initial encounter
CPT/HCPCS: 70450; 72125; 72128; 99284

== ENCOUNTER 2020-12-06 20:54 | Emergency (ER) | payer OTHER, SELFPAY ==
--- NOTE | ~2020-12-06 | CT_ITS ---
EXAMINATION: CT abdomen pelvis wo con DATE: 12/07/2020 00:05 INDICATION: Abdominal distention TECHNIQUE: Computed tomography (CT) of the abdomen and pelvis was performed without intravenous contr ast. The dose-length product (DLP) was 522.68 mGy-cm. Automated exposure control and iterative recons truction technique were employed. COMPARISON: 06/30/2020 01/09/2019 FINDINGS: Minimal dependent atelectasis is present in the lung bases. The heart size is normal. Stabl e small nodules of the visualized lung bases are consistent with old granulomatous disease. There are changes of gastric bypass procedure. The liver, spleen, pancreas, gallbladder, and adrenal glands ar e normal. There is a 2.4 cm cyst of the left kidney. There is also a 4 mm nonobstructing stone of the left kidney. The right kidney is unremarkable. There is calcified atherosclerosis of the aorta and m any of the other arteries. No pathologically enlarged abdominal or pelvic lymph nodes are identified. There is no free intraperitoneal gas or evidence of bowel obstruction. There is an umbilical hernia containing a short segment of nonobstructed small bowel. There is a midline supraumbilical hernia con taining fat. There is severe lumbar spondylosis at L5-S1. IMPRESSION: 1. Small umbilical hernia containing nonobstructed small bowel. 2. Supraumbilical ventral hernia containing fat. Reviewed, dictated and finalized at location A.
[2020-12-06 21:00] VITALS: BP 152/99; PULSE 90; RESP 20; TEMP 36.7; O2SAT 98
[2020-12-06 21:28] LABS: Basophils Absolute Auto 0.1 K/mm3 (0.0-0.1); Basophils Percent Auto 1.3 % (0.2-1.2); Eosinophils Absolute Auto 0.2 K/mm3 (0-0.3); Eosinophils Percent Auto 2.5 % (0-4.4); Hematocrit 35.4 % (42.0-52.0); Hemoglobin 11.7 g/dL (14.0-18.0); Immature Granulocyte Absolute 0.02 K/mm3 (0.00-0.031); Immature Granulocyte Percent A 0.3 % (0-0.5); Lymphocytes Absolute Auto 2.23 K/mm3 (0.9-3.2); Lymphocytes Percent Auto 35.3 % (18.3-44.2); Mean Corpuscular HGB Conc 33.1 g/dl (32-36); Mean Corpuscular Volume 87.6 fl (80-100); Mean Platelet Volume 8.9 fl (7.4-10.4); Monocytes Absolute Auto 0.7 K/mm3 (0.1-0.6); Monocytes Percent Auto 11.6 % (2.6-8.5); Neutrophils Absolute Auto 3.1 K/mm3 (1.3-6.7); Platelet Count Result 301 k/mm3 (150-375); Red Blood Count 4.04 M/mm3 (4.6-6.20); Red Cell Distribution Width 14.1 % (11.5-14.5); White Blood Count 6.3 K/mm3 (4.5-10.0)
[2020-12-06 21:35] LABS: Add Urine Microscopic? NO; Appearance Urine Clear (Clear); Bilirubin Urine Negative (Negative); Blood Urine Negative (Negative); Color Urine Yellow (Yellow); Glucose Urine UA Negative (Negative); Ketones Urine Negative (Negative); Leukocyte Esterase Ur Negative LEU/UL (Negative); Nitrate Urine Negative (Negative); Protein Urine Negative (Negative); Specific Grav Ur 1.012 (1.001-1.035); Urobilinogen Urine Negative mg/dL (<2.0)
[2020-12-06 21:40] LABS: Alanine Aminotransferase 18 U/L (4-50); Albumin Level 3.8 g/dL (3.5-5.1); Alkaline Phosphatase 92 U/L (38-126); Anion Gap 9 mmol/L (8-16); Aspartate Amino Transferase 24 U/L (17-59); Bilirubin,Total 0.5 mg/dL (0.2-1.3); Blood Urea Nitrogen 16 mg/dL (9-20); Calcium 9.4 mg/dL (8.4-10.2); Carbon Dioxide 28 mmol/L (22-30); Chloride 105 mmol/L (98-107); Estimated CRCL calculation 131 ml/min; Estimated Glomerular Filt Rate > 60; Glucose 105 mg/dL (65-110); Lactic Acid Reflex 1.7 mmol/L (0.7-2.1); Lipase 67 U/L (23-300); Potassium 3.9 mmol/L (3.4-5.0); Sodium 142 mmol/L (137-145)
[2020-12-06 22:47] VITALS: BP 136/70; PULSE 88; RESP 18; TEMP 36.4; O2SAT 99
[2020-12-06 23:01] VITALS: BP 136/70; PULSE 87; RESP 18; O2SAT 98
--- NOTE | 2020-12-06 23:23 | ED.ABDPAIN ---
HPI - Abdominal Pain General Chief Complaint: Recheck/Abnormal Lab/Rx Stated Complaint: swelling at incision site Time Seen by Provider: 12/06/20 22:58 Source: patient Mode of arrival: ambulatory Limitations: no limitations History of Present Illness HPI narrative: Patient is a 55-year-old male complaining of abdominal distention, feels my intestine is being pushed out started 2 weeks ago. Patient denies any abdominal pain, nausea, vomiting, diarrhea, fever or chills. Patient denies any urinary symptoms. Patient denies any chest pain or shortness of breath. Related Data Allergies Allergy/AdvReac Type Severity Reaction Status Date / Time amoxicillin AdvReac Nausea and Verified 12/06/20 23:06 Vomiting Review of Systems Review of Systems: All systems reviewed & are unremarkable except as noted in HPI and below Constitutional: Constitutional: Denies body ache(s), Denies chills, Denies excessive sweating, Denies fatigue, Denies fever(s), Denies headache(s), Denies lethargy, Denies malaise, Denies weakness and Denies weight loss Eyes: Eyes: Denies blurry vision, Denies change in vision and Denies loss of vision ENT: Denies dizziness, Denies ear discharge, Denies headache(s), Denies lip swelling, Denies epistaxis, Denies nasal congestion, Denies neck pain, Denies throat swelling and Denies tongue swelling Cardiovascular: Cardiovascular: Denies chest pain, Denies chest pain at rest, Denies chest pain with activity, Denies diaphoresis, Denies rapid heart rate, Denies edema, Denies irregular heart rhythm, Denies lightheadedness, Denies palpitations, Denies dyspnea and Denies dyspnea on exertion Respiratory: Respiratory: Denies chest congestion, Denies cough, Denies hemoptysis, Denies dyspnea and Denies dyspnea on exertion Gastrointestinal: Gastrointestinal: Denies abdominal pain, Denies melena, Denies hematochezia, Denies diarrhea, Denies nausea, Denies vomiting and Denies hematemesis Musculoskeletal: Musculoskeletal: Denies abnormal gait, Denies deformity, Denies joint swelling, Denies limited range of motion, Denies neck pain and Denies numbness Neurologic: Denies Abnormal speech present, Denies abnormal gait, Denies confusion, Denies dizziness, Denies headache(s), Denies focal weakness, Denies loss of vision, Denies numbness, Denies Other visual disturbances, Denies Sensory deficit (Neuro) and Denies weakness Psychiatric: Psychiatric: Denies confusion, Denies depression, Denies auditory hallucinations, Denies homicidal ideation and Denies suicidal ideation Endocrine: Endocrine: Denies cold intolerance, Denies excessive sweating, Denies fatigue, Denies heat intolerance and Denies palpitations Hematologic/Lymphatic: Hematologic/Lymphatic: Denies easy bleeding and Denies easy bruising Allergic/Immunologic: Allergic/Immunologic: Denies lip swelling, Denies throat swelling and Denies tongue swelling PMFSH Past Medical History Medical History Anxiety Asthma Back injury Bronchitis Depression Epistaxis Herniated disc History of angina HLD (hyperlipidemia) HTN (hypertension) Kidney stone Pneumonia Pulmonary emboli Schizophrenia Suicide attempt Surgical History Surgical History History of gastric surgery 06/19/20 Hemigastrectomy with Yamilka-en-Y gastrojejunostomy Hx of appendectomy 1977 Hx of tonsillectomy Family History Family History Father , Unknown No problems noted. Mother , Unknown No problems noted. Other Family history of malignant neoplasm Social History Social History Smoking status: Former smoker Second hand tobacco smoke exposure: No Alcohol intake: current Substance use: never Substance use type: does not use Additional occupation/education c
--- NOTE | 2020-12-06 23:56 | PC.NURSE ---
Per EDP Kimmy, hold IV and fluids
--- NOTE | 2020-12-07 00:44 | PC.NURSE ---
Pt requesting food and drink. Pt informed on need to remain NPO
[2020-12-07 01:14] VITALS: BP 111/76; PULSE 97; RESP 18; O2SAT 100
--- NOTE | 2020-12-07 02:53 | PC.NURSE ---
Pt approached nurses station and stated If my ambulance doesn't get here soon, I'm just going to leave . Pt mentioned that a different hospital used his insurance to find him a ride. This RN contacted Kaylah at [employer] who offered to call pt an Uber ride home. ED supercharge repair supervisor Tamy and pt both okayed. Kaylah stated that local tanker truck driver will be at ED at 0312.
--- NOTE | 2020-12-07 04:08 | PC.NURSE ---
Pts Uber never arrived. EMS arrived to transport pt, report given. Pt transported out of ED, alert and upright on stretcher in no obvious distress.
== END 2020-12-07 04:09 | disposition home or self-care (01) ==
PROVIDERS: Emergency Medicine; Emergency Provider Emergency Medicine
DX: K43.9 Ventral hernia without obstruction or gangrene (principal); J45.909 Unspecified asthma, uncomplicated; E78.5 Hyperlipidemia, unspecified; I10 Essential (primary) hypertension; Z87.442 Personal history of urinary calculi; Z86.711 Personal history of pulmonary embolism; Z87.01 Personal history of pneumonia (recurrent); Z98.84 Bariatric surgery status
CPT/HCPCS: 36415; 74176; 80053; 81003; 83605; 83690; 85025; 99284

== ENCOUNTER 2020-12-13 10:48 | Emergency (ER) | payer OTHER, SELFPAY ==
[2020-12-13] VITALS (16 sets, daily range): BP systolic 105–129; BP diastolic 60–72; PULSE 103–113; RESP 12–37; TEMP 36.5; O2SAT 99–100
--- NOTE | ~2020-12-13 | XR_ITS ---
EXAMINATION: XR chest 2V DATE: 12/13/2020 11:45 INDICATION: Tachycardia TECHNIQUE: AP and lateral views of the chest are obtained. COMPARISON: 06/30/2020 FINDINGS: There are minimal airspace opacities of the left lung base. There is no pleural effusion or pneumothorax. The cardiomediastinal silhouette is normal. There is mild thoracic spondylosis. IMPRESSION: 1. Minimal left basilar airspace opacity, consistent with atelectasis versus pneumonia. Reviewed, dictated and finalized at location B. IMPRESSION: 1. Minimal left basilar airspace opacity, consistent with atelectasis versus pn eumonia.
--- NOTE | 2020-12-13 10:49 | ECG_ITS ---
Measurements Intervals [place] Rate: 103 P: 58 MA: 133 QRS: 52 QRSD: 93 T: 43 QT: 331 QTc: 434 Interpretive Statements SINUS TACHYCARDIA POSSIBLE LEFT ATRIAL ENLARGEMENT BORDERLINE ECG Electronically Signed On 12-13-2020 11:03:42 CDT by Андрей Keyes D.O.
--- NOTE | 2020-12-13 11:07 | ED.GENADULT ---
HPI - General Adult General Chief complaint: Arrhythmia/Palpitations <CARSON Mckeon Last Filed: 12/13/20 13:39> Stated complaint: palpitations <CARSON Mckeon Last Filed: 12/13/20 13:39> Time Seen by Provider: 12/13/20 11:06 <Shira Macias PA-C - Last Filed: 12/13/20 13:39> Source: patient <CARSON Mckeon Last Filed: 12/13/20 13:39> Mode of arrival: EMS <CARSON Mckeon Last Filed: 12/13/20 13:39> Limitations: no limitations <CARSON Mckeon Last Filed: 12/13/20 13:39> History of Present Illness HPI narrative: Patient is 55-year-old male who is here for evaluation of palpitations. He currently resides in a intermediate after having a fall and neck fracture. He has a history of A. fib with RVR treated with diltiazem. Currently on amlodapine only. Pt is unaware of when diltiazem was stopped. He states that he is taking all medications. This episode of tachycardia started suddenly last night at 7 PM when he stated he could feel and hear his heart rate. It was worse when he laid down to sleep. He denies any chest pain, shortness of breath, dizziness. He feels it has something to do with the place he is living, most likely anxiety. He appears well cared for and he is getting all of his therapies. <Shira Macias PA-C - Last Filed: 12/13/20 13:39> Onset (ago): hour(s) <CARSON Mckeon Last Filed: 12/13/20 13:39> Radiation: non-radiation <CARSON Mckeon Last Filed: 12/13/20 13:39> Severity: mild <CAROSN Mckeon Last Filed: 12/13/20 13:39> Associated symptoms: denies other symptoms <CARSON Mckeon Last Filed: 12/13/20 13:39> Related Data Home medications: Home Medications Medication Instructions Recorded Confirmed acetaminophen 12/13/20 albuterol sulfate INHALATION 12/13/20 amlodipine 12/13/20 aripiprazole mg 12/13/20 diltiazem HCl [Cardizem LA] 180 mg PO DAILY 12/13/20 diphenhydramine HCl [Benadryl] 50 mg PO HS 12/13/20 ergocalciferol (vitamin D2) 1,250 mcg PO WEEKLY 12/13/20 [Vitamin D2] lorazepam 1 mg PO TID 12/13/20 <Shira Macias PA-C - Last Filed: 12/13/20 13:39> Allergies/adverse reactions: Allergies Allergy/AdvReac Type Severity Reaction Status Date / Time amoxicillin AdvReac Nausea and Verified 12/13/20 10:49 Vomiting <Shira Macias PA-C - Last Filed: 12/13/20 13:39> Review of Systems Review of Systems: All systems reviewed & are unremarkable except as noted in HPI and below <Shira Macias PA-C - Last Filed: 12/13/20 13:39> [facility] Past Medical History Medical History: Medical History Anxiety Asthma Back injury Bronchitis Depression Epistaxis Herniated disc History of angina HLD (hyperlipidemia) HTN (hypertension) Kidney stone Pneumonia Pulmonary emboli Schizophrenia Suicide attempt <Shira Macias PA-C - Last Filed: 12/13/20 13:39> Surgical History Surgical History: Surgical History History of gastric surgery 06/19/20 Hemigastrectomy with Yamilka-en-Y gastrojejunostomy Hx of appendectomy 1978 Hx of tonsillectomy <Shira Macias PA-C - Last Filed: 12/13/20 13:39> Family History Family History: Family History Father , Unknown No problems noted. Mother , Unknown No problems noted. Other Family history of malignant neoplasm <Shira Macias PA-C - Last Filed: 12/13/20 13:39> Social History Social History: Social History (Updated 12/13/20 @ 11:34 by Shira Macias PA-C) Smoking status: Former smoker Second hand tobacco smoke exposure: No Alcohol intake: current Substance use: never Substance use type: does not use Living arrangements: intermediate Occup
[2020-12-13] MEDS: SODIUM CHLORIDE 0.9% IV 1,000 ML 999 ML IV CONT (11:57)
[2020-12-13 12:03] LABS: Hematocrit 35.6 % (42.0-52.0); Hemoglobin 11.5 g/dL (14.0-18.0); Mean Corpuscular HGB Conc 32.3 g/dl (32-36); Mean Corpuscular Hemoglobin 29.3 pg (26-34); Mean Corpuscular Volume 90.6 fl (80-100); Mean Platelet Volume 9.5 fl (7.4-10.4); Platelet Count Result 284 k/mm3 (150-375); Red Blood Count 3.93 M/mm3 (4.6-6.20); Red Cell Distribution Width 13.8 % (11.5-14.5); White Blood Count 6.6 K/mm3 (4.5-10.0)
[2020-12-13 12:30] LABS: Anion Gap 8 mmol/L (8-16); Blood Urea Nitrogen 15 mg/dL (9-20); Calcium 9.4 mg/dL (8.4-10.2); Carbon Dioxide 25 mmol/L (22-30); Chloride 106 mmol/L (98-107); Estimated CRCL calculation 105 ml/min; Estimated Glomerular Filt Rate > 60; Glucose 108 mg/dL (65-110); Potassium 4.2 mmol/L (3.4-5.0); Sodium 139 mmol/L (137-145)
--- NOTE | 2020-12-13 12:34 | PCCCNOTE ---
Patient had questions requesting assisted living. Met with patient in ER bedside states that he is currently in a correction foe the last 5 months has been getting physical therapy and medication management but states that he is independent for his ADLs. Patient [place]. Provided him with resources of assisted living facilities that accept IPA, phone # for area of aging. Patient reports that he has friends and family that could help him call facilities and research.
[2020-12-13 12:52] LABS: Neutrophils Percent Manual 48 % (46-73); Total Cells Counted 100
[2020-12-13 12:53] LABS: Atypical Lymphocytes Present; Basophils Absolute Manual 0.06 K/mm3 (0.0-0.1); Basophils Percent Manual 1 % (0-1); Eosinophils Absolute Manual 0.06 K/mm3 (0.02-0.5); Eosinophils Percent Manual 1 % (0-4); Lymphocytes Absolute Manual 2.77 K/mm3 (1.1-4.5); Lymphocytes Percent Manual 42 % (18-44); Monocytes Absolute Manual 0.52 K/mm3 (0.1-0.90); Monocytes Percent Manual 8 % (3-9)
[2020-12-13 12:54] LABS: Platelet Estimate Adequate (Adequate)
--- NOTE | 2020-12-13 14:55 | PC.NURSE ---
made contact with [facility] to get a ride for pt. facility stated they will be here in 30 minutes
== END 2020-12-13 15:47 ==
PROVIDERS: Physician Assistant; Emergency Provider Emergency Medicine
DX: R00.0 Tachycardia, unspecified (principal); I48.91 Unspecified atrial fibrillation; E78.5 Hyperlipidemia, unspecified; I10 Essential (primary) hypertension; F41.9 Anxiety disorder, unspecified; F20.9 Schizophrenia, unspecified; F32.A Depression, unspecified; Z87.01 Personal history of pneumonia (recurrent); Z87.442 Personal history of urinary calculi; Z86.711 Personal history of pulmonary embolism; Z87.891 Personal history of nicotine dependence; R94.31 Abnormal electrocardiogram [ECG] [EKG]
CPT/HCPCS: 36415; 71046; 80048; 85025; 93005; 96360; 99284; J7030

== ENCOUNTER 2020-12-24 02:01 | Emergency (ER) | payer OTHER, SELFPAY ==
--- NOTE | ~2020-12-24 | XR_ITS ---
XR chest 1V portable 12/24/2020 02:44 Indication: Chest palpitations and shortness of breath Procedure: AP portable chest Comparison: Comparison to multiple prior studies sequentially, with oldest reviewed study dated 08/2019. Findings: Heart size normal. No focal pneumonia, edema, pleural effusion or pneumothorax. No acute os seous abnormality. Calcified granuloma right upper lobe. Impression: 1: No acute cardiopulmonary disease. Reviewed, dictated and finalized at location A. CE ADMINISTRATOR Impression: 1: No acute cardiopulmonary disease.
[2020-12-24 02:12] VITALS: BP 137/77; PULSE 143; RESP 26; TEMP 36.8; O2SAT 99
--- NOTE | 2020-12-24 02:16 | ECG_ITS ---
Measurements Intervals [place] Rate: 141 P: [place]: 0 QRS: 57 QRSD: 84 T: -36 QT: 272 QTc: 417 Interpretive Statements ATRIAL FIBRILLATION WITH RAPID VENTRICULAR RESPONSE NONSPECIFIC ST & T-WAVE ABNORMALITY- INFERIOR LEADS ABNORMAL ECG Electronically Signed On 12-24-2020 6:30:55 HAND OUTSIDE CUTTER by Андрей Keyes D.O.
--- NOTE | 2020-12-24 02:23 | ED.GENADULT ---
HPI - General Adult General Chief complaint: Arrhythmia/Palpitations Stated complaint: SOB, unable to sleep Time Seen by Provider: 12/24/20 02:10 History of Present Illness HPI narrative: Patient is a 55-year-old gentleman who presents the emergency department with chief complaint of palpitations and shortness of breath. The patient reports he has history of A. fib and has been at a local jail doing rehab and noticed that his heart rate was beating fast and also was having some mild shortness of breath with these episodes. Patient denies chest pain patient states that he has a little bit of tightness and feels as though he is slightly out of breath particular when his heart beating very fast. Related Data Home Medications Medication Instructions Recorded Confirmed acetaminophen 12/13/20 12/23/20 albuterol sulfate INHALATION 12/13/20 12/23/20 amlodipine 12/13/20 12/23/20 aripiprazole mg 12/13/20 12/23/20 diltiazem HCl [Cardizem LA] 180 mg PO DAILY 12/13/20 12/23/20 diphenhydramine HCl [Benadryl] 50 mg PO HS 12/13/20 12/23/20 ergocalciferol (vitamin D2) 1,250 mcg PO WEEKLY 12/13/20 12/23/20 [Vitamin D2] lorazepam 1 mg PO TID 12/13/20 12/23/20 Allergies Allergy/AdvReac Type Severity Reaction Status Date / Time amoxicillin AdvReac Nausea and Verified 12/24/20 02:22 Vomiting Review of Systems Review of Systems: A 10 system review of systems was completed on the patient and is negative except for what is stated in the HPI. Nursing and ancillary documentation was reviewed. [facility] Past Medical History Medical History Anxiety Asthma Back injury Bronchitis Depression Epistaxis Herniated disc History of angina HLD (hyperlipidemia) HTN (hypertension) Kidney stone Pneumonia Pulmonary emboli Schizophrenia Suicide attempt Surgical History Surgical History History of gastric surgery 06/19/20 Hemigastrectomy with Yamilka-en-Y gastrojejunostomy Hx of appendectomy 1977 Hx of tonsillectomy Family History Family History Father , Unknown No problems noted. Mother , Unknown No problems noted. 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 HEAD: Normocephalic, atraumatic. EYES: PERRLA and EOMI. ENT: Nares clear, no rhinorrhea or epistaxis. Mucous membranes moist. NECK: Supple. CHEST: Clear to auscultation. No respiratory distress. HEART: Tachycardic rate and rhythm. No murmur heard. Normal peripheral pulses. ABDOMEN: Soft, nontender, nondistended, normal active bowel sounds. EXTREMITIES: Normal range of motion. No edema. SKIN: Warm, dry, no rash. NEURO: No focal deficits. Alert and oriented x3. PSYCH: Normal mood and affect. Course Course Emergency Course: EKG is atrial fibrillation with rapid ventricular response with a rate of 141 Patient was started on a Cardizem drip at rate control and then converted back to a normal sinus rhythm. Repeat EKG shows a sinus rhythm rate of [address] elevation or ST depression Vital Signs Vital signs: Vital Signs Temperature 36.8 C 12/24/20 02:12 Pulse Rate 143 H 12/24/20 02:12 Respiratory Rate 26 H 12/24/20 02:12 Blood Pressure 137/77 12/24/20 02:12 Pulse Oximetry 99 12/24/20 02:12 Temperature 36.8 C 12/24/20 02:12 Pulse Rate 92 12/24
[2020-12-24 02:32] LABS: Basophils Absolute Auto 0.1 K/mm3 (0.0-0.1); Basophils Percent Auto 1.1 % (0.2-1.2); Eosinophils Absolute Auto 0.2 K/mm3 (0-0.3); Eosinophils Percent Auto 2.9 % (0-4.4); Hematocrit 37.8 % (42.0-52.0); Hemoglobin 12.7 g/dL (14.0-18.0); Immature Granulocyte Absolute 0.03 K/mm3 (0.00-0.031); Immature Granulocyte Percent A 0.5 % (0-0.5); Lymphocytes Percent Auto 42.6 % (18.3-44.2); Mean Corpuscular HGB Conc 33.6 g/dl (32-36); Mean Corpuscular Volume 86.3 fl (80-100); Mean Platelet Volume 9.4 fl (7.4-10.4); Monocytes Absolute Auto 1.2 K/mm3 (0.1-0.6); Monocytes Percent Auto 17.5 % (2.6-8.5); Neutrophils Absolute Auto 2.3 K/mm3 (1.3-6.7); Neutrophils Percent Auto 35.4 % (45.5-73.1); Platelet Count Result 291 k/mm3 (150-375); Red Blood Count 4.38 M/mm3 (4.6-6.20); Red Cell Distribution Width 12.7 % (11.5-14.5); White Blood Count 6.6 K/mm3 (4.5-10.0)
[2020-12-24] MEDS: dilTIAZem HCl INJ 25 MG/5 ML VIAL 20 MG IV PUSH (02:32)
[2020-12-24 02:44] LABS: Alanine Aminotransferase 22 U/L (4-50); Albumin Level 3.8 g/dL (3.5-5.1); Alkaline Phosphatase 113 U/L (38-126); Anion Gap 7 mmol/L (8-16); Aspartate Amino Transferase 29 U/L (17-59); Bilirubin,Total 0.7 mg/dL (0.2-1.3); Blood Urea Nitrogen 22 mg/dL (9-20); Calcium 10.1 mg/dL (8.4-10.2); Carbon Dioxide 29 mmol/L (22-30); Chloride 103 mmol/L (98-107); Estimated CRCL calculation 131 ml/min; Estimated Glomerular Filt Rate > 60; Glucose 74 mg/dL (65-110); Magnesium 1.9 mg/dL (1.6-2.3); Potassium 3.8 mmol/L (3.4-5.0); Sodium 139 mmol/L (137-145)
[2020-12-24 02:56] LABS: NT Pro B Type Natriuretic Pept 428 pg/mL (5-100); Troponin I < 0.012 ng/mL (0.000-0.034)
[2020-12-24 02:58] VITALS: BP 137/77; PULSE 139
[2020-12-24 02:58] LABS: INR 0.9; Prothrombin Time 12.5 Seconds (11.1-14.7)
[2020-12-24 02:59] LABS: Partial Thromboplastin Time 28.1 SECONDS (22.3-36.8)
--- NOTE | 2020-12-24 03:14 | ECG_ITS ---
Measurements Intervals [place] Rate: 89 P: 51 [place]: 139 QRS: 60 QRSD: 93 T: 44 QT: 340 QTc: 414 Interpretive Statements SINUS RHYTHM NORMAL ECG Electronically Signed On 12-24-2020 6:31:15 LINE ORDERING CLINICIAN by Андрей Keyes D.O.
[2020-12-24 03:16] VITALS: BP 116/66; PULSE 92; RESP 22; O2SAT 100
--- NOTE | 2020-12-24 05:08 | PC.NURSE ---
called [facility] and talked to Pauline WEBB for advice on transport to get patient back to facility. She states to hold patient until around 0830 until group social worker arrives and call back for the facility van to come get patient.
[2020-12-24 05:24] VITALS: BP 118/66; PULSE 90; RESP 18; O2SAT 100
== END 2020-12-24 08:45 ==
PROVIDERS: Emergency Provider Emergency Medicine
DX: I48.0 Paroxysmal atrial fibrillation (principal); F41.9 Anxiety disorder, unspecified; E78.5 Hyperlipidemia, unspecified; I10 Essential (primary) hypertension; F20.9 Schizophrenia, unspecified; Z87.09 Personal history of other diseases of the respiratory system; Z87.442 Personal history of urinary calculi; Z87.01 Personal history of pneumonia (recurrent); Z86.711 Personal history of pulmonary embolism
CPT/HCPCS: 36415; 71045; 80053; 83735; 83880; 84484; 85025; 85610; 85730; 93005; 96365; 96366; 99284

== ENCOUNTER 2020-12-26 02:10 | Inpatient (IN) | payer OTHER, SELFPAY ==
[2020-12-26] VITALS (29 sets, daily range): BP systolic 106–145; BP diastolic 44–88; PULSE 79–181; RESP 16–29; TEMP 35.9–37.2; O2SAT 94–100; BMI 25.7
--- NOTE | 2020-12-26 02:20 | ECG_ITS ---
Measurements Intervals [place] Rate: 172 P: MD: 0 QRS: 54 QRSD: 90 T: -76 QT: 248 QTc: 420 Interpretive Statements ATRIAL FIBRILLATION WITH RAPID VENTRICULAR RESPONSE BORDERLINE ST-T WAVE ABNORMALITY- INF/LAT LEADS BASELINE ARTIFACT- I, II, III, AVR, AVL, AVF, V1-V6 ABNORMAL ECG Electronically Signed On 12-26-2020 7:16:32 [employer]ALT[employer]K SUPERVISOR by Андрей Keyes D.O.
[2020-12-26] MEDS: dilTIAZem HCl INJ 25 MG/5 ML VIAL IV PUSH (02:33)
[2020-12-26 02:45] LABS: Basophils Percent Auto 0.5 % (0.2-1.2); Eosinophils Absolute Auto 0.2 K/mm3 (0-0.3); Eosinophils Percent Auto 2.3 % (0-4.4); Hematocrit 35.7 % (42.0-52.0); Immature Granulocyte Absolute 0.01 K/mm3 (0.00-0.031); Immature Granulocyte Percent A 0.1 % (0-0.5); Lymphocytes Absolute Auto 2.63 K/mm3 (0.9-3.2); Lymphocytes Percent Auto 35.7 % (18.3-44.2); Mean Corpuscular HGB Conc 33.6 g/dl (32-36); Mean Corpuscular Hemoglobin 28.8 pg (26-34); Mean Corpuscular Volume 85.8 fl (80-100); Mean Platelet Volume 9.4 fl (7.4-10.4); Monocytes Percent Auto 13.3 % (2.6-8.5); Neutrophils Absolute Auto 3.5 K/mm3 (1.3-6.7); Neutrophils Percent Auto 48.1 % (45.5-73.1); Platelet Count Result 276 k/mm3 (150-375); Red Blood Count 4.16 M/mm3 (4.6-6.20); Red Cell Distribution Width 12.5 % (11.5-14.5); White Blood Count 7.4 K/mm3 (4.5-10.0)
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
[2020-12-26 03:00] LABS: Magnesium 1.8 mg/dL (1.6-2.3)
[2020-12-26 03:01] LABS: Alanine Aminotransferase 21 U/L (4-50); Albumin Level 3.5 g/dL (3.5-5.1); Alkaline Phosphatase 103 U/L (38-126); Anion Gap 9 mmol/L (8-16); Aspartate Amino Transferase 25 U/L (17-59); Bilirubin,Total 0.5 mg/dL (0.2-1.3); Blood Urea Nitrogen 14 mg/dL (9-20); Calcium 9.5 mg/dL (8.4-10.2); Carbon Dioxide 26 mmol/L (22-30); Chloride 105 mmol/L (98-107); Estimated CRCL calculation 114 ml/min; Estimated Glomerular Filt Rate > 60; Glucose 101 mg/dL (65-110); Potassium 3.4 mmol/L (3.4-5.0); Sodium 140 mmol/L (137-145)
[2020-12-26 03:11] LABS: Troponin I < 0.012 ng/mL (0.000-0.034)
[2020-12-26 03:14] LABS: Prothrombin Time 12.8 Seconds (11.1-14.7)
[2020-12-26 03:15] LABS: Partial Thromboplastin Time 25.8 SECONDS (22.3-36.8)
[2020-12-26 03:45] LABS: Add Urine Microscopic? YES; Appearance Urine Cloudy (Clear); Bacteria Urine Trace /hpf; Bilirubin Urine Negative (Negative); Blood Urine Negative (Negative); Color Urine Yellow (Yellow); Glucose Urine UA Negative (Negative); Ketones Urine Negative (Negative); Leukocyte Esterase Ur Negative LEU/UL (Negative); Mucus Urine Rare /lpf; Nitrate Urine Negative (Negative); Protein Urine Negative (Negative); RBC Urine 0-2 /hpf (0-2); Urobilinogen Urine Negative mg/dL (<2.0); WBC Urine 0-3 /hpf
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
[2020-12-26 07:08] LABS: Troponin I < 0.012 ng/mL (0.000-0.034)
[2020-12-26] MEDS: ENOXAPARIN 100 MG/ML SYRINGE 85 MG SUB-Q (09:21)
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
[2020-12-26 09:34] LABS: Troponin I < 0.012 ng/mL (0.000-0.034)
--- NOTE | 2020-12-26 10:21 | PM.IMPN ---
Progress Note: A&P Assessment and Plan (1) Atrial fibrillation with rapid ventricular response: Code(s): I48.91 - Unspecified atrial fibrillation Status: Acute Assessment and Plan: EKG on presentation demonstrated atrial fibrillation with rapid ventricular response up to 170. He was started on a Cardizem drip. He has been seen in consultation by Cardiology and has been transitioned to sotalol. IV Cardizem discontinued. Holding home cardizem and metoprolol tartrate. He has also been initiated on Xarelto for anticoagulation and stroke prophylaxis. Echocardiogram is ordered and is pending. Continue to monitor on telemetry. (2) HTN (hypertension): Qualifiers: Hypertension type: unspecified Qualified Code(s): I10 - Essential (primary) hypertension Code(s): I10 - Essential (primary) hypertension Status: Acute Assessment and Plan: Blood pressure reviewed and has been well controlled. Last BP 118/63. (3) PUD (peptic ulcer disease): Code(s): K27.9 - Peptic ulcer, site unspecified, unspecified as acute or chronic, without hemorrhage or perforation Status: Acute Assessment and Plan: With perforation status post hemigastrectomy with Yamilka-en-Y gastrojejunostomy. He had a long hospital stay related to this. He has had multiple followups with his surgeon, Dr. Molina. No issues at this time. Pantoprazole 40 mg daily during admission (4) Asthma: Qualifiers: Asthma severity: unspecified severity Asthma persistence: unspecified Asthma complication type: uncomplicated Qualified Code(s): J45.909 - Unspecified asthma, uncomplicated Code(s): J45.909 - Unspecified asthma, uncomplicated Status: Chronic Assessment and Plan: No wheezing on exam. Not in acute exacerbation. He is not on any home inhalers. Albuterol p.r.n. (5) Schizophrenia: Qualifiers: Schizophrenia type: unspecified Qualified Code(s): F20.9 - Schizophrenia, unspecified Code(s): F20.9 - Schizophrenia, unspecified Status: Acute Assessment and Plan: Continue aripiprazole and lorazepam as needed Subjective Date/time seen: 12/26/20 10:21 Interval history: Date of service: 12/26/2020 Junaid Jensen is a 55-year-old male with a history of schizophrenia, hypertension, hyperlipidemia, perforated duodenal ulcer s/p hemigastrectomy in June 2020 who is seen in follow-up for atrial fibrillation with rapid ventricular response. He complains fluttering sensation in his chest. States that was very significant last night and is slightly improved today though still persistent. He denies chest pain or tightness. Denies dizziness, lightheadedness, weakness. No nausea, vomiting, fever, chills. Denies abdominal pain. He is tolerating his diet. No urinary symptoms. He tells me that he is unhappy with his current alf and will not be going back. He does have rapid speech and is quite off topic when answering most questions. Review of Systems Review of Systems: All systems reviewed & are unremarkable except as noted in HPI and below Exam Narrative: Mr. Jensen is a well-nourished, well-appearing 55-year-old male who is lying semi recumbent in bed. He appears comfortable and is in NARD. Neuro: awake, alert and oriented x4, speech clear, no focal neuro deficits noted HEENMT: normocephalic, atraumatic, EOMI, sclerae anicteric Neck: supple, no lymphadenopathy Respiratory: clear to auscultation bilaterally, nonlabored breathing Cardio: Tachycardic, irregularly irregular Abdomen: nondistended, normoactive bowel sounds, soft, nontender to palpation, large midline abdominal scar from recent hemigastrectomy, ventral hernia Extremities: no edema, erythema, or tenderness to palpation, DP pulses 2+ bilaterally Skin: no rashes or lesions, warm and dry Psych: Rapid speech, off topic Objective Data Vital Signs Vital Signs: Vital Sig
[2020-12-26] MEDS: SOTALOL HCL 80 MG TABLET PO ×2 (10:38→20:20)
[2020-12-26] MEDS: LORazepam (*CRX) 1 MG TABLET PO ×2 (10:38→17:34)
--- NOTE | 2020-12-26 12:00 | ECG_ITS ---
Measurements Intervals [place] Rate: 119 P: [place]: 0 QRS: 73 QRSD: 93 T: 23 QT: 302 QTc: 425 Interpretive Statements ATRIAL FIBRILLATION WITH RAPID VENTRICULAR RESPONSE NONSPECIFIC T-WAVE ABNORMALITY- INFERIOR LEADS ABNORMAL ECG Electronically Signed On 12-26-2020 14:43:53 CLOTH CUTTING INSPECTOR by Андрей Keyes D.O.
--- NOTE | 2020-12-26 14:46 | ECG_ITS ---
Measurements Intervals [place] Rate: 78 P: 64 [place]: 144 QRS: 75 QRSD: 94 T: 62 QT: 354 QTc: 404 Interpretive Statements SINUS RHYTHM MINIMAL Q WAVES- INFERIOR LEADS BORDERLINE ECG Electronically Signed On 12-27-2020 8:43:43 [employer]ACH[employer] by Андрей Keyes D.O.
[2020-12-26] MEDS: RIVAROXABAN 20 MG TABLET PO (17:35)
[2020-12-27] VITALS (16 sets, daily range): BP systolic 107–132; BP diastolic 48–80; PULSE 78–93; RESP 18–20; TEMP 36.4–37.2; O2SAT 94–100
--- NOTE | 2020-12-27 | ECHO_ITS ---
Patient Info Name: Junaid Jensen Age: 55 years : 1965 Gender: Male Ht: 71 in Wt: 184 lbs BSA: 2.05 m2 HR: 90 bpm BP: 130 / 69 mmHg Heart Rhythm: Sinus Rhythm Exam Date: 12/27/2020 9:23 AM Exam Location: [facility] Patient Status: Inpatient Admit Date: 12/26/2020 Staff Ordering Physician: Hemalatha Yi MD Property Insurance Agent: Neftali Weller, [place], [place] Attending Provider: Jody Hanley PA-C Referring Physician: Kd MITTAL; Exam Type: CA echo doppler color flow Study Info Indications I48.1 - Persistent atrial fibrillation Complete two-dimensional, color flow and Doppler transthoracic echocardiogram is performed. Strain analysis performed. Summary 1. Complete two-dimensional, color flow and Doppler transthoracic echocardiogram is performed. 2. Left ventricular chamber dimension is normal. 3. Left ventricular systolic function is hyperdynamic, estimated at >70%. 4. There is trace mitral valve regurgitation. 5. Left atrial chamber dimension is mildly enlarged. Left Ventricle Left ventricular chamber dimension is normal. Left ventricular systolic function is hyperdynamic, estimated at >70%. The left ventricular diastolic function is grade I diastolic dysfunction. Right Ventricle Right ventricular chamber dimension is normal. Left Atria Left atrial chamber dimension is mildly enlarged. Right Atria Right atrial chamber dimension is normal. Aortic Valve The aortic valve is normal. Pulmonic Valve The pulmonic valve is normal. Mitral Valve The mitral valve has normal leaflets. There is trace mitral valve regurgitation. Tricuspid Valve The tricuspid valve leaflets are normal. Pericardium/Pleural The pericardium appears normal. Aorta The aortic root size at the sinus of Valsalva is normal. Left Ventricular Outflow Tract Name Value Normal LVOT 2D LVOT Diameter 2.0 cm LVOT Doppler LVOT Peak Gradient 5 mmHg LVOT Mean Gradient 3 mmHg LVOT VTI 19 cm LVOT VTI/AV VTI Ratio 0.6 LVOT Stroke Volume 61 ml LVOT CO 5.7 l/min LVOT CI 2.8 l/min/m2 Mitral Valve Name Value Normal MV Doppler MV Decel Alfalfa 377 cm/s2 MV PHT 67 ms MV Area (PHT) 3.3 cm2 4.0-5.0 MV Diastolic Function MV E Peak Velocity 87 cm/s MV A Peak Velocity 46 cm/s MV E/A 1.9 MV Decel Time 231 ms MV Annular TDI
[2020-12-27 05:51] LABS: Hematocrit 33.7 % (42.0-52.0); Hemoglobin 11.1 g/dL (14.0-18.0); Mean Corpuscular HGB Conc 32.9 g/dl (32-36); Mean Corpuscular Hemoglobin 29.1 pg (26-34); Mean Corpuscular Volume 88.5 fl (80-100); Mean Platelet Volume 9.7 fl (7.4-10.4); Platelet Count Result 248 k/mm3 (150-375); Red Blood Count 3.81 M/mm3 (4.6-6.20); Red Cell Distribution Width 12.3 % (11.5-14.5); White Blood Count 4.4 K/mm3 (4.5-10.0)
[2020-12-27 06:03] LABS: Anion Gap 5 mmol/L (8-16); Blood Urea Nitrogen 15 mg/dL (9-20); Calcium 9.6 mg/dL (8.4-10.2); Carbon Dioxide 31 mmol/L (22-30); Chloride 103 mmol/L (98-107); Estimated CRCL calculation 111 ml/min; Estimated Glomerular Filt Rate > 60; Glucose 123 mg/dL (65-110); Potassium 3.5 mmol/L (3.4-5.0); Sodium 139 mmol/L (137-145)
[2020-12-27] MEDS: LORazepam (*CRX) 1 MG TABLET PO ×3 (06:49→18:33)
[2020-12-27] MEDS: SOTALOL HCL 80 MG TABLET PO ×2 (08:54→20:31)
--- NOTE | 2020-12-27 09:10 | PM.IMPN ---
Progress Note: A&P Assessment and Plan (1) Atrial fibrillation with rapid ventricular response: Code(s): I48.91 - Unspecified atrial fibrillation Status: Acute Assessment and Plan: EKG on presentation demonstrated atrial fibrillation with rapid ventricular response up to 170. He was started on a Cardizem drip. He has been seen in consultation by Cardiology and has been transitioned to sotalol 80 mg b.i.d. IV Cardizem discontinued. He has also been initiated on Xarelto for anticoagulation and stroke prophylaxis. Echocardiogram is ordered and is pending. Continue to monitor on telemetry. This morning he was in sinus rhythm and rate was controlled in the 80s. (2) HTN (hypertension): Qualifiers: Hypertension type: unspecified Qualified Code(s): I10 - Essential (primary) hypertension Code(s): I10 - Essential (primary) hypertension Status: Acute Assessment and Plan: Blood pressure reviewed and has been well controlled. Last BP 130/69 (3) PUD (peptic ulcer disease): Code(s): K27.9 - Peptic ulcer, site unspecified, unspecified as acute or chronic, without hemorrhage or perforation Status: Acute Assessment and Plan: With perforation status post hemigastrectomy with Yamilka-en-Y gastrojejunostomy. He had a long hospital stay related to this. He has had multiple followups with his surgeon, Dr. Molina. No issues at this time. Pantoprazole 40 mg daily during admission (4) Asthma: Qualifiers: Asthma severity: unspecified severity Asthma persistence: unspecified Asthma complication type: uncomplicated Qualified Code(s): J45.909 - Unspecified asthma, uncomplicated Code(s): J45.909 - Unspecified asthma, uncomplicated Status: Chronic Assessment and Plan: No wheezing on exam. Not in acute exacerbation. He is not on any home inhalers. Albuterol p.r.n. (5) Schizophrenia: Qualifiers: Schizophrenia type: unspecified Qualified Code(s): F20.9 - Schizophrenia, unspecified Code(s): F20.9 - Schizophrenia, unspecified Status: Acute Assessment and Plan: Continue aripiprazole and lorazepam as needed Subjective Date/time seen: 12/27/20 09:10 Interval history: Date of service: 12/27/2020 Junaid Jensen is a 55-year-old male with a history of schizophrenia, hypertension, hyperlipidemia, perforated duodenal ulcer s/p hemigastrectomy in June 2020 who is seen in follow-up for atrial fibrillation with rapid ventricular response. He is feeling a lot better today. He had some fluttering sensation in his chest last evening but has not had any episodes today. Denies palpitations. Denies chest pain or tightness. Denies dizziness or lightheadedness. No shortness of breath, cough, or wheezing. He has been eating well. No urinary symptoms. No abdominal pain or GERD symptoms. Review of Systems Review of Systems: All systems reviewed & are unremarkable except as noted in HPI and below Exam Narrative: Mr. Jensen is a well-nourished, well-appearing 55-year-old male who is lying semi recumbent in bed. He appears comfortable and is in NARD. Neuro: awake, alert and oriented x4, speech clear, no focal neuro deficits noted HEENMT: normocephalic, atraumatic, EOMI, sclerae anicteric Neck: supple, no lymphadenopathy Respiratory: clear to auscultation bilaterally, nonlabored breathing Cardio: Regular rate, regular rhythm Abdomen: nondistended, normoactive bowel sounds, soft, nontender to palpation, large midline abdominal scar from recent hemigastrectomy, ventral hernia Extremities: no edema, erythema, or tenderness to palpation, DP pulses 2+ bilaterally Skin: no rashes or lesions, warm and dry Psych: Appropriate mood and affect, judgment and insight intact Objective Data Vital Signs Vital Signs: Vital Signs - 24 hr 12/26/20 09:47 12/26/20 10:00 12/26/20 10:38 Temperature Pulse Rate 99 112
[2020-12-27 10:11] LABS: Basophils Percent Auto 0.9 % (0.2-1.2); Eosinophils Absolute Auto 0.2 K/mm3 (0-0.3); Eosinophils Percent Auto 4.7 % (0-4.4); Hematocrit 35.1 % (42.0-52.0); Hemoglobin 11.5 g/dL (14.0-18.0); Immature Granulocyte Absolute 0.01 K/mm3 (0.00-0.031); Immature Granulocyte Percent A 0.2 % (0-0.5); Lymphocytes Absolute Auto 2.16 K/mm3 (0.9-3.2); Lymphocytes Percent Auto 48.4 % (18.3-44.2); Mean Corpuscular HGB Conc 32.8 g/dl (32-36); Mean Corpuscular Hemoglobin 29.1 pg (26-34); Mean Corpuscular Volume 88.9 fl (80-100); Mean Platelet Volume 9.5 fl (7.4-10.4); Monocytes Absolute Auto 0.7 K/mm3 (0.1-0.6); Monocytes Percent Auto 16.1 % (2.6-8.5); Neutrophils Absolute Auto 1.3 K/mm3 (1.3-6.7); Neutrophils Percent Auto 29.7 % (45.5-73.1); Platelet Count Result 254 k/mm3 (150-375); Red Blood Count 3.95 M/mm3 (4.6-6.20); Red Cell Distribution Width 12.5 % (11.5-14.5); White Blood Count 4.5 K/mm3 (4.5-10.0)
[2020-12-27 10:24] LABS: Anion Gap 5 mmol/L (8-16); Blood Urea Nitrogen 17 mg/dL (9-20); Calcium 9.4 mg/dL (8.4-10.2); Carbon Dioxide 30 mmol/L (22-30); Chloride 104 mmol/L (98-107); Estimated CRCL calculation 111 ml/min; Estimated Glomerular Filt Rate > 60; Glucose 92 mg/dL (65-110); Potassium 4.1 mmol/L (3.4-5.0); Sodium 139 mmol/L (137-145)
[2020-12-27] MEDS: PANTOPRAZOLE 40 MG TABLET PO (11:52)
--- NOTE | 2020-12-27 16:25 | PM.PNCARD ---
Progress Note: A&P Additional Plan 55-year-old man with paroxysmal atrial fibrillation doing well has converted back to sinus rhythm with sotalol. This will be continued as well as systemic anticoagulation. We will follow him with you another day or 2 in the hospital if he maintains sinus rhythm and has no proarrhythmia he can be discharged relatively soon. Since he does have the need for ongoing treatment of atrial fibrillation upon discharge we will arrange for office follow-up as well. Felipe Nix MD [facility] Subjective Date/time seen: Date of service: 12/27/20 16:25 Interval history: Follow-up visit in this 55-year-old man with: Paroxysmal atrial fibrillation. This arrhythmia 1st occurred in June of this year when he was hospitalized with ruptured duodenal ulcer, peritonitis and hemorrhagic shock. AFib in that setting was not felt to be likely to require ongoing treatment. He is now is admitted with a recurrence of this and clearly will require further treatment. He was started on sotalol yesterday as well as systemic anticoagulation. Today he has converted into sinus rhythm he is comfortable asymptomatic and offers no cardiovascular complaints of any kind Exam Const: General: comfortable and no acute distress Eyes: General: appearance normal, both eyes and all related structures Neck: Neck: supple and no JVD Resp: Effort & Inspection: normal respiratory effort Auscultation: clear to auscultation bilaterally Cardio: Rate: regular rate Rhythm: regular rhythm GI: GI Palp: Yes Soft to palpation Auscultation: normal bowel sounds Skin: General skin exam: normal color Neuro: Cognition (Neuro): normal cognition Extrem: General: normal to inspection Objective Data Vital Signs Vital Signs: Vital Signs - 24 hr 12/26/20 17:35 12/26/20 18:00 12/26/20 20:00 Temperature 37.2 C 36.7 C Pulse Rate 81 85 90 Respiratory Rate 22 H 20 Blood Pressure 115/57 L 116/44 L Pulse Oximetry 98 99 12/26/20 20:20 12/26/20 22:00 12/26/20 22:25 Temperature 36.6 C Pulse Rate 90 94 84 Respiratory Rate 20 Blood Pressure 110/65 Pulse Oximetry 95 12/26/20 23:23 12/27/20 02:00 12/27/20 03:16 Temperature Pulse Rate 92 92 78 Respiratory Rate 20 20 Blood Pressure Pulse Oximetry 95 95 12/27/20 04:00 12/27/20 05:53 12/27/20 07:02 Temperature 36.6 C 36.6 C Pulse Rate 84 92 93 Respiratory Rate 18 20 Blood Pressure 124/65 130/69 Pulse Oximetry 99 99 12/27/20 08:00 12/27/20 08:54 12/27/20 10:00 Temperature Pulse Rate 84 88 86 Respiratory Rate Blood Pressure Pulse Oximetry 12/27/20 12:00 12/27/20 14:00 Temperature 36.4 C L Pulse Rate 91 83 Respiratory Rate 20 Blood Pressure 132/80 Pulse Oximetry 99 Intake/Output Intake/Output: Intake & Output 12/24/20 12/25/20 12/26/20 12/27/20 23:59 23:59 23:59 23:59 Intake Total 1320 360 Output Total 150 2200 Balance 1170 -1840 Meds/Results Medications: Active Medications Generic Name Dose Route Start Last Admin Trade Name Freq PRN Reason Stop Dose Admin Albuterol 2 puff 12/26/20 10:36 Albuterol Sulfate (*Sp) Aerosol 1 Puff INHALATION Q6HRT PRN Shortness Of Breath, wheezing Aripiprazole 5 mg 12/27/20 09:00 12/27/20 11:55 Aripiprazole 5 Mg Tablet PO Not Given DAILY MATEO Lorazepam 1 mg 12/26/20 10:39 12/27/20 11:59 Lorazepam (*Crx) 1 Mg Tablet PO 1 mg TID PRN Administration Anxiety, agitation Pantoprazole Sodium 40 mg 12/27/20 09:00 12/27/20 11:52 Pantoprazole 40 Mg Tablet PO 40 mg QAM MATEO Administration Rivaroxaban 20 mg 12/26/20 17:00 12/26/20 17:35 Rivaroxaban 20 Mg Tablet PO 20 mg DAILY@1700 MATEO Administration Sotalol HCl 80 mg 12/26/20 09:25 12/27/20 08:54 Sotalol Hcl 80 Mg Tablet PO 80 mg Q12HR MATEO Administration Labs Labs: Laboratory Results - last 24 hr 12/27/20 12/27/20 12/27/20 04:53 04:53 09:42 WBC
[2020-12-27] MEDS: RIVAROXABAN 20 MG TABLET PO (17:28)
[2020-12-28] VITALS (11 sets, daily range): BP systolic 107–128; BP diastolic 59–77; PULSE 77–100; RESP 18–20; TEMP 36.4–37; O2SAT 99–100
[2020-12-28] MEDS: LORazepam (*CRX) 1 MG TABLET PO ×3 (00:53→13:21)
[2020-12-28] MEDS: SOTALOL HCL 80 MG TABLET PO (09:10)
[2020-12-28] MEDS: PANTOPRAZOLE 40 MG TABLET PO (09:10)
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
--- NOTE | 2020-12-28 10:38 | PM.PNCARD ---
Progress Note: A&P Assessment and Plan (1) Atrial fibrillation with rapid ventricular response: Code(s): I48.91 - Unspecified atrial fibrillation Status: Acute Assessment and Plan: Paroxysmal atrial fibrillation with rapid ventricular response. He was placed on sotalol and has converted back to sinus rhythm. Remains in sinus rhythm now. Continue current dose of sotalol Continue systemic anticoagulation with Xarelto 20 mg daily. (2) Encounter for monitoring sotalol therapy: Code(s): Z51.81 - Encounter for therapeutic drug level monitoring; Z79.899 - Other custodial (current) drug therapy Status: Acute Assessment and Plan: Initiated on sotalol on 12/26/2020. He has been stable. He received 5th dose of Sotalol this morning. Check EKG Check magnesium Appropriate for discharge if QTc on EKG less than 450. Reviewed sotalol therapy with the patient. Discussed importance of avoiding abrupt discontinuation of this medication is it could have very serious and even potentially deadly effects. Subjective Date/time seen: 12/28/20 10:38 Interval history: Cardiology follow-up for paroxysmal atrial fibrillation Date of service 12/28/2020: Patient is feeling well today and does not have any complaints. I reviewed his diagnosis and plan of care with him. Received his 5th dose of sotalol this morning. In sinus rhythm. He will be appropriate for discharge today provided his QTc remains less than 450 and electrolytes are within normal limits. Review of Systems Constitutional: Constitutional: Reports lethargy Eyes: Eyes: Reports no additional eye complaints ENT: Reports system reviewed and no additional complaints, except as documented Cardiovascular: Cardiovascular: Reports palpitations Respiratory: Respiratory: Reports no additional respiratory complaints Gastrointestinal: Gastrointestinal: Reports no additional gastrointestinal complaints Musculoskeletal: Musculoskeletal: Reports as per HPI Integumentary/Breasts: Skin/Breast: Reports system reviewed and no additional complaints, except as docu Neurologic: Reports as per HPI Psychiatric: Psychiatric: Reports depression Endocrine: Endocrine: Reports no additional endocrine complaints and Reports palpitations Hematologic/Lymphatic: Hematologic/Lymphatic: Reports no additional hematologic/lymphatic complaints Allergic/Immunologic: Allergic/Immunologic: Reports no additional allergic/immunologic complaints Exam Const: General: comfortable and no acute distress Other: Middle-aged male lying comfortably in bed. Alert and oriented. Cooperative. HENMT: Mouth: Yes moist mucous membranes Eyes: General: appearance normal, both eyes and all related structures Sclera: sclerae normal Pupils: Equal, round and reactive pupils present Neck: Neck: supple and no JVD Resp: Effort & Inspection: normal respiratory effort Auscultation: clear to auscultation bilaterally Cardio: Rate: regular rate Rhythm: regular rhythm Heart sounds: no murmurs GI: Inspection: incision (Midline) GI Palp: Yes Soft to palpation Auscultation: normal bowel sounds Skin: General skin exam: normal color Neuro: General: patient oriented x3 Cranial nerves: Yes Equal, round and reactive pupils present Cognition (Neuro): normal cognition Extrem: General: normal to inspection Psych: Appearance: grossly normal Mental Status: mental status grossly normal Objective Data Vital Signs Vital Signs: Vital Signs - 24 hr 12/27/20 12:00 12/27/20 14:00 12/27/20 16:00 Temperature 36.4 C L 37.2 C Pulse Rate 91 83 83 Respiratory Rate 20 20 Blood Pressure 132/80 107/48 L Pulse Oximetry 99 94 12/27/20 18:00 12/27/20 20:00 12/27/20 20:31 Temperature 36.8 C Pulse Rate 88 91 87 Respiratory Rate 20 Blood Pressure 132/60 Pulse Oximetry 95 12/27/20 22:00 12/27/20 23:13 12/28/20 00:00 Temperature 36.9 C Pulse Rate 87 84 84 Respiratory Rate
--- NOTE | 2020-12-28 10:48 | ECG_ITS ---
Measurements Intervals [place] Rate: 82 P: 55 TX: 145 QRS: 59 QRSD: 94 T: 43 QT: 356 QTc: 416 Interpretive Statements SINUS RHYTHM NORMAL ECG Electronically Signed On 12-28-2020 13:03:31 [employer] by Андрей Keyes D.O.
[2020-12-28 12:08] LABS: Magnesium 1.8 mg/dL (1.6-2.3)
[2020-12-28 12:46] LABS: EDCOVIDSCREEN Negative (Negative)
== END 2020-12-28 15:33 | DRG 201 ==
LOC: ANHED 03:47 → ANHIMU 03:54
PROVIDERS: Nurse Practitioner; Physician Assistant; Admitting Provider Internal Medicine; Emergency Provider Emergency Medicine; Visit Provider Nurse Practitioner
DX: I48.0 Paroxysmal atrial fibrillation (principal); Z20.822 Contact with and (suspected) exposure to COVID-19; I10 Essential (primary) hypertension; K27.9 Peptic ulcer, site unspecified, unspecified as acute or chronic, without hemorrhage or perforation; J45.909 Unspecified asthma, uncomplicated; F20.9 Schizophrenia, unspecified; Z28.21 Immunization not carried out because of patient refusal; Z79.899 Other long term (current) drug therapy; Z87.828 Personal history of other (healed) physical injury and trauma; Z87.891 Personal history of nicotine dependence; Z90.3 Acquired absence of stomach [part of]
CPT/HCPCS: 36415; 80048; 80053; 81001; 83735; 84484; 85025; 85027; 85610; 85730; 87426; 93005; 93306; 96365; 96366; 96372; 99285; A9270; C9803; G0378; G0379; J1650

== ENCOUNTER 2021-01-07 05:59 | Emergency (ER) | payer OTHER, SELFPAY ==
[2021-01-07 05:58] VITALS: BP 123/70; PULSE 97; RESP 16; TEMP 36.6; O2SAT 99
--- NOTE | 2021-01-07 06:20 | ECG_ITS ---
Measurements Intervals [place] Rate: 84 P: 68 [place]: 139 QRS: 62 QRSD: 88 T: 56 QT: 351 QTc: 417 Interpretive Statements SINUS RHYTHM POSSIBLE LEFT ATRIAL ENLARGEMENT BASELINE ARTIFACT- I, AVR, AVL BORDERLINE ECG Electronically Signed On 01-07-2021 11:32:56 OFFICE REP by Андрей Keyes D.O.
[2021-01-07 06:45] LABS: Basophils Absolute Auto 0.1 K/mm3 (0.0-0.1); Basophils Percent Auto 1.2 % (0.2-1.2); Eosinophils Absolute Auto 0.2 K/mm3 (0-0.3); Eosinophils Percent Auto 4.6 % (0-4.4); Hematocrit 35.9 % (42.0-52.0); Hemoglobin 11.7 g/dL (14.0-18.0); Immature Granulocyte Absolute 0.02 K/mm3 (0.00-0.031); Immature Granulocyte Percent A 0.4 % (0-0.5); Lymphocytes Absolute Auto 1.76 K/mm3 (0.9-3.2); Lymphocytes Percent Auto 34.9 % (18.3-44.2); Mean Corpuscular HGB Conc 32.6 g/dl (32-36); Mean Corpuscular Hemoglobin 28.1 pg (26-34); Mean Corpuscular Volume 86.1 fl (80-100); Mean Platelet Volume 9.2 fl (7.4-10.4); Monocytes Absolute Auto 0.7 K/mm3 (0.1-0.6); Monocytes Percent Auto 13.3 % (2.6-8.5); Neutrophils Absolute Auto 2.3 K/mm3 (1.3-6.7); Neutrophils Percent Auto 45.6 % (45.5-73.1); Platelet Count Result 286 k/mm3 (150-375); Red Blood Count 4.17 M/mm3 (4.6-6.20); Red Cell Distribution Width 12.5 % (11.5-14.5)
[2021-01-07 06:58] LABS: Alanine Aminotransferase 26 U/L (4-50); Albumin Level 3.4 g/dL (3.5-5.1); Alkaline Phosphatase 109 U/L (38-126); Anion Gap 1 mmol/L (8-16); Aspartate Amino Transferase 34 U/L (17-59); Bilirubin,Total 0.6 mg/dL (0.2-1.3); Blood Urea Nitrogen 16 mg/dL (9-20); Calcium 9.5 mg/dL (8.4-10.2); Carbon Dioxide 33 mmol/L (22-30); Chloride 104 mmol/L (98-107); Estimated CRCL calculation 131 ml/min; Estimated Glomerular Filt Rate > 60; Glucose 107 mg/dL (65-110); Magnesium 1.8 mg/dL (1.6-2.3); Potassium 4.1 mmol/L (3.4-5.0); Sodium 138 mmol/L (137-145)
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
[2021-01-07 07:19] LABS: Troponin I < 0.012 ng/mL (0.000-0.034)
[2021-01-07 07:30] VITALS: BP 118/73; PULSE 96; RESP 19; O2SAT 100
== END 2021-01-07 07:30 | disposition home or self-care (01) ==
PROVIDERS: General Practice; Emergency Provider Emergency Medicine
DX: R00.2 Palpitations (principal); I48.91 Unspecified atrial fibrillation; J45.909 Unspecified asthma, uncomplicated; E78.5 Hyperlipidemia, unspecified; I10 Essential (primary) hypertension; F41.9 Anxiety disorder, unspecified; F32.A Depression, unspecified; F20.9 Schizophrenia, unspecified; Z87.442 Personal history of urinary calculi; Z87.01 Personal history of pneumonia (recurrent); Z86.711 Personal history of pulmonary embolism; Z98.84 Bariatric surgery status; Z87.891 Personal history of nicotine dependence; Z79.01 Long term (current) use of anticoagulants; R94.31 Abnormal electrocardiogram [ECG] [EKG]
CPT/HCPCS: 36415; 80053; 83735; 84484; 85025; 93005; 99284

== ENCOUNTER 2021-01-25 15:41 | Inpatient (IN) | payer OTHER, SELFPAY ==
[2021-01-25 15:43] VITALS: BP 137/69; PULSE 92; RESP 22; TEMP 36.6; O2SAT 99
[2021-01-25 18:21] LABS: Basophils Absolute Auto 0.1 K/mm3 (0.0-0.1); Basophils Percent Auto 0.9 % (0.2-1.2); Eosinophils Absolute Auto 0.2 K/mm3 (0-0.3); Eosinophils Percent Auto 3.2 % (0-4.4); Hematocrit 38.9 % (42.0-52.0); Hemoglobin 12.8 g/dL (14.0-18.0); Immature Granulocyte Absolute 0.02 K/mm3 (0.00-0.031); Immature Granulocyte Percent A 0.4 % (0-0.5); Lymphocytes Absolute Auto 2.39 K/mm3 (0.9-3.2); Lymphocytes Percent Auto 44.8 % (18.3-44.2); Mean Corpuscular HGB Conc 32.9 g/dl (32-36); Mean Corpuscular Hemoglobin 28.3 pg (26-34); Mean Corpuscular Volume 86.1 fl (80-100); Mean Platelet Volume 9.6 fl (7.4-10.4); Monocytes Absolute Auto 0.8 K/mm3 (0.1-0.6); Neutrophils Percent Auto 36.7 % (45.5-73.1); Platelet Count Result 269 k/mm3 (150-375); Red Blood Count 4.52 M/mm3 (4.6-6.20); White Blood Count 5.3 K/mm3 (4.5-10.0)
[2021-01-25 18:43] LABS: Alanine Aminotransferase 30 U/L (4-50); Albumin Level 3.9 g/dL (3.5-5.1); Alkaline Phosphatase 137 U/L (38-126); Anion Gap 7 mmol/L (8-16); Aspartate Amino Transferase 32 U/L (17-59); Blood Urea Nitrogen 20 mg/dL (9-20); Calcium 9.8 mg/dL (8.4-10.2); Carbon Dioxide 28 mmol/L (22-30); Chloride 103 mmol/L (98-107); Estimated CRCL calculation 98 ml/min; Estimated Glomerular Filt Rate > 60; Glucose 108 mg/dL (65-110); Lipase 78 U/L (23-300); Potassium 4.8 mmol/L (3.4-5.0); Sodium 138 mmol/L (137-145)
[2021-01-25 18:55] LABS: Troponin I < 0.012 ng/mL (0.000-0.034)
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
[2021-01-25] MEDS: LACTATED RINGERS 1,000 ML 80 ML IV CONT (20:55)
[2021-01-25 20:56] VITALS: BP 115/68; PULSE 84; RESP 17; O2SAT 99
--- NOTE | 2021-01-25 22:24 | ADMGEN ---
This patient, Junaid Jensen, was admitted to Medical Room 249-01. Patient/family oriented to hospital policies and general routines including ID bracelet, bed and alarms, visiting hours, pain management, procedures, bathroom and other care routines, personal items, smoking policy, room service/diet, and visiting hours. Information on how to activate the Rapid Response Team has been discussed. Patient/Family are encouraged to report perceived risks to care and to ask questions if they do not understand what they are told or what they should do.
[2021-01-25 22:29] VITALS: BP 128/68; PULSE 84; RESP 17; TEMP 36.6; O2SAT 99; BMI 24.2
[2021-01-26] VITALS (14 sets, daily range): BP systolic 109–137; BP diastolic 52–88; PULSE 65–115; RESP 16–28; TEMP 36.2–37.6; O2SAT 93–100
--- NOTE | 2021-01-26 06:00 | ECG_ITS ---
Measurements Intervals [place] Rate: 82 P: 59 [place]: 147 QRS: 63 QRSD: 94 T: 50 QT: 370 QTc: 434 Interpretive Statements SINUS RHYTHM NORMAL ECG Electronically Signed On 01-26-2021 6:17:23 [employer] by Андрей Keyes D.O.
--- NOTE | 2021-01-26 06:55 | PC.NURSE ---
Pt went down to OR, report given to Cat. Pt alert and oriented, consent signed and on chart.
--- NOTE | 2021-01-26 07:15 | WPDHPUPDATE1 ---
History and Physical Update Update Date/Time: 01/26/21 07:15 History and Physical has been reviewed, including an updated exam of the patient. There are NO changes in the patient's condition. Risks, benefits, and alternatives have been discussed and questions answered. Patient agrees to proceed with procedure.
[2021-01-26] MEDS: ACETAMINOPHEN 500 MG TABLET 1000 MG PO (07:17)
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
[2021-01-26] MEDS: LACTATED RINGERS 1,000 ML 30 ML IV CONT ×2 (07:20→12:04)
[2021-01-26] MEDS: fentaNYL CITRATE INJ (*CRX) 100 MCG/2 ML VIAL 25 MCG IV PUSH ×8 (12:26→13:47)
--- NOTE | 2021-01-26 13:14 | W.PM.PROC2 ---
Procedure Note - Detailed Date of Procedure 01/26/21 Pre-op Diagnosis Incisional Hernia Post-op Diagnosis same Procedure Performed Repair incisional hernia with mesh, bilateral transversus abdominis myofascial flap advancement-6 cm on the left, 4 cm on the right. Surgeon Eladio Molina MD Structural Analyst Kristen Sanders [facility] Anesthesia general Indications Patient is a 55-year-old man who presented with duodenal ulcer perforation back in June. He underwent hemigastrectomy as treatment for this. He returned in December with a wide-mouth incisional hernia in the upper abdomen. He is taken to surgery now for incisional hernia repair with mesh and transversus abdominis myofascial flap advancement. Findings Wide incisional hernia in the upper abdomen as suggested on exam and CT scan. Description of Procedure Patient was taken to surgery and induced into general anesthesia. The abdomen is prepped and draped. Brower catheter was placed. The previous upper midline abdominal scar was excised. This was discarded. Cautery was used for hemostasis. We then dissected down to the hernia sac and expose the midline fascia the length of the wound. I had to extend the old incision about 4 cm caudad as well. The hernia sac was opened and most of it was excised. There were several abdominal adhesions predominantly on the right side. These were taken down taking care not to create any peritoneal openings if at all possible. Unfortunately on the right side there was considerable adhesion to the right lateral aspect of the liver. This did result in some loss of peritoneum in this area. Once the adhesions were taken down, a blue towel was placed in the abdomen to quarantine off the abdominal contents. I started on the patient's right working on the left sided posterior rectus fascia. Incision was made medially on the posterior rectus fascia. Once the medial border of the rectus was exposed, this dissection was continued cranial and caudal the length of the wound. I then carefully teased the rectus muscle from the posterior fascia. The defect was fairly wide and there was not a great deal of posterior rectus fascia width. I then extended this dissection of the medial aspect of the posterior rectus fascia cephalad up to and under the xiphoid process staying in the retroperitoneum in this area. Likewise, I extended this dissection posterior below the pubis into the retropubic space. From there, we gently tease the rectus muscle off of the posterior rectus fascia the length of the wound. I then exposed the transversus muscle in the upper aspect of the wound over a clamp. We dissected and divided the transversus muscle to expose the transversalis fascia. This dissection was then continued from cephalad caudad. It was done in this fashion. A couple of holes that were small in sued. Eventually the dissection was continued on beyond the semi circular line. As we continued the dissection, I further dissected laterally in the space deep to the transversus muscle. This dissection was carried to the axillary line. Cautery was used for hemostasis. I should point out that care was taken to avoid the neurovascular bundles at the lateral aspect of the posterior rectus fascia as they were heading to the rectus muscle. I continued the dissection deep to the transversus muscle throughout the entire area on the left side of the abdomen. I crossed over to the right side underneath the xiphoid process. I also crossed over to the right side below the pubis. The few small openings in the peritoneum were closed with interrupted 3 0 Vicryl suture. I then changed sides and went to the patient's left. We dissected the posterior rectus sheath in similar fashion. The sheath was dissected medially up to the area of the xiphoid as well as down to the retropubic space. We freed the posterior rectus fascia from the rectus muscle in similar fashion along this area. I then exposed the transversus mu
[2021-01-26] MEDS: MORPHINE SULFATE (*CRX) 4 MG/ML INJ IV PUSH ×2 (14:26→20:24)
[2021-01-26] MEDS: IBUPROFEN IV 800 MG/200 ML 800 MG/200 ML BAG 400 MG IVPB (14:38)
--- NOTE | 2021-01-26 15:43 | REHAB_ITS ---
This report was moved to the correct visit, [id number] on 02/17/21. Original report was signed by Eladio Molina MD 01/25/2021. ADDENDUM Patient left [facility] last night as he was concerned he would not arrive in time for his surgery this morning. He was seen in the emergency room. He was admitted to the hospital last night rather than arriving in the preop area as had been planned previously. Addendum Documented By: Eladio Molina MD 01/26/21 1543 Addendum Signed By: <Electronically signed by Eladio Molina MD> 1 1543 H&P: HPI History of Present Illness Date/Time: 01/25/21 15:12 Chief Complaint: Incisional hernia Narrative: patient is a 55-year-old man who presented last June with an acute abdomen and free intraperitoneal air. At exploration he had a very large duodenal ulcer. He has schizophrenia and a significant degree of anxiety. He was apparently homeless at that time. Surgically he underwent hemigastrectomy with Yamilka-en-Y gastrojejunostomy on 06/19/2020. The night of surgery he developed a rapid atrial tachycardia which required cardioversion. Postoperatively he also Developed a postoperative abscess. He initially refused to have a drainage procedure but eventually agreed and this was drained percutaneously. He was eventually discharged on 07/08/2020. His drain was removed in the office on July 15, 2020. He was followed in the office mostly for early satiety until August 23, 2020. Upper GI at that time showed hemigastrectomy but normal gastric emptying. His diet in eating had been improved. He was residing at [facility] following discharge. His wound healed by secondary intention with silver gel dressing changes administered by nursing at [facility]. In November, the patient noticed a bulge in his midline abdominal incision. He was seen in the office in December. Exam showed an incisional hernia above the umbilicus with a 7 cm defect. He was quite malnourished in June and he had been eating better with now his BMI having increased from 19-[address] scan showed a 7 cm defect as well as an umbilical hernia. Patient was scheduled for incisional hernia repair with mesh, bilateral posterior component separation. Following his office visit in December, patient did return to the emergency room with rapid atrial fibrillation. He was admitted from December 26 through December 28. He was discharged on sotalol and Xarelto. His Xarelto subsequently was changed to Eliquis. He returned to the emergency room on 01/07/2021 with palpitations but EKGs were negative and he was able to be discharged following his ER visit. He is admitted now to be taken to surgery on 01/26/2021 for incisional hernia repair. We did converse with nursing at [facility] to stop his Eliquis 2 days prior to the surgery. Review of Systems Review of Systems: All systems reviewed & are unremarkable except as noted in HPI and below Constitutional: Constitutional: Reports as per HPI, Denies anorexia, Denies chills, Denies fever(s) and Denies headache(s) Cardiovascular: Cardiovascular: Reports as per HPI, Denies chest pain, Denies diaphoresis, Reports rapid heart rate, Reports irregular heart rhythm, Denies dyspnea and Denies paroxysmal nocturnal dyspnea Respiratory: Respiratory: Denies chest congestion, Denies cough and Denies dyspnea Gastrointestinal: Gastrointestinal: Reports as per HPI, Denies abdominal pain, Denies heartburn, Denies nausea and Denies vomiting Integumentary/Breasts: Skin/Breast: Denies lesions and Denies rash Psychiatric: Psychiatric: Reports as per HPI, Reports a
[2021-01-26] MEDS: LORazepam (*CRX) 1 MG TABLET PO (15:49)
--- NOTE | 2021-01-26 16:30 | WPDCN ---
Assessment and Plan Assessment and plan (1) Ventral incisional hernia: Code(s): K43.2 - Incisional hernia without obstruction or gangrene Status: Chronic Assessment and Plan: Postoperative day 0, repair incisional hernia with mesh. Wound care, pain control, DVT prophylaxis deferred to Dr. Molina. (2) Chronic anemia: Code(s): D64.9 - Anemia, unspecified Status: Acute Assessment and Plan: Hemoglobin and hematocrit are stable on review of previous labs. (3) Paroxysmal atrial fibrillation: Code(s): I48.0 - Paroxysmal atrial fibrillation Status: Acute Assessment and Plan: Continue sotalol. He is not on long-term anticoagulation. (4) Hypertension: Code(s): I10 - Essential (primary) hypertension Status: Acute Assessment and Plan: Blood pressures were reviewed and they are stable postoperatively. Continue home medication and monitor daily. (5) Psychiatric illness: Code(s): F99 - Mental disorder, not otherwise specified Status: Acute Assessment and Plan: No acute issues. It appears the patient only takes lorazepam at home. Additional Plan Thank you for allowing us to participate in this patient's care. Please do not hesitate to contact us with any questions. Supervising physician for this medical consultation in Dr. Flynn Osuna. HPI Data of Consult Date/Time: 01/26/21 16:30 Requesting Physician: Eladio Molina MD Primary Care Provider: BUSINESS PROCESS ARCHITECT PHYSICIAN Consult Narrative Narrative: This is a 55-year-old male with paroxysmal atrial fibrillation, pulmonary embolism, psychiatric illness, and history of perforated duodenal ulcer whom the hospitalist service has been consulted for management of his medical conditions postoperatively. 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 He has since developed an incisional hernia and is now status post incisional hernia repair with mesh and bilateral transversus abdominus myofascial flap advancement per Dr. Molina. His surgery was performed under general anesthesia with no immediate complications documented an estimated blood loss of 300 mL. At the time my evaluation he was sleeping and reports that his pain is a bit better controlled than what it was earlier today. He has not passed flatus as of yet. He denies postoperative nausea and vomiting. He also denies fever, chills, sweats, chest pain, shortness of breath. Review of Systems Review of Systems: Twelve systems were reviewed. No recent illnesses. No sick contacts. No nausea or vomiting. Except as documented, all other systems were reviewed and are negative. [facility] Past Medical History Medical History Anxiety Asthma Chronic anemia Depression Hyperlipidemia Hypertension Kidney stone Paroxysmal atrial fibrillation Peptic ulcer disease History of perforation requiring hemigastrectomy with Yamilka-en-Y gastrojejunostomy. Pneumonia Pulmonary emboli Schizophrenia Suicide attempt Surgical History Surgical History (Updated 01/26/21 @ 15:28 by Emmy Torres PA-C) History of appendectomy (1977) History of gastric surgery (06/19/20) Hemigastrectomy with Yamilka-en-Y gastrojejunostomy. History of tonsillectomy Family History Family History Father , Unknown No problems noted. Mother , Unknown No problems noted. Other Family history of malignant neoplasm Social History Social History (Updated 01/27/21 @ 00:13 by Emmy Torres PA-C) Social History: Surrogate decision maker: Valentin Mikey, brother. Code status: Code. Smoking status: Former smoker Tobacco type: cigarettes Second hand tobacco smoke exposure: Yes Alcoh
[2021-01-26] MEDS: HYDROcodone/acetaminophen (*CRX) 10-325 MG TABLET 1 TAB PO ×2 (18:15→22:25)
[2021-01-26] MEDS: IBUPROFEN IV 800 MG/200 ML 800 MG/200 ML BAG 300 MG IVPB (21:14)
[2021-01-26] MEDS: SOTALOL HCL 80 MG TABLET PO (21:15)
[2021-01-27] VITALS (21 sets, daily range): BP systolic 104–136; BP diastolic 66–96; PULSE 98–149; RESP 16–26; TEMP 36.7–37.6; O2SAT 91–97
[2021-01-27] MEDS: MORPHINE SULFATE (*CRX) 4 MG/ML INJ IV PUSH ×3 (00:02→20:51)
[2021-01-27] MEDS: HYDROcodone/acetaminophen (*CRX) 10-325 MG TABLET 1 TAB PO ×5 (02:33→20:02)
[2021-01-27] MEDS: LACTATED RINGERS 1,000 ML 100 ML IV CONT ×2 (02:39→16:12)
--- NOTE | 2021-01-27 03:19 | PC.NURSE ---
Pt refused 2100 IV pepcid, pt educated on medication and purpose, pt still refused. Pt refused 0300 IV ibuprofen, pt educated on medication and purpose, pt still refused and requests [place].
[2021-01-27 05:58] LABS: Hematocrit 33.5 % (42.0-52.0); Hemoglobin 11.1 g/dL (14.0-18.0); Mean Corpuscular HGB Conc 33.1 g/dl (32-36); Mean Corpuscular Hemoglobin 28.3 pg (26-34); Mean Corpuscular Volume 85.5 fl (80-100); Mean Platelet Volume 9.7 fl (7.4-10.4); Platelet Count Result 220 k/mm3 (150-375); Red Blood Count 3.92 M/mm3 (4.6-6.20); Red Cell Distribution Width 13.2 % (11.5-14.5); White Blood Count 9.3 K/mm3 (4.5-10.0)
[2021-01-27 06:10] LABS: Anion Gap 4 mmol/L (8-16); Blood Urea Nitrogen 15 mg/dL (9-20); Calcium 9.1 mg/dL (8.4-10.2); Carbon Dioxide 28 mmol/L (22-30); Chloride 104 mmol/L (98-107); Estimated CRCL calculation 114 ml/min; Estimated Glomerular Filt Rate > 60; Glucose 106 mg/dL (65-110); Magnesium 1.8 mg/dL (1.6-2.3); Sodium 136 mmol/L (137-145)
[2021-01-27] MEDS: MAGNESIUM SULF 2 GM/WATER 50ML 2 GM/50 ML BAG IVPB (07:38)
[2021-01-27] MEDS: ENOXAPARIN 40 MG/0.4 ML SYRINGE SUB-Q (07:44)
[2021-01-27] MEDS: SOTALOL HCL 80 MG TABLET PO ×2 (07:45→20:53)
[2021-01-27] MEDS: LORazepam (*CRX) 1 MG TABLET PO ×2 (07:45→12:42)
--- NOTE | 2021-01-27 08:00 | PM.IMPN ---
Progress Note: A&P Assessment and Plan (1) Ventral incisional hernia: Code(s): K43.2 - Incisional hernia without obstruction or gangrene Status: Chronic Assessment and Plan: Postoperative day 1 repair incisional hernia with mesh Post op care deferred to Dr. Molina Wound care per surgeries instructions pain control: Ibuprofen 800mg IV Q6hr, Morphine 2-4mg IV Q2hr PRN, Tylenol 500mg PO Q6hr PRN, [place] 5/325 Q4PRN, [place] 10/325 Q4hr PRN Antiemetics: Zofran 4mg IV Q4hr PRN DVT prophylaxis: Lovenox 40mg SubQ Daily IS (2) Chronic anemia: Code(s): D64.9 - Anemia, unspecified Status: Acute Assessment and Plan: Hemoglobin and hematocrit are stable H/H 11.1/33.5 Anemia labs from 07/05/20 Iron 24, TIBC 239, % sat 14, Transferrin 101, Ferritin 245, B12 895, Folate 5 Repeat anemia labs have no real changes Supplement as indicated (3) Paroxysmal atrial fibrillation: Code(s): I48.0 - Paroxysmal atrial fibrillation Status: Acute Assessment and Plan: Continue sotalol On Xarelto for anticoagulation, however was stopped for the procedure Trop negative HR uncontrolled 110-140 EKG SR 82 upon admission Repeat EKG is AFIB RVR One dose of IV metoprolol 5mg given Continue to trend heart rate Cardiology consulted (4) Hypertension: Code(s): I10 - Essential (primary) hypertension Status: Acute Assessment and Plan: BP 125/77 Blood pressures were reviewed and they are stable postoperatively Continue Sotalol 80mg PO Q12hr Trend BP Adjust therapy as indicated (5) Psychiatric illness: Code(s): F99 - Mental disorder, not otherwise specified Status: Acute Assessment and Plan: No acute issues Continue lorazepam Started on Abilify 5mg PO daily Trend mood (6) Hypomagnesemia: Code(s): E83.42 - Hypomagnesemia Status: Acute Assessment and Plan: MG 1.8 Replace with 2gm Trend labs Replace as indicated (7) Chest pain: Code(s): R07.9 - Chest pain, unspecified Status: Acute Assessment and Plan: Complaints of heaviness in the sternal area EKG showed AFIB RVR Cardiology consulted Troponin negative Tele monitor on Time Spent With Patient Time with patient: Greater than 35 minutes Subjective Date/time seen: 01/27/21 08 Interval history: Date/Time: 01/26/21 16:30 Narrative: This is a 55-year-old male with paroxysmal atrial fibrillation, pulmonary embolism, psychiatric illness, and history of perforated duodenal ulcer whom the hospitalist service has been consulted for management of his medical conditions postoperatively. 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 He has since developed an incisional hernia and is now status post incisional hernia repair with mesh and bilateral transversus abdominus myofascial flap advancement per Dr. Molina. His surgery was performed under general anesthesia with no immediate complications documented an estimated blood loss of 300 mL. At the time my evaluation he was sleeping and reports that his pain is a bit better controlled than what it was earlier today. He has not passed flatus as of yet. He denies postoperative nausea and vomiting. He also denies fever, chills, sweats, chest pain, shortness of breath. Date/Time 01/27/21799 patient stated that he is feeling okay today. He said at 2-3 o'clock this morning his chest got heavy and he knew he went into AFib. He thinks is from the surgery. He has been taking his meds and denies any lightheaded dizziness or palpitations at this time. Patient also denies nausea, vomiting, diarrhea, sweats, fevers, chills. Patient did complain of pain in his abdomen which was a 7/10 which he states was very uncomfortable especially when trying to sit down. Patient has 2 bulbs on each side of the abdomen. They are draining a
--- NOTE | 2021-01-27 08:00 | P.PNIM_ITS ---
Progress Note: A&P Assessment and Plan (1) Ventral incisional hernia: Code(s): K43.2 - Incisional hernia without obstruction or gangrene Status: Chronic Assessment and Plan: * Postoperative day 1 * repair incisional hernia with mesh * Post op care deferred to Dr. Molina * Wound care per surgeries instructions * pain control: Ibuprofen 800mg IV Q6hr, Morphine 2-4mg IV Q2hr PRN, Tylenol 500mg PO Q6hr PRN, [place] 5/325 Q4PRN, [place] 10/325 Q4hr PRN * Antiemetics: Zofran 4mg IV Q4hr PRN * DVT prophylaxis: Lovenox 40mg SubQ Daily * IS (2) Chronic anemia: Code(s): D64.9 - Anemia, unspecified Status: Acute Assessment and Plan: * Hemoglobin and hematocrit are stable * H/H 11.1/33.5 * Anemia labs from 07/05/20 Iron 24, TIBC 239, % sat 14, Transferrin 101, Ferritin 245, B12 895, Folate 5 * Repeat anemia labs have no real changes * Supplement as indicated (3) Paroxysmal atrial fibrillation: Code(s): I48.0 - Paroxysmal atrial fibrillation Status: Acute Assessment and Plan: * Continue sotalol * On Xarelto for anticoagulation, however was stopped for the procedure * Trop negative * HR uncontrolled 110-140 * EKG SR 82 upon admission * Repeat EKG is AFIB RVR * One dose of IV metoprolol 5mg given * Continue to trend heart rate * Cardiology consulted (4) Hypertension: Code(s): I10 - Essential (primary) hypertension Status: Acute Assessment and Plan: * BP 125/77 * Blood pressures were reviewed and they are stable postoperatively * Continue Sotalol 80mg PO Q12hr * Trend BP * Adjust therapy as indicated (5) Psychiatric illness: Code(s): F99 - Mental disorder, not otherwise specified Status: Acute Assessment and Plan: * No acute issues * Continue lorazepam * Started on Abilify 5mg PO daily * Trend mood (6) Hypomagnesemia: Code(s): E83.42 - Hypomagnesemia Status: Acute Assessment and Plan: * MG 1.8 * Replace with 2gm * Trend labs * Replace as indicated (7) Chest pain: Code(s): R07.9 - Chest pain, unspecified Status: Acute Assessment and Plan: * Complaints of heaviness in the sternal area * EKG showed AFIB RVR * Cardiology consulted * Troponin negative * Tele monitor on Time Spent With Patient Time with patient: Greater than 35 minutes Subjective Date/time seen: 01/27/21 0800 Interval history: Date/Time: 01/26/21 16:30 Narrative: This is a 55-year-old male with paroxysmal atrial fibrillation, pulmonary embolism, psychiatric illness, and history of perforated duodenal ulcer whom the hospitalist service has been consulted for management of his medical conditions postoperatively. 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 He has since developed an incisional hernia and is now status post incisional hernia repair with mesh and bilateral transversus abdominus myofascial flap advancement per Dr. Molina. His surgery was performed under general anesthesia with no immediate complications documented an estimated blood loss of 300 mL. At the time my evaluation he was sleeping and reports that his pain is a bit better controlled than what it was earlier today. He has not passed flatus as of yet. He denies postoperative nausea and vomiting. He also denies fever, chills, sweats, chest pain, shortness of breath. Date/Time 01/27/21 08 tomas
--- NOTE | 2021-01-27 08:20 | ECG_ITS ---
Measurements Intervals [place] Rate: 135 P: FL: 0 QRS: 36 QRSD: 94 T: -61 QT: 316 QTc: 474 Interpretive Statements ATRIAL FIBRILLATION WITH RAPID VENTRICULAR RESPONSE MINIMAL Q WAVES- INFERIOR LEADS BORDERLINE ST-T WAVE ABNORMALITY- DIFFUSE LEADS ABNORMAL ECG Electronically Signed On 01-27-2021 10:55:58 APPLICATION SECURITY CONSULTANT by Андрей Keyes D.O.
--- NOTE | 2021-01-27 08:31 | PC.NURSE ---
0820 Pt c/o heavy feeling in chest and heart palpitations he felt irregular. Pb Saez LEAD SIMULATION MODELING ENGINEER notified, new orders received.
--- NOTE | 2021-01-27 08:58 | PC.NURSE ---
0826 Pb Saez DISTRICT ADVISER on floor to see patient and shown ekg. Pt placed on Tele and Swathi Maza notified of cardiology consult. Pt on tel afib 130's- 140's.
[2021-01-27 09:07] LABS: Lactate Dehydrogenase 493 U/L (313-618)
[2021-01-27 09:14] LABS: Troponin I < 0.012 ng/mL (0.000-0.034)
[2021-01-27 09:15] LABS: Transferrin 168 mg/dL (206-381)
[2021-01-27] MEDS: METOPROLOL TARTRATE INJ 5 MG/5 ML VIAL IV PUSH (09:21)
[2021-01-27 09:31] LABS: Iron 53 ug/dL (49-181)
[2021-01-27 09:42] LABS: Percent Iron Saturation 22 % (20-50)
[2021-01-27 10:04] LABS: Thyroid Stimulating Hormone Reflex < 0.015 uIU/mL (0.465-4.68)
--- NOTE | 2021-01-27 10:08 | WPDANESPN ---
Anes - Prog Note Post-Op Date/Time: 01/27/21 10:08 Cardiovascular status: normal Respiratory status: normal Airway patency: baseline Mental status: baseline Post-Op hydration status: normal Vital Signs: Last Vital Signs Temp 37.1 C 01/27/21 02:53 Pulse 145 H 01/27/21 09:21 Resp 16 01/27/21 02:53 BP 117/83 01/27/21 09:23 Pulse Ox 95 01/27/21 09:02 Pain Score (VAS): 0 I/O: Intake & Output 01/26/21 01/27/21 01/27/21 23:59 07:59 15:59 Intake Total 650 400 400 Output Total 920 1150 Balance -270 -750 400 Laboratory Tests 01/27/21 05:44 01/27/21 05:44 01/27/21 01/27/21 01/27/21 05:43 05:44 05:44 WBC 9.3 RBC 3.92 L Hgb 11.1 L Hct 33.5 L MCV 85.5 MCH 28.3 MCHC 33.1 RDW 13.2 Plt Count 220 MPV 9.7 Sodium 136 L Potassium 4.0 Chloride 104 Carbon Dioxide 28 Anion Gap 4 L BUN 15 D Creatinine 0.70 Estim Creat Clear Calc 114 Estimated GFR > 60 Glucose 106 Calcium 9.1 Magnesium 1.8 Iron TIBC % Saturation Transferrin 168 L Ferritin Lactate Dehydrogenase 493 Troponin I Vitamin B12 397.0 Folate Pending TSH (Reflex) Free T4 01/27/21 01/27/21 01/27/21 08:34 08:34 08:34 WBC RBC Hgb Hct MCV MCH MCHC RDW Plt Count MPV Sodium Potassium Chloride Carbon Dioxide Anion Gap BUN Creatinine Estim Creat Clear Calc Estimated GFR Glucose Calcium Magnesium Iron 53 TIBC 242 L % Saturation 22 Transferrin Ferritin Pending Lactate Dehydrogenase Troponin I < 0.012 Vitamin B12 Folate TSH (Reflex) < 0.015 L Free T4 Pending Post-procedural complaints: none Patient Feedback: Patient satisfied with anesthetic care.
--- NOTE | 2021-01-27 10:59 | PC.NURSE ---
Gabby ALBARRAN NOTIFIED OF PT HR ON TLE AFIB 140'S AND HIGH 170'S WITH ACTIVITY.
[2021-01-27 11:13] LABS: Free T4 Free Thyroxine Reflex > 6.99 ng/dL (0.78-2.19)
[2021-01-27] MEDS: dilTIAZem HCl INJ 25 MG/5 ML VIAL 20 MG IV PUSH (11:36)
--- NOTE | 2021-01-27 12:26 | PM.CNCAR ---
Assessment and Plan Assessment and plan (1) Paroxysmal atrial fibrillation with rapid ventricular response: Code(s): I48.0 - Paroxysmal atrial fibrillation Status: Acute Assessment and Plan: History of paroxysmal atrial fibrillation on sotalol 80 mg twice daily. QTc acceptable presentation. Continue sotalol 80 mg twice daily. Heart rate remained refractory in atrial fibrillation with RVR to IV push metoprolol and diltiazem. Will need to initiate diltiazem infusion for adequate heart rate control with continuation of sotalol. Continue telemetry. He will require transfer to IMU. Monitor electrolytes and renal function. Pain control per surgery. Monitor for bradycardia if converts to SR. Suspect physiologic stress of surgery likely contributor to recurrent A.Fib with RVR. he must remain compliant with follow-up, recommendations and routine EKG in the office to maintain safety margin for continued use of sotalol. (2) Chest pain: Code(s): R07.9 - Chest pain, unspecified Status: Acute Assessment and Plan: Secondary to atrial fibrillation with rapid ventricular response which she has experienced in the past. Troponins negative. there is no evidence thus far his symptoms of secondary to acute myocardial ischemia / infarction. Trend troponin. Continue to monitor. (3) Hypertension: Code(s): I10 - Essential (primary) hypertension Status: Acute Assessment and Plan: Stable, no acute issues. (4) Chronic anticoagulation: Code(s): Z79.01 - coke loader (current) use of anticoagulants Status: Chronic Assessment and Plan: Resume systemic anticoagulation when okay postoperatively per surgery was Xarelto 20 mg at bedtime. May use unfractionated heparin infusion or enoxaparin subcutaneous q.12 hours 1 milligram/kilogram if that would be preferred from a postop surgical perspective. (5) Encounter for monitoring sotalol therapy: Code(s): Z51.81 - Encounter for therapeutic drug level monitoring; Z79.899 - Other care home (current) drug therapy Status: Acute Assessment and Plan: as above, monitor QTc interval, acceptable at presentation on EKG 01/26/21. Avoid QT prolonging drugs while on sotalol to reduce risk for QT prolongation and torsades. History of Present Illness History of Present Illness Consult date/time: Date of service:01/27/21 12:26 Cardiology consultation at the request of Nishant Saez of the [facility] service for opinion regarding atrial fibrillation with rapid ventricular response Requesting physician: Nishant Saez APN-C Consult reason: atrial fibrillation Reason For Visit: Incisional Hernia Narrative: patient is a 55-year-old male with a past medical history significant for paroxysmal atrial fibrillation with rapid ventricular response, history of pulmonary embolism, hypertension, mixed hyperlipidemia, history schizophrenia with history of 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 He was doing well postoperatively however early this morning around 3:00 a.m. began to experience some chest heaviness and felt like he was in atrial fibrillation with a rapid heart rate. He denies significant shortness of breath lightheadedness dizziness. Denies nausea, vomiting. Abdominal pain is present but reasonably comfortable. Was given his sotalol 80 mg this morning without control his heart rate. He was given IV metoprolol as well as IV diltiazem push without significant control his heart rate ranging from the 110s to 150bpm. Troponin negative thus far. He was in sinus rhythm initially with a QTc of 434 milliseconds. He has been hemodynamically stable thus far. He has no other complaints at this time But admits this is how he feels when he goes back in atrial f
[2021-01-27] MEDS: MORPHINE SULFATE (*CRX) 2 MG/ML INJ IV PUSH (12:43)
[2021-01-27] MEDS: LORazepam INJ (*CRX) 2 MG/ML VIAL 1 MG IV PUSH ×2 (16:12→22:18)
--- NOTE | 2021-01-27 16:45 | PC.NURSE ---
This patient, Junaid Jensen, was transferred to imu on 01/27/21 at 1635. Personal belongings sent with patient. Report given to Arash BOLANOS. Appropriate documentation sent with patient.
[2021-01-27] MEDS: ALVIMOPAN 12 MG CAPSULE PO (20:02)
--- NOTE | 2021-01-27 20:24 | PM.PNGS ---
Progress Note: A&P Assessment and Plan (1) Incisional hernia: Qualifiers: Obstruction and gangrene presence: without obstruction or gangrene Qualified Code(s): K43.2 - Incisional hernia without obstruction or gangrene Code(s): K43.2 - Incisional hernia without obstruction or gangrene Status: Chronic Assessment and Plan: Repair intact. Having typical postoperative pain. Requiring narcotic analgesics. Will require inpatient stay. (2) Paroxysmal atrial fibrillation with rapid ventricular response: Code(s): I48.0 - Paroxysmal atrial fibrillation Status: Acute Assessment and Plan: Cardiology seeing and hospitalists have been consulted. He has done this on previous admissions as well. No hemodynamic instability. (3) Schizophrenia: Qualifiers: Schizophrenia type: unspecified Qualified Code(s): F20.9 - Schizophrenia, unspecified Code(s): F20.9 - Schizophrenia, unspecified Status: Chronic Assessment and Plan: Continue home medications (4) Anxiety: Code(s): F41.9 - Anxiety disorder, unspecified Status: Chronic Assessment and Plan: P.r.n. lorazepam. Subjective Subjective Date/Time Seen: 01/27/21 20:24 Post Op day: 1 Patient reports: still having pain, tolerating liquids well, no bowel movement, afebrile and other (Patient Del they will Sineff rapid atrial fibrillation and had been transferred to intermediate care unit) Exam Const: General: no acute distress, alert, awake and uncomfortable; No confusion Nutritional Appearance: thin Orientation/consciousness: No confusion Limitations: other limitations (Mental illness) GI: Inspection: non-distended, incision (Dressing dry and intact, bloody HERO drainage) and scaphoid GI Palp: Yes Soft to palpation, Yes Tenderness to palpation present (GI) (Expected incisional tenderness), No Guarding due to palpation present (GI) and No Rebound tenderness present Extrem: General: no calf tenderness and no edema Objective Data Vital Signs Vital Signs: Vital Signs - 24 hr 01/26/21 21:15 01/27/21 02:53 01/27/21 07:45 Temperature 37.1 C Pulse Rate 65 98 100 Respiratory Rate 16 Blood Pressure 125/77 Pulse Oximetry 94 01/27/21 08:00 01/27/21 08:48 01/27/21 09:02 Temperature Pulse Rate Respiratory Rate Blood Pressure 118/66 Pulse Oximetry 97 95 01/27/21 09:21 01/27/21 09:23 01/27/21 10:15 Temperature 37.2 C Pulse Rate 145 H 115 H Respiratory Rate 18 Blood Pressure 117/83 118/75 Pulse Oximetry 95 01/27/21 11:00 01/27/21 11:39 01/27/21 12:00 Temperature Pulse Rate 130 H 118 H Respiratory Rate Blood Pressure 121/67 Pulse Oximetry 01/27/21 12:39 01/27/21 14:53 01/27/21 16:16 Temperature 37.6 C Pulse Rate 132 H Respiratory Rate 18 Blood Pressure 104/75 105/96 H 114/79 Pulse Oximetry 91 01/27/21 16:42 01/27/21 16:50 01/27/21 17:13 Temperature 36.7 C Pulse Rate 145 H 149 H Respiratory Rate 18 Blood Pressure 113/86 Pulse Oximetry 94 95 Intake/Output Intake/Output: Intake & Output 01/24/21 01/25/21 01/26/21 01/27/21 23:59 23:59 23:59 23:59 Intake Total 2450 2790 Output Total 1985 1565 Balance 465 1225 Meds/Results Medications: Active Medications Generic Name Dose Route Start Last Admin Trade Name Freq PRN Reason Stop Dose Admin Acetaminophen 500 mg 01/26/21 13:49 Acetaminophen 500 Mg Tablet PO Q6H PRN Mild Pain (1-3) or Fever Hydrocodone Bitart/Acetaminophen 1 tab 01/26/21 13:49 Hydrocodone/Acetaminophen (*Crx) 5-325 Mg Tablet PO Q4H PRN Pain Rated 4-6 Hydrocodone Bitart/Acetaminophen 1 tab 01/26/21 13:49 01/27/21 20:02 Hydrocodone/Acetaminophen (*Crx) 10-325 Mg Tablet PO 1 tab Q4H PRN Administration Pain Rated 7-10 Alvimopan 12 mg 01/27/21 21:00 01/27/21 20:02 Alvimopan 12 Mg Capsule PO 02/03/21 20:59 12 mg Q12HR
[2021-01-27] MEDS: FAMOTIDINE 20 MG/2 ML VIAL IV PUSH (20:57)
[2021-01-27] MEDS: IBUPROFEN IV 800 MG/200 ML 800 MG/200 ML BAG 400 MG IVPB (22:43)
[2021-01-28] VITALS (19 sets, daily range): BP systolic 92–127; BP diastolic 50–97; PULSE 66–157; RESP 16–20; TEMP 36.5–37.1; O2SAT 92–99
[2021-01-28] MEDS: HYDROcodone/acetaminophen (*CRX) 10-325 MG TABLET 1 TAB PO ×6 (00:19→22:11)
[2021-01-28] MEDS: LACTATED RINGERS 1,000 ML 100 ML IV CONT ×3 (02:50→23:24)
[2021-01-28] MEDS: IBUPROFEN IV 800 MG/200 ML 800 MG/200 ML BAG 400 MG IVPB ×3 (02:50→20:11)
[2021-01-28] MEDS: MORPHINE SULFATE (*CRX) 4 MG/ML INJ IV PUSH ×3 (03:44→20:23)
[2021-01-28 05:25] LABS: Basophils Absolute Auto 0.1 K/mm3 (0.0-0.1); Basophils Percent Auto 0.5 % (0.2-1.2); Eosinophils Absolute Auto 0.1 K/mm3 (0-0.3); Eosinophils Percent Auto 1.1 % (0-4.4); Hematocrit 32.6 % (42.0-52.0); Hemoglobin 10.6 g/dL (14.0-18.0); Immature Granulocyte Absolute 0.07 K/mm3 (0.00-0.031); Immature Granulocyte Percent A 0.8 % (0-0.5); Lymphocytes Absolute Auto 2.45 K/mm3 (0.9-3.2); Lymphocytes Percent Auto 26.7 % (18.3-44.2); Mean Corpuscular HGB Conc 32.5 g/dl (32-36); Mean Corpuscular Volume 89.1 fl (80-100); Mean Platelet Volume 10.3 fl (7.4-10.4); Monocytes Absolute Auto 1.3 K/mm3 (0.1-0.6); Monocytes Percent Auto 14.1 % (2.6-8.5); Neutrophils Absolute Auto 5.2 K/mm3 (1.3-6.7); Neutrophils Percent Auto 56.8 % (45.5-73.1); Platelet Count Result 213 k/mm3 (150-375); Red Blood Count 3.66 M/mm3 (4.6-6.20); Red Cell Distribution Width 13.3 % (11.5-14.5); White Blood Count 9.2 K/mm3 (4.5-10.0)
[2021-01-28 05:41] LABS: Alanine Aminotransferase 30 U/L (4-50); Albumin Level 2.9 g/dL (3.5-5.1); Alkaline Phosphatase 96 U/L (38-126); Anion Gap 7 mmol/L (8-16); Aspartate Amino Transferase 45 U/L (17-59); Bilirubin,Total 2.7 mg/dL (0.2-1.3); Blood Urea Nitrogen 13 mg/dL (9-20); Carbon Dioxide 28 mmol/L (22-30); Chloride 102 mmol/L (98-107); Estimated CRCL calculation 114 ml/min; Estimated Glomerular Filt Rate > 60; Glucose 107 mg/dL (65-110); Magnesium 1.9 mg/dL (1.6-2.3); Potassium 3.7 mmol/L (3.4-5.0); Sodium 137 mmol/L (137-145)
[2021-01-28] MEDS: LORazepam INJ (*CRX) 2 MG/ML VIAL 1 MG IV PUSH ×2 (06:42→22:56)
--- NOTE | 2021-01-28 08:30 | PM.IMPN ---
Progress Note: A&P Assessment and Plan (1) Ventral incisional hernia: Code(s): K43.2 - Incisional hernia without obstruction or gangrene Status: Chronic Assessment and Plan: Postoperative day 2 repair incisional hernia with mesh Post op care deferred to Dr. Molina Wound care per surgeries instructions pain control: Ibuprofen 800mg IV Q6hr, Morphine 2-4mg IV Q2hr PRN, Tylenol 500mg PO Q6hr PRN, [place] 5/325 Q4PRN, [place] 10/325 Q4hr PRN Antiemetics: Zofran 4mg IV Q4hr PRN DVT prophylaxis: Lovenox 40mg SubQ Daily IS 2 drain present, draining blood (2) Chronic anemia: Code(s): D64.9 - Anemia, unspecified Status: Acute Assessment and Plan: Hemoglobin and hematocrit are stable H/H 10.6/32.4 Anemia labs from 07/05/20 Iron 24, TIBC 239, % sat 14, Transferrin 101, Ferritin 245, B12 895, Folate 5 Repeat anemia labs have no real changes Supplement as indicated (3) Paroxysmal atrial fibrillation: Code(s): I48.0 - Paroxysmal atrial fibrillation Status: Acute Assessment and Plan: Continue sotalol On Xarelto for anticoagulation, however was stopped for the procedure Trop negative HR labile 110-140 EKG SR 82 upon admission Repeat EKG is AFIB RVR One dose of IV metoprolol 5mg given Continue to trend heart rate Cardiology consulted Current Cardizem drip (4) Hypertension: Code(s): I10 - Essential (primary) hypertension Status: Acute Assessment and Plan: BP 103/57 Blood pressures were reviewed and they are stable postoperatively Continue 80mg PO Q12hr Trend BP Adjust therapy as indicated (5) Psychiatric illness: Code(s): F99 - Mental disorder, not otherwise specified Status: Acute Assessment and Plan: No acute issues Continue lorazepam Started on Abilify 5mg PO daily, patient refusing Trend mood (6) Hypomagnesemia: Code(s): E83.42 - Hypomagnesemia Status: Acute Assessment and Plan: MG 1.9 Trend labs Replace as indicated (7) Chest pain: Code(s): R07.9 - Chest pain, unspecified Status: Acute Assessment and Plan: Complaints of heaviness in the sternal area EKG showed AFIB RVR Cardiology consulted Troponin negative Tele monitor on Time Spent With Patient Time with patient: Greater than 35 minutes Subjective Date/time seen: 01/28/21 08:30 Interval history: Date/Time: 01/26/21 16:30 Narrative: This is a 55-year-old male with paroxysmal atrial fibrillation, pulmonary embolism, psychiatric illness, and history of perforated duodenal ulcer whom the hospitalist service has been consulted for management of his medical conditions postoperatively. 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 He has since developed an incisional hernia and is now status post incisional hernia repair with mesh and bilateral transversus abdominus myofascial flap advancement per Dr. Molina. His surgery was performed under general anesthesia with no immediate complications documented an estimated blood loss of 300 mL. At the time my evaluation he was sleeping and reports that his pain is a bit better controlled than what it was earlier today. He has not passed flatus as of yet. He denies postoperative nausea and vomiting. He also denies fever, chills, sweats, chest pain, shortness of breath. Date/Time 01/27/21 0800 patient stated that he is feeling okay today. He said at 2-3 o'clock this morning his chest got heavy and he knew he went into AFib. He thinks is from the surgery. He has been taking his meds and denies any lightheaded dizziness or palpitations at this time. Patient also denies nausea, vomiting, diarrhea, sweats, fevers, chills. Patient did complain of pain in his abdomen which was a 7/10 which he states was very uncomfortable especially when trying to sit down. Patient has 2 bulbs on
--- NOTE | 2021-01-28 08:30 | P.PNIM_ITS ---
Progress Note: A&P Assessment and Plan (1) Ventral incisional hernia: Code(s): K43.2 - Incisional hernia without obstruction or gangrene Status: Chronic Assessment and Plan: * Postoperative day 2 * repair incisional hernia with mesh * Post op care deferred to Dr. Molina * Wound care per surgeries instructions * pain control: Ibuprofen 800mg IV Q6hr, Morphine 2-4mg IV Q2hr PRN, Tylenol 500mg PO Q6hr PRN, [place] 5/325 Q4PRN, [place] 10/325 Q4hr PRN * Antiemetics: Zofran 4mg IV Q4hr PRN * DVT prophylaxis: Lovenox 40mg SubQ Daily * IS * 2 drain present, draining blood (2) Chronic anemia: Code(s): D64.9 - Anemia, unspecified Status: Acute Assessment and Plan: * Hemoglobin and hematocrit are stable * H/H 10.6/32.4 * Anemia labs from 07/05/20 Iron 24, TIBC 239, % sat 14, Transferrin 101, Ferritin 245, B12 895, Folate 5 * Repeat anemia labs have no real changes * Supplement as indicated (3) Paroxysmal atrial fibrillation: Code(s): I48.0 - Paroxysmal atrial fibrillation Status: Acute Assessment and Plan: * Continue sotalol * On Xarelto for anticoagulation, however was stopped for the procedure * Trop negative * HR labile 110-140 * EKG SR 82 upon admission * Repeat EKG is AFIB RVR * One dose of IV metoprolol 5mg given * Continue to trend heart rate * Cardiology consulted * Current Cardizem drip (4) Hypertension: Code(s): I10 - Essential (primary) hypertension Status: Acute Assessment and Plan: * BP 103/57 * Blood pressures were reviewed and they are stable postoperatively * Continue 80mg PO Q12hr * Trend BP * Adjust therapy as indicated (5) Psychiatric illness: Code(s): F99 - Mental disorder, not otherwise specified Status: Acute Assessment and Plan: * No acute issues * Continue lorazepam * Started on Abilify 5mg PO daily, patient refusing * Trend mood (6) Hypomagnesemia: Code(s): E83.42 - Hypomagnesemia Status: Acute Assessment and Plan: * MG 1.9 * Trend labs * Replace as indicated (7) Chest pain: Code(s): R07.9 - Chest pain, unspecified Status: Acute Assessment and Plan: * Complaints of heaviness in the sternal area * EKG showed AFIB RVR * Cardiology consulted * Troponin negative * Tele monitor on Time Spent With Patient Time with patient: Greater than 35 minutes Subjective Date/time seen: 01/28/21 08:30 Interval history: Date/Time: 01/26/21 16:30 Narrative: This is a 55-year-old male with paroxysmal atrial fibrillation, pulmonary embolism, psychiatric illness, and history of perforated duodenal ulcer whom the hospitalist service has been consulted for management of his medical conditions postoperatively. 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 He has since developed an incisional hernia and is now status post incisional hernia repair with mesh and bilateral transversus abdominus myofascial flap advancement per Dr. Molina. His surgery was performed under general anesthesia with no immediate complications documented an estimated blood loss of 300 mL. At the time my evaluation he was sleeping and reports that his pain is a bit better controlled than what it was earlier today. He has not passed flatus as of yet. He denies postoperative nausea and vomiting. He also denies fever, chills, sweats, chest pain, shortness o
[2021-01-28] MEDS: ALVIMOPAN 12 MG CAPSULE PO ×2 (09:54→20:10)
[2021-01-28] MEDS: SOTALOL HCL 80 MG TABLET PO ×2 (09:56→20:10)
[2021-01-28] MEDS: ENOXAPARIN 40 MG/0.4 ML SYRINGE SUB-Q (09:57)
[2021-01-28] MEDS: LORazepam (*CRX) 1 MG TABLET PO ×3 (09:59→17:47)
--- NOTE | 2021-01-28 11:10 | PM.PNGS ---
Progress Note: A&P Assessment and Plan (1) Incisional hernia of anterior abdominal wall without obstruction or gangrene: Code(s): K43.2 - Incisional hernia without obstruction or gangrene Status: Chronic Assessment and Plan: Repair intact. Wound healing well. Will start some MiraLax and Senokot to promote bowel function. Up in chair today. Start dressing changes. (2) Schizophrenia: Qualifiers: Schizophrenia type: unspecified Qualified Code(s): F20.9 - Schizophrenia, unspecified Code(s): F20.9 - Schizophrenia, unspecified Status: Chronic Assessment and Plan: Continuing to receive home medication. (3) Paroxysmal atrial fibrillation: Code(s): I48.0 - Paroxysmal atrial fibrillation Status: Acute Assessment and Plan: Rate slowly decreasing but still tachycardic. Subjective Subjective Date/Time Seen: 01/28/21 11:10 Post Op day: 2 Patient reports: no new complaints, pain is less, tolerating liquids well, no flatus and no bowel movement Interval history: still tachycardic with atrial fibrillation, remains on IMU Exam Const: General: cooperative, comfortable, no acute distress, alert, awake and well groomed; No confusion Nutritional Appearance: thin Resp: Effort & Inspection: normal respiratory effort Auscultation: clear to auscultation bilaterally Cardio: Rate: tachycardic Rhythm: abnormal rhythm Heart sounds: no murmurs and no rubs GI: Inspection: non-distended, incision ( minimal drainage, healing well.), scaphoid and other ( HERO drains serosanguineous) GI Palp: Yes Soft to palpation, Yes Tenderness to palpation present (GI), No Guarding due to palpation present (GI) and No Rebound tenderness present Auscultation: normal bowel sounds Extrem: General: no calf tenderness and no edema Psych: Appearance: grossly normal Mental Status: mental status grossly normal Speech and movement: Clear speech present Affect: Blunted affect present Attitude: cooperative Thought process: Normal thought process present Insight: Good insight present (Psych) Judgement: Fair judgement present (Psych) Objective Data Vital Signs Vital Signs: Vital Signs - 24 hr 01/27/21 11:39 01/27/21 12:00 01/27/21 12:39 Temperature Pulse Rate 130 H 118 H Respiratory Rate Blood Pressure 104/75 Pulse Oximetry 01/27/21 14:53 01/27/21 16:16 01/27/21 16:42 Temperature 37.6 C Pulse Rate 132 H Respiratory Rate 18 Blood Pressure 105/96 H 114/79 Pulse Oximetry 91 94 01/27/21 16:50 01/27/21 17:13 01/27/21 20:00 Temperature 36.7 C 36.8 C Pulse Rate 145 H 149 H 142 H Respiratory Rate 18 26 H Blood Pressure 113/86 136/80 Pulse Oximetry 95 96 01/27/21 20:53 01/27/21 21:49 01/27/21 23:51 Temperature Pulse Rate 143 H 134 H Respiratory Rate Blood Pressure Pulse Oximetry 92 01/28/21 00:00 01/28/21 02:00 01/28/21 04:00 Temperature 36.8 C 36.6 C Pulse Rate 157 H 147 H 104 H Respiratory Rate 20 20 Blood Pressure 127/65 106/58 L Pulse Oximetry 92 93 01/28/21 06:00 01/28/21 08:00 01/28/21 09:56 Temperature 37.1 C Pulse Rate 113 H 90 126 H Respiratory Rate 18 Blood Pressure 103/57 L Pulse Oximetry 98 01/28/21 10:57 Temperature Pulse Rate Respiratory Rate Blood Pressure Pulse Oximetry 95 Intake/Output Intake/Output: Intake & Output 01/25/21 01/26/21 01/27/21 01/28/21 23:59 23:59 23:59 23:59 Intake Total 2450 2990 2100 Output Total 1985 1565 855 Balance 465 1425 1245 Meds/Results Medications: Active Medications Generic Name Dose Route Start Last Admin Trade Name Renéq PRN Reason Stop Dose Admin Acetaminophen 500 mg 01/26/21 13:49 Acetaminophen 500 Mg Tablet PO Q6H PRN Mild Pain (1-3) or Fever Hydrocodone Bitart/Acetaminophen 1 tab 01/26/21 13:49 Hydrocodone/Acetaminophen (*Crx) 5-325 Mg Tablet PO Q4H PRN Pain Rated 4-6 Hydrocodone [place]
--- NOTE | 2021-01-28 12:24 | PM.PNCARD ---
Progress Note: A&P Assessment and Plan (1) Paroxysmal atrial fibrillation with rapid ventricular response: Code(s): I48.0 - Paroxysmal atrial fibrillation Status: Acute Assessment and Plan: History of paroxysmal atrial fibrillation on sotalol 80 mg twice daily. QTc acceptable presentation. Continue sotalol 80 mg twice daily. Heart rate remained refractory in atrial fibrillation with RVR to IV push metoprolol and diltiazem. -increase sotalol to 120 mg b.i.d.. Discontinue diltiazem upon conversion sinus rhythm to avoid symptomatic bradycardia. I discussed this with the patient who verbalized understanding and agreed. Follow-up 12 lead EKG in a.m. will recheck. Resume Xarelto 20 mg at bedtime if okay with surgery and discontinue enoxaparin DVT prophylaxis. Must avoid QT prolonging drugs in conjunction with sotalol. Alternative for Zofran given potential for QT prolongation. (2) Chest pain: Code(s): R07.9 - Chest pain, unspecified Status: Acute Assessment and Plan: Secondary to atrial fibrillation with rapid ventricular response which she has experienced in the past. Troponins negative. there is no evidence thus far his symptoms of secondary to acute myocardial ischemia / infarction. Trend troponin. Continue to monitor. (3) Hypertension: Code(s): I10 - Essential (primary) hypertension Status: Acute Assessment and Plan: Stable, no acute issues. (4) Chronic anticoagulation: Code(s): Z79.01 - residential (current) use of anticoagulants Status: Chronic Assessment and Plan: Resume systemic anticoagulation when okay postoperatively per surgery was Xarelto 20 mg at bedtime. May use unfractionated heparin infusion or enoxaparin subcutaneous q.12 hours 1 milligram/kilogram if that would be preferred from a postop surgical perspective. (5) Encounter for monitoring sotalol therapy: Code(s): Z51.81 - Encounter for therapeutic drug level monitoring; Z79.899 - Other senior living (current) drug therapy Status: Acute Assessment and Plan: as above, monitor QTc interval, acceptable at presentation on EKG 01/26/21. Avoid QT prolonging drugs while on sotalol to reduce risk for QT prolongation and torsades. Subjective Date/time seen: Date of service: 01/28/21 12:24 Follow-up for paroxysmal atrial fibrillation with rapid ventricular response Patient doing okay. Denies chest pain. States he has more wheezy this morning which usually short-lived but lasting longer. Not having a productive cough, no palpitations. Heart rate remains rapid better controlled on diltiazem 15 milligrams/hours heart rate typically in the 90s to 120s. No other concerns. Eating well. Review of Systems Review of Systems: All systems reviewed & are unremarkable except as noted in HPI and below Constitutional: Constitutional: Reports as per HPI and Reports no additional constitutional complaints Eyes: Eyes: Reports as per HPI and Reports no additional eye complaints ENT: Reports system reviewed and no additional complaints, except as documented and Reports as per HPI Cardiovascular: Cardiovascular: Reports as per HPI, Reports no additional cardiovascular complaints, Reports chest pain, Denies diaphoresis, Denies leg edema, Denies lightheadedness, Reports palpitations and Denies dyspnea Respiratory: Respiratory: Reports as per HPI, Reports no additional respiratory complaints and Denies dyspnea Gastrointestinal: Gastrointestinal: Reports as per HPI, Reports no additional gastrointestinal complaints and Reports abdominal pain Genitourinary: Genitourinary: Reports no additional male genitourinary complaints and Reports as per HPI Musculoskeletal: Musculoskeletal: Reports no additional musculoskeletal complaints and Reports as per HPI Integumentary/Breasts: Skin/Breast: Reports system reviewed and no additional complaints, except as docu and Reports as per HPI Neurologic:
[2021-01-28] MEDS: FAMOTIDINE 20 MG/2 ML VIAL IV PUSH (20:10)
[2021-01-28] MEDS: SENNA/DOCUSATE SODIUM TABLET 2 TAB PO (20:11)
[2021-01-29] VITALS (20 sets, daily range): BP systolic 100–131; BP diastolic 48–80; PULSE 62–126; RESP 16–28; TEMP 36.2–37.7; O2SAT 94–98
[2021-01-29] MEDS: IBUPROFEN IV 800 MG/200 ML 800 MG/200 ML BAG 400 MG IVPB ×2 (02:30→08:11)
[2021-01-29] MEDS: HYDROcodone/acetaminophen (*CRX) 10-325 MG TABLET 1 TAB PO ×5 (03:54→21:24)
[2021-01-29 05:42] LABS: Hematocrit 31.6 % (42.0-52.0); Hemoglobin 10.3 g/dL (14.0-18.0); Mean Corpuscular HGB Conc 32.6 g/dl (32-36); Mean Corpuscular Hemoglobin 28.9 pg (26-34); Mean Corpuscular Volume 88.8 fl (80-100); Mean Platelet Volume 9.9 fl (7.4-10.4); Platelet Count Result 237 k/mm3 (150-375); Red Blood Count 3.56 M/mm3 (4.6-6.20); Red Cell Distribution Width 13.4 % (11.5-14.5); White Blood Count 8.3 K/mm3 (4.5-10.0)
[2021-01-29 05:48] LABS: Alanine Aminotransferase 27 U/L (4-50); Albumin Level 3.1 g/dL (3.5-5.1); Alkaline Phosphatase 94 U/L (38-126); Anion Gap 8 mmol/L (8-16); Aspartate Amino Transferase 38 U/L (17-59); Bilirubin,Total 1.7 mg/dL (0.2-1.3); Blood Urea Nitrogen 22 mg/dL (9-20); Calcium 9.1 mg/dL (8.4-10.2); Carbon Dioxide 29 mmol/L (22-30); Chloride 97 mmol/L (98-107); Estimated CRCL calculation 56 ml/min; Estimated Glomerular Filt Rate 49; Glucose 104 mg/dL (65-110); Magnesium 1.8 mg/dL (1.6-2.3); Potassium 3.3 mmol/L (3.4-5.0); Sodium 134 mmol/L (137-145)
--- NOTE | 2021-01-29 07:00 | P.PNIM_ITS ---
Progress Note: A&P Assessment and Plan (1) Ventral incisional hernia: Code(s): K43.2 - Incisional hernia without obstruction or gangrene Status: Chronic Assessment and Plan: * Postoperative day 3 * repair incisional hernia with mesh * Post op care deferred to Dr. Molina * Wound care per surgeries instructions * pain control: Ibuprofen 800mg IV Q6hr, Morphine 2-4mg IV Q2hr PRN, Tylenol 500mg PO Q6hr PRN, [place] 5/325 Q4PRN, [place] 10/325 Q4hr PRN * Antiemetics: Zofran 4mg IV Q4hr PRN * DVT prophylaxis: Lovenox 40mg SubQ Daily * IS * 2 drain present, draining blood (2) Chronic anemia: Code(s): D64.9 - Anemia, unspecified Status: Acute Assessment and Plan: * Hemoglobin and hematocrit are stable * H/H 22/1.50 * Anemia labs from 07/05/20 Iron 24, TIBC 239, % sat 14, Transferrin 101, Ferritin 245, B12 895, Folate 5 * Repeat anemia labs have no real changes * Supplement as indicated (3) Paroxysmal atrial fibrillation: Code(s): I48.0 - Paroxysmal atrial fibrillation Status: Acute Assessment and Plan: * Continue sotalol * On Xarelto for anticoagulation, however was stopped for the procedure * Trop negative * HR labile 110-140 * EKG SR 82 upon admission * Repeat EKG is AFIB RVR * Continue to trend heart rate * Cardiology consulted * Cardizem stopped sortalol continued (4) Hypertension: Code(s): I10 - Essential (primary) hypertension Status: Acute Assessment and Plan: * BP 109/78 * Blood pressures were reviewed and they are stable postoperatively * Continue Sotalol 80mg PO Q12hr * Trend BP * Adjust therapy as indicated (5) Psychiatric illness: Code(s): F99 - Mental disorder, not otherwise specified Status: Acute Assessment and Plan: * No acute issues * Continue lorazepam * Started on Abilify 5mg PO daily, patient refusing * Trend mood (6) Hypomagnesemia: Code(s): E83.42 - Hypomagnesemia Status: Acute Assessment and Plan: * MG 1.8 * Replace with 2gm IV * Trend labs * Replace as indicated (7) Chest pain: Code(s): R07.9 - Chest pain, unspecified Status: Acute Assessment and Plan: * Complaints of heaviness in the sternal area * EKG showed AFIB RVR * Cardiology consulted * Troponin negative * Tele monitor on (8) Acute kidney injury: Code(s): N17.9 - Acute kidney failure, unspecified Status: Acute Assessment and Plan: * BUN/Cr dramatically elevated today 22/1.50 * Baseline creatinine is 0.6-0.8 * Avoid nephrotoxic medications * Stop the ibuprofen * Trend labs Time Spent With Patient Time with patient: Greater than 35 minutes Subjective Date/time seen: 01/29/21 0700 Interval history: Date/Time: 01/26/21 16:30 Narrative: This is a 55-year-old male with paroxysmal atrial fibrillation, pulmonary embolism, psychiatric illness, and history of perforated duodenal ulcer whom the hospitalist service has been consulted for management of his medical conditions postoperatively. 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 He has since developed an incisional hernia and is now status post incisional hernia repair with mesh and bilateral transversus abdominus myofascial flap advancement per Dr. Molina. His surgery was performed under general anesthesia with no
--- NOTE | 2021-01-29 07:00 | PM.IMPN ---
Progress Note: A&P Assessment and Plan (1) Ventral incisional hernia: Code(s): K43.2 - Incisional hernia without obstruction or gangrene Status: Chronic Assessment and Plan: Postoperative day 3 repair incisional hernia with mesh Post op care deferred to Dr. Molina Wound care per surgeries instructions pain control: Ibuprofen 800mg IV Q6hr, Morphine 2-4mg IV Q2hr PRN, Tylenol 500mg PO Q6hr PRN, [place] 5/325 Q4PRN, [place] 10/325 Q4hr PRN Antiemetics: Zofran 4mg IV Q4hr PRN DVT prophylaxis: Lovenox 40mg SubQ Daily IS 2 drain present, draining blood (2) Chronic anemia: Code(s): D64.9 - Anemia, unspecified Status: Acute Assessment and Plan: Hemoglobin and hematocrit are stable H/H 22/1.50 Anemia labs from 07/05/20 Iron 24, TIBC 239, % sat 14, Transferrin 101, Ferritin 245, B12 895, Folate 5 Repeat anemia labs have no real changes Supplement as indicated (3) Paroxysmal atrial fibrillation: Code(s): I48.0 - Paroxysmal atrial fibrillation Status: Acute Assessment and Plan: Continue sotalol On Xarelto for anticoagulation, however was stopped for the procedure Trop negative HR labile 110-140 EKG SR 82 upon admission Repeat EKG is AFIB RVR Continue to trend heart rate Cardiology consulted Cardizem stopped sortalol continued (4) Hypertension: Code(s): I10 - Essential (primary) hypertension Status: Acute Assessment and Plan: BP 109/78 Blood pressures were reviewed and they are stable postoperatively Continue Sotalol 80mg PO Q12hr Trend BP Adjust therapy as indicated (5) Psychiatric illness: Code(s): F99 - Mental disorder, not otherwise specified Status: Acute Assessment and Plan: No acute issues Continue lorazepam Started on Abilify 5mg PO daily, patient refusing Trend mood (6) Hypomagnesemia: Code(s): E83.42 - Hypomagnesemia Status: Acute Assessment and Plan: MG 1.8 Replace with 2gm IV Trend labs Replace as indicated (7) Chest pain: Code(s): R07.9 - Chest pain, unspecified Status: Acute Assessment and Plan: Complaints of heaviness in the sternal area EKG showed AFIB RVR Cardiology consulted Troponin negative Tele monitor on (8) Acute kidney injury: Code(s): N17.9 - Acute kidney failure, unspecified Status: Acute Assessment and Plan: BUN/Cr dramatically elevated today 22/1.50 Baseline creatinine is 0.6-0.8 Avoid nephrotoxic medications Stop the ibuprofen Trend labs Time Spent With Patient Time with patient: Greater than 35 minutes Subjective Date/time seen: 01/29/21 0700 Interval history: Date/Time: 01/26/21 16:30 Narrative: This is a 55-year-old male with paroxysmal atrial fibrillation, pulmonary embolism, psychiatric illness, and history of perforated duodenal ulcer whom the hospitalist service has been consulted for management of his medical conditions postoperatively. 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 He has since developed an incisional hernia and is now status post incisional hernia repair with mesh and bilateral transversus abdominus myofascial flap advancement per Dr. Molina. His surgery was performed under general anesthesia with no immediate complications documented an estimated blood loss of 300 mL. At the time my evaluation he was sleeping and reports that his pain is a bit better controlled than what it was earlier today. He has not passed flatus as of yet. He denies postoperative nausea and vomiting. He also denies fever, chills, sweats, chest pain, shortness of breath. Date/Time 01/27/21 0800 patient stated that he is feeling okay today. He said at 2-3 o'clock this morning his chest got heavy and he knew he went into AFib. He thinks is from the surgery. He has been taking his meds and lc
--- NOTE | 2021-01-29 07:00 | ECG_ITS ---
Measurements Intervals [place] Rate: 84 P: 56 PA: 140 QRS: 63 QRSD: 108 T: 119 QT: 381 QTc: 451 Interpretive Statements SINUS RHYTHM ST-T WAVE ABNORMALITY IN ANTEROLATERAL LEADS- CONSIDER ISCHEMIA BASELINE ARTIFACT- I, II, III, AVF ABNORMAL ECG Electronically Signed On 01-29-2021 11:56:58 [employer] by Андрей Keyes D.O.
[2021-01-29] MEDS: ALVIMOPAN 12 MG CAPSULE PO (08:03)
[2021-01-29] MEDS: LORazepam (*CRX) 1 MG TABLET PO ×3 (08:03→17:26)
[2021-01-29] MEDS: ENOXAPARIN 40 MG/0.4 ML SYRINGE SUB-Q (08:04)
[2021-01-29] MEDS: SOTALOL HCL 80 MG TABLET PO ×2 (08:04→20:49)
[2021-01-29] MEDS: polyethylene glycoL 3350 17 GM POWD.PACK PO (08:05)
[2021-01-29] MEDS: LACTATED RINGERS 1,000 ML 100 ML IV CONT (10:50)
[2021-01-29] MEDS: MORPHINE SULFATE (*CRX) 4 MG/ML INJ IV PUSH (11:16)
--- NOTE | 2021-01-29 11:22 | PM.PNCARD ---
Progress Note: A&P Assessment and Plan (1) Paroxysmal atrial fibrillation with rapid ventricular response: Code(s): I48.0 - Paroxysmal atrial fibrillation Status: Acute Assessment and Plan: History of paroxysmal atrial fibrillation on sotalol 80 mg twice daily at home. Recurrent AFib RVR postop. Increased sotalol to 120 mg b.i.d. and discontinued diltiazem. However the patient had a sinus pause so his sotalol was reduced back to 80 mg b.i.d.. Resume Xarelto 20 mg at bedtime if okay with surgery and discontinue enoxaparin DVT prophylaxis. Must avoid QT prolonging drugs in conjunction with sotalol. Alternative for Zofran given potential for QT prolongation. EKG today shows NSR rate 84, T-wave changes inferolaterally which are new, QTC 451 milliseconds which is acceptable. Personally reviewed. Patient continues to have paroxysmal atrial fib RVR but generally has been in sinus rhythm over the last 12-18 hours. 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 Would start w/ Xarelto 15 mg daily since creat has increased May use unfractionated heparin infusion or enoxaparin subcutaneous q.12 hours 1 milligram/kilogram if that would be preferred from a postop surgical perspective. (3) Encounter for monitoring sotalol therapy: Code(s): Z51.81 - Encounter for therapeutic drug level monitoring; Z79.899 - Other emt intermediate (current) drug therapy Status: Acute Assessment and Plan: As above, monitor QTc interval, acceptable on EKG 01/29/2021. Avoid QT prolonging drugs while on sotalol to reduce risk for QT prolongation and torsades. Sotalol is renally excreted so if renal fxn cont to decline will need to reduce the dose (4) Acute kidney injury: Code(s): N17.9 - Acute kidney failure, unspecified Status: Acute Assessment and Plan: Creatinine increased from 0.7 up to 1.5. Is on IV ibuprofen and had transient hypotension. Hold ibuprofen? Daily BMP (5) Wheezing: Code(s): R06.2 - Wheezing Status: Acute Assessment and Plan: Patient with a history of asthma complains of wheezing. Lungs sound clear. However will provide albuterol p.r.n., hopefully will not aggravate his paroxysmal AFib. (6) Chest pain: Code(s): R07.9 - Chest pain, unspecified Status: Acute Assessment and Plan: Secondary to atrial fibrillation with rapid ventricular response which he has experienced in the past. Troponins negative. There is no evidence thus far his symptoms of secondary to acute myocardial ischemia / infarction. Seems to have resolved since the atrial fibrillation has improved. (7) Hypertension: Code(s): I10 - Essential (primary) hypertension Status: Acute Assessment and Plan: Stable, no acute issues. Subjective Date/time seen: 01/29/21 11:22 Interval history: Follow-up for post-op paroxysmal atrial fibrillation with rapid ventricular response. History of paroxysmal atrial fibrillation, taking sotalol as an outpatient. Recent hernia repair 01/26/2021. 01/28/2021: Patient doing okay. Denies chest pain. States he has more wheezy this morning which usually short-lived but lasting longer. Not having a productive cough, no palpitations. Heart rate remains rapid better controlled on diltiazem 15 milligrams/hours heart rate typically in the 90s to 120s. No other concerns. Eating well. Date of service 01/29/2021: Doing fairly well but feels wheezy at times and request p.r.n. albuterol. Not much pain. Feels heart has settled down, fewer palpitations, no chest pain. Blood pressure 92/50 once yesterday but otherwise it has been stable. On room air. BUN and creatinine have increased. Re
[2021-01-29] MEDS: POTASSIUM CHLORIDE 20 MEQ TABLET PO (12:00)
--- NOTE | 2021-01-29 15:37 | PM.PNGS ---
Progress Note: A&P Assessment and Plan (1) Incisional hernia: Qualifiers: Obstruction and gangrene presence: without obstruction or gangrene Qualified Code(s): K43.2 - Incisional hernia without obstruction or gangrene Code(s): K43.2 - Incisional hernia without obstruction or gangrene Status: Chronic Assessment and Plan: no acute issues, encourage OOB/IS, kermit reg diet Subjective Subjective Date/Time Seen: 01/29/21 15:37 feels ok, c/o some incisional pain, reports chest pressure, rapid HR much improved Review of Systems Review of Systems: All systems reviewed & are unremarkable except as noted in HPI and below Exam Const: General: cooperative, comfortable and no acute distress Orientation/consciousness: patient oriented x3 Resp: Effort & Inspection: normal respiratory effort Auscultation: clear to auscultation bilaterally Cardio: Rate: regular rate Rhythm: regular rhythm GI: Inspection: normal to inspection, distended and incision GI Palp: Yes Soft to palpation, Yes Tenderness to palpation present (GI), No Guarding due to palpation present (GI) and No Rigid due to palpation Other: HERO x 2 - s/s output mod Objective Data Vital Signs Vital Signs: Vital Signs - 24 hr 01/28/21 16:00 01/28/21 17:46 01/28/21 18:00 Temperature 36.8 C Pulse Rate 71 102 H 112 H Respiratory Rate 16 Blood Pressure 92/50 L Pulse Oximetry 95 01/28/21 20:00 01/28/21 20:10 01/28/21 22:00 Temperature 36.6 C Pulse Rate 74 78 73 Respiratory Rate 16 Blood Pressure 109/60 Pulse Oximetry 97 01/28/21 22:17 01/28/21 23:26 01/29/21 00:00 Temperature 36.3 C L Pulse Rate 78 62 Respiratory Rate 16 Blood Pressure 100/48 L Pulse Oximetry 99 96 01/29/21 02:00 01/29/21 03:20 01/29/21 04:00 Temperature 36.2 C L Pulse Rate 65 77 Respiratory Rate 16 Blood Pressure 111/56 L Pulse Oximetry 96 94 01/29/21 05:53 01/29/21 08:00 01/29/21 08:04 Temperature 36.2 C L Pulse Rate 69 87 86 Respiratory Rate 16 Blood Pressure 107/58 L Pulse Oximetry 96 01/29/21 09:14 01/29/21 12:00 01/29/21 15:08 Temperature 36.7 C Pulse Rate 103 H 77 Respiratory Rate 28 H 18 Blood Pressure 109/78 Pulse Oximetry 98 95 Intake/Output Intake/Output: Intake & Output 01/26/21 01/27/21 01/28/21 01/29/21 23:59 23:59 23:59 23:59 Intake Total 2450 2990 5655 2540 Output Total 1985 0535 532 0978 Balance 465 1425 4760 1290 Meds/Results Medications: Active Medications Generic Name Dose Route Start Last Admin Trade Name Freq PRN Reason Stop Dose Admin Acetaminophen 500 mg 01/26/21 13:49 Acetaminophen 500 Mg Tablet PO Q6H PRN Mild Pain (1-3) or Fever Hydrocodone Bitart/Acetaminophen 1 tab 01/26/21 13:49 Hydrocodone/Acetaminophen (*Crx) 5-325 Mg Tablet PO Q4H PRN Pain Rated 4-6 Hydrocodone Bitart/Acetaminophen 1 tab 01/26/21 13:49 01/29/21 13:05 Hydrocodone/Acetaminophen (*Crx) 10-325 Mg Tablet PO 1 tab Q4H PRN Administration Pain Rated 7-10 Albuterol 2 puff 01/29/21 13:21 Albuterol Sulfate (*Sp) Aerosol 1 Puff INHALATION Q6HRT PRN Shortness Of Breath Alvimopan 12 mg 01/27/21 21:00 01/29/21 08:03 Alvimopan 12 Mg Capsule PO 02/03/21 20:59 12 mg Q12HR MATEO Administration Aripiprazole 5 mg 01/27/21 09:00 01/29/21 08:04 Aripiprazole 5 Mg Tablet PO Not Given DAILY MATEO Diphenhydramine HCl 50 mg 01/26/21 13:49 Diphenhydramine Hcl Cap 25 Mg Capsule PO BEDTIME PRN Sleep Enoxaparin Sodium 40 mg 01/27/21 09:00 01/29/21 08:04 Enoxaparin 40 Mg/0.4 Ml Syringe SUB-Q 40 mg DAILY MATEO Administration Famotidine 20 mg 01/26/21 21:00 01/29/21 08:04 Famotidine 20 Mg/2 Ml Vial IV PUSH Not Given Q12HR MATEO Lactated Ringer's 1,000 mls @ 100 mls/hr 01/26/21 13:49 01/29/21 10:50 Lr - Lactated Ringers Iv IV CONT 100 mls/hr .Q10H MATEO Administration Levalb
[2021-01-29] MEDS: MAGNESIUM SULF 2 GM/WATER 50ML 2 GM/50 ML BAG IVPB (17:23)
[2021-01-29] MEDS: RIVAROXABAN 15 MG TABLET PO (17:26)
[2021-01-30] VITALS (24 sets, daily range): BP systolic 102–120; BP diastolic 49–80; PULSE 76–140; RESP 16–26; TEMP 36.2–36.7; O2SAT 93–100
[2021-01-30] MEDS: dilTIAZem HCl INJ 25 MG/5 ML VIAL 10 MG IV PUSH (01:18)
[2021-01-30] MEDS: dilTIAZem 100 MG/100 ML 100 MG/100 ML BAG 10 MG IV CONT (01:19)
[2021-01-30] MEDS: HYDROcodone/acetaminophen (*CRX) 10-325 MG TABLET 1 TAB PO ×6 (03:00→23:00)
[2021-01-30] MEDS: LACTATED RINGERS 1,000 ML 100 ML IV CONT ×2 (03:02→13:07)
[2021-01-30 05:40] LABS: Hematocrit 28.9 % (42.0-52.0); Hemoglobin 9.3 g/dL (14.0-18.0); Mean Corpuscular HGB Conc 32.2 g/dl (32-36); Mean Corpuscular Hemoglobin 28.5 pg (26-34); Mean Corpuscular Volume 88.7 fl (80-100); Mean Platelet Volume 9.9 fl (7.4-10.4); Platelet Count Result 241 k/mm3 (150-375); Red Blood Count 3.26 M/mm3 (4.6-6.20); Red Cell Distribution Width 13.8 % (11.5-14.5); White Blood Count 6.6 K/mm3 (4.5-10.0)
[2021-01-30 06:04] LABS: Anion Gap 8 mmol/L (8-16); Blood Urea Nitrogen 14 mg/dL (9-20); Calcium 8.6 mg/dL (8.4-10.2); Carbon Dioxide 25 mmol/L (22-30); Chloride 105 mmol/L (98-107); Estimated CRCL calculation 131 ml/min; Estimated Glomerular Filt Rate > 60; Glucose 99 mg/dL (65-110); Magnesium 1.9 mg/dL (1.6-2.3); Sodium 138 mmol/L (137-145)
--- NOTE | 2021-01-30 07:00 | P.PNIM_ITS ---
Progress Note: A&P Assessment and Plan (1) Ventral incisional hernia: Code(s): K43.2 - Incisional hernia without obstruction or gangrene Status: Chronic Assessment and Plan: * Postoperative day 4 * repair incisional hernia with mesh * Post op care deferred to Dr. Molina * Wound care per surgeries instructions * pain control: Morphine 2-4mg IV Q2hr PRN, Tylenol 500mg PO Q6hr PRN, [place] 5/325 Q4PRN, [place] 10/325 Q4hr PRN * DVT prophylaxis: Lovenox 40mg SubQ Daily * IS * 2 drain present, draining blood (2) Chronic anemia: Code(s): D64.9 - Anemia, unspecified Status: Acute Assessment and Plan: * Hemoglobin and hematocrit are stable * H/H 9.3/28.9 * Anemia labs from 07/05/20 Iron 24, TIBC 239, % sat 14, Transferrin 101, Ferritin 245, B12 895, Folate 5 * Repeat anemia labs have no real changes * Supplement as indicated (3) Paroxysmal atrial fibrillation: Code(s): I48.0 - Paroxysmal atrial fibrillation Status: Acute Assessment and Plan: * Continue sotalol * On Xarelto for anticoagulation, however was stopped for the procedure * Trop negative * HR labile 110-140 * EKG SR 82 upon admission * Repeat EKG is AFIB RVR * Continue to trend heart rate * Cardiology consulted * Cardizem drip has been restarted for conversion back into an afib (4) Hypertension: Code(s): I10 - Essential (primary) hypertension Status: Acute Assessment and Plan: * BP 117/49 * Blood pressures were reviewed and they are stable postoperatively * Continue Sotalol 80mg PO Q12hr * Trend BP * Adjust therapy as indicated (5) Psychiatric illness: Code(s): F99 - Mental disorder, not otherwise specified Status: Acute Assessment and Plan: * Could be in pshycosis at this time * No eye contact, and cannot deny voices * Continue lorazepam * Started on Abilify 5mg PO daily, patient refusing * Trend mood (6) Hypomagnesemia: Code(s): E83.42 - Hypomagnesemia Status: Acute Assessment and Plan: * MG 1.9 * Trend labs * Replace as indicated (7) Chest pain: Code(s): R07.9 - Chest pain, unspecified Status: Acute Assessment and Plan: * Complaints of heaviness in the sternal area * EKG showed AFIB RVR * Cardiology consulted * Troponin negative * Tele monitor on (8) Acute kidney injury: Code(s): N17.9 - Acute kidney failure, unspecified Status: Acute Assessment and Plan: * BUN/Cr dramatically elevated today 14/0.60 * Baseline creatinine is 0.6-0.8 * Avoid nephrotoxic medications * Stop the ibuprofen * Trend labs Time Spent With Patient Time with patient: Greater than 35 minutes Subjective Date/time seen: 01/30/21 07:00 Interval history: Date/Time: 01/26/21 16:30 Narrative: This is a 55-year-old male with paroxysmal atrial fibrillation, pulmonary embolism, psychiatric illness, and history of perforated duodenal ulcer whom the hospitalist service has been consulted for management of his medical conditions postoperatively. 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 He has since developed an incisional hernia and is now status post incisional hernia repair with mesh and bilateral transversus abdominus myofascial flap advancement per Dr. Molina. His surgery was performed under general anesthesia with no imm
--- NOTE | 2021-01-30 07:00 | PM.IMPN ---
Progress Note: A&P Assessment and Plan (1) Ventral incisional hernia: Code(s): K43.2 - Incisional hernia without obstruction or gangrene Status: Chronic Assessment and Plan: Postoperative day 4 repair incisional hernia with mesh Post op care deferred to Dr. Molina Wound care per surgeries instructions pain control: Morphine 2-4mg IV Q2hr PRN, Tylenol 500mg PO Q6hr PRN, [place] 5/325 Q4PRN, [place] 10/325 Q4hr PRN DVT prophylaxis: Lovenox 40mg SubQ Daily IS 2 drain present, draining blood (2) Chronic anemia: Code(s): D64.9 - Anemia, unspecified Status: Acute Assessment and Plan: Hemoglobin and hematocrit are stable H/H 9.3/28.9 Anemia labs from 07/05/20 Iron 24, TIBC 239, % sat 14, Transferrin 101, Ferritin 245, B12 895, Folate 5 Repeat anemia labs have no real changes Supplement as indicated (3) Paroxysmal atrial fibrillation: Code(s): I48.0 - Paroxysmal atrial fibrillation Status: Acute Assessment and Plan: Continue sotalol On Xarelto for anticoagulation, however was stopped for the procedure Trop negative HR labile 110-140 EKG SR 82 upon admission Repeat EKG is AFIB RVR Continue to trend heart rate Cardiology consulted Cardizem drip has been restarted for conversion back into an afib (4) Hypertension: Code(s): I10 - Essential (primary) hypertension Status: Acute Assessment and Plan: BP 117/49 Blood pressures were reviewed and they are stable postoperatively Continue Sotalol 80mg PO Q12hr Trend BP Adjust therapy as indicated (5) Psychiatric illness: Code(s): F99 - Mental disorder, not otherwise specified Status: Acute Assessment and Plan: Could be in pshycosis at this time No eye contact, and cannot deny voices Continue lorazepam Started on Abilify 5mg PO daily, patient refusing Trend mood (6) Hypomagnesemia: Code(s): E83.42 - Hypomagnesemia Status: Acute Assessment and Plan: MG 1.9 Trend labs Replace as indicated (7) Chest pain: Code(s): R07.9 - Chest pain, unspecified Status: Acute Assessment and Plan: Complaints of heaviness in the sternal area EKG showed AFIB RVR Cardiology consulted Troponin negative Tele monitor on (8) Acute kidney injury: Code(s): N17.9 - Acute kidney failure, unspecified Status: Acute Assessment and Plan: BUN/Cr dramatically elevated today 14/0.60 Baseline creatinine is 0.6-0.8 Avoid nephrotoxic medications Stop the ibuprofen Trend labs Time Spent With Patient Time with patient: Greater than 35 minutes Subjective Date/time seen: 01/30/21 07:00 Interval history: Date/Time: 01/26/21 16:30 Narrative: This is a 55-year-old male with paroxysmal atrial fibrillation, pulmonary embolism, psychiatric illness, and history of perforated duodenal ulcer whom the hospitalist service has been consulted for management of his medical conditions postoperatively. 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 He has since developed an incisional hernia and is now status post incisional hernia repair with mesh and bilateral transversus abdominus myofascial flap advancement per Dr. Molina. His surgery was performed under general anesthesia with no immediate complications documented an estimated blood loss of 300 mL. At the time my evaluation he was sleeping and reports that his pain is a bit better controlled than what it was earlier today. He has not passed flatus as of yet. He denies postoperative nausea and vomiting. He also denies fever, chills, sweats, chest pain, shortness of breath. Date/Time 01/27/21 0800 patient stated that he is feeling okay today. He said at 2-3 o'clock this morning his chest got heavy and he knew he went into AFib. He thinks is from the surgery. He has been taking his meds and
[2021-01-30] MEDS: dilTIAZem 100 MG/100 ML 100 MG/100 ML BAG 15 MG IV CONT (08:15)
[2021-01-30] MEDS: SOTALOL HCL 80 MG TABLET PO ×2 (08:16→21:42)
[2021-01-30] MEDS: LORazepam (*CRX) 1 MG TABLET PO ×3 (08:16→17:34)
[2021-01-30] MEDS: ALPRAZolam (*CRX) 0.5 MG TABLET PO (09:59)
--- NOTE | 2021-01-30 10:07 | PM.PNGS ---
Progress Note: A&P Assessment and Plan (1) Ventral incisional hernia: Code(s): K43.2 - Incisional hernia without obstruction or gangrene Status: Chronic Assessment and Plan: doing well, kermit diet, cont routine postop care, will likely remove drains soon (2) Atrial fibrillation with rapid ventricular response: Code(s): I48.91 - Unspecified atrial fibrillation Status: Chronic Assessment and Plan: back on Cardizem gtt, mgmt per cardiology Subjective Subjective Date/Time Seen: 01/30/21 10:07 feels ok, back in A fib c RVR overnight Review of Systems Review of Systems: All systems reviewed & are unremarkable except as noted in HPI and below Exam Const: General: cooperative, comfortable and no acute distress Orientation/consciousness: patient oriented x3 Resp: Effort & Inspection: normal respiratory effort Auscultation: clear to auscultation bilaterally Cardio: Rate: tachycardic Rhythm: abnormal rhythm GI: Inspection: normal to inspection, distended and incision GI Palp: Yes Soft to palpation, Yes Tenderness to palpation present (GI), No Guarding due to palpation present (GI) and No Rigid due to palpation Other: HERO x 2 c s/s output Objective Data Vital Signs Vital Signs: Vital Signs - 24 hr 01/29/21 12:00 01/29/21 14:00 01/29/21 15:08 Temperature 36.7 C Pulse Rate 82 102 H 77 Respiratory Rate 28 H 18 Blood Pressure 109/78 Pulse Oximetry 96 01/29/21 16:00 01/29/21 18:00 01/29/21 20:00 Temperature 36.5 C 36.8 C Pulse Rate 103 H 103 H 109 H Respiratory Rate 20 16 Blood Pressure 106/60 131/74 Pulse Oximetry 96 95 01/29/21 20:01 01/29/21 20:11 01/29/21 20:49 Temperature Pulse Rate 82 84 117 H Respiratory Rate 18 18 Blood Pressure Pulse Oximetry 98 01/29/21 22:00 01/29/21 23:55 01/30/21 00:00 Temperature 37.7 C H Pulse Rate 110 H 126 H 128 H Respiratory Rate 16 Blood Pressure 117/80 Pulse Oximetry 95 95 01/30/21 00:56 01/30/21 01:19 01/30/21 01:35 Temperature Pulse Rate 126 H 130 H 76 Respiratory Rate 16 18 Blood Pressure 117/80 117/80 Pulse Oximetry 95 01/30/21 02:00 01/30/21 02:49 01/30/21 03:30 Temperature 36.6 C Pulse Rate 120 H 140 H 125 H Respiratory Rate 18 Blood Pressure 110/68 117/49 L Pulse Oximetry 96 01/30/21 04:00 01/30/21 06:00 01/30/21 08:00 Temperature 36.5 C Pulse Rate 115 H 130 H 133 H Respiratory Rate 20 Blood Pressure 102/55 L Pulse Oximetry 96 93 01/30/21 08:15 01/30/21 08:16 Temperature Pulse Rate 123 H 123 H Respiratory Rate Blood Pressure Pulse Oximetry Intake/Output Intake/Output: Intake & Output 01/27/21 01/28/21 01/29/21 01/30/21 23:59 23:59 23:59 23:59 Intake Total 2990 5655 4450 450 Output Total 3758 910 3385 600 Balance 1425 4760 3200 -150 Meds/Results Medications: Active Medications Generic Name Dose Route Start Last Admin Trade Name Freq PRN Reason Stop Dose Admin Acetaminophen 500 mg 01/26/21 13:49 Acetaminophen 500 Mg Tablet PO Q6H PRN Mild Pain (1-3) or Fever Hydrocodone Bitart/Acetaminophen 1 tab 01/26/21 13:49 Hydrocodone/Acetaminophen (*Crx) 5-325 Mg Tablet PO Q4H PRN Pain Rated 4-6 Hydrocodone Bitart/Acetaminophen 1 tab 01/26/21 13:49 01/30/21 06:38 Hydrocodone/Acetaminophen (*Crx) 10-325 Mg Tablet PO 1 tab Q4H PRN Administration Pain Rated 7-10 Albuterol 2 puff 01/29/21 13:21 Albuterol Sulfate (*Sp) Aerosol 1 Puff INHALATION Q6HRT PRN Shortness Of Breath Alvimopan 12 mg 01/27/21 21:00 01/30/21 08:16 Alvimopan 12 Mg Capsule PO 02/03/21 20:59 Not Given Q12HR MATEO Aripiprazole 5 mg 01/27/21 09:00 01/30/21 08:16 Aripiprazole 5 Mg Tablet PO Not Given DAILY MATEO Diphenhydramine HCl 50 mg 01/26/21 13:49 Diphenhydramine Hcl Cap 25 Mg Capsule PO BEDTIME PRN Sleep Famotidine 20 mg 01/26/21 21:00 01/30/21 08:16
--- NOTE | 2021-01-30 11:23 | PCRCNOTE ---
Window of time for administration has passed. See next scheduled administration.
--- NOTE | 2021-01-30 13:28 | PM.PNCARD ---
Progress Note: A&P Assessment and Plan (1) Paroxysmal atrial fibrillation with rapid ventricular response: Code(s): I48.0 - Paroxysmal atrial fibrillation Status: Acute Assessment and Plan: History of paroxysmal atrial fibrillation on sotalol 80 mg twice daily at home. Recurrent AFib RVR postop. Increased sotalol to 120 mg b.i.d. and discontinued diltiazem last week. However the patient had a sinus pause so his sotalol was reduced back to 80 mg b.i.d.. Change Xarelto to his usual home med, Eliquis Must avoid QT prolonging drugs in conjunction with sotalol. Alternative for Zofran given potential for QT prolongation. 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 Pt reluctant to take an anticoagulant but after discussion of PAF and stroke risk agreed. (3) Encounter for monitoring sotalol therapy: Code(s): Z51.81 - Encounter for therapeutic drug level monitoring; Z79.899 - Other assisted (current) drug therapy Status: Acute Assessment and Plan: As above, monitor QTc interval, acceptable on EKG 01/29/2021. Avoid QT prolonging drugs while on sotalol to reduce risk for QT prolongation and torsades. (4) Acute kidney injury: Code(s): N17.9 - Acute kidney failure, unspecified Status: Acute Assessment and Plan: Creatinine increased from 0.7 up to 1.5 01/29/2021 IV ibuprofen discontinued, and given IV fluids Renal fxn back to baseline DC IV fluids (5) Wheezing: Code(s): R06.2 - Wheezing Status: Acute Assessment and Plan: Patient with a history of asthma complains of wheezing. Lungs sound clear. Cont albuterol p.r.n., hopefully will not aggravate his paroxysmal AFib. (6) Chest pain: Code(s): R07.9 - Chest pain, unspecified Status: Acute Assessment and Plan: Secondary to atrial fibrillation with rapid ventricular response which he has experienced in the past. Troponins negative. There is no evidence thus far his symptoms of secondary to acute myocardial ischemia / infarction. Seems to have resolved since the atrial fibrillation has improved. (7) Hypertension: Code(s): I10 - Essential (primary) hypertension Status: Acute Assessment and Plan: Stable, no acute issues. (8) Stool incontinence: Code(s): R15.9 - Full incontinence of feces Status: Acute Assessment and Plan: DC docusate Subjective Date/time seen: 01/30/21 13:28 Interval history: Follow-up for post-op paroxysmal atrial fibrillation with rapid ventricular response. History of paroxysmal atrial fibrillation, taking sotalol as an outpatient. Recent hernia repair 01/26/2021. EF > 70% this admission. 01/28/2021: Patient doing okay. Denies chest pain. States he has more wheezy this morning which usually short-lived but lasting longer. Not having a productive cough, no palpitations. Heart rate remains rapid better controlled on diltiazem 15 milligrams/hours heart rate typically in the 90s to 120s. No other concerns. Eating well. 01/29/2021: Doing fairly well but feels wheezy at times and request p.r.n. albuterol. Not much pain. Feels heart has settled down, fewer palpitations, no chest pain. Maintaining NSR. Acute kidney injury noted; ibuprofen drip discontinued. Resumed Xarelto 15 mg daily. Date of service 01/30/2021: Went back into a fib RVR last night HR 120-140 and back on CArdizem gtt. Converted to NSR this a.m. Long discussion of the little white pills patient has been taking at the halfway. Looks like our med list is incorrect, patient is taking Eliqui
[2021-01-30] MEDS: dilTIAZem HCL 60 MG TABLET PO ×2 (14:53→21:42)
[2021-01-30] MEDS: ALBUTEROL SULFATE (*SP) AEROSOL 1 PUFF 2 PUFF INHALATION (17:27)
--- NOTE | 2021-01-30 21:17 | PC.NURSE ---
Patient adamantly refusing cardiac and GI meds. States he doesn't need them. Thorough teaching done regarding Afib/RVR and the risk of stroke, sudden , rapid heart rate, chest pain, RI, ulcer. Patient continues to refuse meds. eric Polanco RN notified. Krystina Draper NP also notified and will come talk to the patient.
[2021-01-30] MEDS: APIXABAN 5 MG TABLET PO (21:42)
--- NOTE | 2021-01-30 21:46 | PC.NURSE ---
Patient now agreeable to take his cardiac meds only. Sotalol, Cardizem, and Eliquis given. Patient swallowed pills well. Eating a turkey sandwich.
[2021-01-31] VITALS (25 sets, daily range): BP systolic 115–131; BP diastolic 55–72; PULSE 88–146; RESP 16–24; TEMP 36.1–37.2; O2SAT 92–100
[2021-01-31] MEDS: HYDROcodone/acetaminophen (*CRX) 10-325 MG TABLET 1 TAB PO ×5 (03:35→22:16)
[2021-01-31 04:57] LABS: Hematocrit 26.1 % (42.0-52.0); Hemoglobin 8.6 g/dL (14.0-18.0); Mean Corpuscular Hemoglobin 28.8 pg (26-34); Mean Corpuscular Volume 87.3 fl (80-100); Mean Platelet Volume 9.9 fl (7.4-10.4); Platelet Count Result 230 k/mm3 (150-375); Red Blood Count 2.99 M/mm3 (4.6-6.20); Red Cell Distribution Width 14.2 % (11.5-14.5); White Blood Count 6.5 K/mm3 (4.5-10.0)
[2021-01-31 05:18] LABS: Anion Gap 7 mmol/L (8-16); Blood Urea Nitrogen 9 mg/dL (9-20); Calcium 8.3 mg/dL (8.4-10.2); Carbon Dioxide 26 mmol/L (22-30); Chloride 105 mmol/L (98-107); Estimated CRCL calculation 155 ml/min; Estimated Glomerular Filt Rate > 60; Glucose 102 mg/dL (65-110); Magnesium 1.5 mg/dL (1.6-2.3); Sodium 138 mmol/L (137-145)
[2021-01-31] MEDS: dilTIAZem HCL 60 MG TABLET PO ×2 (06:09→20:35)
[2021-01-31] MEDS: SOTALOL HCL 80 MG TABLET PO ×2 (08:13→20:35)
[2021-01-31] MEDS: LORazepam (*CRX) 1 MG TABLET PO ×3 (08:14→18:12)
[2021-01-31] MEDS: POTASSIUM CHLORIDE 20 MEQ TABLET 40 MEQ PO (08:15)
--- NOTE | 2021-01-31 08:15 | PC.NURSE ---
Patient stated he wasn't taking his eliquis and handed it back to this RN. Informed him that it is a blood thinner and given to prevent him from having blood clots or a stroke. Patient stated to give him back the pill cup with pill. Patient then proceeded to spit out the pill and state, I told you I wasn't taking it.
[2021-01-31] MEDS: MORPHINE SULFATE (*CRX) 4 MG/ML INJ IV PUSH (09:34)
--- NOTE | 2021-01-31 11:00 | PM.IMPN ---
Progress Note: A&P Assessment and Plan (1) Ventral incisional hernia: Code(s): K43.2 - Incisional hernia without obstruction or gangrene Status: Chronic Assessment and Plan: Postoperative day 5 repair incisional hernia with mesh Post op care deferred to Dr. Molina Wound care per surgeries instructions pain control: Morphine 2-4mg IV Q2hr PRN, Tylenol 500mg PO Q6hr PRN, [place] 5/325 Q4PRN, [place] 10/325 Q4hr PRN DVT prophylaxis: Lovenox 40mg SubQ Daily IS 2 drain present, draining blood tinged sanguinous fluid (2) Chronic anemia: Code(s): D64.9 - Anemia, unspecified Status: Acute Assessment and Plan: Hemoglobin and hematocrit are stable H/H 8.6/26.1 Anemia labs from 07/05/20 Iron 24, TIBC 239, % sat 14, Transferrin 101, Ferritin 245, B12 895, Folate 5 Iron added, patient refusing Repeat anemia labs have no real changes Supplement as indicated (3) Paroxysmal atrial fibrillation: Code(s): I48.0 - Paroxysmal atrial fibrillation Status: Acute Assessment and Plan: Continue sotalol On Xarelto for anticoagulation, however was stopped for the procedure Trop negative HR stable 90-100s EKG SR 82 upon admission Repeat EKG SR from 01/29/21 Continue to trend heart rate Cardiology consulted Cardizem drip has been restarted for conversion back into an afib (4) Hypertension: Code(s): I10 - Essential (primary) hypertension Status: Acute Assessment and Plan: BP 115/61 Blood pressures were reviewed and they are stable postoperatively Continue Sotalol 80mg PO Q12hr Trend BP Adjust therapy as indicated (5) Psychiatric illness: Code(s): F99 - Mental disorder, not otherwise specified Status: Acute Assessment and Plan: Could be in pshycosis at this time No eye contact, and cannot deny voices Continue lorazepam Started on Abilify 5mg PO daily, patient refusing Trend mood (6) Hypomagnesemia: Code(s): E83.42 - Hypomagnesemia Status: Acute Assessment and Plan: MG 1.5 Replacement 4gm IV, patient refusing replacement at this time Trend labs Replace as indicated (7) Chest pain: Code(s): R07.9 - Chest pain, unspecified Status: Acute Assessment and Plan: Complaints of heaviness in the sternal area EKG showed AFIB RVR Cardiology consulted Troponin negative Tele monitor on (8) Acute kidney injury: Code(s): N17.9 - Acute kidney failure, unspecified Status: Acute Assessment and Plan: BUN/Cr dramatically elevated today 9/0.50 Baseline creatinine is 0.6-0.8 Avoid nephrotoxic medications Stop the ibuprofen Trend labs Time Spent With Patient Time with patient: Greater than 35 minutes Subjective Date/time seen: 01/31/21 11:00 Interval history: Date/Time: 01/26/21 16:30 Narrative: This is a 55-year-old male with paroxysmal atrial fibrillation, pulmonary embolism, psychiatric illness, and history of perforated duodenal ulcer whom the hospitalist service has been consulted for management of his medical conditions postoperatively. 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 He has since developed an incisional hernia and is now status post incisional hernia repair with mesh and bilateral transversus abdominus myofascial flap advancement per Dr. Molina. His surgery was performed under general anesthesia with no immediate complications documented an estimated blood loss of 300 mL. At the time my evaluation he was sleeping and reports that his pain is a bit better controlled than what it was earlier today. He has not passed flatus as of yet. He denies postoperative nausea and vomiting. He also denies fever, chills, sweats, chest pain, shortness of breath. Date/Time 01/27/21 0800 patient stated that he is feeling okay today. He said at 2-3 o'clock this
--- NOTE | 2021-01-31 11:00 | P.PNIM_ITS ---
Progress Note: A&P Assessment and Plan (1) Ventral incisional hernia: Code(s): K43.2 - Incisional hernia without obstruction or gangrene Status: Chronic Assessment and Plan: * Postoperative day 5 * repair incisional hernia with mesh * Post op care deferred to Dr. Molina * Wound care per surgeries instructions * pain control: Morphine 2-4mg IV Q2hr PRN, Tylenol 500mg PO Q6hr PRN, [place] 5/325 Q4PRN, [place] 10/325 Q4hr PRN * DVT prophylaxis: Lovenox 40mg SubQ Daily * IS * 2 drain present, draining blood tinged sanguinous fluid (2) Chronic anemia: Code(s): D64.9 - Anemia, unspecified Status: Acute Assessment and Plan: * Hemoglobin and hematocrit are stable * H/H 8.6/26.1 * Anemia labs from 07/05/20 Iron 24, TIBC 239, % sat 14, Transferrin 101, Ferritin 245, B12 895, Folate 5 * Iron added, patient refusing * Repeat anemia labs have no real changes * Supplement as indicated (3) Paroxysmal atrial fibrillation: Code(s): I48.0 - Paroxysmal atrial fibrillation Status: Acute Assessment and Plan: * Continue sotalol * On Xarelto for anticoagulation, however was stopped for the procedure * Trop negative * HR stable 90-100s * EKG SR 82 upon admission * Repeat EKG SR from 01/29/21 * Continue to trend heart rate * Cardiology consulted * Cardizem drip has been restarted for conversion back into an afib (4) Hypertension: Code(s): I10 - Essential (primary) hypertension Status: Acute Assessment and Plan: * BP 115/61 * Blood pressures were reviewed and they are stable postoperatively * Continue Sotalol 80mg PO Q12hr * Trend BP * Adjust therapy as indicated (5) Psychiatric illness: Code(s): F99 - Mental disorder, not otherwise specified Status: Acute Assessment and Plan: * Could be in pshycosis at this time * No eye contact, and cannot deny voices * Continue lorazepam * Started on Abilify 5mg PO daily, patient refusing * Trend mood (6) Hypomagnesemia: Code(s): E83.42 - Hypomagnesemia Status: Acute Assessment and Plan: * MG 1.5 * Replacement 4gm IV, patient refusing replacement at this time * Trend labs * Replace as indicated (7) Chest pain: Code(s): R07.9 - Chest pain, unspecified Status: Acute Assessment and Plan: * Complaints of heaviness in the sternal area * EKG showed AFIB RVR * Cardiology consulted * Troponin negative * Tele monitor on (8) Acute kidney injury: Code(s): N17.9 - Acute kidney failure, unspecified Status: Acute Assessment and Plan: * BUN/Cr dramatically elevated today 9/0.50 * Baseline creatinine is 0.6-0.8 * Avoid nephrotoxic medications * Stop the ibuprofen * Trend labs Time Spent With Patient Time with patient: Greater than 35 minutes Subjective Date/time seen: 01/31/21 11:00 Interval history: Date/Time: 01/26/21 16:30 Narrative: This is a 55-year-old male with paroxysmal atrial fibrillation, pulmonary embolism, psychiatric illness, and history of perforated duodenal ulcer whom the hospitalist service has been consulted for management of his medical conditions postoperatively. 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 He has since developed an incisional hernia and is now status post incisional hernia repair with mesh and bilater
--- NOTE | 2021-01-31 11:45 | PM.PNGS ---
Progress Note: A&P Assessment and Plan (1) Paroxysmal atrial fibrillation: Code(s): I48.0 - Paroxysmal atrial fibrillation Status: Acute Assessment and Plan: currently heart rate 93 and appears to be sinus on the monitor. Remains on diltiazem drip. Continue on IMU status. (2) Hypokalemia: Code(s): E87.6 - Hypokalemia Status: Acute Assessment and Plan: Patient being noncompliant with medications. I talked with him about this. I have encouraged him to take medications prescribed as this is keeping him from recovering. Will increase potassium to 40 mEq b.i.d.. (3) Incisional hernia of anterior abdominal wall without obstruction or gangrene: Code(s): K43.2 - Incisional hernia without obstruction or gangrene Status: Chronic Assessment and Plan: Repair intact. Bowel function returned. DC HERO drain 1. Today possibly remove 2. Tomorrow. 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 (5) Schizophrenia: Qualifiers: Schizophrenia type: unspecified Qualified Code(s): F20.9 - Schizophrenia, unspecified Code(s): F20.9 - Schizophrenia, unspecified Status: Chronic Assessment and Plan: Being noncompliant with his Aripiprazole. discussed the importance of taking this both with the patient and with nursing. Subjective Subjective Date/Time Seen: 01/31/21 11:45 Post Op day: 5 Patient reports: no new complaints, tolerating a regular diet, nausea, vomiting and afebrile Interval history: Had nausea and dry heaves earlier this morning. This is gone now. Abdominal pain is better. Feels like he is sleeping at night better. Nursing reports he has been refusing his Eliquis and his Aripiprazole. still going in and out of AFib. On diltiazem IV drip. Review of Systems Review of Systems: All systems reviewed & are unremarkable except as noted in HPI and below Constitutional: Constitutional: Denies chills, Denies fever(s), Denies headache(s) and Reports lethargy Cardiovascular: Cardiovascular: Denies chest pain and Denies dyspnea Respiratory: Respiratory: Denies cough and Denies dyspnea Gastrointestinal: Gastrointestinal: Reports as per HPI Neurologic: Reports as per HPI, Denies Abnormal speech present, Denies syncope, Denies headache(s) and Reports weakness Exam Const: General: comfortable and no acute distress; No confusion Orientation/consciousness: patient oriented x3 and No confusion GI: Inspection: non-distended, incision ( Dry and healing well), scaphoid, no visible herniation and other ( minimal output subcutaneous drain. Serosanguineous out retrorectus drain) GI Palp: Yes Soft to palpation, Yes Tenderness to palpation present (GI), No Guarding due to palpation present (GI), No Hernia present and No Rebound tenderness present Extrem: General: no calf tenderness and no edema Objective Data Vital Signs Vital Signs: Vital Signs - 24 hr 01/30/21 12:00 01/30/21 13:08 01/30/21 13:23 Temperature 36.3 C L Pulse Rate 88 88 82 Respiratory Rate 26 H 16 16 Blood Pressure 120/66 Pulse Oximetry 97 96 01/30/21 14:00 01/30/21 16:00 01/30/21 18:00 Temperature 36.7 C Pulse Rate 86 89 91 Respiratory Rate 18 Blood Pressure 117/55 L Pulse Oximetry 96 01/30/21 20:00 01/30/21 20:55 01/30/21 21:05 Temperature 36.2 C L Pulse Rate 96 90 90 Respiratory Rate 16 20 20 Blood Pressure 119/51 L Pulse Oximetry 100 93 01/30/21 21:42 01/30/21 22:00 01/31/21 00:00 Temperature 36.8 C Pulse Rate 108 H 102 H 104 H Respiratory Rate 16 Blood Pressure 125/63 Pulse Oximetry 100 01/31/21 01:58 01/31/21 02:00 01/31/21 02:10 Temperature Pulse Rate 90 96 90 Respiratory Rate 20 20 Blood Pressure Pulse Oximetry 01/31/21 04:00 01/31/21 06:00 01/31/21 08:00 [place]
--- NOTE | 2021-01-31 13:51 | PM.PNCARD ---
Progress Note: A&P Assessment and Plan (1) Paroxysmal atrial fibrillation with rapid ventricular response: Code(s): I48.0 - Paroxysmal atrial fibrillation Status: Acute Assessment and Plan: History of paroxysmal atrial fibrillation on sotalol 80 mg twice daily at home. Recurrent AFib RVR postop. Increased sotalol to 120 mg b.i.d. and discontinued diltiazem last week. However the patient had a sinus pause so his sotalol was reduced back to 80 mg b.i.d.. Continue Eliquis Must avoid QT prolonging drugs in conjunction with sotalol. Alternative for Zofran given potential for QT prolongation. Continue p.o Cardizem, no sinus pauses noted on telemetry. Perhaps shift him to long acting Cardizem tomorrow if he remains adequately rate controlled on this dose. Continue to monitor. 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 Pt reluctant to take an anticoagulant but after discussion of PAF and stroke risk agreed. (3) Encounter for monitoring sotalol therapy: Code(s): Z51.81 - Encounter for therapeutic drug level monitoring; Z79.899 - Other senior living (current) drug therapy Status: Acute Assessment and Plan: As above, monitor QTc interval, acceptable on EKG 01/29/2021. Avoid QT prolonging drugs while on sotalol to reduce risk for QT prolongation and torsades. (4) Acute kidney injury: Code(s): N17.9 - Acute kidney failure, unspecified Status: Acute Assessment and Plan: Creatinine increased from 0.7 up to 1.5 01/29/2021 IV ibuprofen discontinued, and given IV fluids Renal fxn back to baseline (5) Wheezing: Code(s): R06.2 - Wheezing Status: Acute Assessment and Plan: Patient with a history of asthma complains of wheezing. Lungs sound clear. Cont albuterol p.r.n., hopefully will not aggravate his paroxysmal AFib. (6) Chest pain: Code(s): R07.9 - Chest pain, unspecified Status: Acute Assessment and Plan: Secondary to atrial fibrillation with rapid ventricular response which he has experienced in the past. Troponins negative. There is no evidence thus far his symptoms of secondary to acute myocardial ischemia / infarction. Seems to have resolved since the atrial fibrillation has improved. (7) Hypertension: Code(s): I10 - Essential (primary) hypertension Status: Acute Assessment and Plan: Stable, no acute issues. (8) Stool incontinence: Code(s): R15.9 - Full incontinence of feces Status: Acute Assessment and Plan: DC docusate Subjective Date/time seen: 01/31/21 13:51 Interval history: Follow-up for post-op paroxysmal atrial fibrillation with rapid ventricular response. History of paroxysmal atrial fibrillation, taking sotalol as an outpatient. Recent hernia repair 01/26/2021. EF > 70% this admission. 01/28/2021: Patient doing okay. Denies chest pain. States he has more wheezy this morning which usually short-lived but lasting longer. Not having a productive cough, no palpitations. Heart rate remains rapid better controlled on diltiazem 15 milligrams/hours heart rate typically in the 90s to 120s. No other concerns. Eating well. 01/29/2021: Doing fairly well but feels wheezy at times and request p.r.n. albuterol. Not much pain. Feels heart has settled down, fewer palpitations, no chest pain. Maintaining NSR. Acute kidney injury noted; ibuprofen drip discontinued. Resumed Xarelto 15 mg daily. Date of service 01/30/2021: Went back into a fib RVR last night HR 120-140 and back on CArdizem gtt. Converted to NSR this a.m. Long discussion of the little white pills patient has been taking at the intermediate. Looks like our anastasia
[2021-01-31] MEDS: MORPHINE SULFATE (*CRX) 2 MG/ML INJ IV PUSH ×2 (14:34→20:35)
--- NOTE | 2021-01-31 19:05 | PC.NURSE ---
Patient refusing all meds at this time. MD aware. Multiple attempts made and frequent education provided about adverse effects related to medication non-compliance and electrolyte replacement.
[2021-01-31] MEDS: APIXABAN 5 MG TABLET PO (20:35)
[2021-01-31] MEDS: METOPROLOL TARTRATE INJ 5 MG/5 ML VIAL IV PUSH (23:32)
[2021-02-01] VITALS (19 sets, daily range): BP systolic 105–154; BP diastolic 51–98; PULSE 91–167; RESP 16–24; TEMP 36.6–37.1; O2SAT 95–100
[2021-02-01] MEDS: METOPROLOL TARTRATE INJ 5 MG/5 ML VIAL IV PUSH ×3 (02:49→11:18)
[2021-02-01] MEDS: HYDROcodone/acetaminophen (*CRX) 10-325 MG TABLET 1 TAB PO ×4 (02:56→17:51)
--- NOTE | 2021-02-01 04:55 | PC.NURSE ---
0455- Patient sustaining heart rate in 150s-170s patient is refusing to take any more medications for his heart rate. Patient alert and oriented, uncooperative. States your medications aren't helping so I don't need to take them.
[2021-02-01] MEDS: POTASSIUM CHLORIDE 20 MEQ TABLET.ER 40 MEQ PO ×2 (08:32→17:47)
[2021-02-01] MEDS: ARIPiprazole 5 MG TABLET PO (08:32)
[2021-02-01] MEDS: LORazepam (*CRX) 1 MG TABLET PO ×3 (08:33→17:47)
[2021-02-01] MEDS: APIXABAN 5 MG TABLET PO ×2 (08:33→20:43)
[2021-02-01] MEDS: SOTALOL HCL 80 MG TABLET PO ×2 (08:33→20:43)
[2021-02-01] MEDS: FAMOTIDINE 20 MG TABLET PO ×2 (08:33→20:43)
[2021-02-01] MEDS: MAGNESIUM SULF 4 GM/WATER100ML 4 GM/100 ML BAG IVPB (08:40)
--- NOTE | 2021-02-01 08:45 | P.PNIM_ITS ---
Progress Note: A&P Assessment and Plan (1) Ventral incisional hernia: Code(s): K43.2 - Incisional hernia without obstruction or gangrene Status: Chronic Assessment and Plan: * Postoperative day 6 * repair incisional hernia with mesh * Post op care deferred to Dr. Molina * Wound care per surgeries instructions * pain control: Morphine 2-4mg IV Q2hr PRN, Tylenol 500mg PO Q6hr PRN, Tupman 5/325 Q4PRN, Tupman 10/325 Q4hr PRN * DVT prophylaxis: Lovenox 40mg SubQ Daily * IS * 2 drain present, draining blood tinged sanguinous fluid * Midline incision with staple, no redness or swelling noted (2) Chronic anemia: Code(s): D64.9 - Anemia, unspecified Status: Acute Assessment and Plan: * Hemoglobin and hematocrit are stable * H/H 9.3/28.5 * Anemia labs from 07/05/20 Iron 24, TIBC 239, % sat 14, Transferrin 101, Ferritin 245, B12 895, Folate 5 * Iron added, patient refusing * Repeat anemia labs have no real changes * Supplement as indicated (3) Paroxysmal atrial fibrillation: Code(s): I48.0 - Paroxysmal atrial fibrillation Status: Acute Assessment and Plan: * Continue sotalol * On Xarelto for anticoagulation, however was stopped for the procedure * Trop negative * HR back up in the 130-160 * EKG SR 82 upon admission * Repeat EKG SR from 01/29/21 * Continue to trend heart rate * Cardiology consulted * Cardizem drip is off at time being * Metoprolol 5mg IV once given (4) Hypertension: Code(s): I10 - Essential (primary) hypertension Status: Acute Assessment and Plan: * BP 124/66 * Blood pressures were reviewed and they are stable postoperatively * Continue Sotalol 80mg PO Q12hr * Trend BP * Adjust therapy as indicated (5) Psychiatric illness: Code(s): F99 - Mental disorder, not otherwise specified Status: Acute Assessment and Plan: * Could be in pshycosis at this time * No eye contact, and cannot deny voices * Continue lorazepam * Started on Abilify 5mg PO daily, patient refusing * Trend mood (6) Hypomagnesemia: Code(s): E83.42 - Hypomagnesemia Status: Acute Assessment and Plan: * MG 1.5, repeat lab 2.6 * Replacement 4gm IV * Educated about needing this, patient agreeable * Trend labs * Replace as indicated (7) Chest pain: Code(s): R07.9 - Chest pain, unspecified Status: Acute Assessment and Plan: * No complaints at this time * Complaints of heaviness in the sternal area * EKG showed AFIB RVR * Cardiology consulted * Troponin negative * Tele monitor on (8) Acute kidney injury: Code(s): N17.9 - Acute kidney failure, unspecified Status: Acute Assessment and Plan: * BUN/Cr dramatically elevated today 8/0.50 * Baseline creatinine is 0.6-0.8 * Avoid nephrotoxic medications * Stop the ibuprofen * Trend labs (9) Hypokalemia: Code(s): E87.6 - Hypokalemia Status: Acute Assessment and Plan: * K 3.0 yesterday * 40mcg of K ordered PO BID * K 3.4 today * Trend K * Replace as indicated Time Spent With Patient Time with patient: Greater than 35 minutes Subjective Date/time seen: 02/01/21 0845 Interval history: Date/Time: 01/26/21 16:30 Narrative: This is a 55-year-old male with paroxysmal atrial fibrillation,
--- NOTE | 2021-02-01 08:45 | PM.IMPN ---
Progress Note: A&P Assessment and Plan (1) Ventral incisional hernia: Code(s): K43.2 - Incisional hernia without obstruction or gangrene Status: Chronic Assessment and Plan: Postoperative day 6 repair incisional hernia with mesh Post op care deferred to Dr. Molina Wound care per surgeries instructions pain control: Morphine 2-4mg IV Q2hr PRN, Tylenol 500mg PO Q6hr PRN, Sutter 5/325 Q4PRN, Sutter 10/325 Q4hr PRN DVT prophylaxis: Lovenox 40mg SubQ Daily IS 2 drain present, draining blood tinged sanguinous fluid Midline incision with staple, no redness or swelling noted (2) Chronic anemia: Code(s): D64.9 - Anemia, unspecified Status: Acute Assessment and Plan: Hemoglobin and hematocrit are stable H/H 9.3/28.5 Anemia labs from 07/05/20 Iron 24, TIBC 239, % sat 14, Transferrin 101, Ferritin 245, B12 895, Folate 5 Iron added, patient refusing Repeat anemia labs have no real changes Supplement as indicated (3) Paroxysmal atrial fibrillation: Code(s): I48.0 - Paroxysmal atrial fibrillation Status: Acute Assessment and Plan: Continue sotalol On Xarelto for anticoagulation, however was stopped for the procedure Trop negative HR back up in the 130-160 EKG SR 82 upon admission Repeat EKG SR from 01/29/21 Continue to trend heart rate Cardiology consulted Cardizem drip is off at time being Metoprolol 5mg IV once given (4) Hypertension: Code(s): I10 - Essential (primary) hypertension Status: Acute Assessment and Plan: BP 124/66 Blood pressures were reviewed and they are stable postoperatively Continue Sotalol 80mg PO Q12hr Trend BP Adjust therapy as indicated (5) Psychiatric illness: Code(s): F99 - Mental disorder, not otherwise specified Status: Acute Assessment and Plan: Could be in pshycosis at this time No eye contact, and cannot deny voices Continue lorazepam Started on Abilify 5mg PO daily, patient refusing Trend mood (6) Hypomagnesemia: Code(s): E83.42 - Hypomagnesemia Status: Acute Assessment and Plan: MG 1.5, repeat lab 2.6 Replacement 4gm IV Educated about needing this, patient agreeable Trend labs Replace as indicated (7) Chest pain: Code(s): R07.9 - Chest pain, unspecified Status: Acute Assessment and Plan: No complaints at this time Complaints of heaviness in the sternal area EKG showed AFIB RVR Cardiology consulted Troponin negative Tele monitor on (8) Acute kidney injury: Code(s): N17.9 - Acute kidney failure, unspecified Status: Acute Assessment and Plan: BUN/Cr dramatically elevated today 8/0.50 Baseline creatinine is 0.6-0.8 Avoid nephrotoxic medications Stop the ibuprofen Trend labs (9) Hypokalemia: Code(s): E87.6 - Hypokalemia Status: Acute Assessment and Plan: K 3.0 yesterday 40mcg of K ordered PO BID K 3.4 today Trend K Replace as indicated Time Spent With Patient Time with patient: Greater than 35 minutes Subjective Date/time seen: 02/01/21 0845 Interval history: Date/Time: 01/26/21 16:30 Narrative: This is a 55-year-old male with paroxysmal atrial fibrillation, pulmonary embolism, psychiatric illness, and history of perforated duodenal ulcer whom the hospitalist service has been consulted for management of his medical conditions postoperatively. 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 He has since developed an incisional hernia and is now status post incisional hernia repair with mesh and bilateral transversus abdominus myofascial flap advancement per Dr. Molina. His surgery was performed under general anesthesia with no immediate complications documented an estimated blood loss of 300 mL. At the time my evaluation he was sleeping and reports th
[2021-02-01 09:34] LABS: Basophils Absolute Auto 0.1 K/mm3 (0.0-0.1); Basophils Percent Auto 0.4 % (0.2-1.2); Eosinophils Absolute Auto 0.1 K/mm3 (0-0.3); Eosinophils Percent Auto 0.9 % (0-4.4); Hematocrit 28.5 % (42.0-52.0); Hemoglobin 9.3 g/dL (14.0-18.0); Immature Granulocyte Absolute 0.07 K/mm3 (0.00-0.031); Immature Granulocyte Percent A 0.6 % (0-0.5); Lymphocytes Absolute Auto 2.52 K/mm3 (0.9-3.2); Lymphocytes Percent Auto 22.2 % (18.3-44.2); Mean Corpuscular HGB Conc 32.6 g/dl (32-36); Mean Corpuscular Hemoglobin 28.4 pg (26-34); Mean Corpuscular Volume 87.2 fl (80-100); Mean Platelet Volume 9.6 fl (7.4-10.4); Monocytes Absolute Auto 1.2 K/mm3 (0.1-0.6); Monocytes Percent Auto 10.3 % (2.6-8.5); Neutrophils Absolute Auto 7.5 K/mm3 (1.3-6.7); Neutrophils Percent Auto 65.6 % (45.5-73.1); Platelet Count Result 256 k/mm3 (150-375); Red Blood Count 3.27 M/mm3 (4.6-6.20); Red Cell Distribution Width 14.4 % (11.5-14.5); White Blood Count 11.4 K/mm3 (4.5-10.0)
[2021-02-01 10:09] LABS: Alanine Aminotransferase 19 U/L (4-50); Albumin Level 2.9 g/dL (3.5-5.1); Alkaline Phosphatase 106 U/L (38-126); Anion Gap 4 mmol/L (8-16); Aspartate Amino Transferase 27 U/L (17-59); Bilirubin,Total 1.5 mg/dL (0.2-1.3); Blood Urea Nitrogen 8 mg/dL (9-20); Calcium 8.4 mg/dL (8.4-10.2); Carbon Dioxide 25 mmol/L (22-30); Chloride 101 mmol/L (98-107); Estimated CRCL calculation 155 ml/min; Estimated Glomerular Filt Rate > 60; Glucose 114 mg/dL (65-110); Magnesium 2.6 mg/dL (1.6-2.3); Potassium 3.4 mmol/L (3.4-5.0); Sodium 130 mmol/L (137-145)
--- NOTE | 2021-02-01 12:08 | PM.PNCARD ---
Progress Note: A&P Assessment and Plan (1) Paroxysmal atrial fibrillation with rapid ventricular response: Code(s): I48.0 - Paroxysmal atrial fibrillation Status: Acute Assessment and Plan: History of paroxysmal atrial fibrillation on sotalol 80 mg twice daily at home. Recurrent AFib RVR postop. Increased sotalol to 120 mg b.i.d. and discontinued diltiazem last week. However the patient had a sinus pause so his sotalol was reduced back to 80 mg b.i.d.. Continue Eliquis Continue p.o Cardizem, no sinus pauses noted on telemetry. Shift him to long acting Cardizem which may help w/ compliance. (2) Chronic anticoagulation: Code(s): Z79.01 - detention (current) use of anticoagulants Status: Chronic Assessment and Plan: Resuming home Eliquis. 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 Avoid QT prolonging drugs while on sotalol to reduce risk for QT prolongation and torsades. (4) Acute kidney injury: Code(s): N17.9 - Acute kidney failure, unspecified Status: Acute Assessment and Plan: Creatinine increased from 0.7 up to 1.5 01/29/2021 Renal fxn back to baseline (5) Chest pain: Code(s): R07.9 - Chest pain, unspecified Status: Acute Assessment and Plan: Secondary to atrial fibrillation with rapid ventricular response which he has experienced in the past. Troponins negative. There is no evidence thus far his symptoms of secondary to acute myocardial ischemia / infarction. Seems to have resolved since the atrial fibrillation has improved. (6) Hypertension: Code(s): I10 - Essential (primary) hypertension Status: Acute Assessment and Plan: Stable, no acute issues. Subjective Date/time seen: 02/01/21 12:08 Interval history: Follow-up for post-op paroxysmal atrial fibrillation with rapid ventricular response. History of paroxysmal atrial fibrillation, taking sotalol as an outpatient. Recent hernia repair 01/26/2021. EF > 70% this admission. 01/28/2021: Patient doing okay. Denies chest pain. States he has more wheezy this morning which usually short-lived but lasting longer. Not having a productive cough, no palpitations. Heart rate remains rapid better controlled on diltiazem 15 milligrams/hours heart rate typically in the 90s to 120s. No other concerns. Eating well. 01/29/2021: Doing fairly well but feels wheezy at times and request p.r.n. albuterol. Not much pain. Feels heart has settled down, fewer palpitations, no chest pain. Maintaining NSR. Acute kidney injury noted; ibuprofen drip discontinued. Resumed Xarelto 15 mg daily. 01/30/2021: Went back into a fib RVR last night HR 120-140 and back on CArdizem gtt. Converted to NSR this a.m. Long discussion of the [facility]. Looks like our med list is incorrect, patient is taking Eliquis 5 mg b.i.d. though pt says he is not taking any anticoagulant ... Refused Kcl; wants my opinion (Reviewed hypokalemia problems and rec he take this one-time supplement). Upset about loose stool, diarrhea, bowel incontinence. 01/31/2021: He remains in sinus rhythm on the monitor with the addition of diltiazem to his sotalol. Date of Service 02/01/2021: Patient has refused his meds at times. Has been in AFib (and sometimes atrial flutter versus SVT) through most of the night, sometimes with RVR HR 148 BPM. Took his meds this morning as back in sinus rhythm. Patient had no particular reason why he refused his medications. Says he is a little short of breath at times. Review of Systems Constitutional: Constitutional: Reports no additional constitutional complaints
--- NOTE | 2021-02-01 13:16 | PM.PNGS ---
Progress Note: A&P Assessment and Plan (1) Incisional hernia of anterior abdominal wall without obstruction or gangrene: Code(s): K43.2 - Incisional hernia without obstruction or gangrene Status: Chronic Assessment and Plan: continues to heal well. Remove right-sided HERO drain today. Start more ambulation. (2) Hypokalemia: Code(s): E87.6 - Hypokalemia Status: Acute Assessment and Plan: Improving. Patient taking supplement now. (3) Chronic anticoagulation: Code(s): Z79.01 - [facility] (current) use of anticoagulants Status: Chronic (4) Schizophrenia: Qualifiers: Schizophrenia type: unspecified Qualified Code(s): F20.9 - Schizophrenia, unspecified Code(s): F20.9 - Schizophrenia, unspecified Status: Chronic Assessment and Plan: Taking Abilify (5) Anxiety: Code(s): F41.9 - Anxiety disorder, unspecified Status: Chronic (6) Paroxysmal atrial fibrillation: Code(s): I48.0 - Paroxysmal atrial fibrillation Status: Acute Assessment and Plan: continues to go in and out of atrial fibrillation although rate much better controlled. Subjective Subjective Date/Time Seen: 02/01/21 13:16 Post Op day: #6 Patient reports: no new complaints, feels better, pain is less, tolerating a regular diet and other ( doing better with taking medications today. Took his Abilify) Exam Const: General: cooperative, comfortable, no acute distress, alert and awake; No combative or confusion GI: Inspection: incision ( dry and healing well.), scaphoid and other ( Serosanguineous fluid in right HERO drain) GI Palp: Yes Soft to palpation, Yes Tenderness to palpation present (GI), No Guarding due to palpation present (GI) and No Rebound tenderness present Auscultation: normal bowel sounds Extrem: General: no calf tenderness and no edema Objective Data Vital Signs Vital Signs: Vital Signs - 24 hr 01/31/21 14:00 01/31/21 16:00 01/31/21 16:35 Temperature 37.0 C Pulse Rate 104 H 104 H 102 H Respiratory Rate 22 H 24 H Blood Pressure 116/57 L Pulse Oximetry 92 95 01/31/21 16:45 01/31/21 18:00 01/31/21 20:00 Temperature 36.6 C Pulse Rate 99 110 H 110 H Respiratory Rate 20 20 Blood Pressure 131/55 L Pulse Oximetry 98 01/31/21 20:14 01/31/21 20:16 01/31/21 20:22 Temperature Pulse Rate 111 H 108 H Respiratory Rate 22 H 22 H Blood Pressure Pulse Oximetry 95 01/31/21 20:35 01/31/21 22:00 01/31/21 23:32 Temperature Pulse Rate 107 H 135 H 146 H Respiratory Rate Blood Pressure Pulse Oximetry 01/31/21 23:46 02/01/21 00:00 02/01/21 02:00 Temperature 37.1 C Pulse Rate 112 H 118 H 123 H Respiratory Rate 20 Blood Pressure 119/72 Pulse Oximetry 98 02/01/21 02:45 02/01/21 02:49 02/01/21 02:55 Temperature Pulse Rate 131 H 145 H 152 H Respiratory Rate 22 H 24 H Blood Pressure Pulse Oximetry 02/01/21 04:00 02/01/21 06:00 02/01/21 08:00 Temperature 37.1 C 36.9 C Pulse Rate 120 H 120 H 129 H Respiratory Rate 20 16 Blood Pressure 105/51 L 124/66 Pulse Oximetry 97 100 02/01/21 08:33 02/01/21 10:00 02/01/21 10:30 Temperature Pulse Rate 167 H 118 H 125 H Respiratory Rate 24 H Blood Pressure Pulse Oximetry 02/01/21 10:35 02/01/21 11:18 Temperature Pulse Rate 146 H Respiratory Rate Blood Pressure Pulse Oximetry 95 Intake/Output Intake/Output: Intake & Output 01/29/21 01/30/21 01/31/21 02/01/21 23:59 23:59 23:59 23:59 Intake Total 4450 3775 1460 580 Output Total 9552 612 8032 1625 Balance 3200 4256 073 -2136 Meds/Results Medications: Active Medications Generic Name Dose Route Start Last Admin Trade Name Freq PRN Reason Stop Dose Admin Acetaminophen 500 mg 01/26/21 13:49 Acetaminophen 500 Mg Tablet PO Q6H PRN Mild Pain (1-3) or Fever Hydrocodone Bitart/Acetaminophen 1 tab
[2021-02-01] MEDS: FERROUS SULFATE 324 MG TABLET PO (17:48)
[2021-02-02] VITALS (15 sets, daily range): BP systolic 109–134; BP diastolic 49–69; PULSE 70–112; RESP 16–20; TEMP 36.4–36.7; O2SAT 94–99
--- NOTE | 2021-02-02 03:40 | PCRCNOTE ---
Pt's 02/02 02:00 nebulizer tx not administered. RT not available during administration window.
[2021-02-02 05:07] LABS: Basophils Percent Auto 0.4 % (0.2-1.2); Eosinophils Absolute Auto 0.3 K/mm3 (0-0.3); Eosinophils Percent Auto 3.8 % (0-4.4); Hematocrit 28.3 % (42.0-52.0); Hemoglobin 9.1 g/dL (14.0-18.0); Immature Granulocyte Absolute 0.06 K/mm3 (0.00-0.031); Immature Granulocyte Percent A 0.8 % (0-0.5); Lymphocytes Absolute Auto 1.91 K/mm3 (0.9-3.2); Lymphocytes Percent Auto 23.9 % (18.3-44.2); Mean Corpuscular HGB Conc 32.2 g/dl (32-36); Mean Corpuscular Hemoglobin 28.4 pg (26-34); Mean Corpuscular Volume 88.4 fl (80-100); Mean Platelet Volume 9.6 fl (7.4-10.4); Monocytes Absolute Auto 0.9 K/mm3 (0.1-0.6); Monocytes Percent Auto 11.4 % (2.6-8.5); Neutrophils Absolute Auto 4.8 K/mm3 (1.3-6.7); Neutrophils Percent Auto 59.7 % (45.5-73.1); Platelet Count Result 248 k/mm3 (150-375); Red Cell Distribution Width 14.5 % (11.5-14.5)
[2021-02-02] MEDS: HYDROcodone/acetaminophen (*CRX) 10-325 MG TABLET 1 TAB PO ×5 (05:30→23:04)
[2021-02-02 05:33] LABS: Alanine Aminotransferase 17 U/L (4-50); Albumin Level 2.8 g/dL (3.5-5.1); Alkaline Phosphatase 121 U/L (38-126); Anion Gap 7 mmol/L (8-16); Aspartate Amino Transferase 28 U/L (17-59); Bilirubin,Total 1.7 mg/dL (0.2-1.3); Blood Urea Nitrogen 8 mg/dL (9-20); Calcium 8.9 mg/dL (8.4-10.2); Carbon Dioxide 26 mmol/L (22-30); Chloride 107 mmol/L (98-107); Estimated CRCL calculation 131 ml/min; Estimated Glomerular Filt Rate > 60; Glucose 92 mg/dL (65-110); Magnesium 1.8 mg/dL (1.6-2.3); Potassium 4.1 mmol/L (3.4-5.0); Sodium 140 mmol/L (137-145)
[2021-02-02] MEDS: POTASSIUM CHLORIDE 20 MEQ TABLET.ER 40 MEQ PO (08:53)
[2021-02-02] MEDS: FERROUS SULFATE 324 MG TABLET PO ×2 (08:53→18:12)
[2021-02-02] MEDS: ARIPiprazole 5 MG TABLET PO (08:54)
[2021-02-02] MEDS: APIXABAN 5 MG TABLET PO ×2 (08:54→20:33)
[2021-02-02] MEDS: LORazepam (*CRX) 1 MG TABLET PO ×3 (08:54→18:12)
[2021-02-02] MEDS: FAMOTIDINE 20 MG TABLET PO ×2 (08:54→20:33)
[2021-02-02] MEDS: SOTALOL HCL 80 MG TABLET PO ×2 (08:55→20:33)
--- NOTE | 2021-02-02 10:09 | PM.IMPN ---
Progress Note: A&P Assessment and Plan (1) Ventral incisional hernia: Code(s): K43.2 - Incisional hernia without obstruction or gangrene Status: Chronic Assessment and Plan: Postoperative day 7 repair incisional hernia with mesh -Post op care deferred to Dr. Molina. Plan for discharge likely tomorrow per Dr. Molina -will transition to oral pain control. He has not use the morphine since 01/31 -on Eliquis currently -patient denied physical exam, unable to assess surgical site today (2) Chronic anemia: Code(s): D64.9 - Anemia, unspecified Status: Acute Assessment and Plan: Hemoglobin stable and consistent with baseline -Anemia labs from 07/05/20 Iron 24, TIBC 239, % sat 14, Transferrin 101, Ferritin 245, B12 895, Folate 5 -Iron added (3) Paroxysmal atrial fibrillation: Code(s): I48.0 - Paroxysmal atrial fibrillation Status: Acute Assessment and Plan: Continue sotalol, diltiazem and Eliquis -currently appears to be in normal sinus rhythm heart rate of 96 -continue to monitor (4) Hypertension: Code(s): I10 - Essential (primary) hypertension Status: Acute Assessment and Plan: Last blood pressure 122/52 -continue diltiazem (5) Psychiatric illness: Code(s): F99 - Mental disorder, not otherwise specified Status: Acute Assessment and Plan: I called the facility and they state the patient has a diagnosis of schizophrenia. He is currently at his baseline. There are many days where he refuses staff to come into his room. residential RN states that he sometimes initially refuses his medications but if she leaves them in their he will take them. -continue lorazepam and Abilify -no need for psych consult at this time. Would recommend following up with psych at the outpatient center (6) Hypomagnesemia: Code(s): E83.42 - Hypomagnesemia Status: Acute Assessment and Plan: Resolved (7) Chest pain: Code(s): R07.9 - Chest pain, unspecified Status: Acute Assessment and Plan: Reported chest pain in the past but no further chest pain reported today -cardiology was consulted. Troponins negative x2 over 2 days. Could be due to AFib RVR in the past -echo last month showed an EF 70% -no further workup needed at this time. If patient has further pain this may be re-evaluated (8) Acute kidney injury: Code(s): N17.9 - Acute kidney failure, unspecified Status: Acute Assessment and Plan: Resolved (9) Hypokalemia: Code(s): E87.6 - Hypokalemia Status: Acute Assessment and Plan: Resolved -will decrease dose of potassium Time Spent With Patient Time with patient: 25 - 35 minutes Subjective Date/time seen: 02/02/21 10:09 Interval history: Pt is a 55-year-old male here for ventral incisional hernia repair. I attempted to see the patient today but he refused any type of communication or exam. I called nursing facility and spoke with his nurse. She said this is very common for him to do. Some days he will tell everyone to get out of his room and they leave him alone. He sees a psychiatrist and takes Abilify and Ativan. She reports that this is his baseline. Review of Systems Review of Systems: All systems reviewed & are unremarkable except as noted in HPI and below Exam Narrative: Unable to assess-patient refused exam Telemetry showing normal sinus rhythm currently with a rate of 96. Yesterday he did appear to be in AFib RVR. Objective Data Vital Signs Vital Signs: Vital Signs - 24 hr 02/01/21 10:30 02/01/21 10:35 02/01/21 11:18 Temperature Pulse Rate 125 H 146 H Respiratory Rate 24 H Blood Pressure Pulse Oximetry 95 02/01/21 12:00 02/01/21 16:00 02/01/21 20:00 Temperature 98.7 F 98.2 F Pulse Rate 96 99 93 Respiratory Rate 24 H 18 Blood Pressure 116/60 154/98 H Pulse Oximetry 95
--- NOTE | 2021-02-02 14:51 | PM.PNGS ---
Progress Note: A&P Assessment and Plan (1) Incisional hernia: Qualifiers: Obstruction and gangrene presence: without obstruction or gangrene Qualified Code(s): K43.2 - Incisional hernia without obstruction or gangrene Code(s): K43.2 - Incisional hernia without obstruction or gangrene Status: Chronic Assessment and Plan: Repair intact. Wound seems to be healing well. Both drains have been removed. Will have willy removed and Steri-Strips placed today. Doing well. Possibly discharge tomorrow. (2) Paroxysmal atrial fibrillation: Code(s): I48.0 - Paroxysmal atrial fibrillation Status: Acute Assessment and Plan: Transfer to [facility] floor if okay with Cardiology and hospitalist service. Appears to be resolved. (3) Schizophrenia: Qualifiers: Schizophrenia type: unspecified Qualified Code(s): F20.9 - Schizophrenia, unspecified Code(s): F20.9 - Schizophrenia, unspecified Status: Chronic Assessment and Plan: Stable on Abilify. Subjective Subjective Date/Time Seen: 02/02/21 14:51 Post Op day: #7 Patient reports: no new complaints, feels better, tolerating a regular diet and no bowel movement (last 2 days) Exam GI: Inspection: non-distended, incision (Dry, healing well, no drainage or erythema), scaphoid and no visible herniation GI Palp: Yes Soft to palpation, Yes Tenderness to palpation present (GI) (Minimal tenderness), No Hernia present and No Palpable mass present Objective Data Vital Signs Vital Signs: Vital Signs - 24 hr 02/01/21 16:00 02/01/21 20:00 02/01/21 21:31 Temperature 37.1 C 36.8 C Pulse Rate 99 93 91 Respiratory Rate 24 H 18 Blood Pressure 116/60 154/98 H Pulse Oximetry 95 99 95 02/01/21 21:39 02/01/21 23:16 02/02/21 00:00 Temperature 36.6 C Pulse Rate 91 98 91 Respiratory Rate 20 Blood Pressure 141/89 H Pulse Oximetry 99 02/02/21 04:00 02/02/21 04:49 02/02/21 08:00 Temperature 36.7 C 36.6 C Pulse Rate 97 96 96 Respiratory Rate 18 16 Blood Pressure 134/69 122/52 L Pulse Oximetry 97 94 02/02/21 08:44 02/02/21 08:48 02/02/21 08:55 Temperature Pulse Rate 95 96 110 H Respiratory Rate 20 20 Blood Pressure Pulse Oximetry 98 02/02/21 14:39 Temperature Pulse Rate 71 Respiratory Rate 20 Blood Pressure Pulse Oximetry Intake/Output Intake/Output: Intake & Output 01/30/21 01/31/21 02/01/21 02/02/21 23:59 23:59 23:59 23:59 Intake Total 3775 1460 1060 820 Output Total 990 1235 2575 1100 Balance 2785 027 -2243 -560 Meds/Results Medications: Active Medications Generic Name Dose Route Start Last Admin Trade Name Freq PRN Reason Stop Dose Admin Acetaminophen 500 mg 01/26/21 13:49 Acetaminophen 500 Mg Tablet PO Q6H PRN Mild Pain (1-3) or Fever Hydrocodone Bitart/Acetaminophen 1 tab 01/26/21 13:49 Hydrocodone/Acetaminophen (*Crx) 5-325 Mg Tablet PO Q4H PRN Pain Rated 4-6 Hydrocodone Bitart/Acetaminophen 1 tab 01/26/21 13:49 02/02/21 13:20 Hydrocodone/Acetaminophen (*Crx) 10-325 Mg Tablet PO 1 tab Q4H PRN Administration Pain Rated 7-10 Albuterol 2 puff 01/29/21 13:21 01/30/21 17:27 Albuterol Sulfate (*Sp) Aerosol 1 Puff INHALATION 2 puff Q6HRT PRN Administration Shortness Of Breath Apixaban 5 mg 01/30/21 21:00 02/02/21 08:54 Apixaban 5 Mg Tablet PO 5 mg Q12HR MATEO Administration Aripiprazole 5 mg 01/27/21 09:00 02/02/21 08:54 Aripiprazole 5 Mg Tablet PO 5 mg DAILY MATEO Administration Diltiazem HCl 240 mg 02/01/21 12:40 02/02/21 08:54 Diltiazem Hcl Cd 240 Mg Cap.Er.24h PO 240 mg QAM MATEO Administration Famotidine 20 mg 01/31/21 09:00 02/02/21 08:54 Famotidine 20 Mg Tablet PO 20 mg Q12HR MATEO Administration Ferrous Sulfate 324 mg 02/01/21 17:00 02/02/21 08:53 Ferrous Sulfate 324 Mg Tablet PO 324 mg BIDWM MATEO Administration Levalbuterol
--- NOTE | 2021-02-02 19:07 | PM.PNCARD ---
Progress Note: A&P Assessment and Plan (1) Paroxysmal atrial fibrillation with rapid ventricular response: Code(s): I48.0 - Paroxysmal atrial fibrillation Status: Acute Assessment and Plan: History of paroxysmal atrial fibrillation on sotalol 80 mg twice daily at home. Recurrent AFib RVR postop. Sinus pause earlier this admission on sotalol 160 b.i.d.. Reduced to 80 mg b.i.d.. Continue Eliquis Continue p.o Cardizem 240 mg daily and sotalol 80 mg b.i.d., no sinus pauses noted on telemetry. Probable discharge tomorrow. Will arrange for office follow-up. (2) Chronic anticoagulation: Code(s): Z79.01 - escapement maker (current) use of anticoagulants Status: Chronic Assessment and Plan: Resuming home Eliquis. Taking Eliquis CHADS2 Vasc score is just 1. Discussed whether or not to change to simply an aspirin 325 mg daily. Patient feels that since he has been taking the anticoagulant during this admission and has had no problems with that he will continue Eliquis. (3) Encounter for monitoring sotalol therapy: Code(s): Z51.81 - Encounter for therapeutic drug level monitoring; Z79.899 - Other nursing home (current) drug therapy Status: Acute Assessment and Plan: As above, monitor QTc interval, acceptable on EKG 01/29/2021. Avoid QT prolonging drugs while on sotalol to reduce risk for QT prolongation and torsades. (4) Acute kidney injury: Code(s): N17.9 - Acute kidney failure, unspecified Status: Acute Assessment and Plan: Creatinine increased from 0.7 up to 1.5 01/29/2021 Renal fxn back to baseline (5) Chest pain: Code(s): R07.9 - Chest pain, unspecified Status: Acute Assessment and Plan: Secondary to atrial fibrillation with rapid ventricular response which he has experienced in the past. Troponins negative. There is no evidence thus far his symptoms of secondary to acute myocardial ischemia / infarction. Seems to have resolved since the atrial fibrillation has improved. (6) Hypertension: Code(s): I10 - Essential (primary) hypertension Status: Acute Assessment and Plan: Stable, no acute issues. Subjective Date/time seen: 02/02/21 19:07 Interval history: Follow-up for post-op paroxysmal atrial fibrillation with rapid ventricular response. History of paroxysmal atrial fibrillation, taking sotalol as an outpatient. Recent hernia repair 01/26/2021. EF > 70% this admission. 01/28/2021: Patient doing okay. Denies chest pain. States he has more wheezy this morning which usually short-lived but lasting longer. Not having a productive cough, no palpitations. Heart rate remains rapid better controlled on diltiazem 15 milligrams/hours heart rate typically in the 90s to 120s. No other concerns. Eating well. 01/29/2021: Doing fairly well but feels wheezy at times and request p.r.n. albuterol. Not much pain. Feels heart has settled down, fewer palpitations, no chest pain. Maintaining NSR. Acute kidney injury noted; ibuprofen drip discontinued. Resumed Xarelto 15 mg daily. 01/30/2021: Went back into a fib RVR last night HR 120-140 and back on CArdizem gtt. Converted to NSR this a.m. Long discussion of the little white pills patient has been taking at the senior living. Looks like our med list is incorrect, patient is taking Eliquis 5 mg b.i.d. though pt says he is not taking any anticoagulant ... Refused Kcl; wants my opinion (Reviewed hypokalemia problems and rec he take this one-time supplement). Upset about loose stool, diarrhea, bowel incontinence. 01/31/2021: He remains in sinus rhythm on the monitor with the addition of diltiazem to his sotalol. 02/01/2021: Patient has refused his meds at times. Has been in AFib (and sometimes atrial flutter versus SVT) through most of the night, sometimes with RVR HR 148 BPM. Took his meds this morning as back in sinus rhythm. Patient had no partic
[2021-02-03] VITALS (10 sets, daily range): BP systolic 111–114; BP diastolic 57–59; PULSE 77–102; RESP 18–24; TEMP 36.6–36.8; O2SAT 96–98
[2021-02-03] MEDS: HYDROcodone/acetaminophen (*CRX) 10-325 MG TABLET 1 TAB PO ×3 (03:52→14:14)
[2021-02-03 04:48] LABS: Hematocrit 27.4 % (42.0-52.0); Hemoglobin 8.8 g/dL (14.0-18.0); Mean Corpuscular HGB Conc 32.1 g/dl (32-36); Mean Corpuscular Hemoglobin 27.7 pg (26-34); Mean Corpuscular Volume 86.2 fl (80-100); Mean Platelet Volume 9.5 fl (7.4-10.4); Platelet Count Result 281 k/mm3 (150-375); Red Blood Count 3.18 M/mm3 (4.6-6.20); Red Cell Distribution Width 14.1 % (11.5-14.5)
[2021-02-03 05:08] LABS: Anion Gap 8 mmol/L (8-16); Blood Urea Nitrogen 9 mg/dL (9-20); Calcium 8.8 mg/dL (8.4-10.2); Carbon Dioxide 24 mmol/L (22-30); Chloride 105 mmol/L (98-107); Estimated CRCL calculation 155 ml/min; Estimated Glomerular Filt Rate > 60; Glucose 106 mg/dL (65-110); Potassium 3.6 mmol/L (3.4-5.0); Sodium 137 mmol/L (137-145)
[2021-02-03] MEDS: HYDROmorphone HCL INJ (*CRX) 1 MG/ML SYR IV PUSH (10:00)
[2021-02-03] MEDS: LORazepam INJ (*CRX) 2 MG/ML VIAL 1 MG IV PUSH (10:00)
[2021-02-03] MEDS: LORazepam (*CRX) 1 MG TABLET PO ×3 (10:33→16:02)
[2021-02-03] MEDS: FAMOTIDINE 20 MG TABLET PO (10:35)
[2021-02-03] MEDS: APIXABAN 5 MG TABLET PO (10:35)
[2021-02-03] MEDS: SOTALOL HCL 80 MG TABLET PO (10:35)
[2021-02-03] MEDS: ARIPiprazole 5 MG TABLET PO (10:35)
--- NOTE | 2021-02-03 12:39 | PM.IMPN ---
Progress Note: A&P Assessment and Plan (1) Ventral incisional hernia: Code(s): K43.2 - Incisional hernia without obstruction or gangrene Status: Chronic Assessment and Plan: Postoperative day 8 repair incisional hernia with mesh -Post op care deferred to Dr. Molina. Plan for discharge likely tomorrow per Dr. Molina -continue oral pain medications -on Eliquis currently (2) Chronic anemia: Code(s): D64.9 - Anemia, unspecified Status: Acute Assessment and Plan: Hemoglobin stable and consistent with baseline (3) Paroxysmal atrial fibrillation: Code(s): I48.0 - Paroxysmal atrial fibrillation Status: Acute Assessment and Plan: Continue sotalol, diltiazem and Eliquis -currently appears to be in normal sinus rhythm -likely due to hyperthyroidism -continue to monitor (4) Hypertension: Code(s): I10 - Essential (primary) hypertension Status: Acute Assessment and Plan: Last blood pressure 111/59 -continue diltiazem (5) Psychiatric illness: Code(s): F99 - Mental disorder, not otherwise specified Status: Acute Assessment and Plan: I called the facility and they state the patient has a diagnosis of schizophrenia. He is currently at his baseline. There are many days where he refuses staff to come into his room. prison RN states that he sometimes initially refuses his medications but if she leaves them in their he will take them. -continue lorazepam and Abilify -no need for psych consult at this time. Would recommend following up with psych at the outpatient center -could be worsened due to hyperthyroidism (6) Hypomagnesemia: Code(s): E83.42 - Hypomagnesemia Status: Acute Assessment and Plan: Resolved -no need for supplementation now that he is eating (7) Chest pain: Code(s): R07.9 - Chest pain, unspecified Status: Acute Assessment and Plan: Reported chest pain in the past but no further chest pain reported today -cardiology was consulted. Troponins negative x2 over 2 days. Could be due to AFib RVR in the past -echo last month showed an EF 70% -no further workup needed at this time. Likely due to AFib which is now resolved. (8) Acute kidney injury: Code(s): N17.9 - Acute kidney failure, unspecified Status: Acute Assessment and Plan: Resolved (9) Hypokalemia: Code(s): E87.6 - Hypokalemia Status: Acute Assessment and Plan: Resolved -no further supplementation now that he is eating (10) Hyperthyroidism: Code(s): E05.90 - Thyrotoxicosis, unspecified without thyrotoxic crisis or storm Status: Acute Assessment and Plan: TSH noted to be undetectable earlier in the stay and T4 is greater than 6.99 -could be the cause of his johnathon and hyperthyroid -will start methimazole 5 mg daily. I have asked the facility to check a CBC in 1 week. -he will need outpatient titration depending on his TSH in 6 weeks. I have asked the facility to monitor this -would recommend outpatient nuclear imaging as well -no evidence of thyroid storm at this time Subjective Date/time seen: 02/03/21 12:39 Interval history: Pt is a 55-year-old male here for ventral incisional hernia repair. Patient was seen today and was common collective. He had no complaints and said his pain was controlled with the medication they gave him. He has had a little bit of diarrhea but attributes that to the MiraLax. He denies chest pain, palpitations, shortness of breath, fevers, chills, nausea or vomiting. He said he is tolerating his diet. Exam Narrative: General: Well developed well nourished patient in NAD HEENT: normocephalic Neck: supple psych: Common collective with non-tangential thoughts CV:RRR for me on exam Resp:CTA Abd: Soft, non distended. No pain to palpation. Positive bowel sounds. Incision site clean and
[2021-02-03 14:31] LABS: EDCOVIDSCREEN Negative (Negative)
--- NOTE | 2021-02-03 14:49 | PM.DS ---
DS: Admitting Diagnosis Discharge Date 02/03/2021 Admitting Diagnosis Incisional hernia Schizophrenia Anxiety History pulmonary embolism Chronic anticoagulation History atrial fibrillation DS: Discharge Diagnosis Discharge Diagnosis (1) Incisional hernia of anterior abdominal wall without obstruction or gangrene: Code(s): K43.2 - Incisional hernia without obstruction or gangrene Status: Chronic (2) Paroxysmal atrial fibrillation with rapid ventricular response: Code(s): I48.0 - Paroxysmal atrial fibrillation Status: Acute (3) Schizophrenia: Qualifiers: Schizophrenia type: unspecified Qualified Code(s): F20.9 - Schizophrenia, unspecified Code(s): F20.9 - Schizophrenia, unspecified Status: Chronic (4) Chronic anticoagulation: Code(s): Z79.01 - residential (current) use of anticoagulants Status: Chronic (5) Anxiety: Code(s): F41.9 - Anxiety disorder, unspecified Status: Chronic (6) Hypertension: Code(s): I10 - Essential (primary) hypertension Status: Chronic DS: Summary Hospital Course Hospital Course: Patient has a history of schizophrenia and significant anxiety. [facility] [place] [facility] [address] [place] due to this. He had a hemigastrectomy with Yamilka-en-Y gastrojejunostomy in the past due to perforated duodenal ulcer. He developed a large incisional hernia. He was taken to the operating room on 01/26/2021 for repair. I should point out that the patient was extremely worried about getting to the hospital in time for his surgery. Therefore he [facility] and came to the emergency room about 7:00 p.m. the night before his surgery. He was put in the hospital after being in the emergency room and went to surgery in the morning as scheduled. He had an incisional hernia repair with mesh with bilateral transversus abdominis myofascial flap advancement. The surgery took several hours. It went well. Following surgery, the night after surgery, he went into rapid atrial fibrillation. The hospitalist had been consulted and Cardiology was consulted. He was transferred to the intermediate care unit. There was significant difficulty getting the patient to resolve the atrial fib with rapid ventricular response. He was tried on numerous medications. Also problematic was that with his history of mental illness, he would refuse medications on some days and take it on other days. Eventually, his atrial fibrillation resolved wall on oral medication. He was regularly taking his Abilify and oral medications. Both of his HERO drains had been removed. On the day of discharge his wound willy were removed and Steri-Strips were placed. He was comfortable on oral analgesics and able to ambulate independently. Cardiology and the hospitalist service were comfortable with the patient being discharged. He was discharged on 02/03/2021, postoperative day 8. Status at Discharge Cognitive/behavioral status at discharge: Anxious Functional status at discharge: independent ambulation Overall status at discharge: patient is progressing back to baseline Time Spent with Patient Time attestation: Total time spent providing and/or coordinating discharge services: Exam Const: General: alert, awake, Physically active and anxious Nutritional Appearance: thin GI: Inspection: incision (No redness, skin edges approximated, healing nicely.) and scaphoid GI Palp: Yes Soft to palpation, Yes Tenderness to palpation present (GI) (Mild appropriate tenderness), No Hernia present and No Palpable mass present Auscultation: normal bowel sounds DS: Data Data Completed and Pending Labs on day of discharge: Labs from last 24 hours 02/03/21 02/03/21 02/03/21 14:11 04:36 04:36 WBC 7.0 RBC 3.18 L Hgb 8.8 L Hct 27.4 L MCV 86.2 MCH 27.7 MCHC 32.1 RDW 14.1 Plt Count 281 MPV 9.5 Sodium 137 Pota
[2021-02-03] MEDS: FERROUS SULFATE 324 MG TABLET PO (16:03)
== END 2021-02-03 16:05 | DRG 227 ==
LOC: ANHED 19:25 → ANH2MED 21:45 → ANHIMU 01-27 16:36
PROVIDERS: Nurse Practitioner; Admitting Provider Surgery; Emergency Provider Emergency Medicine; Visit Provider Surgery
PROC: 0WQF0ZZ Repair Abdominal Wall, Open Approach (ICD-10-PCS; principal; 2021-01-26 07:30)
DX: Z20.822 Contact with and (suspected) exposure to COVID-19 (principal); K43.2 Incisional hernia without obstruction or gangrene; N17.9 Acute kidney failure, unspecified; D64.9 Anemia, unspecified; I48.0 Paroxysmal atrial fibrillation; I10 Essential (primary) hypertension; E78.2 Mixed hyperlipidemia; R06.2 Wheezing; E83.42 Hypomagnesemia; F20.9 Schizophrenia, unspecified; F41.9 Anxiety disorder, unspecified; E05.90 Thyrotoxicosis, unspecified without thyrotoxic crisis or storm; E87.6 Hypokalemia; R15.9 Full incontinence of feces; Z79.01 Long term (current) use of anticoagulants; Z79.899 Other long term (current) drug therapy; Z86.711 Personal history of pulmonary embolism; Z87.891 Personal history of nicotine dependence; Z87.11 Personal history of peptic ulcer disease
CPT/HCPCS: 36415; 80048; 80053; 80076; 82607; 82728; 82746; 83540; 83550; 83615; 83690; 83735; 84439; 84443; 84466; 84484; 85025; 85027; 86850; 86900; 86901; 87426; 93005; 94640; 96361; 96365; 96366; 96367; 96368; 96372; 96375; 96376; 99285; A9270; C1781; C9803; G0378; G0379; J1100; J1170; J1650; J1741; J2060; J2270; J2405; J2704; J2710; J3010; J3475; J7120

== ENCOUNTER 2021-02-06 07:55 | Inpatient (IN) | payer OTHER, SELFPAY ==
[2021-02-06] VITALS (20 sets, daily range): BP systolic 92–144; BP diastolic 53–101; PULSE 113–150; RESP 12–46; TEMP 36.6–37.6; O2SAT 96–100; BMI 23.6
--- NOTE | ~2021-02-06 | CT_ITS ---
EXAMINATION: CTA chest PE protocol DATE: 02/08/2021 14:13 INDICATION: Abdominal pain. TECHNIQUE: Computed tomography angiography (CTA) of the chest was performed with 100 mL Omnipaque-350 intravenous contrast timed to evaluate the pulmonary arteries. Coronal maximum intensity projection 3D-reconstructions were created by the technologist. Automated exposure control and iterative reconst ruction technique were employed. The dose-length product was 556.51 mGy-cm. COMPARISON: CT abdomen and pelvis 02/06/2021, 12/07/2020 FINDINGS: There is mild emphysema. There is mild atelectasis bilaterally. There is a chronic 5 mm nod ule in right lower lobe, likely benign. A calcified right lung nodule is consistent with old granulom atous disease. There are small pleural effusions. The heart size is normal. There is a small pericard ial effusion. There are coronary artery calcifications. There is no pulmonary embolus. Bilateral gyne comastia is noted. There is a 4.8 x 1.7 x 1.6 cm collection of fluid and gas in the paracardial fat a nterior to the heart. There is fat stranding in this area, consistent with inflammation and edema fro m recent surgery. There is mild thoracic spondylosis. There is mild chronic anterior wedging of multi ple vertebral bodies. IMPRESSION: 1. No pulmonary embolus. Sensitivity is mildly decreased by motion artifact. 2. Small pleural effusions. 3. Small pericardial effusion, worsened from 02/06/2021. 4. 4.8 x 1.7 x 1.6 cm postoperative fluid collection in the paracardial fat anterior to the heart. Reviewed, dictated and finalized at location B. [facility] IMPRESSION: 1. No pulmonary embolus. Sensitivity is mildly decreased by motion artifact. 2. Small pleural effusions. 3. Small pericardial effusion, worsened from 02/06/2021. 4. 4.8 x 1.7 x 1.6 cm postoperative fluid collection in the paracardial fat ant erior to the heart.
--- NOTE | ~2021-02-06 | XR_ITS ---
EXAMINATION: XR chest 1V portable EXAM DATE: 02/11/2021 17:05 INDICATION: Tachypnea. TECHNIQUE: Portable AP frontal chest x-ray was obtained. Comparison is made to prior examination from 02/06/2021. FINDINGS: The lungs are clear. There are no pleural effusions. Cardiac silhouette is prominent but magnified on this AP technique. There is no pneumothorax suspected. The bones and soft tissues ar e unremarkable. IMPRESSION: No acute cardiopulmonary findings. Reviewed, dictated and finalized at location A. 3D SPECIALIST
--- NOTE | ~2021-02-06 | CT_ITS ---
EXAMINATION: CT abdomen pelvis w con DATE: 02/06/2021 13:43 INDICATION: Postoperative abdominal pain TECHNIQUE: Computed tomography (CT) of the abdomen and pelvis was performed with 100 cc Omnipaque 350 intravenous contrast. Automated exposure control and iterative reconstruction technique were employe d. Exam dose: 498.63 mGy-cm total exam DLP. COMPARISON: 12/07/2020 CT abdomen pelvis FINDINGS: Small right pleural effusion. Mild dependent right lower lobe and minimal middle atelectasi s or infiltrate. Foramen of Morgagni fat and fluid containing hernia. There is postoperative change along the mid ante rior abdominal wall with interval resolution of the umbilical hernia containing small bowel noted on 12/07/2020. The gallbladder is present. No bile duct dilatation. No pancreatic duct dilatation. Liver, spleen, pa ncreas, adrenal glands are unremarkable. 2.4 cm and 7 mm left renal cysts. 2.7 x 5.5 mm upper pole nonobstructing left renal calculus. No other urinary tract calculus or hydrou reteronephrosis. Moderate prostate enlargement and calcification. The urinary bladder is unremarkable. There is atherosclerotic calcification of the abdominal aorta There is no intraperitoneal or retroperitoneal or pelvic mass lesion or adenopathy or ascites. There are fluid levels in the small and large bowel likely due to postoperative adynamic ileus. Degenerative changes of the thoracic and lumbar spine, including moderately severe degenerative disc disease and mild retrolisthesis of bulging disc at L5-S1. Mild anterior wedge likely chronic compression fracture deformity at T11. IMPRESSION: Probable postoperative adynamic ileus Postoperative change from repair of umbilical hernia Nonobstructing upper pole left renal calculus Prostate enlargement and calcifications Reviewed, dictated and finalized at [facility]. Reviewed, dictated and finalized at location A. ER DEADENER
--- NOTE | ~2021-02-06 | US_ITS ---
EXAMINATION: US carotid duplex BI DATE: 02/07/2021 11:43 INDICATION: Left carotid bruit TECHNIQUE: Grayscale, color Doppler, and pulsed Doppler images of the cervical carotid arteries were obtained. The degree of vessel stenosis is placed in one of the following categories: normal, <50%, 5 0-69%, >=70% but less than near-occlusion, near-occlusion, or total occlusion. Note that percent sten osis relative to normal distal artery lumen diameter is indirectly measured from velocity measurement s as described by Michael, et al. Radiology 2003; 229:340-346. COMPARISON: None. FINDINGS: RIGHT: The right common carotid artery (CCA) peak systolic velocity (PSV) is 141 cm/s. The right internal ca rotid artery (ICA) PSV is 94 cm/s. The right ICA end-diastolic velocity (EDV) is 30 cm/s. The right I CA/CCA PSV ratio is 0.7. Grayscale and color Doppler images demonstrate no evident plaque or stenosis in the ICA. The external carotid artery (ECA) PSV is 95 cm/s. There is antegrade flow in the right v ertebral artery. LEFT: The left CCA PSV is 228 cm/s. The left ICA PSV is 129 cm/s. The left ICA EDV is 52 cm/s. The left ICA /CCA PSV ratio is 0.6. Grayscale and color Doppler images including secondary Doppler criteria yield an estimate of <50% diameter reduction from plaque in the ICA. The ECA PSV is 173 cm/s. There is ante grade flow in the left vertebral artery. IMPRESSION: 1. No evident plaque or stenosis in the right internal carotid artery. 2. <50% stenosis in the left internal carotid artery. 3. Cardiac arrhythmia is present. Correlate with EKG. Reviewed, dictated and finalized at location . STANT COUNSEL
--- NOTE | ~2021-02-06 | US_ITS ---
EXAMINATION: US venous doppler LE EXAM DATE: 02/07/2021 11:49 INDICATION: recent sx, significantly elevated d-dimer . TECHNIQUE: Multiple grayscale, color flow and Doppler images of the lower extremity deep venous syste ms bilaterally were obtained and reviewed. There is no prior study for comparison. FINDINGS: Right side: The right common femoral, femoral and profunda veins demonstrate normal color flow, respi ratory variation, augmentation and compressibility. Compressibility, color flow confirmed within the right popliteal, posterior tibial, peroneal, and greater saphenous veins. Left side: The left common femoral, femoral and profunda veins demonstrate normal color flow, respira tory variation, augmentation and compressibility. Compressibility, color flow confirmed within the l eft popliteal, posterior tibial, peroneal, and greater saphenous veins. IMPRESSION: 1. No lower extremity deep venous thrombosis bilaterally. Reviewed, dictated and finalized at location B. R CUTTER MACHINE
--- NOTE | ~2021-02-06 | US_ITS ---
EXAMINATION: US thyroid EXAM DATE: 02/07/2021 11:49 INDICATION: Thyrotoxicosis. TECHNIQUE: Multiple grayscale and Doppler images of the thyroid were obtained (by a technologist who performed the scan) and subsequently reviewed. Individual nodules and recommendations may be reporte d in accordance with TI-RADS system as designated by the 2017 ACR White Paper TI-RADS committee. The re is no prior study for comparison. FINDINGS: The right thyroid lobe measures 6.2 x 2.7 x 2.8 cm, the left measuring 5.5 x 3.1 x 2.4 cm. Dimensions are moderately enlarged. There is moderately diffusely heterogeneous thyroid echogenicity without fo demian nodule identified. Expected amount of thyroid vascularity. IMPRESSION: Thyromegaly. Reviewed, dictated and finalized at location B. IZATION REVIEWER IMPRESSION: Thyromegaly.
--- NOTE | ~2021-02-06 | XR_ITS ---
XR chest 2V DATE: 02/06/2021 08:14 INDICATION: Shortness of breath for 2 days. Chest pressure. History of atrial fibrillation. TECHNIQUE: AP and lateral views COMPARISON: 12/24/2020 portable AP chest FINDINGS: Moderate bilateral hyperinflation. No pulmonary consolidation is noted. Slight right pleura l effusion is suggested. Pulmonary vascularity is within normal limits. Heart size is normal. Aortic arch calcification. No hilar or mediastinal enlargement is noted. Diffuse osteopenia. Degenerative spurring of the thoracic spine. Osteoarthritic spurring at the right humeral head. IMPRESSION: No active cardiac pulmonary disease Aortic atherosclerosis Slight right pleural effusion Reviewed, dictated and finalized at location A. T SUPERINTENDENT
--- NOTE | 2021-02-06 07:59 | ECG_ITS ---
Measurements Intervals Wilder Rate: 125 P: NH: 0 QRS: 77 QRSD: 92 T: 49 QT: 354 QTc: 511 Interpretive Statements ATRIAL FIBRILLATION WITH RAPID VENTRICULAR RESPONSE DELAYED PRECORDIAL R/S TRANSITION BORDERLINE ST-T WAVE ABNORMALITY- INF/LAT LEADS BASELINE ARTIFACT- I, AVL ABNORMAL ECG Electronically Signed On 02-15-2021 8:57:24 PAVING BED [employer]KER by Андрей Keyes D.O.
[2021-02-06 08:14] LABS: Basophils Percent Auto 0.3 % (0.2-1.2); Hematocrit 30.3 % (42.0-52.0); Hemoglobin 9.9 g/dL (14.0-18.0); Immature Granulocyte Absolute 0.05 K/mm3 (0.00-0.031); Immature Granulocyte Percent A 0.7 % (0-0.5); Lymphocytes Absolute Auto 1.11 K/mm3 (0.9-3.2); Lymphocytes Percent Auto 14.8 % (18.3-44.2); Mean Corpuscular HGB Conc 32.7 g/dl (32-36); Mean Corpuscular Hemoglobin 28.2 pg (26-34); Mean Corpuscular Volume 86.3 fl (80-100); Mean Platelet Volume 9.5 fl (7.4-10.4); Monocytes Absolute Auto 0.7 K/mm3 (0.1-0.6); Monocytes Percent Auto 9.4 % (2.6-8.5); Neutrophils Absolute Auto 5.6 K/mm3 (1.3-6.7); Neutrophils Percent Auto 74.8 % (45.5-73.1); Platelet Count Result 395 k/mm3 (150-375); Red Blood Count 3.51 M/mm3 (4.6-6.20); Red Cell Distribution Width 14.6 % (11.5-14.5); White Blood Count 7.5 K/mm3 (4.5-10.0)
[2021-02-06 08:24] LABS: Alanine Aminotransferase 15 U/L (4-50); Albumin Level 3.2 g/dL (3.5-5.1); Alkaline Phosphatase 129 U/L (38-126); Anion Gap 10 mmol/L (8-16); Aspartate Amino Transferase 41 U/L (17-59); Bilirubin,Total 0.9 mg/dL (0.2-1.3); Blood Urea Nitrogen 9 mg/dL (9-20); Calcium 8.6 mg/dL (8.4-10.2); Carbon Dioxide 23 mmol/L (22-30); Chloride 102 mmol/L (98-107); Estimated CRCL calculation 127 ml/min; Estimated Glomerular Filt Rate > 60; Glucose 110 mg/dL (65-110); Lipase 86 U/L (23-300); Potassium 3.3 mmol/L (3.4-5.0); Sodium 135 mmol/L (137-145)
[2021-02-06 08:32] LABS: INR 1.6; Prothrombin Time 18.3 Seconds (11.1-14.7)
[2021-02-06 08:33] LABS: Partial Thromboplastin Time 37.3 SECONDS (22.3-36.8)
[2021-02-06 08:35] LABS: Troponin I < 0.012 ng/mL (0.000-0.034)
[2021-02-06 09:32] LABS: Alveolar/Arterial O2 Gradient 47.7 mmHg; Base Excess ABG -1.6 mEq/l (+/-2.0); Device ROOM AIR; Fractional Inspired Oxygen 21 %; HCO3 ABG 20.3 mEq/l (22.0-26.0); Modified Allen's Test Pass; Oxygen Content ABG 13.4 %vol (16.0-22.0); Oxygen Saturation ABG 96.1 % (95.0-100.0); Oxyhemoglobin 94.1 % THb (90.0-100.0); PCO2 ABG 25.3 mmHg (35.0-45.0); PO2 ABG 71.7 mmHg (80.0-100.0); PO2 FiO2 Ratio Arterial Blood 3.41 %; Site Drawn RIGHT RADIAL; Total Hemoglobin 10.1 g/dL (12.0-18.0); pH ABG 7.522 (7.350-7.450)
[2021-02-06] MEDS: dilTIAZem HCl INJ 25 MG/5 ML VIAL 10 MG IV PUSH (09:52)
[2021-02-06] MEDS: dilTIAZem 100 MG/100 ML 100 MG/100 ML BAG IV CONT (09:52)
[2021-02-06 09:54] LABS: D Dimer 5.15 ug/mL (<0.48)
[2021-02-06 09:56] LABS: NT Pro B Type Natriuretic Pept 3420 pg/mL (5-100)
--- NOTE | 2021-02-06 10:35 | PC.NURSE ---
This nurse is unable to titrate medication drip at this time due to inability to locate policy per this nurse and charge nurse.
[2021-02-06 11:31] LABS: Troponin I < 0.012 ng/mL (0.000-0.034)
--- NOTE | 2021-02-06 12:11 | PC.NURSE ---
in room, pt had soiled on the floor, stool and urine. assisted pt to cleaning self, linen changed. pt put back in bed
--- NOTE | 2021-02-06 12:19 | ED.GENADULT ---
HPI - General Adult General Chief complaint: Shortness of Breath/Dyspnea Stated complaint: SOB, Chest pressurep Time Seen by Provider: 02/06/21 08:38 Source: patient, EMS and RN notes reviewed Mode of arrival: EMS Limitations: no limitations History of Present Illness HPI narrative: Patient is 55 years old white male came by ambulance from rehab with a chief complaint of shortness of breath, upper chest pain and a productive cough of clear phlegm over the last 2 days. 6 AM today patient had massive diarrhea, and another 1 in the emergency room. Patient also had vomited 1-2 times since 6 AM.. History of schizophrenia, atrial fibrillation on Eliquis, hypertension, and anemia. Patient is not vaccinated for COVID-19 Related Data Home Medications Medication Instructions Recorded Confirmed aripiprazole 5 mg PO DAILY 02/02/21 02/02/21 diltiazem HCl 240 mg PO DAILY 02/02/21 02/02/21 Allergies Allergy/AdvReac Type Severity Reaction Status Date / Time ketorolac [From Toradol] Allergy Loss of Verified 01/25/21 18:21 Appetite amoxicillin AdvReac Nausea and Verified 01/25/21 18:21 Vomiting Review of Systems Review of Systems: CONSTITUTIONAL: Denies fever, chills, or sweats. EYES: Denies visual changes, redness, or discharge. ENT: Denies rhinorrhea, congestion, sore throat, or otalgia. CARDIOVASCULAR: Denies chest pain, palpitations, or edema. RESPIRATORY: Denies cough or dyspnea. GASTROINTESTINAL: Positive abdominal pain, nausea, diarrhea and vomiting GENITOURINARY: Denies dysuria or hematuria. SKIN: Denies rash or itching. MUSCULOSKELETAL: Denies back pain, joint pain, or myalgia. NEUROLOGIC: Denies headache, numbness, or weakness. PSYCHIATRIC: Anxiety and depression [facility] Past Medical History Medical History Anxiety Asthma Chronic anemia Depression Hyperlipidemia Hypertension Kidney stone Paroxysmal atrial fibrillation Peptic ulcer disease History of perforation requiring hemigastrectomy with Yamilka-en-Y gastrojejunostomy. Pneumonia Pulmonary emboli Schizophrenia Suicide attempt Surgical History Surgical History History of appendectomy (1977) History of gastric surgery (06/19/20) Hemigastrectomy with Yamilka-en-Y gastrojejunostomy. History of tonsillectomy Family History Family History Father , Unknown No problems noted. Mother , Unknown No problems noted. Other Family history of malignant neoplasm Social History Social History Social History: Surrogate decision maker: Valentin Jensen, brother. Code status: Code. Smoking status: Former smoker Tobacco type: cigarettes Second hand tobacco smoke exposure: Yes Alcohol intake: never Substance use: never Substance use type: does not use Additional living arrangements comments: [facility], sometimes stays with his brother. 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 Exam Narrative: General appearance: Well-developed, well-nourished, looks ill Skin: Normal color Head: Normocephalic, nontraumatic Eyes: Clear conjunctiva ENT: Oropharynx normal, ears normal, nose normal Neck: Supple, nontender Chest and respiratory: Airway patent, no respiratory distress, no accessory muscle use Heart: Regular rate/rhythm Abdomen: Soft, diffusely tender, surgical wound is dry and clean, willy in place, quiet bowel sounds Vascular: Normal peripheral pulses, normal capillary refill. Musculoskeletal: Normal range of motion, nontender back Neurologic: Alert and oriented ?3, [employer] INFORMATION CLERK is normal as tested, no gross motor deficit
[2021-02-06] MEDS: SODIUM CHLORIDE 0.9% IV 1,000 ML 999 ML IV CONT (12:42)
[2021-02-06] MEDS: POTASSIUM CHLORIDE 20 MEQ TABLET 40 MEQ PO (12:42)
[2021-02-06 13:27] LABS: EDCOVIDSCREEN Negative (Negative)
[2021-02-06 14:30] LABS: Troponin I < 0.012 ng/mL (0.000-0.034)
[2021-02-06 15:00] LABS: Thyroid Stimulating Hormone < 0.015 uIU/mL (0.465-4.680)
[2021-02-06] MEDS: SODIUM CHLORIDE 0.9% IV 1,000 ML 100 ML IV CONT (15:21)
[2021-02-06 16:21] LABS: Free T4 Free Thyroxine 6.87 ng/mL (0.78-2.19)
--- NOTE | 2021-02-06 18:00 | PM.IMHP ---
H&P: HPI History of Present Illness Date/Time: 02/06/21 18:00 Chief Complaint: Shortness of breath and chest pressure. Narrative: This is a 55-year-old male with paroxysmal atrial fibrillation, pulmonary embolism, hyperthyroidism, psychiatric illness, and history of perforated duodenal ulcer who presented to the emergency department earlier today via EMS from [facility] for evaluation of shortness of breath and chest pressure. The patient is known to myself and the hospitalist service as we were consulted to help in the management of his medical conditions post incisional hernia repair on 01/26/2021. Postoperatively he developed atrial fibrillation with rapid ventricular response and he was initially started on a diltiazem drip. His sotalol dose was increased to 120 mg twice daily to help with rate control however he had a sinus pause at this was reduced back to 80 mg twice daily. He eventually reverted back to a sinus rhythm and he was discharged on sotalol 80 mg b.i.d., diltiazem 240 mg daily, and apixaban 5 mg q.12 hours. It should be noted that his TSH during that visit was essentially undetectable and his free T4 was greater than 6.99 and he was started on methimazole 5 mg daily of which he states compliance. The patient reports doing well in rehab however over the past couple of days he has developed some mild shortness of breath and discomfort in the mid chest region. This morning at about 06:00 he developed nausea, vomiting, and diarrhea and he has had innumerable bouts of uncontrollable diarrhea since that time. On arrival to the emergency department he was found to be in atrial fibrillation with rapid ventricular response for which he has been started on a Cardizem drip with some improvement in his rate. At the time my evaluation the patient tells me that he is feeling a bit better since the rate has slowed down. He denies fever, chills, sweats, pleuritic pain, orthopnea, PND, lower extremity edema, calf pain, significant abdominal pain, and any further episodes of emesis. He denies confusion, agitation, restlessness, sweating, and fever. Review of Systems Review of Systems: Twelve systems were reviewed and are negative except for as per HPI. [facility] Past Medical History Medical History Anxiety Asthma Chronic anemia Depression Hyperlipidemia Hypertension Kidney stone Paroxysmal atrial fibrillation Peptic ulcer disease History of perforation requiring hemigastrectomy with Yamilka-en-Y gastrojejunostomy. Pneumonia Pulmonary emboli Schizophrenia Suicide attempt Surgical History Surgical History History of appendectomy (1977) History of gastric surgery (06/19/20) Hemigastrectomy with Yamilka-en-Y gastrojejunostomy. History of tonsillectomy Family History Family History Father , Unknown No problems noted. Mother , Unknown No problems noted. Other Family history of malignant neoplasm Social History Social History Social History: Surrogate decision maker: Valentin Eliasnzel, brother. Code status: Code. Smoking status: Former smoker Tobacco type: cigarettes Second hand tobacco smoke exposure: Yes Alcohol intake: never Substance use: never Substance use type: does not use Additional living arrangements comments: [facility], sometimes stays with his brother. 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 Spiritual care concerns: No Meds Home Medications and Allergies Home Medications Medication Instructions Recorded Confirmed Type sotalol 80 mg PO Q12HR #60 tablet 12/28/20 02/06/21 Rx aripiprazole 5 mg PO DAILY 02/02/21 02/06/21 History diltiazem HCl 240 mg PO DAILY 02/02/21 02/06/21 History apixaban [Eliqu
--- NOTE | 2021-02-06 20:39 | PC.NURSE ---
Report received from CICI Rutherford at 1810. All questions answered and plan of care reviewed. Patient to go to IMU room 214.
--- NOTE | 2021-02-06 20:41 | ADMGEN ---
This patient, Junaid Jensen, was admitted to IMU Room 214-01 at 1840 from the ED. Patient/family oriented to hospital policies and general routines including ID bracelet, bed and alarms, visiting hours, pain management, procedures, bathroom and other care routines, personal items, smoking policy, room service/diet, and visiting hours. Information on how to activate the Rapid Response Team has been discussed. Patient/Family are encouraged to report perceived risks to care and to ask questions if they do not understand what they are told or what they should do.
[2021-02-06] MEDS: dilTIAZem 100 MG/100 ML 100 MG/100 ML BAG 10 MG IV CONT (21:13)
[2021-02-06] MEDS: methiMAzole 10 MG TAB PO (21:14)
[2021-02-06] MEDS: SOTALOL HCL 80 MG TABLET PO (22:04)
[2021-02-06] MEDS: HYDROcodone/acetaminophen (*CRX) 5-325 MG TABLET PO (22:04)
[2021-02-06] MEDS: LORazepam (*CRX) 1 MG TABLET PO (22:05)
[2021-02-06] MEDS: APIXABAN 5 MG TABLET PO (22:05)
[2021-02-07] VITALS (18 sets, daily range): BP systolic 98–125; BP diastolic 55–80; PULSE 95–131; RESP 16–20; TEMP 36.6–36.9; O2SAT 95–99
[2021-02-07 05:14] LABS: Hematocrit 27.6 % (42.0-52.0); Hemoglobin 8.9 g/dL (14.0-18.0); Mean Corpuscular HGB Conc 32.2 g/dl (32-36); Mean Corpuscular Hemoglobin 27.8 pg (26-34); Mean Corpuscular Volume 86.3 fl (80-100); Mean Platelet Volume 9.9 fl (7.4-10.4); Platelet Count Result 357 k/mm3 (150-375); Red Cell Distribution Width 14.7 % (11.5-14.5); White Blood Count 7.1 K/mm3 (4.5-10.0)
[2021-02-07 05:26] LABS: Alanine Aminotransferase 13 U/L (4-50); Albumin Level 2.7 g/dL (3.5-5.1); Alkaline Phosphatase 103 U/L (38-126); Anion Gap 7 mmol/L (8-16); Aspartate Amino Transferase 28 U/L (17-59); Bilirubin,Total 0.7 mg/dL (0.2-1.3); Blood Urea Nitrogen 11 mg/dL (9-20); Calcium 8.5 mg/dL (8.4-10.2); Carbon Dioxide 21 mmol/L (22-30); Chloride 109 mmol/L (98-107); Estimated CRCL calculation 182 ml/min; Estimated Glomerular Filt Rate > 60; Glucose 109 mg/dL (65-110); Potassium 3.2 mmol/L (3.4-5.0); Sodium 137 mmol/L (137-145)
[2021-02-07] MEDS: dilTIAZem 100 MG/100 ML 100 MG/100 ML BAG 10 MG IV CONT ×3 (05:43→23:37)
[2021-02-07] MEDS: LORazepam (*CRX) 1 MG TABLET PO ×3 (05:57→20:21)
[2021-02-07] MEDS: HYDROcodone/acetaminophen (*CRX) 5-325 MG TABLET PO ×3 (05:57→18:14)
[2021-02-07] MEDS: POTASSIUM CHLORIDE 20 MEQ TABLET 40 MEQ PO (08:18)
[2021-02-07] MEDS: ARIPiprazole 5 MG TABLET PO (08:19)
[2021-02-07] MEDS: APIXABAN 5 MG TABLET PO ×2 (08:19→20:20)
[2021-02-07] MEDS: methiMAzole 10 MG TAB PO ×3 (08:19→16:59)
[2021-02-07] MEDS: SOTALOL HCL 80 MG TABLET PO ×2 (08:20→20:21)
--- NOTE | 2021-02-07 08:43 | PM.IMPN ---
Progress Note: A&P Assessment and Plan (1) Atrial fibrillation with rapid ventricular response: Code(s): I48.91 - Unspecified atrial fibrillation Status: Acute Assessment and Plan: Currently still in AFib RVR on 10 mg of diltiazem in our with sotalol 80 mg every 12 hours -likely due to postop state and hyperthyroidism -troponin negative x3, no signs of heart failure on exam -continue Eliquis for stroke prevention -cardiology on board, appreciate their recommendations (2) Thyrotoxicosis: Code(s): E05.90 - Thyrotoxicosis, unspecified without thyrotoxic crisis or storm Status: Acute Assessment and Plan: Presenting with atrial fibrillation/rapid ventricular response and significant diarrhea. Jasmyn has resolved. -He is otherwise stable and there was no evidence of thyroid storm at this time thus will hold on glucocorticoids -Free T4 is greater than 2 to 3 times the upper limit of normal, will continue higher dose methimazole, 30 mg daily in 3 divided doses for 1-2 weeks then change to single daily dosing. (per uptodate) -Check thyroid ultrasound and thyrotropin receptor antibodies. -will need nuclear medicine thyroid uptake scan outpatient -He will need to follow-up with endocrinology on discharge (3) Adynamic ileus: Code(s): K56.0 - Paralytic ileus Status: Acute Assessment and Plan: Patient has had multiple episodes of diarrhea today and doing well with clear liquids -advance diet as tolerated (4) Hypokalemia: Code(s): E87.6 - Hypokalemia Status: Acute Assessment and Plan: Replace again today -mag normal (5) Chronic anemia: Code(s): D64.9 - Anemia, unspecified Status: Acute Assessment and Plan: Hemoglobin and hematocrit are stable on review of previous labs. (6) Hypertension: Code(s): I10 - Essential (primary) hypertension Status: Chronic Assessment and Plan: Last hgb 8.9 and hct 27.6 -Stable, no signs of bleeding on exam (7) Psychiatric illness: Code(s): F99 - Mental disorder, not otherwise specified Status: Acute Assessment and Plan: No acute issues -He has had episodes where he refuses to speak with people and appears manic (per [facility]). So far, this has not been noted this stay -Continue aripiprazole and lorazepam. Additional Plan D-dimer is elevated at 5.15. He does have a history of pulmonary embolism however I think his shortness of breath and chest discomfort is likely related to AFib/RVR. Additionally he has been taking Eliquis 5 mg b.i.d. making pulmonary embolism less likely. If this persists after his HR is more controlled, may need further investigation with CTA. Will obtain LE u/s. Time Spent With Patient Time with patient: 25 - 35 minutes Subjective Date/time seen: 02/07/21 08:43 Interval history: Pt is a 55-year-old male here for chest pain and shortness of breath. Patient states that he continues to feel short of breath and that his heart is racing even at rest. He has not really been out of bed yet so he is not sure how he does with exertion. His other complaints is fecal incontinence. He says he continues to have liquid diarrhea that is pretty immediate. He has had this in the past before after surgery but has not had in a long time. He says it is getting a little better so far. He said it is a dark color with no blood. He currently has no chest pain at this time but did have chest pain on arrival. He vomited once on arrival but has been doing pretty well with the liquids so far. Review of Systems Review of Systems: All systems reviewed & are unremarkable except as noted in HPI and below Exam Narrative: General: Well developed well nourished patient in NAD HEENT: normocephalic Neck: supple Neuro: Alert and oriented x4. Calm and collective today CV: Irregularly irregular with rate of 130. Telemetry shows AFib RVR up t
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
[2021-02-07] MEDS: SOTALOL HCL 40 MG TABLET PO (20:21)
[2021-02-08] VITALS (18 sets, daily range): BP systolic 103–134; BP diastolic 56–72; PULSE 94–128; RESP 18–24; TEMP 36.6–37.2; O2SAT 94–100
[2021-02-08] MEDS: HYDROcodone/acetaminophen (*CRX) 5-325 MG TABLET PO ×4 (00:14→23:37)
--- NOTE | 2021-02-08 00:30 | ECG_ITS ---
Measurements Intervals [place] Rate: 95 P: 73 VT: 131 QRS: 73 QRSD: 97 T: 83 QT: 375 QTc: 473 Interpretive Statements SINUS RHYTHM POSSIBLE LEFT ATRIAL ENLARGEMENT DELAYED PRECORDIAL R/S TRANSITION BORDERLINE ST-T WAVE ABNORMALITY- DIFFUSE LEADS BORDERLINE ECG Electronically Signed On 02-08-2021 7:40:18 GRADUATING MACHINE OPERATOR by Андрей Keyes D.O.
[2021-02-08 05:18] LABS: Hematocrit 26.1 % (42.0-52.0); Hemoglobin 8.2 g/dL (14.0-18.0); Mean Corpuscular HGB Conc 31.4 g/dl (32-36); Mean Corpuscular Hemoglobin 27.7 pg (26-34); Mean Corpuscular Volume 88.2 fl (80-100); Mean Platelet Volume 10.4 fl (7.4-10.4); Platelet Count Result 394 k/mm3 (150-375); Red Blood Count 2.96 M/mm3 (4.6-6.20); Red Cell Distribution Width 15.4 % (11.5-14.5); White Blood Count 6.1 K/mm3 (4.5-10.0)
[2021-02-08 05:39] LABS: Anion Gap 10 mmol/L (8-16); Blood Urea Nitrogen 16 mg/dL (9-20); Calcium 8.2 mg/dL (8.4-10.2); Carbon Dioxide 21 mmol/L (22-30); Chloride 107 mmol/L (98-107); Estimated CRCL calculation 150 ml/min; Estimated Glomerular Filt Rate > 60; Glucose 92 mg/dL (65-110); Potassium 3.9 mmol/L (3.4-5.0); Sodium 138 mmol/L (137-145)
[2021-02-08 05:46] LABS: D Dimer 4.04 ug/mL (<0.48)
[2021-02-08] MEDS: SOTALOL HCL 40 MG TABLET PO ×2 (09:26→20:43)
[2021-02-08] MEDS: SOTALOL HCL 80 MG TABLET PO ×2 (09:26→20:43)
[2021-02-08] MEDS: LORazepam (*CRX) 1 MG TABLET PO ×3 (09:27→20:43)
[2021-02-08] MEDS: methiMAzole 10 MG TAB PO ×3 (09:27→15:53)
[2021-02-08] MEDS: APIXABAN 5 MG TABLET PO ×2 (09:27→20:43)
[2021-02-08] MEDS: ARIPiprazole 5 MG TABLET PO (09:27)
--- NOTE | 2021-02-08 10:35 | PM.IMPN ---
Progress Note: A&P Assessment and Plan (1) Atrial fibrillation with rapid ventricular response: Code(s): I48.91 - Unspecified atrial fibrillation Status: Acute Assessment and Plan: Currently still in AFib RVR and his sotalol dose was increased last night. -likely due to postop state and hyperthyroidism -troponin negative x3, no signs of heart failure on exam -continue Eliquis for stroke prevention -cardiology on board, appreciate their recommendations (2) Thyrotoxicosis: Code(s): E05.90 - Thyrotoxicosis, unspecified without thyrotoxic crisis or storm Status: Acute Assessment and Plan: Presenting with atrial fibrillation/rapid ventricular response and significant diarrhea. Jasmyn has resolved. -He is otherwise stable and there was no evidence of thyroid storm at this time thus will hold on glucocorticoids -Free T4 is greater than 2 to 3 times the upper limit of normal, will continue higher dose methimazole, 30 mg daily in 3 divided doses for 1-2 weeks then change to single daily dosing. (per uptodate) -thyroid ultrasound shows diffuse enlargement and thyrotropin receptor antibodies are pending. -will need nuclear medicine thyroid uptake scan outpatient -He will need to follow-up with endocrinology on discharge (3) Adynamic ileus: Code(s): K56.0 - Paralytic ileus Status: Acute Assessment and Plan: Patient has had multiple episodes of diarrhea today and doing well with clear liquids -advance diet as tolerated (4) Hypokalemia: Code(s): E87.6 - Hypokalemia Status: Acute Assessment and Plan: Resolved (5) Chronic anemia: Code(s): D64.9 - Anemia, unspecified Status: Acute Assessment and Plan: Hemoglobin and hematocrit are stable on review of previous labs. (6) Hypertension: Code(s): I10 - Essential (primary) hypertension Status: Chronic Assessment and Plan: Last blood pressure 134/61 (7) Psychiatric illness: Code(s): F99 - Mental disorder, not otherwise specified Status: Acute Assessment and Plan: No acute issues -He has had episodes where he refuses to speak with people and appears manic (per shelter). So far, this has not been noted this stay -Continue aripiprazole and lorazepam. Additional Plan D-dimer is elevated at 5.15 and still elevated at 4 . He does have a history of pulmonary embolism however I think his shortness of breath and chest discomfort is likely related to AFib/RVR. Additionally he has been taking Eliquis 5 mg b.i.d but sometimes refuses medications. no LE dvt. Will check CTA. Subjective Date/time seen: 02/08/21 10:35 Interval history: Pt is a 55-year-old male here for chest pain and shortness of breath. Patient was seen today and is feeling better. He does not feel short of breath but thinks he is breathing more . He has no chest pain. His diarrhea has finally improved and he is tolerating his clear liquid diet. He is going to try to advance later today. He does not have any abdominal pain Exam Narrative: General: Well developed well nourished patient in NAD HEENT: normocephalic Neck: supple Neuro: Alert and oriented x4. Calm and collective today CV: Irregularly irregular with rate of 113. Telemetry shows AFib RVR up to 170 but now better Resp: Mildly decreased breath sounds but overall clear. No wheezing, rhonchi or crackles heard Abd: Soft, non distended. No pain to palpation. Positive bowel sounds. Incision site clean and dry without dehiscence, discharge or bleeding. Healing well. Extremities: No swelling, erythema, or pain to palpation. No signs of DVT. Objective Data Vital Signs Vital Signs: Vital Signs - 24 hr 02/07/21 12:00 02/07/21 14:00 02/07/21 14:56 Temperature 98.3 F Pulse Rate 95 120 H 109 H Respiratory Rate 16 Blood Pressure 110/70 Pulse Oximetry 95 02/07/21 16:00 02/07/21
--- NOTE | 2021-02-08 11:22 | ECG_ITS ---
Measurements Intervals [place] Rate: 121 P: MA: 0 QRS: 55 QRSD: 98 T: -87 QT: 316 QTc: 449 Interpretive Statements ATRIAL FIBRILLATION WITH RAPID VENTRICULAR RESPONSE ST-T WAVE ABNORMALITY IN ANTEROLATERAL LEADS- CONSIDER ISCHEMIA BASELINE ARTIFACT- I, III, AVL, V4 ABNORMAL ECG Electronically Signed On 02-08-2021 11:48:59 FUR TAILOR by Андрей Keyes D.O.
--- NOTE | 2021-02-08 14:09 | PM.PNCARD ---
Progress Note: A&P Assessment and Plan (1) Atrial fibrillation with rapid ventricular response: Code(s): I48.91 - Unspecified atrial fibrillation Status: Acute Assessment and Plan: History of paroxysmal atrial fibrillation on sotalol 80 mg twice daily at home. Recurrent AFib RVR postop recently then recurrence of Afib RVR during this admission on sotalol. Sotalol was increased to 120mg b.i.d yesterday. Remains in afib rate 110-120's mostly. He did convert to sinus rhythm last night and cardizem was discontinued, he subsequently reverted back to Afib sometime early this morning. Continue sotalol 120mg b.i.d Will add diltiazem 60mg p.o. b.i.d. Continue a/c with apixaban 5mg b.i.d. EKG 2 hours after dose x 5 doses to monitor QTc. Stable today at 449ms. (2) Hypertension: Code(s): I10 - Essential (primary) hypertension Status: Chronic Assessment and Plan: Currently at goal (3) Encounter for monitoring sotalol therapy: Code(s): Z51.81 - Encounter for therapeutic drug level monitoring; Z79.899 - Other [facility] (current) drug therapy Status: Acute Assessment and Plan: Sotalol recently increased to 120mg b.i.d. EKG following dose x 5 doses. QTc 440ms today. Daily BMP to monitor K+, daily Mag, goals 4.0 and 2.0 respectively Subjective Date/time seen: 02/08/21 14:09 Interval history: Cardiology follow up for atrial fibrillation Date of service 02/08/2021: Feels okay today. He has some concerns regarding missing a court date soon. Remains in atrial fibrillation with rate mostly in the 120's. He is asymptomatic with this. Review of Systems Constitutional: Constitutional: Reports weakness Eyes: Eyes: Reports no additional eye complaints ENT: Reports system reviewed and no additional complaints, except as documented Cardiovascular: Cardiovascular: Reports palpitations and Reports dyspnea Respiratory: Respiratory: Reports dyspnea Gastrointestinal: Gastrointestinal: Reports diarrhea Musculoskeletal: Musculoskeletal: Reports no additional musculoskeletal complaints Neurologic: Reports system reviewed and no additional complaints, except as documented and Reports weakness Endocrine: Endocrine: Reports no additional endocrine complaints and Reports palpitations Hematologic/Lymphatic: Hematologic/Lymphatic: Reports no additional hematologic/lymphatic complaints Allergic/Immunologic: Allergic/Immunologic: Reports no additional allergic/immunologic complaints Exam HENMT: Mouth: Yes moist mucous membranes Eyes: Sclera: sclerae normal Pupils: Equal, round and reactive pupils present Neck: Neck: supple and no JVD Resp: Effort & Inspection: normal respiratory effort Auscultation: no crackles and no rales Cardio: Rate: tachycardic Rhythm: abnormal rhythm irregularly irregular GI: Auscultation: normal bowel sounds Skin: General skin exam: normal color Neuro: Cranial nerves: Yes Equal, round and reactive pupils present Cognition (Neuro): normal cognition Extrem: General: normal to inspection Objective Data Vital Signs Vital Signs: Vital Signs - 24 hr 02/07/21 14:56 02/07/21 16:00 02/07/21 18:00 Temperature 36.8 C Pulse Rate 109 H 112 H 119 H Respiratory Rate 16 Blood Pressure 125/80 Pulse Oximetry 96 02/07/21 20:00 02/07/21 20:21 02/07/21 22:00 Temperature 36.7 C Pulse Rate 124 H 131 H 123 H Respiratory Rate 18 Blood Pressure 98/77 L Pulse Oximetry 99 02/07/21 23:37 02/07/21 23:47 02/08/21 00:00 Temperature 36.6 C Pulse Rate 118 H 119 H 113 H Respiratory Rate 18 Blood Pressure 101/71 Pulse Oximetry 98 02/08/21 00:06 02/08/21 02:00 02/08/21 04:00 Temperature 36.6 C Pulse Rate 106 H 94 94 Respiratory Rate 18 Blood Pressure 121/59 L Pulse Oximetry 98 02/08/21 05:57 02/08/21 08:00 02/08/21 08:35 Temperature 37.2 C Pulse Rate 102 H 112 H 124 H Respiratory Rate 22 H
[2021-02-08 18:23] LABS: Magnesium 1.8 mg/dL (1.6-2.3)
[2021-02-09] VITALS (16 sets, daily range): BP systolic 102–112; BP diastolic 55–65; PULSE 101–132; RESP 18–28; TEMP 36.3–37.3; O2SAT 95–99
[2021-02-09 05:14] LABS: Hematocrit 27.5 % (42.0-52.0); Hemoglobin 8.8 g/dL (14.0-18.0)
[2021-02-09 05:31] LABS: Anion Gap 9 mmol/L (8-16); Blood Urea Nitrogen 13 mg/dL (9-20); Calcium 8.2 mg/dL (8.4-10.2); Carbon Dioxide 26 mmol/L (22-30); Chloride 105 mmol/L (98-107); Estimated CRCL calculation 127 ml/min; Estimated Glomerular Filt Rate > 60; Glucose 109 mg/dL (65-110); Potassium 3.3 mmol/L (3.4-5.0); Sodium 140 mmol/L (137-145)
[2021-02-09 06:56] LABS: Thyroid Stimulating Hormone Reflex < 0.015 uIU/mL (0.465-4.68)
[2021-02-09] MEDS: HYDROcodone/acetaminophen (*CRX) 5-325 MG TABLET PO ×3 (08:18→22:15)
[2021-02-09] MEDS: SOTALOL HCL 40 MG TABLET PO ×2 (08:19→22:14)
[2021-02-09] MEDS: LORazepam (*CRX) 1 MG TABLET PO ×3 (08:19→22:14)
[2021-02-09] MEDS: APIXABAN 5 MG TABLET PO ×2 (08:20→22:13)
[2021-02-09] MEDS: ARIPiprazole 5 MG TABLET PO (08:20)
[2021-02-09] MEDS: methiMAzole 10 MG TAB PO ×3 (08:20→19:27)
[2021-02-09] MEDS: SOTALOL HCL 80 MG TABLET PO ×2 (08:20→22:14)
--- NOTE | 2021-02-09 09:46 | PM.IMPN ---
Progress Note: A&P Assessment and Plan (1) Atrial fibrillation with rapid ventricular response: Code(s): I48.91 - Unspecified atrial fibrillation Status: Acute Assessment and Plan: Currently still in AFib RVR and his sotalol dose and addition of oral diltiazem -likely due to postop state and hyperthyroidism -troponin negative x3, no signs of heart failure on exam -continue Eliquis for stroke prevention -cardiology on board, appreciate their recommendations (2) Thyrotoxicosis: Code(s): E05.90 - Thyrotoxicosis, unspecified without thyrotoxic crisis or storm Status: Acute Assessment and Plan: Presenting with atrial fibrillation/rapid ventricular response and significant diarrhea. Jasmyn has resolved. -He is otherwise stable and there was no evidence of thyroid storm at this time thus will hold on glucocorticoids -Free T4 is greater than 2 to 3 times the upper limit of normal, will continue higher dose methimazole, 30 mg daily in 3 divided doses for 1-2 weeks then change to single daily dosing. (per uptodate) -thyroid ultrasound shows diffuse enlargement and thyrotropin receptor antibodies are pending. -will need nuclear medicine thyroid uptake scan outpatient -He will need to follow-up with endocrinology on discharge -recheck t4 to see if any improvement. symptoms are improving. (3) Adynamic ileus: Code(s): K56.0 - Paralytic ileus Status: Acute Assessment and Plan: Resolved -tolerating a low-fiber diet (4) Hypokalemia: Code(s): E87.6 - Hypokalemia Status: Acute Assessment and Plan: Mildly low again today, magnesium normal -will replace with 40 mEq (5) Chronic anemia: Code(s): D64.9 - Anemia, unspecified Status: Acute Assessment and Plan: Hemoglobin and hematocrit are stable on review of previous labs. (6) Hypertension: Code(s): I10 - Essential (primary) hypertension Status: Chronic Assessment and Plan: Last blood pressure 110/62 -continue diltiazem (7) Psychiatric illness: Code(s): F99 - Mental disorder, not otherwise specified Status: Acute Assessment and Plan: No acute issues -He has had episodes where he refuses to speak with people and appears manic (per [facility]). So far, this has not been noted this stay -Continue aripiprazole and lorazepam. Subjective Date/time seen: 02/09/21 09:46 Interval history: Pt is a 55-year-old male here for chest pain and shortness of breath. Patient was seen today and is feeling better. He denies shortness of breath or chest pain. His diarrhea has resolved. He is now on a low-fiber diet and tolerating it well. Exam Narrative: General: Well developed well nourished patient in NAD HEENT: normocephalic Neck: supple Neuro: Alert and oriented x4. Calm and collective today CV: Irregularly irregular with rate of 110. Telemetry shows AFib RVR Resp: Mildly decreased breath sounds but overall clear. No wheezing, rhonchi or crackles heard Abd: Soft, non distended. No pain to palpation. Positive bowel sounds. Incision site clean and dry without dehiscence, discharge or bleeding. Healing well. Extremities: No swelling, erythema, or pain to palpation. No signs of DVT. Objective Data Vital Signs Vital Signs: Vital Signs - 24 hr 02/08/21 10:00 02/08/21 12:00 02/08/21 12:47 Temperature 98.7 F Pulse Rate 115 H 116 H 114 H Respiratory Rate 20 Blood Pressure 103/56 L Pulse Oximetry 94 02/08/21 14:00 02/08/21 16:00 02/08/21 16:26 Temperature 98.9 F Pulse Rate 117 H 117 H 114 H Respiratory Rate 24 H Blood Pressure 111/68 Pulse Oximetry 98 02/08/21 18:00 02/08/21 20:00 02/08/21 20:43 Temperature 97.9 F Pulse Rate 111 H 119 H 126 H Respiratory Rate 20 Blood Pressure 115/72 Pulse Oximetry 100 02/08/21 21:59 02/09/21 00:00 02/09/21 02:00 Temperature 97.6 F Pulse
--- NOTE | 2021-02-09 12:11 | PM.PNCARD ---
Progress Note: A&P Additional Plan 55-year-old man with: Recurrent atrial fibrillation due to thyrotoxicosis. His heart rate control although not ideal is reasonable. I will not adjust his medications at all today. He hopefully will convert back to sinus rhythm while taking sotalol once he is no longer hyperthyroid. I sort of expect this to occur. If he persists in atrial fib once he is no longer hyperthyroid I will perform an electrical cardioversion as an outpatient. Obviously is going to take some time for him to become euthyroid. Systemic anticoagulation has also been prescribed. Felipe Nix MD [facility] Subjective Date/time seen: Date of service: 02/09/21 12:11 Interval history: Cardiology follow up for atrial fibrillation Date of service 02/08/2021: Feels okay today. He has some concerns regarding missing a court date soon. Remains in atrial fibrillation with rate mostly in the 120's. He is asymptomatic with this. Date of service 02/08/2021: Telemetry continues to show persistent atrial fib heart rate about 110 most of the time. Taking sotalol 120 mg q.12 as well as some diltiazem again now. Long discussion with the patient about the long-term plans to try to restore sinus rhythm once he is no longer hyperthyroid. Exam HENMT: Mouth: Yes moist mucous membranes Eyes: Sclera: sclerae normal Pupils: Equal, round and reactive pupils present Neck: Neck: supple and no JVD Resp: Effort & Inspection: normal respiratory effort Auscultation: no crackles and no rales Other: Mild central rhonchi are noted Cardio: Rate: tachycardic Rhythm: abnormal rhythm irregularly irregular GI: Auscultation: normal bowel sounds Skin: General skin exam: normal color Neuro: Cranial nerves: Yes Equal, round and reactive pupils present Cognition (Neuro): normal cognition Extrem: General: normal to inspection Objective Data Vital Signs Vital Signs: Vital Signs - 24 hr 02/08/21 12:47 02/08/21 14:00 02/08/21 16:00 Temperature 37.1 C Pulse Rate 114 H 117 H 117 H Respiratory Rate 20 Blood Pressure 103/56 L Pulse Oximetry 94 02/08/21 16:26 02/08/21 18:00 02/08/21 20:00 Temperature 37.2 C 36.6 C Pulse Rate 114 H 111 H 119 H Respiratory Rate 24 H 20 Blood Pressure 111/68 115/72 Pulse Oximetry 98 100 02/08/21 20:43 02/08/21 21:59 02/09/21 00:00 Temperature 36.4 C Pulse Rate 126 H 128 H 116 H Respiratory Rate 22 H Blood Pressure 107/65 Pulse Oximetry 99 02/09/21 02:00 02/09/21 04:00 02/09/21 06:00 Temperature 36.3 C L Pulse Rate 118 H 115 H 106 H Respiratory Rate 20 Blood Pressure 110/60 Pulse Oximetry 95 02/09/21 08:00 02/09/21 08:19 02/09/21 08:20 Temperature 37.3 C Pulse Rate 118 H 122 H 122 H Respiratory Rate 18 Blood Pressure 110/62 Pulse Oximetry 99 Intake/Output Intake/Output: Intake & Output 02/06/21 02/07/21 02/08/21 02/09/21 23:59 23:59 23:59 23:59 Intake Total 843 784 5478 575 Output Total 900 1650 775 Balance 650 -120 -650 -200 Meds/Results Medications: Active Medications Generic Name Dose Route Start Last Admin Trade Name Freq PRN Reason Stop Dose Admin Hydrocodone Bitart/Acetaminophen 1 - 2 tab 02/06/21 21:13 02/09/21 08:18 Hydrocodone/Acetaminophen (*Crx) 5-325 Mg Tablet PO 2 tab Q6H PRN Administration Pain Rated 4-10 Apixaban 5 mg 02/06/21 21:15 02/09/21 08:20 Apixaban 5 Mg Tablet PO 5 mg Q12HR MATEO Administration Aripiprazole 5 mg 02/07/21 09:00 02/09/21 08:20 Aripiprazole 5 Mg Tablet PO 5 mg DAILY MATEO Administration Diltiazem HCl 60 mg 02/08/21 21:00 02/09/21 08:20 Diltiazem Hcl 12 Hr 60 Mg Cap.Er.12h PO 60 mg Q12HR MATEO Administration Diltiazem HCl 100 mg in 100 mls @ 0 mls/hr 02/06/21 20:35 02/08/21 01:02 Cardizem 100 Mg/100 Ml IV CONT 0 mg/hr .Q0M MATEO 0 mls/hr Infusion 0 MG/HR Lorazepam 1 mg 02/06/21 21:15 02/09/21 08:19 Lorazepam
[2021-02-09 13:59] LABS: Thyroid Stimulating Immunoglob 226 % baseline (<140)
[2021-02-09 14:16] LABS: Free T4 Free Thyroxine Reflex 5.84 ng/dL (0.78-2.19)
[2021-02-09] MEDS: POTASSIUM CHLORIDE 20 MEQ TABLET 40 MEQ PO (14:29)
[2021-02-09 16:19] LABS: Magnesium 1.9 mg/dL (1.6-2.3)
--- NOTE | 2021-02-09 21:19 | PC.NURSE ---
patient dismissed nurse to use phone and was refusing to take medications until he is done with his call. every time he was addressed by nurse, he would state fuck off . nurse left room to see other patient, came back and patient was still on the phone. nurse told patient that she would be back with his medication when he was ready.
--- NOTE | 2021-02-09 23:49 | ECG_ITS ---
Measurements Intervals [place] Rate: 119 P: MS: 0 QRS: 85 QRSD: 100 T: -74 QT: 320 QTc: 451 Interpretive Statements ATRIAL FIBRILLATION WITH RAPID VENTRICULAR RESPONSE INCOMPLETE RIGHT BUNDLE BRANCH BLOCK DELAYED PRECORDIAL R/S TRANSITION ST-T WAVE ABNORMALITY IN ANTEROLAT/INF LEADS- CONSIDER ISCHEMIA BASELINE ARTIFACT- I, AVL ABNORMAL ECG Electronically Signed On 02-10-2021 9:58:55 ROBOTIC TECHNICIAN by Андрей Keyes D.O.
[2021-02-10] VITALS (15 sets, daily range): BP systolic 95–110; BP diastolic 46–68; PULSE 93–152; RESP 15–20; TEMP 36.3–37.2; O2SAT 94–99
--- NOTE | 2021-02-10 00:34 | ECG_ITS ---
Rate 120 NJ 0 QRSd 102 QT 408 QTc 579 --Talent-- P QRS 85 T 156 ATRIAL FIBRILLATION WITH RAPID VENTRICULAR RESPONSE VENTRICULAR PREMATURE COMPLEX ST-T WAVE ABNORMALITY IN ANTEROLAT/INF LEADS- CONSIDER ISCHEMIA BASELINE ARTIFACT- I, II, III, AVR, AVL, AVF, V1-V6 ABNORMAL ECG Electronically Signed On 02-10-2021 7:10:59 RECEIVER/LABORER by Андрей Keyes D.O. COMPARED TO ECG 02/09/2021 04:44:48 NO SIGNIFICANT CHANGES MTDD
--- NOTE | 2021-02-10 00:40 | PM.EVENT ---
Event Note Event Note Event Note: 02/10/2021 at 12:40 a.m. Nursing staff called to notify me that the patient is confused. He insists that he needs to go to court. He had refused his lorazepam earlier in the evening but did allow the nursing staff to give him is lorazepam at around 10:30 a.m.. He is adamant that he is sleeping and is trying to put on his pants to leave the hospital. Subsequently an order was given for p.r.n. Ativan 1 mg IV. Will monitor for response. I would like to hold off on giving the patient any antipsychotic medications given that he is undergoing sotalol loading and I would not want to precipitate any QT prolongation. EKG performed after sotalol dosing demonstrated normal QT interval currently. If agitation continues and may need to give the patient a dose of Zyprexa.
[2021-02-10] MEDS: LORazepam INJ (*CRX) 2 MG/ML VIAL 1 MG IV PUSH (01:01)
--- NOTE | 2021-02-10 01:07 | PC.NURSE ---
PATIENT EXTREMELY CONFUSED. KEEPS THINKING HE HAS A COURT DATE TO GET TO. HE IS CONTINUALLY REMINDED THAT THERE IS NO COURT AT NIGHT. HE HAS REMOVED ALL HIS CLOTHES, TELEMETRY, AND HAS HIS CLOTHES AND IS TRYING TO GET DRESSED. PATIENT REFUSES TO GET BACK TO BED. HE PUT HIS PANTS ON AND WAS REFUSING THE TELEMETRY. PATIENT SAID THAT HE IS LEAVING. HE IS A LITTLE HOSTILE WHEN YOU TALK TO HIM. DR ALFORD IS AWARE AND NEW ORDERS FOR MEDICATION HAS BEEN PLACED. WILL CONTINUE TO MONITOR.
--- NOTE | 2021-02-10 02:07 | PC.NURSE ---
patient is repeatedly removing his telemetry, and trying to get out of bed. he has walked the styles twice before we could get to him and try to get him back to his room. patient has to be persuaded. he is alert and oriented x2. he thinks that he has to go to court. he needs constant reminding to keep tele on and that there is no court at night. he doesn't always answer questions. he will stare off into space, especially at light. he is extremely anxious.
--- NOTE | 2021-02-10 02:17 | PC.NURSE ---
patient is starting to get angrier. starting to demand his jacket and keys. he seems to be getting harder to reorient.
--- NOTE | 2021-02-10 02:34 | PC.NURSE ---
when we can get him to lay down. he is just staring at the ceiling. moving his fingers, sometimes non-stop. he pulled out one iv, he grabbed a piece of paper to put over the bleeding. it was removed and taped.
--- NOTE | 2021-02-10 02:40 | PC.NURSE ---
patient is now playing with his wallet, which was in his pants. patient is constantly moving around. putting blanket on then removing it. he might lay still for maybe 5 minutes.
[2021-02-10] MEDS: OLANZapine 10 MG INJ VIAL 5 MG IM ×2 (04:36→15:55)
--- NOTE | 2021-02-10 04:40 | PC.NURSE ---
PATIENT IS BECOMING MORE VOLATILE, SCREAMING, CURSING LOUD ENOUGH TO HEAR AT THE DESK. HE STATED THAT I AM DONE WITH YOU . HE KEEPS REMOVING HIS TELE AND TRYING TO GET OUT OF ROOM TO GO TO COURT. DR ALFORD IS AWARE AND NEW MEDICATION IS ORDERED FOR HIS INCREASING ACTIVITY AND BEHAVIOR.
--- NOTE | 2021-02-10 05:46 | PC.NURSE ---
PATIENT DEMANDED A WASHCLOTH. WOULD NOT WAIT TO GET ONE AND TRIED TO CLIMB OUT OF BED. THE BED ALARM WAS GOING OFF AND THE PATIENT WENT OVER TO THE WALL WHERE THE OFF SWITCH IS AND TRIED TO TURN IT OFF. WHEN HE COULDN'T FIGURE THAT OUT, HE STARTED TO TRY THE BED TO SHUT IT OFF. HE COULDN'T FIGURE THAT OUT AND STARTED TO SHAKE THE BED, REPEATEDLY. HE HAD TO BE PERSUADED TO GET BACK IN BED BY THE TECH. HE TOOK HIS WASHCLOTH AND WASHED HIS FACE, ARMS, LEGS, CHEST AND PULLED HIS PANTS DOWN TO HIS KNEES AND WASHED HIS PRIVATES. THEN PULLED HIS PANTS BACK UP. PATIENT THEN STARTED TO COVER HIMSELF UP AND LOOKED LIKE HE WAS GOING TO SLEEP. HE LAYED THERE WITH HIS EYES OPEN AND STARED AT THE CEILING.
--- NOTE | 2021-02-10 06:53 | PC.NURSE ---
PATIENT GOT UP AGAIN AND THIS TIME HE WAS ABLE TO GET HIS SHOES AND JACKET ON. HIS PANTS WERE ALREADY ON AND HE HAD THE REST IN THE BED WITH HIM. HE WAS TRYING TO LEAVE TO GO TO COURT. HOUSEKEEPING WAS GOING BY AND SEEN WHAT WAS HAPPENING AND TRIED TO HELLP. HE THEN CALLED SECURITY TO MAYBE HELP. PATIENT WAS BECOMING MORE HOSTILE AND THREATENING. WE WERE FINALLY ABLE TO BRIBE HIM TO REST FOR A BIT LONGER WITH A SODA AND SANDWITH. PATIENT IS EXPECTING TO LEAVE BY 8, IF HE REMEMBERS.
--- NOTE | 2021-02-10 07:03 | PC.NURSE ---
PATIENT IS STARING UP AT THE CEILING AND WILL NOT LET US PLACE HIM ON TELEMETRY.
--- NOTE | 2021-02-10 07:06 | PC.NURSE ---
PATIENT SEEMS TO BE HALLUCINATING MORE. HE IS WAVING HIS ARMS AROUND AT TIMES. STILL STARING OFF INTO SPACE. WILL NOT ANSWER QUESTIONS OR RESPOND WHEN LIKE THIS.
[2021-02-10 07:20] LABS: Thyrotropin Receptor Antibody 15.78 IU/L (<=2.00)
--- NOTE | 2021-02-10 07:41 | PC.NURSE ---
At 0722 this morning, patients bed alarms going off. This nurse and a tech went to assess the situation. Patient standing at end of bed dressed in blue jeans, no shirt and had pulled his quality assurance monitor body off. Patient alert only to self at this time. Patient keeps stating I'm leaving . Patient persuaded to sit down in bed by this nurse and tech. traffic monitor specialist placed back on patient, bed alarms in place. Will follow up with the physician regarding patient behavior.
[2021-02-10 08:07] LABS: Triiodothyronine T3 Free 9.3 pg/mL (2.3-4.2)
[2021-02-10] MEDS: APIXABAN 5 MG TABLET PO ×2 (08:46→22:55)
[2021-02-10] MEDS: ARIPiprazole 5 MG TABLET PO (08:46)
[2021-02-10] MEDS: methiMAzole 10 MG TAB PO ×3 (08:46→22:54)
[2021-02-10] MEDS: SOTALOL HCL 40 MG TABLET PO ×2 (08:46→22:54)
[2021-02-10] MEDS: SOTALOL HCL 80 MG TABLET PO ×2 (08:46→22:53)
[2021-02-10 08:52] LABS: Hematocrit 27.8 % (42.0-52.0); Hemoglobin 8.7 g/dL (14.0-18.0)
[2021-02-10 09:03] LABS: Anion Gap 10 mmol/L (8-16); Blood Urea Nitrogen 12 mg/dL (9-20); Calcium 8.4 mg/dL (8.4-10.2); Carbon Dioxide 23 mmol/L (22-30); Chloride 109 mmol/L (98-107); Estimated CRCL calculation 150 ml/min; Estimated Glomerular Filt Rate > 60; Glucose 90 mg/dL (65-110); Potassium 3.5 mmol/L (3.4-5.0); Sodium 142 mmol/L (137-145)
--- NOTE | 2021-02-10 10:11 | PM.PNCARD ---
Progress Note: A&P Assessment and Plan (1) Atrial fibrillation with rapid ventricular response: Code(s): I48.91 - Unspecified atrial fibrillation <JACKIE Singh - Last Filed: 02/10/21 12:15> Status: Acute <JACKIE Singh - Last Filed: 02/10/21 12:15> Assessment and Plan: History of paroxysmal atrial fibrillation on sotalol 80 mg twice daily at home. Recurrent AFib RVR postop recently then recurrence of Afib RVR during this admission on sotalol. Sotalol was increased to 120mg b.i.d yesterday. Remains in afib rate 110-120's mostly. He did convert to sinus rhythm last night and cardizem was discontinued, he subsequently reverted back to Afib sometime early this morning. Continue sotalol 120mg b.i.d Continue diltiazem 60 mg p.o. b.i.d. Continue a/c with apixaban 5mg b.i.d. EKG 2 hours after dose x 5 doses to monitor QTc. Stable today at 442ms. Expect Improvement/resolution of his AFib with improvement in his hyperthyroidism. <JACKIE Singh - Last Filed: 02/10/21 12:15> (2) Hypertension: Code(s): I10 - Essential (primary) hypertension <JACKIE Singh - Last Filed: 02/10/21 12:15> Status: Chronic <JACKIE Singh - Last Filed: 02/10/21 12:15> Assessment and Plan: Currently at goal <JACKIE Singh - Last Filed: 02/10/21 12:15> (3) Encounter for monitoring sotalol therapy: Code(s): Z51.81 - Encounter for therapeutic drug level monitoring; Z79.899 - Other machine long goods helper (current) drug therapy <JACKIE Singh - Last Filed: 02/10/21 12:15> Status: Acute <JACKIE Singh - Last Filed: 02/10/21 12:15> Assessment and Plan: Sotalol recently increased to 120mg b.i.d. QTC remained stable. He is now had greater than 5 doses of his increased dose. Daily BMP <JACKIE Singh - Last Filed: 02/10/21 12:15> Additional Plan I have seen and examined the patient and agree with the assessment and plan of the nurse practitioner. apparently yesterday he converted to sinus rhythm on sotalol to 120 mg b.i.d. and yesterday diltiazem was discontinued however this morning he reverted back to AFib with RVR. Recommend that we resume back the diltiazem. Monitor EKG for QTC interval. continue Eliquis <Niraj Laura MD - Last Filed: 02/10/21 15:17> Subjective Date/time seen: 02/10/21 10:11 <JACKIE Singh - Last Filed: 02/10/21 12:15> Interval history: Cardiology follow up for atrial fibrillation Date of service 02/08/2021: Feels okay today. He has some concerns regarding missing a court date soon. Remains in atrial fibrillation with rate mostly in the 120's. He is asymptomatic with this. Date of service 02/08/2021: Telemetry continues to show persistent atrial fib heart rate about 110 most of the time. Taking sotalol 120 mg q.12 as well as some diltiazem again now. Long discussion with the patient about the long-term plans to try to restore sinus rhythm once he is no longer hyperthyroid. Date of service [id number]: Feels about the same today. Once again telemetry is showing persistent AFib with a rate generally between 110 and 120bpm. <JACKIE Singh - Last Filed: 02/10/21 12:15> Review of Systems Constitutional: Constitutional: Reports weakness <JACKIE Singh - Last Filed: 02/10/21 12:15> Eyes: Eyes: Reports no additional eye complaints <JACKIE Singh - Last Filed: 02/10/21 12:15> ENT: Reports system reviewed and no additional complaints, except as documented <JACKIE Singh - Last Filed: 02/10/21 12:15> Cardiovascular: Cardiovascular: Reports palpitations and Reports dyspnea <JACKIE Singh - Last Filed: 02/10/21 12:15> Respiratory: Respiratory: Reports dyspnea <JACKIE Singh - Last Filed: 02/10/21 12:15> Gastrointestinal: Gastrointestinal: Reports diarrhea <JACKIE Singh - Bj Fi
--- NOTE | 2021-02-10 10:52 | ECG_ITS ---
Measurements Intervals [place] Rate: 117 P: MN: 0 QRS: 89 QRSD: 94 T: 269 QT: 316 QTc: 442 Interpretive Statements ATRIAL FIBRILLATION WITH RAPID VENTRICULAR RESPONSE ST-T WAVE ABNORMALITY IN ANTEROLAT/INF LEADS- CONSIDER ISCHEMIA ABNORMAL ECG Electronically Signed On 02-10-2021 12:31:40 DIRECTOR OF PATIENT SAFETY by Андрей Keyes D.O.
[2021-02-10] MEDS: LORazepam (*CRX) 1 MG TABLET PO ×2 (12:22→22:53)
[2021-02-10] MEDS: HYDROcodone/acetaminophen (*CRX) 5-325 MG TABLET PO ×2 (14:24→23:09)
--- NOTE | 2021-02-10 14:29 | PM.CNGS ---
Assessment and Plan Assessment and plan (1) Incisional hernia of anterior abdominal wall without obstruction or gangrene: Code(s): K43.2 - Incisional hernia without obstruction or gangrene Status: Chronic Assessment and Plan: Repair intact and wound healing well. Patient should follow-up with Dr. Molina about 2 weeks after discharge. (2) Paroxysmal atrial fibrillation with rapid ventricular response: Code(s): I48.0 - Paroxysmal atrial fibrillation Status: Acute Assessment and Plan: On Eliquis. Also receiving beta blockers and diltiazem. (3) Thyrotoxicosis: Code(s): E05.90 - Thyrotoxicosis, unspecified without thyrotoxic crisis or storm Status: Acute Assessment and Plan: Receiving methimazole 10 mg t.i.d. (4) Schizophrenia: Qualifiers: Schizophrenia type: unspecified Qualified Code(s): F20.9 - Schizophrenia, unspecified Code(s): F20.9 - Schizophrenia, unspecified Status: Chronic Assessment and Plan: Receiving his Abilify. Hopefully with a few more doses his mental status will improve. History of Present Illness Consult details Consult date: 02/10/21 Reason for consult: wound care Narrative: Patient underwent open incisional hernia repair with mesh and bilateral transit or CIS abdominis myofascial flap advancement on 01/26/2021. He was to be seen in the office today for a follow-up visit. Since he is in the hospital, I came to see him to check on his post surgical progress. After reviewing his records, he is having more difficulty with paroxysmal atrial fibrillation and tachycardia. He also is noted to have thyrotoxicosis which is being treated. Currently the patient is very confused. He has taken all of his medications this morning and this afternoon per nursing. He was reporting being told to go to retirement. He does have a history of psychotic mental illness, most likely schizophrenia but this seems to be worse than his usual state. He did not voice any complaints regarding his incision or abdomen when questioned. Obviously his mental status is not as good as it could be. [facility] Past Medical History Medical History Anxiety Asthma Chronic anemia Depression Hyperlipidemia Hypertension Kidney stone Paroxysmal atrial fibrillation Peptic ulcer disease History of perforation requiring hemigastrectomy with Yamilka-en-Y gastrojejunostomy. Pneumonia Pulmonary emboli Schizophrenia Suicide attempt Surgical History Surgical History History of appendectomy (1977) History of gastric surgery (06/19/20) Hemigastrectomy with Yamilka-en-Y gastrojejunostomy. History of tonsillectomy Family History Family History Father , Unknown No problems noted. Mother , Unknown No problems noted. Other Family history of malignant neoplasm Social History Social History Social History: Surrogate decision maker: Valentin Mikey, brother. Code status: Code. Smoking status: Former smoker Tobacco type: cigarettes Second hand tobacco smoke exposure: Yes Alcohol intake: never Substance use: never Substance use type: does not use Additional living arrangements comments: [facility], sometimes stays with his brother. 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 Spiritual care concerns: No Meds Home Medications and Allergies Home Medications Medication Instructions Recorded Confirmed Type sotalol 80 mg PO Q12HR #60 tablet 12/28/20 02/06/21 Rx aripiprazole 5 mg PO DAILY 02/02/21 02/06/21 History diltiazem HCl 240 mg PO DAILY 02/02/21 02/06/21 History apixaban [Eliquis] 5 mg PO Q12HR #60 tablet 02/03/21 02/06/21 Rx hydrocodone-acetaminoph
--- NOTE | 2021-02-10 15:49 | PM.IMPN ---
Progress Note: A&P Assessment and Plan (1) Thyrotoxicosis: Code(s): E05.90 - Thyrotoxicosis, unspecified without thyrotoxic crisis or storm Status: Acute Assessment and Plan: Thyrotoxicosis, continue methimazole 10 mg t.i.d. (2) Atrial fibrillation with rapid ventricular response: Code(s): I48.91 - Unspecified atrial fibrillation Status: Acute Assessment and Plan: Cardiology following, sotalol loading -anticoagulation with Eliquis -rate control: Diltiazem 60 mg q.12 hours -sotalol 120 mg q.12 hours -he is off of diltiazem drip (3) Hyperthyroidism: Code(s): E05.90 - Thyrotoxicosis, unspecified without thyrotoxic crisis or storm Status: Acute Assessment and Plan: As above (4) Incisional hernia of anterior abdominal wall without obstruction or gangrene: Code(s): K43.2 - Incisional hernia without obstruction or gangrene Status: Chronic Assessment and Plan: Surgery Dr. Molina following. Wound is well healing, we removed the Steri-Strips this morning. Patient will need 2 week follow-up with Dr. Jernigan (5) Schizophrenia: Qualifiers: Schizophrenia type: unspecified Qualified Code(s): F20.9 - Schizophrenia, unspecified Code(s): F20.9 - Schizophrenia, unspecified Status: Chronic Assessment and Plan: Patient having increasing confusion and difficult to orient despite being on his home medications. He is on Abilify 5 mg daily at home, increasing to 10 mg. Discussed with nurse. Will also have p.r.n. Zyprexa to help with his acute agitation. He has been shouting out aggressive comments at the nurses swearing. We have to be careful which medications give because of the QT prolonging nature of sotalol. -continues home Ativan 1 mg q.8 hours scheduled Additional Plan Diet: Low residue diet DVT prophylaxis: Eliquis Code status: Full code Disposition: Sotalol loading Time Spent With Patient Time with patient: 25 - 35 minutes Subjective Date/time seen: 02/10/21 15:49 Patient getting increasingly confused and difficult oriented. A schizophrenia and on his home medications currently. Increasing Abilify from 5 mg to 10 mg daily. I will also Zyprexa q.6 hours as needed. I understand we are sotalol loading and we are watching QTC which is not prolonged currently. For thyrotoxicosis he is on methimazole. Patient likely need to be on multiple agents to control his symptoms, slowly up titrating some antipsychotic. Patient had no complaints during my interview this morning with him. Patient denies fever, chills, nausea, vomiting, diarrhea, chest pain, shortness of breath. He did not converse very well, limited review of systems. Review of Systems Review of Systems: All systems reviewed & are unremarkable except as noted in HPI and below Exam Narrative: - GENERAL: Confused gentleman in no acute distress. When I asked him to open his eyes he stared blankly at the ceiling. - EYES: EOMI. Anicteric. - HENT: Dry oral mucosa. - LUNGS: Clear to auscultation bilaterally, no wheezing, rhonchi, or rales. - CARDIOVASCULAR: Irregularly irregular. - ABDOMEN: Soft, non-tender and non-distended. Vertical incision mid abdomen. Steri-Strips over abdomen which healed well. Pulsatile abdomen. - EXTREMITIES: No edema. Peripheral pulses 2+. Non-tender. - NEUROLOGIC: Cranial nerves 2-12 grossly intact, unable to examine patient not participating in physical exam - PSYCHIATRIC: Sleeping, arousable, unable to assess orientation. Will blurt out cuss words - SKIN: No rashes or lesions. Warm. - LYMPH: No cervical lymphadenopathy. Objective Data Vital Signs Vital Signs: Vital Signs - 24 hr 02/09/21 16:00 02/09/21 18:00 02/09/21 20:00 Temperature 36.5 C 36.6 C Pulse Rate 119 H 118 H 101 H Respiratory Rate 28 H 20 Blood Pressure 108/61 112/63 Pulse Oximetry 95 97 02/09/21 22:00 02/09/21 22:14 02/09/21 23:23 Temperature 36.5 C Pulse Rate
[2021-02-10 19:08] LABS: Magnesium 1.9 mg/dL (1.6-2.3)
--- NOTE | 2021-02-10 23:00 | ECG_ITS ---
Measurements Intervals [place] Rate: 112 P: [place]: 0 QRS: 85 QRSD: 98 T: 232 QT: 326 QTc: 446 Interpretive Statements ATRIAL FIBRILLATION WITH RAPID VENTRICULAR RESPONSE ST-T WAVE ABNORMALITY IN ANTEROLAT/INF LEADS- CONSIDER ISCHEMIA BASELINE WANDER- II, III, AVF ABNORMAL ECG Electronically Signed On 02-11-2021 10:54:10 HOP SEPARATOR by Андрей Keyes D.O.
--- NOTE | 2021-02-10 23:00 | ECG_ITS ---
Measurements Intervals [place] Rate: 120 P: [place]: 0 QRS: 85 QRSD: 102 T: 156 QT: 408 QTc: 579 Interpretive Statements ATRIAL FIBRILLATION WITH RAPID VENTRICULAR RESPONSE VENTRICULAR PREMATURE COMPLEX ST-T WAVE ABNORMALITY IN ANTEROLAT/INF LEADS- CONSIDER ISCHEMIA BASELINE ARTIFACT- I, II, III, AVR, AVL, AVF, V1-V6 ABNORMAL ECG Electronically Signed On 02-10-2021 7:10:59 MIXING OPERATOR by Андрей Keyes D.O.
[2021-02-11] VITALS (16 sets, daily range): BP systolic 98–116; BP diastolic 49–65; PULSE 97–154; RESP 17–26; TEMP 36.8–38.8; O2SAT 92–97
--- NOTE | 2021-02-11 01:28 | ECG_ITS ---
Rate 112 [place] 0 QRSd 98 QT 326 QTc 446 --[place]-- P QRS 85 T 232 ATRIAL FIBRILLATION WITH RAPID VENTRICULAR RESPONSE ST-T WAVE ABNORMALITY IN ANTEROLAT/INF LEADS- CONSIDER ISCHEMIA BASELINE WANDER- II, III, AVF ABNORMAL ECG Electronically Signed On 02-11-2021 10:54:10 MANAGER REHAB by Андрей Keyes D.O. COMPARED TO ECG 02/10/2021 10:33:19 NO SIGNIFICANT CHANGES MTDD
[2021-02-11 05:40] LABS: Basophils Percent Auto 0.2 % (0.2-1.2); Eosinophils Percent Auto 0.5 % (0-4.4); Hematocrit 28.7 % (42.0-52.0); Hemoglobin 8.9 g/dL (14.0-18.0); Immature Granulocyte Absolute 0.07 K/mm3 (0.00-0.031); Immature Granulocyte Percent A 1.7 % (0-0.5); Lymphocytes Percent Auto 43.4 % (18.3-44.2); Mean Corpuscular Hemoglobin 27.8 pg (26-34); Mean Corpuscular Volume 89.7 fl (80-100); Mean Platelet Volume 10.5 fl (7.4-10.4); Monocytes Absolute Auto 0.4 K/mm3 (0.1-0.6); Monocytes Percent Auto 9.9 % (2.6-8.5); Neutrophils Absolute Auto 1.8 K/mm3 (1.3-6.7); Neutrophils Percent Auto 44.3 % (45.5-73.1); Platelet Count Result 332 k/mm3 (150-375); Red Cell Distribution Width 15.8 % (11.5-14.5); White Blood Count 4.2 K/mm3 (4.5-10.0)
[2021-02-11] MEDS: LORazepam (*CRX) 1 MG TABLET PO ×3 (05:42→23:10)
[2021-02-11] MEDS: HYDROcodone/acetaminophen (*CRX) 5-325 MG TABLET PO ×3 (05:46→23:10)
[2021-02-11 06:12] LABS: Anion Gap 9 mmol/L (8-16); Blood Urea Nitrogen 10 mg/dL (9-20); Calcium 8.1 mg/dL (8.4-10.2); Carbon Dioxide 24 mmol/L (22-30); Chloride 108 mmol/L (98-107); Estimated CRCL calculation 150 ml/min; Estimated Glomerular Filt Rate > 60; Glucose 94 mg/dL (65-110); Potassium 3.7 mmol/L (3.4-5.0); Sodium 141 mmol/L (137-145)
[2021-02-11] MEDS: APIXABAN 5 MG TABLET PO ×2 (08:25→23:09)
[2021-02-11] MEDS: SOTALOL HCL 40 MG TABLET PO ×2 (08:25→23:08)
[2021-02-11] MEDS: SOTALOL HCL 80 MG TABLET PO ×2 (08:25→23:09)
[2021-02-11] MEDS: methiMAzole 10 MG TAB PO ×3 (08:25→16:33)
[2021-02-11] MEDS: ARIPiprazole 10 MG TABLET PO (08:26)
[2021-02-11 08:46] LABS: Hypochromasia 1+ (NORMAL); Large Platelets Present
[2021-02-11 08:47] LABS: Poikilocytosis 1+ (NORMAL)
--- NOTE | 2021-02-11 10:30 | ECG_ITS ---
Measurements Intervals [place] Rate: 102 P: [place]: 0 QRS: 81 QRSD: 93 T: 236 QT: 338 QTc: 441 Interpretive Statements ATRIAL FIBRILLATION WITH RAPID VENTRICULAR RESPONSE ST-T WAVE ABNORMALITY IN ANTEROLATERAL LEADS- CONSIDER ISCHEMIA BASELINE ARTIFACT- V4-V6 ABNORMAL ECG Electronically Signed On 02-11-2021 14:47:22 FLIGHT HOSTESS by Андрей Keyes D.O.
--- NOTE | 2021-02-11 11:24 | PM.PNCARD ---
Progress Note: A&P Additional Plan 55-year-old man with: Recurrent atrial fibrillation that appears to be driven by thyrotoxicosis. A once this is resolved we will attempt electrical cardioversion in the meantime diltiazem and amiodarone are providing good rate control and he is systemically anticoagulated with apixaban. No additional cardiac recommendations today. Felipe Nix MD [facility] Subjective Date/time seen: Date of service: 02/11/21 11:24 Interval history: Cardiology follow up for atrial fibrillation Date of service 02/08/2021: Feels okay today. He has some concerns regarding missing a court date soon. Remains in atrial fibrillation with rate mostly in the 120's. He is asymptomatic with this. Date of service 02/08/2021: Telemetry continues to show persistent atrial fib heart rate about 110 most of the time. Taking sotalol 120 mg q.12 as well as some diltiazem again now. Long discussion with the patient about the long-term plans to try to restore sinus rhythm once he is no longer hyperthyroid. Date of service [id number]: Feels about the same today. Once again telemetry is showing persistent AFib with a rate generally between 110 and 120bpm. Date of service 02/11/2021: Patient is arousable but very lethargic and drowsy. He offers no cardiovascular complaints. Telemetry continues to show AFib with relatively good heart rate control. Exam HENMT: Mouth: Yes moist mucous membranes Eyes: Sclera: sclerae normal Pupils: Equal, round and reactive pupils present Neck: Neck: supple and no JVD Resp: Effort & Inspection: normal respiratory effort Auscultation: no crackles and no rales Other: Mild central rhonchi are noted Cardio: Rate: tachycardic Rhythm: abnormal rhythm irregularly irregular GI: Auscultation: normal bowel sounds Skin: General skin exam: normal color Neuro: Cranial nerves: Yes Equal, round and reactive pupils present Cognition (Neuro): normal cognition Extrem: General: normal to inspection Objective Data Vital Signs Vital Signs: Vital Signs - 24 hr 02/10/21 12:00 02/10/21 14:00 02/10/21 16:00 Temperature 36.5 C 36.3 C L Pulse Rate 108 H 124 H 117 H Respiratory Rate 18 20 Blood Pressure 110/67 100/59 L Pulse Oximetry 99 94 02/10/21 18:00 02/10/21 20:00 02/10/21 22:00 Temperature 37.2 C Pulse Rate 116 H 115 H 118 H Respiratory Rate 15 Blood Pressure 96/68 L Pulse Oximetry 94 02/10/21 22:53 02/10/21 22:54 02/11/21 00:00 Temperature Pulse Rate 93 94 126 H Respiratory Rate Blood Pressure Pulse Oximetry 02/11/21 00:10 02/11/21 02:00 02/11/21 04:00 Temperature 37.3 C 37.2 C Pulse Rate 120 H 118 H 112 H Respiratory Rate 17 20 Blood Pressure 109/62 112/60 Pulse Oximetry 95 96 02/11/21 06:00 02/11/21 08:00 02/11/21 10:00 Temperature 36.8 C Pulse Rate 97 108 H 106 H Respiratory Rate 26 H Blood Pressure 98/49 L Pulse Oximetry 92 Intake/Output Intake/Output: Intake & Output 02/08/21 02/09/21 02/10/21 02/11/21 23:59 23:59 23:59 23:59 Intake Total 1000 625 720 425 Output Total 1650 775 600 0 Balance -650 -150 120 425 Meds/Results Medications: Active Medications Generic Name Dose Route Start Last Admin Trade Name Freq PRN Reason Stop Dose Admin Hydrocodone Bitart/Acetaminophen 1 - 2 tab 02/06/21 21:13 02/11/21 05:46 Hydrocodone/Acetaminophen (*Crx) 5-325 Mg Tablet PO 2 tab Q6H PRN Administration Pain Rated 4-10 Apixaban 5 mg 02/06/21 21:15 02/11/21 08:25 Apixaban 5 Mg Tablet PO 5 mg Q12HR MATEO Administration Aripiprazole 10 mg 02/11/21 09:00 02/11/21 08:26 Aripiprazole 10 Mg Tablet PO 10 mg DAILY MATEO Administration Diltiazem HCl 60 mg 02/08/21 21:00 02/11/21 08:25 Diltiazem Hcl 12 Hr 60 Mg Cap.Er.12h PO 60 mg Q12HR MATEO Administration Diltiazem HCl 100 mg in 100 mls @ 0 mls/hr 02/06/21 20:35 02/08/21 01:02 Cardizem 100 Mg/100 Ml IV CONT 0
--- NOTE | 2021-02-11 14:47 | PM.IMPN ---
Progress Note: A&P Assessment and Plan (1) Adynamic ileus: Code(s): K56.0 - Paralytic ileus Status: Acute (2) Thyrotoxicosis: Code(s): E05.90 - Thyrotoxicosis, unspecified without thyrotoxic crisis or storm Status: Acute (3) Anemia: Qualifiers: Anemia type: unspecified type Qualified Code(s): D64.9 - Anemia, unspecified Code(s): D64.9 - Anemia, unspecified Status: Acute (4) Acute respiratory alkalosis: Code(s): E87.3 - Alkalosis Status: Acute (5) Atrial fibrillation with rapid ventricular response: Code(s): I48.91 - Unspecified atrial fibrillation Status: Acute Additional Plan # AFib with RVR -rate control on diltiazem 60 mg q.12 hours, sotalol 120 mg q.12 hours -reviewed cardiology notes no change today -anticoagulation on Eliquis -RVR secondary to thyrotoxicosis # thyrotoxicosis -continue methimazole 10 mg t.i.d. # schizophrenia -patient is very confused, was wandering the hallways -patient home medication includes Abilify 5 mg -yesterday increased Abilify to 10 mg, p.r.n. Zyprexa available -no inpatient psychiatrist available for consultation -hopefully this is all secondary to thyrotoxicosis and will resolve # incision hernia of anterior abdominal wall without obstruction or gangrene -Dr. Molina surgeon. Well-healed will need to week outpatient follow-up Dr. Molina Diet: Low residue diet DVT prophylaxis: Eliquis Code status: Full code Disposition: Continue monitoring while on sotalol and with AFib with RVR Subjective Date/time seen: 02/11/21 14:47 Patient seen examined. He seems to be doing better on the higher dose of Abilify to 10 mg from his home 5 mg dose. We have not needed the p.r.n. Zyprexa as per nurse at least this morning. [employer] Supervisor like to keep medications as is with sotalol and diltiazem, heart rate fluctuates from 90s to 110s. We are still correcting the thyrotoxicosis with methimazole. He still very drowsy this morning but is arousable. Maintained eye contact today. Review of Systems Review of Systems: ROS unobtainable: Yes unobtainable due to medical condition Exam Narrative: - GENERAL: Male in no acute distress lying comfortably in bed. Made attempts to look at me during his exam - EYES: EOMI. Anicteric. - HENT: Dry oral mucosa. - LUNGS: Clear to auscultation bilaterally, no wheezing, rhonchi, or rales. - CARDIOVASCULAR: Irregularly irregular. - ABDOMEN: Soft, non-tender and non-distended. Vertical incision mid abdomen. - EXTREMITIES: No edema. Peripheral pulses 2+. Non-tender. - NEUROLOGIC: Unable to properly evaluate, no obvious deficits noted - PSYCHIATRIC: Lethargic arousable, unable to assess orientation. - SKIN: No rashes or lesions. Warm. - LYMPH: No cervical lymphadenopathy. Objective Data Vital Signs Vital Signs: Vital Signs - 24 hr 02/10/21 16:00 02/10/21 18:00 02/10/21 20:00 Temperature 36.3 C L 37.2 C Pulse Rate 117 H 116 H 115 H Respiratory Rate 20 15 Blood Pressure 100/59 L 96/68 L Pulse Oximetry 94 94 02/10/21 22:00 02/10/21 22:53 02/10/21 22:54 Temperature Pulse Rate 118 H 93 94 Respiratory Rate Blood Pressure Pulse Oximetry 02/11/21 00:00 02/11/21 00:10 02/11/21 02:00 Temperature 37.3 C Pulse Rate 126 H 120 H 118 H Respiratory Rate 17 Blood Pressure 109/62 Pulse Oximetry 95 02/11/21 04:00 02/11/21 06:00 02/11/21 08:00 Temperature 37.2 C 36.8 C Pulse Rate 112 H 97 108 H Respiratory Rate 20 26 H Blood Pressure 112/60 98/49 L Pulse Oximetry 96 92 02/11/21 10:00 02/11/21 12:00 Temperature 37.4 C Pulse Rate 106 H 113 H Respiratory Rate 20 Blood Pressure 115/61 Pulse Oximetry 97 Intake/Output Intake/Output: Intake & Output 02/08/21 02/09/21 02/10/21 02/11/21 23:59 23:59 23:59 23:59 Intake Total 1000 625 720 425 Output Total 1650 775 600 0 Balance -650 -150 120 425 Meds/Results Medications: Active
[2021-02-11] MEDS: ACETAMINOPHEN 325 MG TABLET 650 MG PO (16:33)
[2021-02-11 18:27] LABS: Basophils Percent Auto 0.2 % (0.2-1.2); Eosinophils Percent Auto 0.2 % (0-4.4); Hematocrit 29.7 % (42.0-52.0); Hemoglobin 9.3 g/dL (14.0-18.0); Immature Granulocyte Absolute 0.06 K/mm3 (0.00-0.031); Lymphocytes Absolute Auto 1.68 K/mm3 (0.9-3.2); Lymphocytes Percent Auto 26.8 % (18.3-44.2); Mean Corpuscular HGB Conc 31.3 g/dl (32-36); Mean Corpuscular Volume 89.5 fl (80-100); Mean Platelet Volume 10.7 fl (7.4-10.4); Monocytes Absolute Auto 0.4 K/mm3 (0.1-0.6); Monocytes Percent Auto 6.8 % (2.6-8.5); Neutrophils Absolute Auto 4.1 K/mm3 (1.3-6.7); Platelet Count Result 410 k/mm3 (150-375); Red Blood Count 3.32 M/mm3 (4.6-6.20); Red Cell Distribution Width 15.9 % (11.5-14.5); White Blood Count 6.3 K/mm3 (4.5-10.0)
[2021-02-11 18:41] LABS: Alanine Aminotransferase 19 U/L (4-50); Alkaline Phosphatase 178 U/L (38-126); Anion Gap 13 mmol/L (8-16); Aspartate Amino Transferase 52 U/L (17-59); Bilirubin,Total 0.6 mg/dL (0.2-1.3); Blood Urea Nitrogen 11 mg/dL (9-20); Calcium 8.2 mg/dL (8.4-10.2); Carbon Dioxide 19 mmol/L (22-30); Chloride 107 mmol/L (98-107); Estimated CRCL calculation 111 ml/min; Estimated Glomerular Filt Rate > 60; Glucose 128 mg/dL (65-110); Potassium 3.6 mmol/L (3.4-5.0); Sodium 139 mmol/L (137-145)
[2021-02-11 18:59] LABS: Lactic Acid Reflex 3.4 mmol/L (0.7-2.1)
[2021-02-11 21:23] LABS: Reflex Lactic Acid Yes or No Add Lactic
[2021-02-11 22:07] LABS: Lactic Acid 1.1 mmol/L (0.7-2.1)
[2021-02-12] VITALS (21 sets, daily range): BP systolic 93–120; BP diastolic 46–71; PULSE 74–136; RESP 12–20; TEMP 36.6–38.8; O2SAT 96–98
[2021-02-12] MEDS: ACETAMINOPHEN 325 MG TABLET 650 MG PO (00:15)
[2021-02-12 05:33] LABS: Hematocrit 28.5 % (42.0-52.0); Hemoglobin 9.2 g/dL (14.0-18.0); Mean Corpuscular HGB Conc 32.3 g/dl (32-36); Mean Corpuscular Volume 86.9 fl (80-100); Mean Platelet Volume 10.9 fl (7.4-10.4); Platelet Count Result 303 k/mm3 (150-375); Red Blood Count 3.28 M/mm3 (4.6-6.20); Red Cell Distribution Width 15.9 % (11.5-14.5); White Blood Count 5.6 K/mm3 (4.5-10.0)
[2021-02-12 05:42] LABS: Anion Gap 11 mmol/L (8-16); Blood Urea Nitrogen 17 mg/dL (9-20); Carbon Dioxide 22 mmol/L (22-30); Chloride 108 mmol/L (98-107); Estimated CRCL calculation 88 ml/min; Estimated Glomerular Filt Rate > 60; Glucose 155 mg/dL (65-110); Potassium 3.8 mmol/L (3.4-5.0); Sodium 141 mmol/L (137-145)
[2021-02-12] MEDS: LORazepam (*CRX) 1 MG TABLET PO ×3 (06:57→20:41)
[2021-02-12] MEDS: SOTALOL HCL 40 MG TABLET PO ×2 (09:05→20:40)
[2021-02-12] MEDS: SOTALOL HCL 80 MG TABLET PO ×2 (09:05→20:41)
[2021-02-12] MEDS: methiMAzole 10 MG TAB PO ×3 (09:05→16:21)
[2021-02-12] MEDS: APIXABAN 5 MG TABLET PO ×2 (09:05→20:39)
[2021-02-12] MEDS: ARIPiprazole 10 MG TABLET PO (09:06)
[2021-02-12] MEDS: HYDROcodone/acetaminophen (*CRX) 5-325 MG TABLET PO ×3 (09:08→21:40)
--- NOTE | 2021-02-12 15:01 | PM.IMPN ---
Progress Note: A&P Assessment and Plan (1) Thyrotoxicosis: Code(s): E05.90 - Thyrotoxicosis, unspecified without thyrotoxic crisis or storm Status: Acute (2) Atrial fibrillation with rapid ventricular response: Code(s): I48.91 - Unspecified atrial fibrillation Status: Acute (3) Adynamic ileus: Code(s): K56.0 - Paralytic ileus Status: Acute (4) Hyperthyroidism: Code(s): E05.90 - Thyrotoxicosis, unspecified without thyrotoxic crisis or storm Status: Acute (5) Hypokalemia: Code(s): E87.6 - Hypokalemia Status: Acute (6) Acute hypokalemia: Code(s): E87.6 - Hypokalemia Status: Acute (7) Acute respiratory alkalosis: Code(s): E87.3 - Alkalosis Status: Acute Additional Plan # AFib with RVR -rate control on diltiazem 60 mg q.12 hours, sotalol 120 mg q.12 hours -reviewed cardiology notes no change today -anticoagulation on Eliquis -RVR secondary to thyrotoxicosis # thyrotoxicosis -continue methimazole 10 mg t.i.d. # fever, stable -yesterday patient had a fever, infectious workup negative -patient received Tylenol, now afebrile -may be related to thyrotoxicosis -he does not have signs of serotonin syndrome despite increasing Abilify dose, only symptom is fever # schizophrenia -patient is very confused, was wandering the hallways -patient home medication includes Abilify 5 mg -he is doing well on the increased Abilify dose 10 mg, p.r.n. Zyprexa available -no inpatient psychiatrist available for consultation -hopefully this is all secondary to thyrotoxicosis and will resolve # incision hernia of anterior abdominal wall without obstruction or gangrene -Dr. Molina surgeon. Well-healed will need to week outpatient follow-up Dr. Molina Diet: Low residue diet DVT prophylaxis: Eliquis Code status: Full code Disposition: Continue monitoring while on sotalol and with afib Subjective Date/time seen: 02/12/21 15:01 Patient seen and examined. He is doing well with no new complaints. Heart rate fluctuating from 110s to 70s on the sotalol and diltiazem. No changes medications. He is doing well on the 10 mg of Abilify. He denies fever, chills, nausea, vomiting, diarrhea, chest pain, shortness of breath. Yesterday he had a fever temp T-max of 101?. We were unable to get procalcitonin as the reagent is in back order. Review of Systems Review of Systems: All systems reviewed & are unremarkable except as noted in HPI and below Exam Narrative: - GENERAL: Male in no acute distress lying comfortably in bed - EYES: EOMI. Anicteric. - HENT: Dry oral mucosa. - LUNGS: Clear to auscultation bilaterally, no wheezing, rhonchi, or rales. - CARDIOVASCULAR: Irregularly irregular. - ABDOMEN: Soft, non-tender and non-distended. Vertical incision mid abdomen. - EXTREMITIES: No edema. Peripheral pulses 2+. Non-tender. - NEUROLOGIC: Awake alert orient to self. Cranial nerves 2-12 grossly intact. - PSYCHIATRIC: Lethargic in the morning. Follows commands. - SKIN: No rashes or lesions. Warm. - LYMPH: No cervical lymphadenopathy. Objective Data Vital Signs Vital Signs: Vital Signs - 24 hr 02/11/21 16:00 02/11/21 18:00 02/11/21 20:15 Temperature 37.4 C 38.1 C H Pulse Rate 111 H 131 H 125 H Respiratory Rate 20 20 Blood Pressure 115/61 116/65 Pulse Oximetry 97 95 02/11/21 22:00 02/11/21 23:08 02/11/21 23:09 Temperature Pulse Rate 154 H 136 H 142 H Respiratory Rate Blood Pressure Pulse Oximetry 02/11/21 23:44 02/12/21 00:00 02/12/21 00:15 Temperature 38.8 C H 38.8 C H Pulse Rate 125 H 136 H Respiratory Rate 20 Blood Pressure 106/55 L Pulse Oximetry 96 02/12/21 01:15 02/12/21 02:00 02/12/21 04:00 Temperature 37.3 C Pulse Rate 129 H 124 H Respiratory Rate Blood Pressure Pulse Oximetry 02/12/21 04:25 02/12/21 06:00 02/12/21 08:00 Temperature 37.5 C 37.3 C Pulse Rate 122 H 117 H 130 H
[2021-02-12 17:47] LABS: Magnesium 1.9 mg/dL (1.6-2.3)
[2021-02-13] VITALS (16 sets, daily range): BP systolic 96–115; BP diastolic 49–69; PULSE 88–138; RESP 12–14; TEMP 36.5–37.1; O2SAT 95–100
[2021-02-13 05:37] LABS: Hematocrit 27.7 % (42.0-52.0); Hemoglobin 8.6 g/dL (14.0-18.0); Mean Corpuscular Hemoglobin 27.7 pg (26-34); Mean Corpuscular Volume 89.1 fl (80-100); Platelet Count Result 311 k/mm3 (150-375); Red Blood Count 3.11 M/mm3 (4.6-6.20); Red Cell Distribution Width 16.2 % (11.5-14.5); White Blood Count 5.8 K/mm3 (4.5-10.0)
[2021-02-13 05:47] LABS: Anion Gap 12 mmol/L (8-16); Blood Urea Nitrogen 32 mg/dL (9-20); Calcium 8.2 mg/dL (8.4-10.2); Carbon Dioxide 23 mmol/L (22-30); Chloride 106 mmol/L (98-107); Estimated CRCL calculation 62 ml/min; Estimated Glomerular Filt Rate 58; Glucose 106 mg/dL (65-110); Potassium 3.5 mmol/L (3.4-5.0); Sodium 141 mmol/L (137-145)
[2021-02-13] MEDS: HYDROcodone/acetaminophen (*CRX) 5-325 MG TABLET PO (05:56)
--- NOTE | 2021-02-13 08:11 | PM.PNCARD ---
Progress Note: A&P Additional Plan 55-year-old man with: Atrial fibrillation which we believe is driven by hyperthyroidism. His rate is well controlled with a combination of sotalol and diltiazem. He is anticoagulated with apixaban. No need to adjust any of his medications at this time will anticipate cardioverting him once he is euthyroid if AFib persists. No additional cardiac recommendations today. Noted to be febrile yesterday as mentioned above Felipe Nix MD [facility] Subjective Date/time seen: Date of service: 02/13/21 08:11 Interval history: Cardiology follow up for atrial fibrillation Date of service 02/08/2021: Feels okay today. He has some concerns regarding missing a court date soon. Remains in atrial fibrillation with rate mostly in the 120's. He is asymptomatic with this. Date of service 02/08/2021: Telemetry continues to show persistent atrial fib heart rate about 110 most of the time. Taking sotalol 120 mg q.12 as well as some diltiazem again now. Long discussion with the patient about the long-term plans to try to restore sinus rhythm once he is no longer hyperthyroid. Date of service [id number]: Feels about the same today. Once again telemetry is showing persistent AFib with a rate generally between 110 and 120bpm. Date of service 02/11/2021: Patient is arousable but very lethargic and drowsy. He offers no cardiovascular complaints. Telemetry continues to show AFib with relatively good heart rate control. Date of service 02/14/2020: Patient is resting comfortably this morning no cardiovascular complaints. Yesterday noted to be febrile and was incoherent in the afternoon. Exam HENMT: Mouth: Yes moist mucous membranes Eyes: Sclera: sclerae normal Pupils: Equal, round and reactive pupils present Neck: Neck: supple and no JVD Resp: Effort & Inspection: normal respiratory effort Auscultation: no crackles and no rales Other: Mild central rhonchi are noted Cardio: Rate: tachycardic Rhythm: abnormal rhythm irregularly irregular GI: Auscultation: normal bowel sounds Skin: General skin exam: normal color Neuro: Cranial nerves: Yes Equal, round and reactive pupils present Cognition (Neuro): normal cognition Extrem: General: normal to inspection Objective Data Vital Signs Vital Signs: Vital Signs - 24 hr 02/12/21 09:05 02/12/21 10:00 02/12/21 12:00 Temperature 36.7 C Pulse Rate 113 H 113 H 74 Respiratory Rate 12 Blood Pressure 118/61 Pulse Oximetry 96 02/12/21 14:00 02/12/21 15:55 02/12/21 16:00 Temperature 36.6 C Pulse Rate 108 H 135 H 101 H Respiratory Rate 12 Blood Pressure 106/46 L Pulse Oximetry 98 02/12/21 17:55 02/12/21 19:43 02/12/21 20:00 Temperature 37.2 C Pulse Rate 95 106 H 103 H Respiratory Rate 16 Blood Pressure 100/57 L Pulse Oximetry 97 02/12/21 20:40 02/12/21 20:41 02/12/21 22:00 Temperature Pulse Rate 120 H 107 H 99 Respiratory Rate Blood Pressure Pulse Oximetry 02/12/21 23:26 02/13/21 00:00 02/13/21 02:00 Temperature 36.6 C Pulse Rate 92 108 H 103 H Respiratory Rate 16 Blood Pressure 98/51 L Pulse Oximetry 98 02/13/21 03:09 Temperature 36.9 C Pulse Rate 88 Respiratory Rate 14 Blood Pressure 111/69 Pulse Oximetry 100 Intake/Output Intake/Output: Intake & Output 02/10/21 02/11/21 02/12/21 02/13/21 23:59 23:59 23:59 23:59 Intake Total 720 425 855 370 Output Total 600 0 400 350 Balance 120 425 455 20 Meds/Results Medications: Active Medications Generic Name Dose Route Start Last Admin Trade Name Freq PRN Reason Stop Dose Admin Acetaminophen 650 mg 02/11/21 16:16 02/12/21 00:15 Acetaminophen 325 Mg Tablet PO 650 mg Q6H PRN Administration Mild Pain (1-3) or Fever Hydrocodone Bitart/Acetaminophen 1 - 2 tab 02/06/21 21:13 02/13/21 05:56 Hydrocodone/Acetaminophen (*Crx) 5-325 Mg Tablet PO 2 tab Q6H PRN Administration Pain Rated
[2021-02-13] MEDS: ARIPiprazole 10 MG TABLET PO (09:44)
[2021-02-13] MEDS: methiMAzole 10 MG TAB PO ×3 (09:45→18:45)
[2021-02-13] MEDS: SOTALOL HCL 80 MG TABLET PO ×2 (09:45→22:59)
[2021-02-13] MEDS: SOTALOL HCL 40 MG TABLET PO ×2 (09:46→23:00)
[2021-02-13] MEDS: APIXABAN 5 MG TABLET PO ×2 (09:46→22:59)
[2021-02-13] MEDS: LORazepam (*CRX) 1 MG TABLET PO ×3 (09:48→22:59)
[2021-02-13 14:48] LABS: EDCOVIDSCREEN Positive (Negative)
--- NOTE | 2021-02-13 15:37 | PM.IMPN ---
Progress Note: A&P Assessment and Plan (1) Adynamic ileus: Code(s): K56.0 - Paralytic ileus Status: Acute (2) Anemia: Qualifiers: Anemia type: unspecified type Qualified Code(s): D64.9 - Anemia, unspecified Code(s): D64.9 - Anemia, unspecified Status: Acute (3) Acute hypokalemia: Code(s): E87.6 - Hypokalemia Status: Acute (4) Atrial fibrillation with rapid ventricular response: Code(s): I48.91 - Unspecified atrial fibrillation Status: Acute (5) Thyrotoxicosis: Code(s): E05.90 - Thyrotoxicosis, unspecified without thyrotoxic crisis or storm Status: Acute Additional Plan # AFib with RVR -rate control on diltiazem 60 mg q.12 hours, sotalol 120 mg q.12 hours -anticoagulation on Eliquis -RVR secondary to thyrotoxicosis -cardiology would like to keep current regimen follow-up in 2-3 weeks outpatient, recommendation to follow-up with endocrinology for thyroid toxicosis # thyrotoxicosis -continue methimazole 10 mg t.i.d. -patient will need outpatient endocrine follow-up # fever, stable -yesterday patient had a fever, infectious workup negative -patient received Tylenol, now afebrile -may be related to thyrotoxicosis -he does not have signs of serotonin syndrome despite increasing Abilify dose, only symptom is fever -incidental finding of Gram-positive cocci x1 in bottle, likely contaminant, no more fevers, held off on antibiotics # COVID-19 positive test -patient is not having any symptoms of COVID-19 however he does have AFib with RVR which can be seen with COVID-19. He has no respiratory symptoms. No diarrhea. He did have that fever couple days ago that was unexplained and resolved spontaneously. Will get PCR test. The reason for the COVID test was for placement in care home # schizophrenia -patient is very confused, was wandering the hallways -patient home medication includes Abilify 5 mg -he is doing well on the increased Abilify dose 10 mg, p.r.n. Zyprexa available (has not needed Zyprexa for last 2 days) -no inpatient psychiatrist available for consultation -hopefully this is all secondary to thyrotoxicosis and will resolve -patient will need psychiatry follow-up for the increased Abilify dose # incision hernia of anterior abdominal wall without obstruction or gangrene -Dr. Molina surgeon. Well-healed. will need to week outpatient follow-up Dr. Molina Diet: Low residue diet DVT prophylaxis: Eliquis Code status: Full code Disposition: Pending COVID PCR test, movedto [facility] Subjective Date/time seen: 02/13/21 15:37 Patient seen examined. He is doing well no new problems. Patient is currently on sotalol 120 mg b.i.d. when previously was on 80 mg b.i.d.. He has been watched for 5 days with no problems. We will keep at this current dose as well as the diltiazem 60 mg b.i.d.. Cardiology believes his thyrotoxicosis is the main etiology for his AFib, so once that is resolved that his AFib will be better controlled. Cardiology would follow-up in 2-3 weeks post discharge. Patient will need endocrinology follow-up for the thyrotoxicosis. [facility]. His rapid COVID-19 test was positive, no obtaining PCR test for COVID-19. Patient to be moved to [facility] for now. Patient denies fever, chills, nausea, vomiting, diarrhea, chest pain. Nurse reported to me that patient had fallen afternoon with no bruising or deficits. Review of Systems Review of Systems: All systems reviewed & are unremarkable except as noted in HPI and below Exam Narrative: - GENERAL: Male in no acute distress lying comfortably in bed - EYES: EOMI. Anicteric. - HENT: Dry oral mucosa. - LUNGS: Clear to auscultation bilaterally, no wheezing, rhonchi, or rales. - CARDIOVASCULAR: Irregularly irregular, tachycardic. No murmurs auscultated - ABDOMEN: Soft, non-tender and non-distended. Vertical incision mid abdomen. - EXTREMITIES: No ed
[2021-02-13 21:29] LABS: Glucose Point of Care 106 mg/dl (65-105)
[2021-02-14] VITALS (10 sets, daily range): BP systolic 120–134; BP diastolic 50–100; PULSE 62–133; RESP 18–28; TEMP 35.4–37.8; O2SAT 98–100
[2021-02-14] MEDS: ACETAMINOPHEN 325 MG TABLET 650 MG PO (00:59)
[2021-02-14 05:33] LABS: Hematocrit 26.4 % (42.0-52.0); Hemoglobin 8.2 g/dL (14.0-18.0); Mean Corpuscular HGB Conc 31.1 g/dl (32-36); Mean Corpuscular Hemoglobin 27.4 pg (26-34); Mean Corpuscular Volume 88.3 fl (80-100); Mean Platelet Volume 11.2 fl (7.4-10.4); Platelet Count Result 384 k/mm3 (150-375); Red Blood Count 2.99 M/mm3 (4.6-6.20); Red Cell Distribution Width 16.2 % (11.5-14.5); White Blood Count 6.2 K/mm3 (4.5-10.0)
[2021-02-14] MEDS: LORazepam (*CRX) 1 MG TABLET PO ×2 (05:43→12:41)
[2021-02-14 05:52] LABS: Anion Gap 12 mmol/L (8-16); Blood Urea Nitrogen 42 mg/dL (9-20); Calcium 8.1 mg/dL (8.4-10.2); Carbon Dioxide 21 mmol/L (22-30); Chloride 108 mmol/L (98-107); Estimated CRCL calculation 73 ml/min; Estimated Glomerular Filt Rate > 60; Glucose 127 mg/dL (65-110); Potassium 3.7 mmol/L (3.4-5.0); Sodium 141 mmol/L (137-145)
[2021-02-14] MEDS: ARIPiprazole 10 MG TABLET PO (08:37)
[2021-02-14] MEDS: SOTALOL HCL 80 MG TABLET PO (08:38)
[2021-02-14] MEDS: SOTALOL HCL 40 MG TABLET PO (08:38)
[2021-02-14] MEDS: APIXABAN 5 MG TABLET PO (08:38)
[2021-02-14] MEDS: methiMAzole 10 MG TAB PO ×2 (08:38→12:41)
--- NOTE | 2021-02-14 10:24 | PM.PNCARD ---
Progress Note: A&P Assessment and Plan (1) Atrial fibrillation with rapid ventricular response: Code(s): I48.91 - Unspecified atrial fibrillation <JACKIE Singh - Last Filed: 02/14/21 13:01> Status: Acute <JACKIE Singh - Last Filed: 02/14/21 13:01> Assessment and Plan: History of paroxysmal atrial fibrillation on sotalol 80 mg twice daily at home. Recurrent AFib RVR postop recently then recurrence of Afib RVR during this admission on sotalol. Sotalol has been increased to 120mg p.o. b.i.d. Remains in afib with rate reasonably controlled generally. Continue sotalol 120mg b.i.d Continue diltiazem 60 mg p.o. b.i.d. Continue a/c with apixaban 5mg b.i.d. Expect Improvement/resolution of his AFib with improvement in his hyperthyroidism. <JACKIE Singh - Last Filed: 02/14/21 13:01> (2) Hypertension: Code(s): I10 - Essential (primary) hypertension <JACKIE Singh - Last Filed: 02/14/21 13:01> Status: Chronic <JACKIE Singh - Last Filed: 02/14/21 13:01> Assessment and Plan: Currently at goal <JACKIE Singh - Last Filed: 02/14/21 13:01> (3) Encounter for monitoring sotalol therapy: Code(s): Z51.81 - Encounter for therapeutic drug level monitoring; Z79.899 - Other director of instruction (current) drug therapy <JACKIE Singh - Last Filed: 02/14/21 13:01> Status: Acute <JACKIE Singh - Last Filed: 02/14/21 13:01> Assessment and Plan: Sotalol recently increased to 120mg b.i.d. QTC remained stable. He is now had greater than 5 doses of his increased dose. Daily BMP <JACKIE Singh - Last Filed: 02/14/21 13:01> (4) NSVT (nonsustained ventricular tachycardia): Code(s): I47.2 - Ventricular tachycardia <JACKIE Singh - Last Filed: 02/14/21 13:01> Status: Acute <JACKIE Singh - Last Filed: 02/14/21 13:01> Assessment and Plan: Several short, 5-6 runs VT noted on telemetry this morning. K+ 3.7, give 20 mEq KCL p.o. now Check magnesium level Continue to monitor on telemetry <JACKIE Singh - Last Filed: 02/14/21 13:01> Additional Plan Attending addendum: I agree with the above documentation and plan of care as outlined. <Eddi Mars MD - Last Filed: 02/14/21 15:30> Subjective Date/time seen: 02/14/21 10:24 <JACKIE Singh - Last Filed: 02/14/21 13:01> Interval history: Cardiology follow up for atrial fibrillation Date of service 02/08/2021: Feels okay today. He has some concerns regarding missing a court date soon. Remains in atrial fibrillation with rate mostly in the 120's. He is asymptomatic with this. Date of service 02/08/2021: Telemetry continues to show persistent atrial fib heart rate about 110 most of the time. Taking sotalol 120 mg q.12 as well as some diltiazem again now. Long discussion with the patient about the long-term plans to try to restore sinus rhythm once he is no longer hyperthyroid. Date of service [id number]: Feels about the same today. Once again telemetry is showing persistent AFib with a rate generally between 110 and 120bpm. Date of service 02/11/2021: Patient is arousable but very lethargic and drowsy. He offers no cardiovascular complaints. Telemetry continues to show AFib with relatively good heart rate control. Date of service 02/14/2020: Patient is resting comfortably this morning no cardiovascular complaints. Yesterday noted to be febrile and was incoherent in the afternoon. Date of service 02/14/2021: Became febrile yesterday. Rapid COVID was sent and came back positive. COVID PCR is pending. He is incoherent this morning, does not answer my questions. Lying flat in bed and appears relatively comfortable. <Nichole Maza APN-[facility] - Last Filed: 02/14/21 13:01> Review of Systems Constitutional: Constitutional: Reports weakn
--- NOTE | 2021-02-14 11:39 | PM.IMPN ---
Progress Note: A&P Assessment and Plan (1) Adynamic ileus: Code(s): K56.0 - Paralytic ileus Status: Acute (2) Anemia: Qualifiers: Anemia type: unspecified type Qualified Code(s): D64.9 - Anemia, unspecified Code(s): D64.9 - Anemia, unspecified Status: Acute (3) Thyrotoxicosis: Code(s): E05.90 - Thyrotoxicosis, unspecified without thyrotoxic crisis or storm Status: Acute (4) Acute respiratory alkalosis: Code(s): E87.3 - Alkalosis Status: Acute (5) Gastroenteritis: Code(s): K52.9 - Noninfective gastroenteritis and colitis, unspecified Status: Acute (6) Atrial fibrillation with rapid ventricular response: Code(s): I48.91 - Unspecified atrial fibrillation Status: Acute Additional Plan # AFib with RVR -rate control on diltiazem 60 mg q.12 hours, sotalol 120 mg q.12 hours -anticoagulation on Eliquis -RVR secondary to thyrotoxicosis -cardiology would like to keep current regimen follow-up in 2-3 weeks outpatient, recommendation to follow-up with endocrinology for thyroid toxicosis # thyrotoxicosis -continue methimazole 10 mg t.i.d. -patient will need outpatient endocrine follow-up # COVID-19 positive test, awaiting PCR test -patient is not having any symptoms of COVID-19 however he does have AFib with RVR which can be seen with COVID-19. He has no respiratory symptoms. No diarrhea. He did have that fever couple days ago that was unexplained and resolved spontaneously. COVID 19 PCR pending. The reason for the COVID test was for placement in [facility] -on room air, holding off on steroids and remdesivir, awaiting PCR test result # fever, resolved -yesterday patient had a fever, infectious workup negative -patient received Tylenol, now afebrile -may be related to thyrotoxicosis -he does not have signs of serotonin syndrome despite increasing Abilify dose, only symptom is fever -incidental finding of Gram-positive cocci x1 in bottle, likely contaminant, no more fevers, held off on antibiotics # schizophrenia -patient is very confused, was wandering the hallways -patient home medication includes Abilify 5 mg -he is doing well on the increased Abilify dose 10 mg, p.r.n. Zyprexa available -no inpatient psychiatrist available for consultation -hopefully this is all secondary to thyrotoxicosis and will resolve -patient will need psychiatry follow-up for the increased Abilify dose # incision hernia of anterior abdominal wall without obstruction or gangrene -Dr. Molina surgeon. Well-healed. will need to week outpatient follow-up Dr. Molina Diet: Low residue diet DVT prophylaxis: Eliquis Code status: Full code Disposition: Pending COVID PCR test, moved to [facility] Subjective Date/time seen: 02/14/21 11:39 Patient seen and examined. He is very lethargic this morning. His rapid COVID test was positive, awaiting the PCR test. Discussed with chiropractic care for disposition if the test is positive then we have a facility can go to his he is on room air and does not require any COVID-19 treatment other than supportive care. It is tested negative [facility] Patient otherwise needs cardiology follow-up while on the sotalol 120 mg b.i.d. and diltiazem to 60 mg b.i.d.. He needs endocrine follow-up for his thyrotoxicosis. He needs general surgery follow-up with Dr. Molina for his abdominal surgery postop follow-up. He needs psychiatry follow-up with his change in Abilify to 10 mg dosing. Review of Systems Review of Systems: ROS unobtainable: Yes unobtainable due to mental status Exam Narrative: - GENERAL: Frail, thin, male in no acute distress lying comfortably in bed - EYES: EOMI. Anicteric. - HENT: Dry oral mucosa. - LUNGS: Clear to auscultation bilaterally, no wheezing, rhonchi, or rales. - CARDIOVASCULAR: Irregularly irregular, tachycardic. No murmurs auscultated - ABDOMEN: Soft, non-tender and non-distended. Vertical i
[2021-02-14 12:54] LABS: Magnesium 2.6 mg/dL (1.6-2.3)
[2021-02-14 13:42] LABS: SARS-CoV-2 RNA PCR Positive
--- NOTE | 2021-02-14 15:44 | PM.DS ---
DS: Admitting Diagnosis Discharge Date 02/14/2021 Admitting Diagnosis AFib with RVR, thyrotoxicosis, incisional hernia DS: Discharge Diagnosis Discharge Diagnosis (1) NSVT (nonsustained ventricular tachycardia): Code(s): I47.2 - Ventricular tachycardia Status: Acute (2) Adynamic ileus: Code(s): K56.0 - Paralytic ileus Status: Acute (3) Thyrotoxicosis: Code(s): E05.90 - Thyrotoxicosis, unspecified without thyrotoxic crisis or storm Status: Acute (4) Anemia: Qualifiers: Anemia type: unspecified type Qualified Code(s): D64.9 - Anemia, unspecified Code(s): D64.9 - Anemia, unspecified Status: Acute (5) Acute respiratory alkalosis: Code(s): E87.3 - Alkalosis Status: Acute (6) Acute hypokalemia: Code(s): E87.6 - Hypokalemia Status: Acute (7) Gastroenteritis: Code(s): K52.9 - Noninfective gastroenteritis and colitis, unspecified Status: Acute (8) Atrial fibrillation with rapid ventricular response: Code(s): I48.91 - Unspecified atrial fibrillation Status: Acute (9) Incisional hernia: Qualifiers: Obstruction and gangrene presence: without obstruction or gangrene Qualified Code(s): K43.2 - Incisional hernia without obstruction or gangrene Code(s): K43.2 - Incisional hernia without obstruction or gangrene Status: Chronic (10) Paroxysmal atrial fibrillation with rapid ventricular response: Code(s): I48.0 - Paroxysmal atrial fibrillation Status: Acute DS: Summary Hospital Course Reason for hospitalization: AFib with RVR, thyrotoxicosis Hospital Course: She patient is a 55-year-old male past medical history of paroxysmal atrial fibrillation, pulmonary embolism, hyperthyroidism, schizophrenia, perforated duodenal ulcer [facility] dys[facility] and chest pressure. Patient had post incisional hernia repair on 01/26/[address] Molina. He was found to have thyrotoxicosis with elevated T4-T3 and TSH. He was in AFib with RVR which cardiology please secondary to thyrotoxicosis was were improve as the thyroid is treated. For his thyrotoxicosis his home methimazole 5 mg daily was increased to 10 mg t.i.d. during the duration of his hospitalization for one week, will be discharged back on 10 mg of methimazole daily and follow-up with Endocrine outpatient. For the AFib he has been fluctuating from 70s to 120s and his regimen of diltiazem and sotalol has been changed to sotalol 120 mg b.i.d. and diltiazem 60 mg b.i.d.. He is on anticoagulation with Eliquis 5 mg b.i.d. for the Afib. For his increased anxiety with and worsening schizophrenia, so his Abilify has been increased from 5 mg to 10 mg and he will need psychiatry follow-up outpatient. He has been doing well on the 10 mg dosing. For his postsurgical follow-up he needs a follow-up with Dr. Molina in 2 weeks after discharge. In summation patient needs endocrinology follow-up as soon as possible, Cardiology follow-up in 2-3 weeks, psychiatric follow-up as soon as possible, surgical follow-up in 2 weeks. New prescriptions for sotalol, diltiazem, methimazole, Abilify given. Prior to discharge he was found to be COVID-19 positive which may also be leading to his AFib with RVR, with no respiratory symptoms or GI symptoms he is being managed with conservative therapy. He had 1 fever a few days prior to discharge which resolved spontaneously. Patient to be discharged to detention facility in [place] and for 10 days. Patient needs follow-up thyroid studies and follow-up with his endocrine. At time of discharge patient's vitals are stable, labs stable, patient is stable for discharge. Status at Discharge Cognitive/behavioral status at discharge: Schizophrenia pretty significant, at baseline I believe Functional status at discharge: independent ambulation Overall status at discharge: patient is progressing back to baseline Time Spent with
== END 2021-02-14 18:55 | DRG 201 ==
LOC: ANHED 12:53 → ANHIMU 16:02
PROVIDERS: Nurse Practitioner; Physician Assistant; Admitting Provider Family Medicine; Emergency Provider Emergency Medicine; Visit Provider Student in an Organized Health Care Education/Training Program
DX: I48.19 Other persistent atrial fibrillation (principal); E05.90 Thyrotoxicosis, unspecified without thyrotoxic crisis or storm; U07.1 COVID-19; F20.9 Schizophrenia, unspecified; I47.2 Ventricular tachycardia; K52.9 Noninfective gastroenteritis and colitis, unspecified; E87.6 Hypokalemia; E87.3 Alkalosis; D64.9 Anemia, unspecified; F41.9 Anxiety disorder, unspecified; K56.0 Paralytic ileus; I10 Essential (primary) hypertension; E78.5 Hyperlipidemia, unspecified; Z98.890 Other specified postprocedural states; Z86.711 Personal history of pulmonary embolism; Z79.01 Long term (current) use of anticoagulants; Z87.11 Personal history of peptic ulcer disease; Z90.49 Acquired absence of other specified parts of digestive tract; Z87.891 Personal history of nicotine dependence; Z51.81 Encounter for therapeutic drug level monitoring; Z79.899 Other long term (current) drug therapy
CPT/HCPCS: 36415; 36600; 71045; 71046; 71275; 74177; 76536; 80048; 80053; 80076; 82805; 82948; 83519; 83605; 83690; 83735; 83880; 84145; 84439; 84443; 84445; 84481; 84484; 85014; 85018; 85025; 85027; 85380; 85610; 85730; 87040; 87077; 87186; 87426; 93005; 93880; 93970; 96365; 96366; 99291; A9270; C9803; J0131; J2060; J7030; Q9967; U0003; U0005